=== PATIENT | female | born 1975 | race Caucasian/White ===

== ENCOUNTER → 2023-04-30 | Outpatient (CLI) | payer OTHER, SELFPAY ==
--- NOTE | 2023-04-30 10:53 | US_ITS ---
INDICATION: NAUSEA, GASTROENTERITIS EXAMINATION: Ultrasound US Abdomen Complete TECHNIQUE: Monson-scale and color Doppler imaging was performed of the abdomen. COMPARISON: No relevant prior comparison study available FINDINGS: Limited visualization due to patient body habitus and overlying bowel gas. LIVER: There is moderate increased echogenicity. The liver is prominent in size measuring about 18.2 cm in length. There is suboptimal visualization of the liver. The portal vein is patent with normal hepatopedal flow. No focal hepatic lesion. No intrahepatic biliary ductal dilatation. There is no free fluid. GALLBLADDER AND BILIARY TREE: Status post cholecystectomy. The proximal common bile duct measures 6 mm, which is within normal limits for the patient''s age. SONOGRAPHIC POWERS''S SIGN: Not assessed. PANCREAS: The pancreas is somewhat obscured by bowel gas and not well visualized. SPLEEN: The spleen is normal in size measuring about 10 cm in length and homogeneous in echotexture. KIDNEYS: There is no hydronephrosis. No shadowing calculus, focal lesion, or perinephric collection is demonstrated. The right kidney measures about 11 cm in length. The renal cortex measures 1.3 cm. There is a cyst in the upper pole of the right kidney measuring about 1.5 cm. The left kidney measures 12 cm in length. The renal cortex measures 1.7 cm. No evidence of hydronephrosis. VESSELS: No evidence of abdominal aortic aneurysm. The proximal abdominal aorta measures about 2.2 cm in transverse diameter. The IVC is patent. There is a questionable hypoechoic mass in the aditya hepatis region measuring about 3.7 cm which could represent prominent node. Bowel loops less likely but possible. US/Abdomen Complete IMPRESSION: 1. Fatty infiltration of the liver. 2. Status post cholecystectomy. 3. Questionable hypoechoic mass in the aditya hepatis lesion could represent prominent node or less likely bowel loop. Further evaluation with CT scan of the abdomen with contrast might be of value. Electronically Signed: Jj Sarah MD at 15:53 EST ,
== END | disposition home or self-care (01) ==
PROVIDERS: Referring Provider Internal Medicine; Visit Provider Internal Medicine
DX: K52.9 Noninfective gastroenteritis and colitis, unspecified (principal); R11.0 Nausea; K21.9 Gastro-esophageal reflux disease without esophagitis; K22.70 Barrett's esophagus without dysplasia
CPT/HCPCS: 76700

== ENCOUNTER → 2023-05-11 | Outpatient (CLI) | payer OTHER, SELFPAY ==
[2023-05-11 13:44] LABS: Absolute Lymphocyte Count 4.81 X10^3/uL (0.83-4.51); Absolute Neutrophil Count 7.8 X10^3/uL (2.0-7.7); Basophil# 0.16 X10^3/uL; Basophil% 1.2 % (0-1); Eosinophil# 0.31 X10^3/uL; Eosinophils% 2.2 % (0-5); Hemoglobin 15.2 g/dL (12.0-15.0); Lymphocyte # 4.81 X10^3/ul (0.83-4.51); Lymphocyte % 34.8 % (19-41); Mean Corp Hgb Conc 33.8 g/dL (32-36); Mean Corpuscular Hgb 30.5 pg (27.0-32.0); Mean Corpuscular Volume 90.2 fL (81-99); Mean Platelet Vol. 11.3 fl (6.2-12.0); Monocyte# 0.64 X10^3/uL; Monocyte% 4.6 % (0-10); NRBC Flagged by Analyzer 0 % (0-5); Neutrophil % 56.5 % (47-70); Platelet Count 324 K/mm3 (150-450); RBC Distribution Width CV 13.2 % (11.6-14.6); Red Blood Count 4.99 M/mm3 (4.2-5.4); White Blood Count 13.8 K/mm3 (4.4-11.0)
[2023-05-11 14:11] LABS: ALB/GLOB Ratio 0.8 RATIO (0.9-2.4); AST(SGOT) 74 U/L (15-37); Alanine Aminotransfer ALT/SGPT 56 U/L (13-56); Albumin, Serum 3.5 g/dL (3.2-5.0); Alkaline Phosphatase 153 U/L (45-117); Anion Gap 14 (5-15); BUN 10 mg/dL (7-18); BUN/Creat Ratio 10.2 RATIO (10-20); Calcium,Total 9.5 mg/dL (8.5-10.1); Chloride 102 mmol/L (98-107); Creatinine, Serum 0.98 mg/dL (0.55-1.02); EST Glomerular Filtration Rate 64 mL/min (>60); Est Glom Filt Rate - Afr Amer 77 mL/min (>60); Globulin 4.2 g/dL (2.2-4.2); Glucose 293 mg/dL (74-106); Potassium 4.1 mmol/L (3.5-5.1); Protein, Total 7.7 g/dL (6.4-8.2); Sodium Level 137 mmol/L (136-145)
== END | disposition home or self-care (01) ==
PROVIDERS: Referring Provider Internal Medicine; Visit Provider Internal Medicine
DX: K21.9 Gastro-esophageal reflux disease without esophagitis (principal); K52.9 Noninfective gastroenteritis and colitis, unspecified; R11.0 Nausea; K22.70 Barrett's esophagus without dysplasia
CPT/HCPCS: 36415; 80053; 85025

== ENCOUNTER → 2023-06-30 | Outpatient (CLI) | payer OTHER, SELFPAY ==
--- NOTE | 2023-06-30 08:29 | CT_ITS ---
EXAM: CT ABDOMEN AND PELVIS WITH INTRAVENOUS CONTRAST CLINICAL INDICATION: RUQ PAIN TECHNIQUE: Helically acquired images were obtained of the abdomen and pelvis with intravenous contrast. CTDIvol = ( 16.84 ) mGy, DLP = ( 1272.91 ) mGycm This CT exam was performed using one or more of the following dose reduction techniques: automated exposure control, adjustment of the mA and/or kV according to patient size, and/or use of iterative reconstruction technique. CONTRAST: Oral and amp; IV Readi-CAT and amp; 100mL Isovue-300 COMPARISON: No relevant prior studies available. FINDINGS: LOWER THORAX: Unremarkable. Lung bases are clear. No cardiomegaly. No significant pericardial effusion. ABDOMEN: LIVER: Hepatic steatosis with no focal hepatic lesions. GALLBLADDER AND BILE DUCTS: Prior cholecystectomy. No intra- or extrahepatic biliary ductal dilation. PANCREAS: Unremarkable. No focal cystic or solid mass. SPLEEN: Unremarkable. Normal size without focal cystic or solid mass. ADRENALS: Unremarkable. No nodules. KIDNEYS AND URETERS: Small exophytic cyst of the right upper renal pole. 5 mm left lower renal pole calyceal calculus is nonobstructing. No other renal abnormalities. STOMACH AND BOWEL: Distal colonic diverticulosis but no acute diverticulitis or colitis. No bowel obstruction. PELVIS: APPENDIX: No evidence of acute appendicitis. BLADDER: Unremarkable. REPRODUCTIVE: Unremarkable as visualized. No mass. ABDOMEN and PELVIS: INTRAPERITONEAL SPACE: Unremarkable. No free air or free fluid. BONES/JOINTS: Degenerative changes of the pelvis and spine. No unusual lytic or sclerotic lesions of bone. SOFT TISSUES: Overlying soft tissues are unremarkable. No discrete abdominal or pelvic wall hernia. VASCULATURE: Unremarkable. Abdominal aorta is non-dilated. LYMPH NODES: Unremarkable. No enlarged lymph nodes. CT/Abdomen/Pelvis WITH Contrast IMPRESSION: 1. 5 mm left lower renal pole calyceal calculus is nonobstructing. 2. No acute disease. 3. Ancillary findings as above. Electronically Signed: Parrish Del Castillo MD at 5:03 EDT ,
[2023-06-30 09:00] LABS: CREATININE FINGERSTICK < 1.0 mg/dL (0.55-1.02); EGFR FINGERSTICK > 60.0000 mL/min (>60)
== END | disposition home or self-care (01) ==
LOC: CT 08:27
PROVIDERS: PCP Internal Medicine; Referring Provider Internal Medicine; Visit Provider Internal Medicine
DX: R10.84 Generalized abdominal pain (principal); R10.11 Right upper quadrant pain; K52.9 Noninfective gastroenteritis and colitis, unspecified
CPT/HCPCS: 74177; Q9967

== ENCOUNTER 2024-01-17 11:09 | Emergency (ER) | payer OTHER, SELFPAY ==
[2024-01-17 11:10] VITALS: BP 156/110; PULSE 85; RESP 16; TEMP 35.9; O2SAT 99; BMI 42.5
--- NOTE | 2024-01-17 11:41 | RAD_ITS ---
EXAM: XR CHEST, 2 VIEWS CLINICAL INDICATION: cough TECHNIQUE: Frontal and lateral views of the chest. COMPARISON: No relevant prior studies available. FINDINGS: LUNGS AND PLEURAL SPACES: Unremarkable. No consolidation or edema. No pneumothorax. No effusion. HEART: Unremarkable. Cardiac silhouette not enlarged. MEDIASTINUM: Central airways and mediastinal contour are unremarkable. BONES/JOINTS: Moderate old anterior compression fracture of the upper T11 vertebral body and minimal old anterior wedging of the T12 superior endplate. SOFT TISSUES: Unremarkable. RAD/Chest PA and Lateral IMPRESSION: 1. No acute findings in the chest. 2. Moderate old anterior wedge compression fracture of the upper T11 vertebral body and minimal old anterior wedging of the T12 superior endplate. Electronically Signed: Stewart Barboza MD at 12:35 EST ,
--- NOTE | 2024-01-17 11:41 | RAD_ITS ---
EXAM: XR RIGHT FOOT COMPLETE, 3 OR MORE VIEWS CLINICAL INDICATION: Right foot swelling due to wound. History of psoriasis and diabetes. TECHNIQUE: Frontal, lateral and oblique views of the right foot. COMPARISON: No relevant prior studies available. FINDINGS: BONES/JOINTS: Small posterior plantar calcaneal spur. No acute fracture. No subluxation. Normal alignment. Preservation of the joint space. No sclerotic or destructive changes observed. SOFT TISSUES: Soft tissue swelling around the forefoot. No radiopaque foreign body. RAD/Foot min 3 Views IMPRESSION: No acute osseous abnormality of the right foot. Electronically Signed: Stewart Barboza MD at 12:34 EST ,
--- NOTE | 2024-01-17 11:48 | EDS_ITS ---
HPI <JAMEEL Johnson - Last Filed: 01/17/24 13:14> History of Present Illness Chief Complaint: Lower Extremity Injury Narrative Narrative: Patient is a 48-year-old female with history of pustule psoriasis, gout, obesity, diabetes who takes insulin presenting to the emergency department for multiple complaints. Patient states that her pustular psoriasis is getting worse on the palm of her hands as well as the soles of her feet. She also has swelling and pain to the right great toe. Patient does have history of recent trauma to her foot with broken fourth and fifth toes. She states that the swelling is getting worse. She also is concerned that she has a cough that is not going away as well as her right ear pain. She denies any nausea or vomiting. [facility] <JAMEEL Johnson - Last Filed: 01/17/24 13:14> [facility] Medical History (Updated 01/19/24 @ 12:[address] Casimiro Kelly MD) Cellulitis Chest pain Psoriasis GERD (gastroesophageal reflux disease) Liver disease Head ache Gout Asthma Arthritis Home Medications ?Medication ?Instructions ?Recorded ?Last Taken ?Type insulin glargine 100 unit/mL (3 20 unit (0.2 mL) subcut ONCE #18 mL 06/16/23 Unknown Rx mL) subcutaneous pen (Lantus Solostar U-100 Insulin) lorazepam 0.5 mg tablet 0.5 mg PO DAILY PRN anxiety 06/16/23 Unknown History pen needle, diabetic 31 gauge x #100 ea 06/16/23 Unknown Rx 1/4 (CareFine Pen Needle) compress.stocking,knee,reg,lrg #2 ea 07/23/23 Unknown Rx tirzepatide 7.5 mg/0.5 mL 7.5 mg (0.5 mL) subcut QWEEK #2 mL 12/23/23 Unknown Rx subcutaneous pen injector (Mounjaro) tirzepatide 5 mg/0.5 mL 5 mg (0.5 mL) subcut QWEEK #2 mL 01/12/24 Unknown Rx subcutaneous pen injector (Mounjaro) colchicine 0.6 mg tablet 0.6 mg PO DAILY #4 tabs 01/17/24 Unknown Rx doxycycline hyclate 100 mg capsule 100 mg PO BID #14 caps 01/17/24 Unknown Rx cephalexin 500 mg tablet 500 mg PO TID #21 tabs 01/19/24 Unknown Rx methylprednisolone 4 mg tablets in See Rx Instructions PO PER PKG DIR 01/19/24 Unknown Rx a dose pack (Medrol (Jony)) #21 tabs Allergy/AdvReac Type Severity Reaction Status Date / Time empagliflozin (From Allergy Severe Vomiting Verified 01/19/24 09:53 Jardiance) metformin AdvReac Severe Kidney Verified 01/19/24 09:53 Stones/High Uric Acid semaglutide (From Rybelsus) AdvReac Severe Nausea Verified 01/19/24 09:53 Family History Mother Arthritis Heart disease Psoriasis Cancer lymphoma, Hypercholesterolemia Hypertension Depression Grandmother Arthritis Heart disease Hypercholesterolemia Hypertension Depression Psychiatric care Mental disorder Grandmother Diabetes type 2 Grandfather Depression Mental disorder Psychiatric care Other Anxiety Asthma Autoimmune disorder Liver disease Suicide attempt Surgical History H/O skin graft History of cholecystectomy Social History household members: none housing: house current occupational status: employed 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 Positive right ear pain Cardiovascular: Negative for any chest pain, tightness, palpitations Respiratory: Negative for any sputum production, hemoptysis, dyspnea, dyspnea on exertion, orthopnea. Positive for cough Gastrointestinal: Negative for any abdominal pain, nausea, vomiting, diarrhea, constipation, blood in stool, blood in vomit : Negative for any urinary frequency, dysuria, retention, blood in urine. Positive right great toe pain Muscle skeletal: Negative for any neck pain, back pain Neurological: Negative for any headache, syncope, dizziness Skin: Negative for any itching, abrasions, lacerations. Positive for rash, psoriasis to palms of hands, soles of feet Psychiatric: Negative for any depression, anxiety, stress, suicidal ideation, homicidal ideation Hematologic: Negative for any excessive bruising, easy bleeding EXAM <JAMEEL Johnson - Last Filed: 01/17/24 13:14> Physical Exam Narrative Exam Narrative: Vital signs reviewed. HEET: Head normocephalic atraumatic, right TM is slightly erythematous however no bulging. Left TM normal. Posterior pharynx is clear, moist mucous membranes. Nares clear bilaterally. Neck: Supple with no lymphadenopathy or tenderness. No signs of meningismus. Cardiac: Regular rate and rhythm no murmurs gallops or rubs, equal peripheral pulses bilaterally. Respiratory: Lungs clear to auscultation bilaterally. No chest tenderness. Abdomen: Soft, nontender, nondistended. No abdominal bruit or pulsatile masses. No hepatosplenomegaly Extremities: Patient does have some erythema to the right great toe, patient d oes have the pustular psoriasis to both feet, patient is have pain on palpation. +2 pedal pulse. Right foot is more edematous. Pain on palpation. Active full range of motion of all extremities. Neuro: Cranial nerves II through XII intact, no focal neurological deficits. Skin: Clean dry and intact with no rash, purpura, petechiae. Positive for pustule psoriasis to both feet, both hands Backs/flank: No CVA tenderness, no midline spinal tenderness, no deformity. Psych: Normal mood and affect. No SI, HI or acute psychosis. Const Vital Signs: 01/17/24 11:10 Temperature 96.7 F L Temperature Source Temporal Pulse Rate 85 Respiratory Rate 16 Blood Pressure 156/110 H Blood Pressure Mean 125 Pulse Ox 99 Oxygen Delivery Method Room Air Positive well nourished and well developed General Appearance ED: well developed <Dr. Gege Church DO - Last Filed: 01/20/24 00:19> Physical Exam Const Vital Signs: 01/17/24 11:10 Temperature 96.7 F L Temperature Source Temporal Pulse Rate 85 Respiratory Rate 16 Blood Pressure 156/110 H Blood Pressure Mean 125 Pulse Ox 99 Oxygen Delivery Method Room Air MDM <Miguel Angel Diaz, [facility] - Last Filed: 01/17/24 13:14> [facility] Lab Data Labs: Laboratory Results - last 24 hr 01/17/24 12:02 WBC 15.3 H RBC 4.37 Hgb 13.0 Hct 39.3 MCV 89.9 MCH 29.7 MCHC 33.1 RDW Std Deviation 44.1 H RDW Coeff of Dale 13.5 Plt Count 349 MPV 9.9 Immature Gran % (Auto) 1.400 H Neut % (Auto) 68.2 Lymph % (Auto) 23.4 [place] % (Auto) 4.6 Eos % (Auto) 1.5 Baso % (Auto) 0.9 Absolute Neuts (auto) 10.4 H Absolute Lymphs (auto) 3.57 Nucleated RBC % 0 ESR 11 Sodium 139 Potassium 4.1 Chloride 109 H Carbon Dioxide 25.0 Anion Gap 6 BUN 13 Creatinine 1.21 H Estim Creat Clear Calc 61.03 Est GFR (MDRD) Af Amer 60 Est GFR (MDRD) Non-Af 50 L BUN/Creatinine Ratio 10.7 Glucose 134 H Calcium 9.6 C-React Prot Ext Range 11.30 H Radiography Diagnostic Testing: Clinical Impression(s) from Imaging Studies Chest X-Ray 01/17/24 11:41 IMPRESSION: 1. No acute findings in the chest. 2. Moderate old anterior wedge compression fracture of the upper T11 vertebral body and minimal old anterior wedging of the T12 superior endplate. Electronically Signed: Stewart Barboza MD at 12:35 EST , Foot X-Ray 01/17/24 11:41 IMPRESSION: No acute osseous abnormality of the right foot. Electronically Signed: Stewart Barboza MD at 12:34 EST , Treatment and Re-Evaluation :: Differential diagnosis includes however is not limited to: Psoriasis, cellulitis, gout, pneumonia, otitis externa, elevated blood sugar Patient appears generally well, vital signs are stable, patient is nontoxic- appearing. Presenting to the emergency department multiple complaints. Patient is here for her psoriasis on her feet and hands, erythema to the right great toe, cough as well as right ear pain. Patient will receive x-rays of the chest, right foot. Patient was using basic laboratory values CBC, BMP as well as CRP and sed rate. All radiologic examinations were read, reviewed by the emergency department attending. From these reads, a plan of care will be put in place. Patient CBC does show a leukocytosis with a white blood count of 15.3, however patient states this is chronic for her, patient's chemistries show creatinine 1.2, glucose 134, CRP is 11.3 which would be elevated with gout, as well as a se d rate that is negative. Patient's chest x-ray showed no acute process. Foot x-ray shows no acute osseous abnormality. At this time, patient given 1.2 mg of colchicine here, she will be given 0.6 mg for next 3 days. She will continue take NSAIDs. Patient will be given a watch and wait prescription of doxycycline. She will be given referrals to podiatry as well as dermatology. She is instructed to continue to follow-up. At this time, is no evidence of any deep tissue infection, osteomyelitis. Patient is agreeable with this plan, instructed return for any worsening symptoms, stable for discharge. <Dr. Gege Church, DO - Last Filed: 01/20/24 00:19> [facility] Lab Data Labs: Laboratory Results - last 24 hr 01/17/24 12:02 WBC 15.3 H RBC 4.37 Hgb 13.0 Hct 39.3 MCV 89.9 MCH 29.7 MCHC 33.1 RDW Std Deviation 44.1 H RDW Coeff of Dale 13.5 Plt Count 349 MPV 9.9 Immature Gran % (Auto) 1.400 H Neut % (Auto) 68.2 Lymph % (Auto) 23.4 [place] % (Auto) 4.6 Eos % (Auto) 1.5 Baso % (Auto) 0.9 Absolute Neuts (auto) 10.4 H Absolute Lymphs (auto) 3.57 Nucleated RBC % 0 ESR 11 Sodium 139 Potassium 4.1 Chloride 109 H Carbon Dioxide 25.0 Anion Gap 6 BUN 13 Creatinine 1.21 H Estim Creat Clear Calc 61.03 Est GFR (MDRD) Af Amer 60 Est GFR (MDRD) Non-Af 50 L BUN/Creatinine Ratio 10.7 Glucose 134 H Calcium 9.6 C-React Prot Ext Range 11.30 H Radiography Diagnostic Testing: Clinical Impression(s) from Imaging Studies Chest X-Ray 01/17/24 11:41 IMPRESSION: 1. No acute findings in the chest. 2. Moderate old anterior wedge compression fracture of the upper T11 vertebral body and minimal old anterior wedging of the T12 superior endplate. Electronically Signed: Stewart Barboza MD at 12:35 EST , Foot X-Ray 01/17/24 11:41 IMPRESSION: No acute osseous abnormality of the right foot. Electronically Signed: Stewart Barboza MD at 12:34 EST , Treatment and Re-Evaluation :: Differential diagnosis includes however is not limited to: Psoriasis, cellulitis, gout, pneumonia, otitis externa, elevated blood sugar Patient appears generally well, vital signs are stable, patient is nontoxic- appearing. Presenting to the emergency department multiple complaints. Patient is here for her psoriasis on her feet and hands, erythema to the right great toe, cough as well as right ear pain. Patient will receive x-rays of the chest, right foot. Patient was using basic laboratory values CBC, BMP as well as CRP and sed rate. All radiologic examinations were read, reviewed by the emergency department attending. From these reads, a plan of care will be put in place. Patient CBC does show a leukocytosis with a white blood count of 15.3, however patient states this is chronic for her, patient's chemistries show creatinine 1.2, glucose 134, CRP is 11.3 which would be elevated with gout, as well as a sed rate that is negative. Patient's chest x-ray showed no acute process. Foot x-ray shows no acute osseous abnormality. At this time, patient given 1.2 mg of colchicine here, she will be given 0.6 mg for next 3 days. She will continue take NSAIDs. Patient will be given a watch and wait prescription of doxycycline. She will be given referrals to podiatry as well as dermatology. She is instructed to continue to follow-up. At this time, is no evidence of any deep tissue infection, osteomyelitis. Patient is agreeable with this plan, instructed return for any worsening symptoms, stable for discharge. I have personally performed a face to face assessment of the patient and have reviewed the RICARDO Note. I performed a substantive portion of the visit including all aspects of the following. My lawson findings include: History is Patient is a 48-year-old female with history of pustular psoriasis as well as gout, well-controlled type 2 diabetes mellitus and GERD presenting with worsening rash to her hands and her feet as well as increased pain, redness and swelling over her right first MTP. She notes she did have an injury to her foot about a week ago with bruising around her second and third toes. She has been on medication for psoriasis but it was back in 2012 and has not followed up with dredge captain in the last 10 years. Finally she is complaining of cough as well as right ear pain. Patient overall is well-appearing. She does have skin changes to the hands and feet with petechia and pustules consistent with her pustular psoriasis. She has a localized area erythema, swelling and tenderness over her right first MTP joint. She has some pain with range of motion. There is no associated lymphangitic streaking or fluctuance. I think this is most consistent with gout. X-ray reviewed by myself as well as radiology does not show any acute osseous abnormality or fracture. Patient does have some mild irritation noted to the right panic membrane. Suspect she has a viral syndrome given her constellation of cough and ear pain. X-ray of the chest reviewed by myself as well as radiology does not show any acute process. Patient will be placed on a course of colchicine for her gout. While I suspect this is gout it is possible this could be an early cellulitis. She is given a [id number] prescription for doxycycline in case she develops worsening pain, lymphangitic streaking, fever or other signs of a cellulitis. She is agreeable with this. She is given referral for dermatology as well as podiatry however she is given referral for these doctors in the [facility] as that is where she lives. Other additions or changes: [None] Discharge Plan Triage Chief Complaint: Lower Extremity Injury ED Midlevel Provider: Miguel Angel Diaz ED Provider: Gege Church Dx/Rx/DC Orders Clinical Impression: Gout, Psoriasis Instructions: ED Gout, ED Psoriasis, ED Gout Diet Prescriptions: New colchicine 0.6 mg tablet 0.6 mg PO DAILY Qty: 4 0RF doxycycline hyclate 100 mg capsule 100 mg PO BID Qty: 14 0RF No Action (DME) compress.stocking,knee,reg,lrg Misc See Rx Instructions .MEDSUPPLY Qty: 2 1RF Rx Instructions: wear daily for venous insufficiency 20-30 mmHg lorazepam 0.5 mg tablet 0.5 mg PO DAILY PRN (Reason: anxiety) insulin glargine [Lantus Solostar U-100 Insulin] 100 unit/mL (3 mL) insulin pen 20 unit subcut ONCE Qty: 18 1RF (DME) pen needle, diabetic [CareFine Pen Needle] 31 gauge x 1/4 needle See Rx Instructions .Route Qty: 100 1RF Rx Instructions: once daily Mounjaro 7.5 mg/0.5 mL pen injector 7.5 mg subcut QWEEK Qty: 2 3RF Patient Comments: TO BEGIN TAKING 02/07/24 methylprednisolone [Medrol (Jony)] 4 mg tablets,dose pack See Rx Instructions PO PER PKG DIR Qty: 21 0RF Rx Instructions: PO PER PKG DIR for 6 days cephalexin 500 mg tablet 500 mg PO TID Qty: 21 0RF Mounjaro 5 mg/0.5 mL pen injector 5 mg subcut QWEEK Qty: 2 0RF Primary Care Provider: Casimiro Kelly Referrals: Casimiro Kelly MD [Primary Care Provider] - Activity Restrictions/Additional Instructions: Dr. Dayne Ramos [address], [place], [place], [address] [phone] Print Language: [place] Disposition Disposition: Home, Self Care Discharge Date/Time: 01/17/24 13:57
[2024-01-17 12:18] LABS: Erythrocyte Sedimentation Rate 11 mm/hr (0-30)
[2024-01-17 12:21] LABS: Absolute Lymphocyte Count 3.57 X10^3/uL (0.83-4.51); Absolute Neutrophil Count 10.4 X10^3/uL (2.0-7.7); Basophil# 0.13 X10^3/uL; Basophil% 0.9 % (0-1); Eosinophil# 0.23 X10^3/uL; Eosinophils% 1.5 % (0-5); Hematocrit 39.3 % (37-47); Lymphocyte # 3.57 X10^3/ul (0.83-4.51); Lymphocyte % 23.4 % (19-41); Mean Corp Hgb Conc 33.1 g/dL (32-36); Mean Corpuscular Hgb 29.7 pg (27.0-32.0); Mean Corpuscular Volume 89.9 fL (81-99); Mean Platelet Vol. 9.9 fl (6.2-12.0); Monocyte% 4.6 % (0-10); NRBC Flagged by Analyzer 0 % (0-5); Neutrophil # 10.43 X10^3/uL (2.7-7.7); Neutrophil % 68.2 % (47-70); Platelet Count 349 K/mm3 (150-450); RBC Distribution Width CV 13.5 % (11.6-14.6); RBC Distribution Width SD 44.1 fl (35.1-43.9); Red Blood Count 4.37 M/mm3 (4.2-5.4); White Blood Count 15.3 K/mm3 (4.4-11.0)
[2024-01-17 12:48] LABS: Anion Gap 6 (5-15); BUN 13 mg/dL (7-18); BUN/Creat Ratio 10.7 RATIO (10-20); Calcium,Total 9.6 mg/dL (8.5-10.1); Chloride 109 mmol/L (98-107); Creatinine, Serum 1.21 mg/dL (0.55-1.02); EST Glomerular Filtration Rate 50 mL/min (>60); Est Glom Filt Rate - Afr Amer 60 mL/min (>60); Estimated Creatinine Clearance 61.03 ml/min; Glucose 134 mg/dL (74-106); Potassium 4.1 mmol/L (3.5-5.1); Sodium Level 139 mmol/L (136-145)
[2024-01-17] MEDS: Colchicine 0.6 MG TABLET 1.2 MG PO (13:52)
== END 2024-01-17 13:57 | disposition home or self-care (01) ==
PROVIDERS: Nurse Practitioner; Emergency Provider Emergency Medicine; PCP Internal Medicine; Visit Provider Emergency Medicine
DX: M10.9 Gout, unspecified (principal); E11.9 Type 2 diabetes mellitus without complications; Z79.4 Long term (current) use of insulin; L40.9 Psoriasis, unspecified; F17.200 Nicotine dependence, unspecified, uncomplicated; Z79.85 Long-term (current) use of injectable non-insulin antidiabetic drugs; Z90.49 Acquired absence of other specified parts of digestive tract
CPT/HCPCS: 71046; 73630; 80048; 85025; 85652; 86140; 99283

== ENCOUNTER → 2024-03-01 | Outpatient (CLI) | payer OTHER, SELFPAY ==
[2024-03-01 11:30] LABS: Absolute Lymphocyte Count 4.48 X10^3/uL (0.83-4.51); Absolute Neutrophil Count 9.5 X10^3/uL (2.0-7.7); Basophil# 0.11 X10^3/uL; Basophil% 0.7 % (0-1); Eosinophil# 0.37 X10^3/uL; Eosinophils% 2.4 % (0-5); Hemoglobin 14.4 g/dL (12.0-15.0); Lymphocyte # 4.48 X10^3/ul (0.83-4.51); Lymphocyte % 29.3 % (19-41); Mean Corp Hgb Conc 34.3 g/dL (32-36); Mean Corpuscular Volume 87.5 fL (81-99); Mean Platelet Vol. 10.2 fl (6.2-12.0); Monocyte# 0.78 X10^3/uL; Monocyte% 5.1 % (0-10); NRBC Flagged by Analyzer 0 % (0-5); Neutrophil # 9.46 X10^3/uL (2.7-7.7); Platelet Count 421 K/mm3 (150-450); RBC Distribution Width CV 13.7 % (11.6-14.6); RBC Distribution Width SD 43.6 fl (35.1-43.9); White Blood Count 15.3 K/mm3 (4.4-11.0)
[2024-03-01 11:41] LABS: Erythrocyte Sedimentation Rate 5 mm/hr (0-30)
[2024-03-01 12:13] LABS: ALB/GLOB Ratio 0.8 RATIO (0.9-2.4); AST(SGOT) 13 U/L (15-37); Alanine Aminotransfer ALT/SGPT 24 U/L (13-56); Albumin, Serum 3.3 g/dL (3.2-5.0); Alkaline Phosphatase 135 U/L (45-117); Anion Gap 6 (5-15); BUN 11 mg/dL (7-18); CRP 4.53 mg/L (0.0-3.0); Calcium,Total 9.4 mg/dL (8.5-10.1); Chloride 106 mmol/L (98-107); Cholesterol 239 mg/dL (200); EST Glomerular Filtration Rate 62 mL/min (>60); Est Glom Filt Rate - Afr Amer 75 mL/min (>60); Glucose 112 mg/dL (74-106); High Density Lipoprotein 35 mg/dL; Potassium 4.3 mmol/L (3.5-5.1); Protein, Total 7.3 g/dL (6.4-8.2); Rheumatoid Factor < 10.0 IU/mL (<15); Sodium Level 138 mmol/L (136-145); Triglycerides 455 mg/dL; Uric Acid 8.5 mg/dL (2.6-6.0)
[2024-03-02 10:08] LABS: ANTINUCLEAR ANTIBODIES DIRECT Negative (Negative)
[2024-03-02 13:07] LABS: CCP IgG Antibodies 2 units (0-19)
== END | disposition home or self-care (01) ==
LOC: LAB 10:12
PROVIDERS: PCP Internal Medicine; Referring Provider Internal Medicine; Visit Provider Internal Medicine
DX: I10 Essential (primary) hypertension (principal); E11.29 Type 2 diabetes mellitus with other diabetic kidney complication; M10.9 Gout, unspecified; R80.9 Proteinuria, unspecified; M19.90 Unspecified osteoarthritis, unspecified site; L40.9 Psoriasis, unspecified
CPT/HCPCS: 36415; 80053; 80061; 84439; 84443; 84550; 85025; 85652; 86038; 86140; 86200; 86431

== ENCOUNTER → 2024-03-06 | Outpatient (CLI) | payer OTHER, SELFPAY ==
[2024-03-06 13:33] LABS: Mucous, Urine 0 SEEN /hpf (<or=2+)
[2024-03-06 14:10] LABS: Color, Urine Yellow (Yellow); Glucose, Dipstick Normal (Normal); Ketone-Dipstick 5 mg/dl (Negative); Leukocyte Esterase-Dipstick 25 /ul (Negative); Nitrite-Dipstick Negative (Negative); Occult Blood-Urine 250 /ul (Negative); Protein-Dipstick 30 mg/dl (Negative); Specific Gravity, Urine 1.025 (1.002-1.030); Urine Clarity Cloudy (Clear); Urine Urobilinogen 1 mg/dl (Normal)
[2024-03-06 14:18] LABS: Urine Bilirubin Dipstick 1 mg/dL (Negative)
[2024-03-06 14:28] LABS: Bacteria 3+ /hpf (None Seen); Red Blood Cells-Urine > 100 SEEN /hpf (0-5); Squamous Epithelial Cells - UA 10-25 SEEN /hpf (5-10); White Blood Cells 5-10 SEEN /hpf (0-5)
[2024-03-06 14:30] LABS: Hyaline Cast 0-5 SEEN /lpf (0-5)
== END | disposition home or self-care (01) ==
LOC: LAB 13:31
PROVIDERS: PCP Internal Medicine; Referring Provider Internal Medicine; Visit Provider Internal Medicine
DX: R31.9 Hematuria, unspecified (principal)

== ENCOUNTER 2024-04-19 06:27 | Inpatient (IN) | payer OTHER, SELFPAY ==
[2024-04-19] VITALS (19 sets, daily range): BP systolic 92–172; BP diastolic 60–119; PULSE 61–96; RESP 16–20; TEMP 36.5–36.8; O2SAT 92–100; BMI 43.0
--- NOTE | 2024-04-19 06:38 | EDS_ITS ---
HPI <Dr. Anibal Street DO - Last Filed: 04/19/24 07:21> History of Present Illness Chief Complaint: Chest Pain Informant: patient Onset/Context/Timing Onset: Today Activity at onset: sudden Timing: Continuous Quality: Positive for Heaviness and Tightness Location: Substernal and Left Parasternal Worsened By: Exertion Relieved By: Rest Associated Symptoms: Positive for Nausea, Diaphoresis, Cough, Lightheadedness and Palpitations; Negative for Vomiting, Dyspnea, Fever or Acid Reflux Narrative Narrative: Patient presents with chest pain that began this morning. Patient states she had some discomfort in her chest over the past couple days. Patient states she woke up today with tightness and heaviness over the substernal area. Patient states the pain radiates into her left arm, jaw, and back. Patient states her pain is worse with any exertion and movement. Patient states it is better with rest. Patient admits to some nausea but denies any vomiting. Patient admits to some diaphoresis. Patient admits to a cough but denies any shortness of breath. Patient admits to some lightheadedness and a sensation of her heart racing. CVD Risk Factors: Positive for Hypertension, Diabetes, Hypercholesterolemia and Smoking; Negative for Family History 1' </=55 PE Risk Factors: Negative for Recent Travel/Surgery, Recent Immobilization, Prior DVT or PE, Cancer or OCP + Smoking + >/=35 PFSH <Dr. Anibal Street DO - Last Filed: 04/19/24 07:21> PFSH Medical History (Updated 04/19/24 @ 07:[address] Anibal Street DO) CKD (chronic kidney disease) stage 2, GFR 60-89 ml/min Type II diabetes mellitus Hypertension Obesity Blood in urine Cellulitis Chest pain Psoriasis GERD (gastroesophageal reflux disease) Liver disease Head ache Gout Asthma Arthritis Home Medications ?Medication ?Instructions ?Recorded ?Last Taken ?Type lorazepam 0.5 mg tablet 0.5 mg PO DAILY PRN anxiety 06/16/23 Unknown History compress.stocking,knee,reg,lrg #2 ea 07/23/23 Unknown Rx insulin glargine 100 unit/mL (3 20 unit (0.2 mL) subcu t ONCE #18 mL 02/04/24 Unknown Rx mL) subcutaneous pen (Lantus Solostar U-100 Insulin) pen needle, diabetic 31 gauge x #100 ea 02/04/24 Unkno wn Rx 1/4 (CareFine Pen Needle) ondansetron 4 mg disintegrating 4 mg PO Q8H PRN nausea and 03/09/24 Unknown Rx tablet vomiting #20 tabs Allergy/AdvReac Type Severity Reaction Status Date / Time empagliflozin (From Allergy Severe Vomiting Verified 04/19/24 06:28 Jardiance) tirzepatide (From Mounjaro) Allergy Severe Nausea/Vom/ Verified 04/19/24 06:28 Diarrhea metformin AdvReac Severe Kidney Verified 04/19/24 06:28 Stones/High Uric Acid semaglutide (From Rybelsus) AdvReac Severe Nausea Verified 04/19/24 06:28 Family History Mother Arthritis Heart disease Psoriasis Cancer lymphoma, Hypercholesterolemia Hypertension Depression Grandmother Arthritis Heart disease Hypercholesterolemia Hypertension Depression Psychiatric care Mental disorder Grandmother Diabetes type 2 Grandfather Depression Mental disorder Psychiatric care Other Anxiety Asthma Autoimmune disorder Liver disease Suicide attempt Surgical History H/O skin graft History of cholecystectomy Social History household members: none housing: house current occupational status: employed current occupation: [employer] Smoking Status: Light Smoker (<10/day) Tobacco: How many years used: 30 alcohol intake: never substance use type: does not use well-balanced diet: other details: keto, no soda caffeine: No what type of physical activity do you participate in: other details: Infrequent seatbelt use: always do you feel safe at home: Yes ROS <Dr. Anibal Street, DO - Last Filed: 04/19/24 07:21> ROS ED Constitutional Constitutional ED: Reports sweats; Denies chills or fever(s) Eyes Eyes: Denies blurry vision or change in vision ENT ENT ED: Denies rhinorrhea or sore throat Cardiovascular Cardiovascular: Reports chest pain, palpitations and racing heartbeat Respiratory/Chest Respiratory/Chest: Reports cough; Denies dyspnea Gastrointestinal Gastrointestinal: Reports nausea; Denies abdominal pain or vomiting Genitourinary Genitourinary ED: Reports dysuria; Denies hematuria Musculoskeletal Musculoskeletal: Reports back pain; Denies neck pain Integumentary Reports rash; Denies abscess Neurologic Neurologic: Reports headache(s); Denies weakness Allergic/Immunologic Allergic/Immunologic ED: Denies mouth swelling or urticaria EXAM <Dr. Anibal Street, DO - Last Filed: 04/19/24 07:21> Physical Exam Const Vital Signs: 04/19/24 06:27 04/19/24 06:27 04/19/24 06:53 Temperature 97.9 F Temperature Source Oral Pulse Rate 96 Respiratory Rate 20 H Respiratory Effort Normal Blood Pressure 172/119 H Blood Pressure Mean 136 Pulse Ox 98 98 Oxygen Delivery Method Room Air 04/19/24 07:02 04/19/24 07:11 04/19/24 07:27 Temperature Temperature Source Pulse Rate 86 95 77 Respiratory Rate 16 Respiratory Effort Blood Pressure 143/99 H 126/86 H 130/86 H Blood Pressure Mean 100 Pulse Ox 99 Oxygen Delivery Method Room Air 04/19/24 08:00 Temperature Temperature Source Pulse Rate 76 Respiratory Rate 18 Respiratory Effort Blood Pressure 146/100 H Blood Pressure Mean 115 Pulse Ox 99 Oxygen Delivery Method Room Air Positive well nourished and well developed Constitutional Narrative: BMI is 43.0 General Appearance ED: well developed and NAD HEENT Reports moist mucous membranes Neck supple and no JVD Chest Wall Chest Narrative: There is tenderness over the sternum but this does not reproduce the patient's symptoms. This is different. Resp normal respiratory effort and clear to auscultation bilaterally Cardio regular rate and regular rhythm GI soft to palpation, non-tender and non-distended Extremity normal to inspection General Extremety ED: Negative for edema or tenderness General Extremity: Negative for edema Neuro oriented x3, CN's II-XII intact bilaterally and no sensory deficits noted Sensorium / Orientation: awake and alert Motor Exam: strength 5/5 throughout Psych mental status grossly normal <Dr. Eddy Schmitt, DO - Last Filed: 04/19/24 08:49> Physical Exam Const Vital Signs: 04/19/24 06:27 04/19/24 06:27 04/19/24 06:53 Temperature 97.9 F Temperature Source Oral Pulse Rate 96 Respiratory Rate 20 H Respiratory Effort Normal Blood Pressure 172/119 H Blood Pressure Mean 136 Pulse Ox 98 98 Oxygen Delivery Method Room Air 04/19/24 07:02 04/19/24 07:11 04/19/24 07:27 Temperature Temperature Source Pulse Rate 86 95 77 Respiratory Rate 16 Respiratory Effort Blood Pressure 143/99 H 126/86 H 130/86 H Blood Pressure Mean 100 Pulse Ox 99 Oxygen Delivery Method Room Air 04/19/24 08:00 Temperature Temperature Source Pulse Rate 76 Respiratory Rate 18 Respiratory Effort Blood Pressure 146/100 H Blood Pressure Mean 115 Pulse Ox 99 Oxygen Delivery Method Room Air <Dr. Anibal Street, DO - Last Filed: 04/19/24 07:21> Heart Score History: Moderately Suspicious ECG: Nonspecific Repolarization Age: >45 - <65 years Risk Factors: >/= 3 Risk Factors or History of CAD Score: 5 <Dr. Eddy Schmitt, DO - Last Filed: 04/19/24 08:49> Heart Score Score: 5 MDM <Dr. Anibal Street, DO - Last Filed: 04/19/24 07:21> MDM MDM Narrative Medical decision making narrative: Differential diagnosis includes cardiac dysrhythmia, cardiac ischemia, electrolyte abnormality, urinary tract infection, pneumonia, bronchitis, pulmonary embolism, gastroesophageal reflux disease, and anxiety. EKG will be obtained to assess for cardiac dysrhythmia and cardiac ischemia. Chest x-ray will be obtained to assess for pneumonia and bronchitis. CBC will be obtained to assess for leukocytosis and anemia. Basic metabolic profile will be obtained to assess for electrolyte abnormality and renal function. High-sensitivity troponin will be obtained to assess for cardiac ischemia. 2-hour repeat high- sensitivity troponin will be obtained to assess for ongoing cardiac ischemia. D-dimer will be obtained to assess for pulmonary embolism. Lab Data Attestation: I reviewed the patient's lab results. Lab results narrative: CBC was reviewed. There is a leukocytosis of 16.6. The remainder is within normal limits. Labs: Laboratory Results - last 24 hr 04/19/24 04/19/24 06:32 06:37 WBC 16.6 H RBC 4.95 Hgb 14.9 Hct 44.4 MCV 89.7 MCH 30.1 MCHC 33.6 RDW Std Deviation 45.6 H RDW Coeff of [place] 13.8 Plt Count 403 MPV 10.5 Immature Gran % (Auto) 0.500 Neut % (Auto) 66.7 Lymph % (Auto) 24.5 [place] % (Auto) 4.8 Eos % (Auto) 2.4 Baso % (Auto) 1.1 H Absolute Neuts (auto) 11.1 H Absolute Lymphs (auto) 4.07 Nucleated RBC % 0 D-Dimer Quant (PE/DVT) < 0.27 L Sodium 138 Potassium 4.4 Chloride Direct 104 Carbon Dioxide 19.1 L Anion Gap 15 BUN 11 Creatinine 0.8 Estim Creat Clear Calc 91.88 Est GFR (MDRD) Non-Af 88 BUN/Creatinine Ratio 13.9 Glucose 208 H Calcium 9.5 Troponin T High Sens 52 H Radiography Diagnostic Testing: Clinical Impression(s) from Imaging Studies Chest X-Ray 04/19/24 06:53 IMPRESSION: No focal infiltrate or consolidation is seen within the lungs. No pneumothorax. Reading Location: [facility] EKG Initial EKG: Attestation: I personally reviewed and interpreted this EKG as follows: Interpretation: Sinus Rhythm (94), No Acute Injury Pattern, LAFB and Non- Specific ST Changes Comments: EKG was obtained. On my independent interpretation, shows normal sinus rhythm with a rate of 94. [place] interval was normal at 160 ms. QRS interval was normal at 104 ms. QTc interval is normal at 475 ms. There is left axis deviation of -54. There is a left anterior fascicular block pattern noted. There is left ventricular hypertrophy with strain pattern noted. There is no acute ST or T wave changes noted. Prior EKG tracings: not available for review Prior: No Prior Treatment and Re-Evaluation :: Patient was given aspirin and nitroglycerin. Patient has an initial HEART score of 5. Patient will likely need admission for chest pain evaluation. Care of the patient was turned over the oncoming physician pending lab results, x-ray results, and medication results. <Dr. Eddy Schmitt, DO - Last Filed: 04/19/24 08:49> [facility] Narrative Medical decision making narrative: Differential diagnosis includes cardiac dysrhythmia, cardiac ischemia, electrolyte abnormality, urinary tract infection, pneumonia, bronchitis, pulmonary embolism, gastroesophageal reflux disease, and anxiety. EKG will be obtained to assess for cardiac dysrhythmia and cardiac ischemia. Chest x-ray will be obtained to assess for pneumonia and bronchitis. CBC will be obtained to assess for leukocytosis and anemia. Basic metabolic profile will be obtained to assess for electrolyte abnormality and renal function. High-sensitivity troponin will be obtained to assess for cardiac ischemia. 2-hour repeat high- sensitivity troponin will be obtained to assess for ongoing cardiac ischemia. D-dimer will be obtained to assess for pulmonary embolism. Addendum Eddy Schmitt DO Patient case signed out to me to follow-up on the rest of the workup. Patient's CBC showed a leukocytosis of 16,000, hemoglobin 14.9, platelet count normal at 403. Patient D-dimer was less than 0.27. Patient sodium was normal at 138, potassium was 4.4, creatinine normal at 0.8. Patient's troponin was noted be elevated 52 with delta troponins pending. patient chest x-ray reviewed by myself by radiology showed no acute cardiopulmonary processes. On reevaluation the patient she states that her pain significantly improved with the nitroglycerin. I reached out to on-call cardiology Dr. Magana who states that the patient will need admitted for further workup of her chest pain. Will discuss case with hospitalist for admission. Patient be made n.p.o. Discussed case with hospitalist Dr. Cornelius who accept patient for admission. I notified the patient and she is aware this plan she is agreeable to plan all question concerns answered bedside. At 8:[address] Magana came down and evaluated the patient at bedside he is recommending the patient be taken to the [facility] and states that her symptoms are returning and recommending a inch of Nitropaste to be ordered which was ordered as well as a heparin drip which was ordered. Lab Data Labs: Laboratory Results - last 24 hr 04/19/24 04/19/24 06:32 06:37 WBC 16.6 H RBC 4.95 Hgb 14.9 Hct 44.4 MCV 89.7 MCH 30.1 MCHC 33.6 RDW Std Deviation 45.6 H RDW Coeff of [place] 13.8 Plt Count 403 MPV 10.5 Immature Gran % (Auto) 0.500 Neut % (Auto) 66.7 Lymph % (Auto) 24.5 [place] % (Auto) 4.8 Eos % (Auto) 2.4 Baso % (Auto) 1.1 H Absolute Neuts (auto) 11.1 H Absolute Lymphs (auto) 4.07 Nucleated RBC % 0 D-Dimer Quant (PE/DVT) < 0.27 L Sodium 138 Potassium 4.4 Chloride Direct 104 Carbon Dioxide 19.1 L Anion Gap 15 BUN 11 Creatinine 0.8 Estim Creat Clear Calc 91.88 Est GFR (MDRD) Non-Af 88 BUN/Creatinine Ratio 13.9 Glucose 208 H Calcium 9.5 Troponin T High Sens 52 H Radiography Diagnostic Testing: Clinical Impression(s) from Imaging Studies Chest X-Ray 04/19/24 06:53 IMPRESSION: No focal infiltrate or consolidation is seen within the lungs. No pneumothorax. Reading Location: [id number] Discharge Plan Triage Chief Complaint: Chest Pain ED Provider: Anibal Street Dx/Rx/DC Orders Clinical Impression: Chest pain Primary Care Provider: Casimiro Kelly
--- NOTE | 2024-04-19 06:53 | RAD_ITS ---
PROCEDURE: CHEST 1 VIEW (PORTABLE) REASON FOR EXAM: Chest pain. TECHNIQUE: Single frontal image including the chest. COMPARISON: Chest x-ray dated 01/17/2024. FINDINGS: The cardiothymic contour is normal. The lungs are clear. The bones are unremarkable. No radiopaque foreign body is identified. RAD/Chest 1 View (Portable) IMPRESSION: No focal infiltrate or consolidation is seen within the lungs. No pneumothorax . Reading Location: [id number]
[2024-04-19] MEDS: Nitroglycerin SL (ED/IMG/CATH) 0.4 MG TABLET SL ×2 (07:02→07:11)
[2024-04-19] MEDS: Aspirin 81 MG TAB.CHEW 324 MG PO (07:03)
[2024-04-19 07:05] LABS: Absolute Lymphocyte Count 4.07 X10^3/uL (0.83-4.51); Absolute Neutrophil Count 11.1 X10^3/uL (2.0-7.7); Basophil# 0.19 X10^3/uL; Basophil% 1.1 % (0-1); Eosinophils% 2.4 % (0-5); Hematocrit 44.4 % (37-47); Hemoglobin 14.9 g/dL (12.0-15.0); Lymphocyte # 4.07 X10^3/ul (0.83-4.51); Lymphocyte % 24.5 % (19-41); Mean Corp Hgb Conc 33.6 g/dL (32-36); Mean Corpuscular Hgb 30.1 pg (27.0-32.0); Mean Corpuscular Volume 89.7 fL (81-99); Mean Platelet Vol. 10.5 fl (6.2-12.0); Monocyte# 0.79 X10^3/uL; Monocyte% 4.8 % (0-10); NRBC Flagged by Analyzer 0 % (0-5); Neutrophil # 11.08 X10^3/uL (2.7-7.7); Neutrophil % 66.7 % (47-70); Platelet Count 403 K/mm3 (150-450); RBC Distribution Width CV 13.8 % (11.6-14.6); RBC Distribution Width SD 45.6 fl (35.1-43.9); Red Blood Count 4.95 M/mm3 (4.2-5.4); White Blood Count 16.6 K/mm3 (4.4-11.0)
[2024-04-19 07:24] LABS: Anion Gap 15 (5-15); BUN 11 mg/dL (4-19); BUN/Creat Ratio 13.9 RATIO (10-20); Calcium 9.5 mg/dL (7.6-11.0); Carbon Dioxide 19.1 mmol/L (22.0-29.0); Chloride 104 mmol/L (96-108); Creatinine, Serum 0.8 mg/dL (0.6-1.0); EST Glomerular Filtration Rate 88 (>60); Estimated Creatinine Clearance 91.88 ml/min; Glucose 208 mg/dL (70-99); Potassium 4.4 mmol/L (3.3-5.1); Sodium Level 138 mmol/L (133-145); Troponin T High Sensitivity 52 ng/L (<=14)
[2024-04-19 08:03] LABS: D-Dimer Quantitative (DVT/PE) < 0.27 FEU/ug/m (0.27-0.49)
--- NOTE | 2024-04-19 08:53 | CON.PCM.CA_ITS ---
Assessment & Plan Assessment/Plan (1) Chest pain: QUALIFIERS: Chest pain type: precordial pain Qualified Code(s): R 07.2 - Precordial pain PLAN: Patient's chest is pain is worrisome given the radiation to her neck and gum area and down her left arm this morning at rest. However, the positional changes that were occurring over the last 3 days preceding this are unusual. She does have a history of remote bronchitis that felt similar to this however her chest x-ray is completely clear. Patient's troponin is 52 which is elevated the delta troponin is pending. The patient has significant risk factors including hypertension continued tobacco use diabetes mellitus on insulin and hyperlipidemia. She also has a family history on the maternal side. My recommendation given her recurrence of the symptoms at rest in the emergency department after today relieved with sublingual nitro, is to proceed with left heart catheterization. This was discussed with the hospitalist and Dr. Rowell the cath and mail sorter agreed. The cath procedure was/benefit and alternatives were explained to the patient and her they voiced understanding agrees to proceed. (2) High cholesterol: PLAN: Patient's triglycerides are 455 total cholesterol 239. HDL is 35. Her TSH is normal as is her T4. Her diabetes is recently been started to be treated with insulin. She has been intolerant to some of the oral diabetic medications due to side effects. The patient should be instituted on intensive statin therapy given her presentation of this acute coronary syndrome. (3) Hypertension: QUALIFIERS: Hypertension type: unspecified Qualified Code(s): I10 - Essential (primary) hypertension PLAN: Patient's blood pressure is elevated in the emergency department today and an anxiety provoking situation. She is not on any antihypertensives in the home environment by her med list. Pending the outcome of the catheterization further recommendations will be forthcoming. Patient does not have any history of allergies to any antihypertensives. 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 She had been intolerant to multiple medications. She is allergic to Jardiance Mounjaro semaglutide and metformin. This is managed through the primary service. (5) Smoker: PLAN: I did senior counsel the patient on the mandatory nature she stop smoking. PLAN: Plan 1. Would proceed with IV anticoagulation with heparin. 2. Will place nitroglycerin paste 1 inch topically Q6. 3. Patient has already received aspirin in the emergency department. 4. Patient will proceed with urgent left heart catheterization this morning Dr. Rowell to perform. 5. Further recommendations following the catheterization. HPI Consult Data Date of Consult: 04/19/24 HPI Narrative Reason for Consultation: Chest pain HPI Narrative: DENA GAGE, is a 49 F who presents with a history of hypertension, diabetes mellitus recently started on insulin, long-term smoker and a history of palpitations. The patient came to the emergency department complaining of some chest discomfort that started about 3 days ago she noticed it primarily at rest would resolve spontaneously. She noticed it change with change of position lying on her stomach seem to make it more intense. It awoke her this morning from sleep who was in radiating into her back up into her neck and gums and down her left arm with an aching sensation which was more intense than she had had prior. She came to the emergency department where an EKG was consistent with sinus rhythm with LVH and no definitive ischemic changes. Her troponin was elevated at 52. The patient also has a history of hyper triglyceridemia and hypercholesterolemia. Currently the patient is resting in the emergency department on the gurney. Her telemetry shows a sinus rhythm at 78 bpm. She does note that with the nitroglycerin sublingual she was given upon arrival her symptoms resolved. However now she is starting to feel a buildup of the chest pressure sensation again. The patient denies any nausea or vomiting. Denies any syncope or near syncope. She has a history of palpitations and she wore a monitor in the past she does not have a known echocardiogram but was told by the [facility] she may have a weakness of the left side of her heart based on her event monitor. I do not have access to any documentation from this evaluation that was several years ago. The patient denies any allergy to iodine. The patient's is in the room with her. [facility] Medical History CKD (chronic kidney disease) stage 2, GFR 60-89 ml/min Type II diabetes mellitus Hypertension Obesity Blood in urine Cellulitis Chest pain Psoriasis GERD (gastroesophageal reflux disease) Liver disease Head ache Gout Asthma Arthritis Home Medications ?Medication ?Instructions ?Recorded ?Last Taken ?Type lorazepam 0.5 mg tablet 0.5 mg PO DAILY PRN anxiety 06/16/23 Unknown History compress.stocking,knee,reg,lrg #2 ea 07/23/23 Unknown Rx insulin glargine 100 unit/mL (3 20 unit (0.2 mL) subcu t ONCE #18 mL 02/04/24 Unknown Rx mL) subcutaneous pen (Lantus Solostar U-100 Insulin) pen needle, diabetic 31 gauge x #100 ea 02/04/24 Unkno wn Rx 1/4 (CareFine Pen Needle) ondansetron 4 mg disintegrating 4 mg PO Q8H PRN nausea and 03/09/24 Unknown Rx tablet vomiting #20 tabs Allergy/AdvReac Type Severity Reaction Status Date / Time empagliflozin (From Allergy Severe Vomiting Verified 04/19/24 06:28 Jardiance) tirzepatide (From Mounjaro) Allergy Severe Nausea/Vom/ Verified 04/19/24 06:28 Diarrhea metformin AdvReac Severe Kidney Verified 04/19/24 06:28 Stones/High Uric Acid semaglutide (From Rybelsus) AdvReac Severe Nausea Verified 04/19/24 06:28 Family History Mother Arthritis Heart disease Psoriasis Cancer lymphoma, Hypercholesterolemia Hypertension Depression Grandmother Arthritis Heart disease Hypercholesterolemia Hypertension Depression Psychiatric care Mental disorder Grandmother Diabetes type 2 Grandfather Depression Mental disorder Psychiatric care Other Anxiety Asthma Autoimmune disorder Liver disease Suicide attempt Surgical History H/O skin graft History of cholecystectomy Social History household members: none housing: house current occupational status: employed current occupation: [employer] Smoking Status: Light Smoker (<10/day) Tobacco: How many years used: 30 alcohol intake: never substance use type: does not use well-balanced diet: other details: keto, no soda caffeine: No what type of physical activity do you participate in: other details: Infrequent seatbelt use: always do you feel safe at home: Yes ROS Constitutional Constitutional: Reports as per HPI Eyes Eyes: Reports systems reviewed and no addt'l complaints, except as documented ENT HEENT: Reports systems reviewed and no addt'l complaints, except as documented Cardiovascular Cardiovascular: Reports as per HPI Respiratory/Chest Respiratory/Chest: Reports as per HPI Gastrointestinal Gastrointestinal: Reports as per HPI Genitourinary Genitourinary: Reports systems reviewed and no addt'l complaints, except as documented Musculoskeletal Musculoskeletal: Reports systems reviewed and no addt'l complaints, except as documented Integumentary Integumentary: Reports systems reviewed and no addt'l complaints, except as documented Neurologic Neurologic: Reports systems reviewed and no addt'l complaints, except as documented Psychiatric Psychiatric: Reports systems reviewed and no addt'l complaints, except as documented Endocrine Endocrinology: Reports as per HPI Hematologic/Lymphatic Hematologic/Lymphatic: Reports as per HPI Allergic/Immunologic Allergic/Immunologic: Reports as per HPI Physical Exam Narrative Patient is an obese white female resting at 45 degrees on the gurney. She is anxious but does not appear to be any significant discomfort. Const alert and oriented x3 HEENT normocephalic Eyes PERRL Neck no JVD and no carotid bruits Chest inspection of chest normal Resp normal respiratory effort and clear to auscultation bilaterally Cardio regular rate, regular rhythm, S1 normal heart sound, S2 normal heart sound, no murmurs, no rub and no gallops Cardio Narrative: Distant heart tones due to body habitus Peripheral Pulses: radial pulses present, posterior tibial pulses present right and dorsalis pedis pulses present right GI soft to palpation Extremity no pedal edema Skin no rashes or lesions noted Neuro Neuro Narrative: Alert and oriented x 3 Psych mental status grossly normal Risk Stratification Risk Stratification Applicable: Yes Age >/= 65: No >/= 3 CAD Risk Factors (HTN, HLD, DM, family hx of CAD, or current smoker): Yes Aspirin Use in the Past 7 Days: No Severe Angina (>/= episodes in 24 hours): Yes EKG ST Changes >/= 0.5mm: Yes Positive Cardiac Marker: Yes RUSSELL Risk Stratification Score: 4 RUSSELL % Risk: 20% Risk Charges/Coding Visit Charges Inpatient E&M: 42336 Init Hosp L3 Objective Data Vital Signs: Vital Signs Temp Pulse Resp BP Pulse Ox O2 Del Method 97.9 F 76 18 146/100 H 99 Room Air 04/19/24 08:43 04/19/24 08:43 04/19/24 08:43 04/19/24 08:43 04/19/24 08:43 04/19/24 08:00 Oxygen Delivery Method Room Air Weight: 227 lb 8.273 oz Body Mass Index (BMI) 43.0 Lab / Micro Data Attestation: I reviewed the patient's lab results. 04/19/24 06:37 04/19/24 06:32 Labs: Laboratory Results - last 24 hr 04/19/24 06:32: Sodium 138, Potassium 4.4, Chloride Direct 104, Carbon Dioxide 19.1 L, Anion Gap 15, BUN 11, Creatinine 0.8, Estim Creat Clear Calc 91.88, Est GFR (MDRD) Non-Af 88, BUN/Creatinine Ratio 13.9, Glucose 208 H, Calcium 9.5, T roponin T High Sens 52 H 04/19/24 06:37: WBC 16.6 H, RBC 4.95, Hgb 14.9, Hct 44.4, MCV 89.7, MCH 30.1, MCHC 33.6, RDW Std Deviation 45.6 H, RDW Coeff of Dale 13.8, Plt Count 403, MPV 10.5, Immature Gran % (Auto) 0.500, Neut % (Auto) 66.7, Lymph % (Auto) 24.5, [place] % (Auto) 4.8, Eos % (Auto) 2.4, Baso % (Auto) 1.1 H, Absolute Neuts (auto) 11.1 H, Absolute Lymphs (auto) 4.07, Nucleated RBC % 0, D-Dimer Quant (PE/DVT) < 0.27 L Rhythm Strip Rhythm Strip: Sinus Rhythm Rate: 78 Cardiology Labs/Tests 04/19/24 06:32: Sodium 138, Potassium 4.4, Carbon Dioxide 19.1 L, Anion Gap 15, BUN 11, Creatinine 0.8, Est GFR (MDRD) Non-Af 88, BUN/Creatinine Ratio 13.9, G lucose 208 H, Calcium 9.5 04/19/24 06:37: WBC 16.6 H, RBC 4.95, Hgb 14.9, Hct 44.4, MCV 89.7, MCH 30.1, MCHC 33.6, Plt Count 403, MPV 10.5, Immature Gran % (Auto) 0.500, Neut % (Auto) 66.7, Lymph % (Auto) 24.5, [place] % (Auto) 4.8, Eos % (Auto) 2.4, Baso % (Auto) 1.1 H, Absolute Neuts (auto) 11.1 H, Nucleated RBC % 0, D-Dimer Quant (PE/DVT) < 0.27 L Rhythm: EKG: ECHO: Stress Test: Cardiac Cath: PCI: CT Surgery: Holter monitor: EPS: PPM: CXR: Chest CT Scan: Radiography Diagnostic Testing: Radiology Impression Chest X-Ray 04/19/24 06:53 IMPRESSION: No focal infiltrate or consolidation is seen within the lungs. No pneumothorax. Reading Location: [id number]
[2024-04-19] MEDS: Heparin Injection (Vial) 5,000 UNIT/ML VIAL 4000 UNIT IV (09:30)
[2024-04-19] MEDS: HEPARIN/D5w 25,000 UNITS 25,000 UNITS/250 ML IV.SOLN. 10 UNITS CONT INF (09:51)
--- NOTE | 2024-04-19 09:54 | HP.PCM.HOS_ITS ---
HPI - General General Date of Admission: 04/19/24 Date of Service: 04/19/24 Chief Complaint: Chest pain HPI Narrative DENA GAGE, is a 49 F who presents to the emergency room at [facility] with complaints of chest pain which she describes as tightness and heaviness over the substernal area. Patient has been having this discomfort off and on over the last 2 days but it woke her from sleep early this morning and she came to the ER for evaluation. Patient states that the discomfort radiates into her left arm, jaw, and back and the discomfort was worse with exertion. Patient's medical history includes type 2 diabetes, essential hypertension, and hyperlipidemia. Patient is a smoker. Workup in the emergency room included a chest x-ray which was unremarkable, patient's CBC was remarkable for an elevated white blood cell count at 16.6, patient's glucose was 208, chemistry profile was otherwise unremarkable. Troponin was elevated at 52. Patient's EKG showed no evidence of acute ischemic changes. At the time of my examination, patient was still having chest discomfort, I discussed the case with Dr. Magana and also Dr. Rowell, they were in agreement that the patient should be taken to Nurse Quality for further studies. Patient was okay with this. I discussed cardiac catheterization with the patient. Patient will be admitted to PCU for non-STEMI, she will undergo cardiac catheterization today and possibly stent placement. [facility] Medical History CKD (chronic kidney disease) stage 2, GFR 60-89 ml/min Type II diabetes mellitus Hypertension Obesity Blood in urine Cellulitis Chest pain Psoriasis GERD (gastroesophageal reflux disease) Liver disease Head ache Gout Asthma Arthritis Home Medications ?Medication ?Instructions ?Recorded ?Last Taken ?Type lorazepam 0.5 mg tablet 0.5 mg PO DAILY PRN anxiety 06/16/23 Unknown History compress.stocking,knee,reg,lrg #2 ea 07/23/23 Unknown Rx insulin glargine 100 unit/mL (3 20 unit (0.2 mL) subcu t ONCE #18 mL 02/04/24 Unknown Rx mL) subcutaneous pen (Lantus Solostar U-100 Insulin) pen needle, diabetic 31 gauge x #100 ea 02/04/24 Unkno wn Rx 02/25 (CareFine Pen Needle) ondansetron 4 mg disintegrating 4 mg PO Q8H PRN nausea and 03/09/24 Unknown Rx tablet vomiting #20 tabs Allergy/AdvReac Type Severity Reaction Status Date / Time empagliflozin (From Allergy Severe Vomiting Verified 04/19/24 06:28 Jardiance) tirzepatide (From Mounjaro) Allergy Severe Nausea/Vom/ Verified 04/19/24 06:28 Diarrhea metformin AdvReac Severe Kidney Verified 04/19/24 06:28 Stones/High Uric Acid semaglutide (From Rybelsus) AdvReac Severe Nausea Verified 04/19/24 06:28 Family History Mother Arthritis Heart disease Psoriasis Cancer lymphoma, Hypercholesterolemia Hypertension Depression Grandmother Arthritis Heart disease Hypercholesterolemia Hypertension Depression Psychiatric care Mental disorder Grandmother Diabetes type 2 Grandfather Depression Mental disorder Psychiatric care Other Anxiety Asthma Autoimmune disorder Liver disease Suicide attempt Surgical History H/O skin graft History of cholecystectomy Social History household members: none housing: house current occupational status: employed current occupation: [employer] Smoking Status: Light Smoker (<10/day) Tobacco: How many years used: 30 alcohol intake: never substance use type: does not use well-balanced diet: other details: keto, no soda caffeine: No what type of physical activity do you participate in: other details: Infrequent seatbelt use: always do you feel safe at home: Yes ROS Constitutional Constitutional: Denies anorexia, change in weight, chills, fatigue, fever(s), night sweats or weakness Eyes Eyes: Denies blurry vision, change in vision, discharge from eye(s) or eye pain Cardiovascular Cardiovascular: Reports chest pain; Denies claudication, edema, palpitations or rapid heart rate Respiratory/Chest Respiratory/Chest: Denies cough, hemoptysis, shortness of breath at rest or shortness of breath with exertion Gastrointestinal Gastrointestinal: Denies abdominal pain, constipation, diarrhea, hematemesis, hematochezia, melena, nausea or vomiting Genitourinary Genitourinary: Denies dysuria, hematuria, urinary frequency, urinary hesitancy, urinary incontinence or urinary urgency Musculoskeletal Musculoskeletal: Denies back pain, joint pain, joint stiffness, joint swelling, myalgias or neck pain Neurologic Neurologic: Denies abnormal gait, abnormal speech, dizziness, focal weakness, headache(s), loss of vision, numbness, other visual disturbances, paresthesias, syncope or tingling Psychiatric Psychiatric: Denies anxiety, cognitive impairment, depression, irritability, mood swings or suicidal ideation Endocrine Endocrinology: Denies change in body appearance, cold intolerance, excessive sweating, heat intolerance, polydipsia or polyuria Hematologic/Lymphatic Hematologic/Lymphatic: Denies none, anemia, easy bleeding, easy bruising or lymphadenopathy Allergic/Immunologic Allergic/Immunologic: Denies rhinitis, urticaria, eczemia or asthma Vital Signs Vital Signs Vital Signs: 04/19/24 06:27 04/19/24 06:27 04/19/24 06:53 Temperature 97.9 F Temperature Source Oral Pulse Rate 96 Respiratory Rate 20 H Respiratory Effort Normal Blood Pressure 172/119 H Blood Pressure Mean 136 Pulse Ox 98 98 Oxygen Delivery Method Room Air 04/19/24 07:02 04/19/24 07:11 04/19/24 07:27 Temperature Temperature Source Pulse Rate 86 95 77 Respiratory Rate 16 Respiratory Effort Blood Pressure 143/99 H 126/86 H 130/86 H Blood Pressure Mean 100 Pulse Ox 99 Oxygen Delivery Method Room Air 04/19/24 08:00 04/19/24 08:43 04/19/24 09:00 Temperature 97.9 F Temperature Source Pulse Rate 76 76 70 Respiratory Rate 18 18 Respiratory Effort Blood Pressure 146/100 H 146/100 H 137/91 H Blood Pressure Mean 115 115 106 Pulse Ox 99 99 98 Oxygen Delivery Method Room Air Room Air Weight Weight: 103.2 kg Body Mass Index (BMI) 43.0 Physical Exam Const alert, oriented x3, no apparent distress and healthy appearing Constitutional Narrative: Patient has class III obesity General Appearance: cooperative, well kempt and well developed Orientation / Consciousness: awake, oriented to person, oriented to place and oriented to time HEENT normocephalic, head/scalp atraumatic, hearing grossly normal bilaterally and moist oral mucous membranes Eyes PERRL, EOMs intact bilaterally and conjunctivae normal Neck supple, no JVD, thyroid normal and no carotid bruits General: trachea midline Resp normal respiratory effort, no retractions, no use of accessory muscles and clear to auscultation bilaterally Auscultation: Negative for rales, rhonchi or wheezes Cardio regular rate, regular rhythm, S1 normal heart sound, S2 normal heart sound, no murmurs, no rub and no gallops GI normal to inspection, nondistended, normoactive bowel sounds, soft to palpation, non-tender and non-distended Extremity no clubbing, cyanosis or edema Skin no rashes or lesions noted General Skin Exam: no breakdown Neuro oriented x3, CN's II-XII intact bilaterally, no focal motor deficits and no sensory deficits noted Sensorium / Orientation: awake and alert Speech: speech normal Psych affect normal Results Lab / Micro Data 04/19/24 06:37 04/19/24 06:32 Labs: Laboratory Results - last 24 hr 04/19/24 06:32: Sodium 138, Potassium 4.4, Chloride Direct 104, Carbon Dioxide 19.1 L, Anion Gap 15, BUN 11, Creatinine 0.8, Estim Creat Clear Calc 91.88, Est GFR (MDRD) Non-Af 88, BUN/Creatinine Ratio 13.9, Glucose 208 H, Calcium 9.5, T roponin T High Sens 52 H 04/19/24 06:37: WBC 16.6 H, RBC 4.95, Hgb 14.9, Hct 44.4, MCV 89.7, MCH 30.1, MCHC 33.6, RDW Std Deviation 45.6 H, RDW Coeff of [place] 13.8, Plt Count 403, MPV 10.5, Immature Gran % (Auto) 0.500, Neut % (Auto) 66.7, Lymph % (Auto) 24.5, [place] % (Auto) 4.8, Eos % (Auto) 2.4, Baso % (Auto) 1.1 H, Absolute Neuts (auto) 11.1 H, Absolute Lymphs (auto) 4.07, Nucleated RBC % 0, D-Dimer Quant (PE/DVT) < 0.27 L Rhythm Strip Rhythm Strip: Sinus Rhythm Rate: 78 Imaging Radiology Impression Chest X-Ray 04/19/24 06:53 IMPRESSION: No focal infiltrate or consolidation is seen within the lungs. No pneumothorax. Reading Location: [id number] Assessment & Plan Assessment/Plan (1) Non-STEMI (non-ST elevated myocardial infarction): PLAN: Plan 1. [id number] patient will be admitted to PCU and be seen in consultation by cardiology, the plan is for the patient undergo a cardiac catheterization later on today. #2 essential hypertension-patient's blood pressure medications may need to be readjusted during her hospitalization #3 type 2 diabetes-fingerstick blood sugars will be monitored, sliding scale insulin will be administered as needed #4 class III obesity-complicates care, management, recovery, and prognosis Total clinical time spent by myself addressing the patient's medical issues, reviewing all of her data, and collaborating with patient's care team: 75 minutes Charges/Coding Visit Charges Inpatient E&M: 41954 Init Hosp L3
[2024-04-19 10:13] LABS: TROPONIN VARIANCE 2 HR 29
--- NOTE | 2024-04-19 11:16 | CL.D_ITS ---
Patient Name: DENA GAGE Study Date: 04/19/2024 Performing: Shawn Rowell MD Ht: 61 inches 154.94 cm : 1975 Wt: 227.8 lbs 103.2 kg Age: 49 Gender: female BSA: 2 PROCEDURE(S) PERFORMED DC02-(00422)C/COR CLINICAL PROFILE AND INDICATIONS Indications: ACS, NSTEMI Heart Failure: None CONCLUSIONS CAD as described with RAIL GRINDER of the LAD RECOMMENDATIONS Refer to tertiary center for RAIL GRINDER angioplasty vs CABG DESCRIPTION OF PROCEDURE The patient arrived to the procedure lab. The risks and benefits of the procedure as well as a full description of our services here and current unavailability of surgical backup were fully explained to the patient and/or their significant other prior to the catheterization. The Timeout was completed, verifying the correct patient and procedure. The patient's procedural site was prepped and draped in the usual fashion. Local anesthetic was given subcutaneously to right radial region with Lidocaine 2%. Using a modified Seldinger technique, arterial access was obtained via the right radial artery, a 6Fr sheath was inserted. LV to AO pullback pressures were then recorded. Right Coronary Artery selective angiography was then performed in multiple views using a 5 Fr. JR 4 catheter. Left Coronary Artery selective angiography was performed in multiple views using a 5 Fr. 4.0 Douglas catheter.The arterial sheath was pulled and a TR Band was applied for hemostasis w/ 10ml air CORONARY ANGIOGRAPHY DOMINANCE: Right Dominant LEFT HEART ASSESSMENT LEFT MAIN: Mild luminal irregularities LEFT ANTERIOR DESCENDING ARTERY: PROX LAD: 100 % Stenosis. Collaterals noted from RCA to the LAD and D1 CIRCUMFLEX ARTERY: Mild diffuse disease RIGHT CORONARY ARTERY: PROX RCA: 50 % Stenosis VALVE FINDINGS: No Aortic Valve Stenosis COMPLICATIONS No Complications PROCEDURE MEDICATIONS Versed 1 mg IV Fentanyl 50 mcg IV Versed 1 mg IV Oxygen: 2 L/min via nasal cannula Heparin given IA 04/19/2024 10:11:05 Verapamil 2.5mg, Ntg 100mcgs, 3000 units of Heparin given IA 04/19/2024 10:11:05 SUMMARY OF HEMODYNAMIC DATA Time AIR REST ECG 10:00:54 LV 113/8, 11 10:13:53 LV 114/10, 17 10:14:00 LVp 116/12, 15 10:14:09 AOp 115/81 (96) 10:14:14 AO 110/80 (95) SA 10:14:15 Signed By Shawn Rowell MD On 04/19/2024 11:16:13 Shawn Rowell MD
[2024-04-19] MEDS: 0.9% Normal Saline (1000mL) 1,000 ML 75 ML IV (11:42)
[2024-04-19] MEDS: Nitroglycerin Oint 1 INCH PACKET TD ×2 (11:49→18:03)
[2024-04-19 13:36] LABS: Bedside Glucose 126 mg/dL (74-106)
[2024-04-19 13:56] LABS: Prothrombin Time (Protime)PT. 13.5 SECONDS (11.7-14.9)
[2024-04-19 13:57] LABS: Partial Thromboplast Time 29.8 Seconds (24.1-36.2)
--- NOTE | 2024-04-19 14:06 | PCM.DC.SUM ---
Providers Date of Admission: 04/19/24 Date of Discharge: 04/19/24 Primary Care Physician: Dr. Casimiro Kelly MD Consultations 04/19/24 10:46 Consult: Cardiology Routine Consulting Provider: Brayan Magana Reason for Consult: NSTEMI EMERGENT Consult: No Notified: Yes Date Notified: 04/19/24 Time Notified: 09:26 Method of Notification: Verbal Reason For Visit: CHEST PAIN Diagnosis Discharge Diagnosis (1) Non-STEMI (non-ST elevated myocardial infarction): Status: Acute Code(s): I21.4 - Non-ST elevation (NSTEMI) myocardial infarction Plan 1. [id number] patient will be admitted to PCU and be seen in consultation by cardiology, the plan is for the patient undergo a cardiac catheterization later on today. #2 essential hypertension-patient's blood pressure medications may need to be readjusted during her hospitalization #3 type 2 diabetes-fingerstick blood sugars will be monitored, sliding scale insulin will be administered as needed #4 class III obesity-complicates care, management, recovery, and prognosis #5 chronic total occlusion of LAD #6 nonocclusive coronary artery disease right coronary artery, circumflex artery, and left main artery Total clinical time spent by myself addressing the patient's medical issues, reviewing all of her data, and collaborating with patient's care team: 75 minutes Medications at Discharge Home Medications lorazepam 0.5 mg tablet 0.5 mg PO DAILY PRN anxiety 06/16/23 compress.stocking,knee,reg,lrg #2 ea 07/23/23 insulin glargine 100 unit/mL (3 mL) subcutaneous pen (Lantus Solostar U-100 Insulin) 20 unit (0.2 mL) subcut ONCE #18 mL 02/04/24 pen needle, diabetic 31 gauge x 1/4 (CareFine Pen Needle) #100 ea 02/04/24 ondansetron 4 mg disintegrating tablet 4 mg PO Q8H PRN nausea and vomiting #20 tabs 03/09/24 Hospital Course Operations None Procedures Cardiac catheterization Summary of Care Provided Minutes Spent on Discharge: 31 Hospital Course: This 49-year-old white female was seen in the emergency room at [facility] with complaints of precordial chest pain radiating into her jaw, neck, and left arm. It awoke her from sleep today she was seen in the emergency room, she had had intermittent similar chest discomfort for 48 hours prior to this. Workup in the emergency room included an EKG which showed no evidence of acute ischemic changes, patient's troponin was elevated x 2, and the patient's chest x-ray was unremarkable. Cardiology was contacted and saw the patient in consultation, it was decided to take the patient for cardiac catheterization and admit the patient to PCU. Cardiac catheterization revealed a chronic total occlusion of the LAD, it was recommended that the patient be transferred to a tertiary center where this could be intervened upon. On 04/19/2024, patient was seen and examined: On examination she appeared in good health and spirits, she does not appear to be in any distress. Vital signs as documented. Skin warm and dry and without overt rashes. Neck without JVD, thyroid appears normal, trachea is midline, neck is supple. Lungs clear, normal air movement was noted. Heart exam notable for regular rhythm, normal sounds and absence of murmurs, rubs or gallops. Abdomen unremarkable and without evidence of organomegaly, masses, or abdominal aortic enlargement, bowel sounds are present in all 4 quadrants, no abdominal tenderness was noted. Extremities nonedematous, no cyanosis was noted, no clubbing was noted. Neuro: Cranial nerves II through XII are grossly intact, no focal motor deficits were noted, sensation to light touch and pinprick is intact, motor exam 5/5 throughout. Psych: Patient is alert and oriented x3, she does not appear anxious or depressed, she does not appear agitated. Patient was transferred to [facility] in [facility] on 04/19/2024 in stable condition for further care. Weight / BMI Weight Weight: 103.2 kg Body Mass Index (BMI) 43.0 ABG / Lab / Microbiology Data 04/19/24 06:37 04/19/24 06:32 Laboratory: Laboratory Results - last 24 hr 04/19/24 06:32: Sodium 138, Potassium 4.4, Chloride Direct 104, Carbon Dioxide 19.1 L, Anion Gap 15, BUN 11, Creatinine 0.8, Estim Creat Clear Calc 91.88, Est GFR (MDRD) Non-Af 88, BUN/Creatinine Ratio 13.9, Glucose 208 H, Calcium 9.5, Troponin T High Sens 52 H 04/19/24 06:37: WBC 16.6 H, RBC 4.95, Hgb 14.9, Hct 44.4, MCV 89.7, MCH 30.1, MCHC 33.6, RDW Std Deviation 45.6 H, RDW Coeff of [place] 13.8, Plt Count 403, MPV 10.5, Immature Gran % (Auto) 0.500, Neut % (Auto) 66.7, Lymph % (Auto) 24.5, [place] % (Auto) 4.8, Eos % (Auto) 2.4, Baso % (Auto) 1.1 H, Absolute Neuts (auto) 11.1 H, Absolute Lymphs (auto) 4.07, Nucleated RBC % 0, D-Dimer Quant (PE/DVT) < 0.27 L 04/19/24 09:30: Delta Troponin T 29, Troponin T Hi Sens 2 Hr 81 H* 04/19/24 11:38: POC Glucose 126 H 04/19/24 13:38: PT 13.5, INR 1.0, APTT 29.8 Radiography Diagnostic Testing: Radiology Impression Chest X-Ray 04/19/24 06:53 IMPRESSION: No focal infiltrate or consolidation is seen within the lungs. No pneumothorax. Reading Location: [id number] D/C Instructions DC O2, CPAP, BIPAP Needs Home O2 Discharge instructions: No Meaningful Use Info Meaningful Use Meaningful Use Diagnoses (Choose all that apply): AMI AMI/Post PCI/Angioplasty Aspirin given w/in 24hrs of arrival?: Yes ASA at discharge?: Yes Antiplatelet Therapy at Discharge:: No Reason Antiplatelet Therapy not ordered:: Transfer to tertiary hospital Statins at discharge?: No Reason statins not ordered:: Allergy (Patient was transferred to tertiary hospital) Delta/ARB at discharge?: No Reason Delta/ARB not ordered:: Not indicated (Patient transferred to tertiary hospital) Beta Angelia at discharge?: No Reason Beta Angelia not ordered:: Allergy (Patient transferred to tertiary hospital) Done w/ Acute MS measure.: Yes Ischemic Stroke Statin Dosing Therapy Reference: STATIN DOSE THERAPY REFERENCE: * Patients > 75 years receive moderate or high dose statin therapy. * Patients 75 years or YOUNGER should receive HIGH intensity statin dose unless contraindicated. You will be required to document reason for non-treatment if statin daily dose does not meet guidelines. HIGH DOSE STATIN THERAPY DAILY Atorvastatin > than or = to 40 mg Rosuvastatin > than or = to 20 mg Amlodipine + Atorvastatin > than or = to 2.5/40 mg Ezetimibe + Simvastatin 10/80 mg Simvastatin 80mg Discharge Plan Admission Admit Date/Time: 04/19/24 09:19 Attending Provider: Brigitte Rowell Primary Care Provider: Casimiro Kelly Consulting Providers: Brayan Magana Discharge Orders/Prescriptions Prescriptions: No Action (DME) compress.stocking,knee,reg,lrg Misc See Rx Instructions .MEDSUPPLY Qty: 2 1RF Rx Instructions: wear daily for venous insufficiency 20-30 mmHg lorazepam 0.5 mg tablet 0.5 mg PO DAILY PRN (Reason: anxiety) ondansetron 4 mg tablet,disintegrating 4 mg PO Q8H PRN (Reason: nausea and vomiting) Qty: 20 0RF (DME) pen needle, diabetic [CareFine Pen Needle] 31 gauge x 1/4 needle See Rx Instructions .Route Qty: 100 1RF Rx Instructions: once daily insulin glargine [Lantus Solostar U-100 Insulin] 100 unit/mL (3 mL) insulin pen 20 unit subcut ONCE Qty: 18 1RF Referrals / Follow Up: Casimiro Kelly MD [Primary Care Provider] - Disposition Discharge Orders: Discharge Patient (Routine); Ordered 04/19/24 Ordered By: Dr. Jad Cornelius Charges/Coding Visit Charges Inpatient E&M: 79530 Disch Hosp >30min
[2024-04-19] MEDS: 0.9% Saline Lock 10 ML Syringe IV (15:50)
[2024-04-19 17:54] LABS: Bedside Glucose 105 mg/dL (74-106)
[2024-04-19] MEDS: Acetaminophen/Butalbital/Caffe 1 Tablet 2 TABLET PO (18:03)
--- NOTE | 2024-04-19 18:26 | NURSING ---
Report called to bindu at [facility]
[2024-04-25 04:43] LABS: Troponin T High Sens 2 HR 81 ng/L (<=14)
== END 2024-04-19 18:33 | disposition short-term general hospital (02) | DRG 281 ==
LOC: ED 07:18 → CLSP 10:09 → PCU 10:12
PROVIDERS: Admitting Provider Internal Medicine; Emergency Provider Emergency Medicine; PCP Internal Medicine; Visit Provider Specialist
DX: I21.4 Non-ST elevation (NSTEMI) myocardial infarction (principal); Z68.41 Body mass index [BMI] 40.0-44.9, adult; E11.22 Type 2 diabetes mellitus with diabetic chronic kidney disease; I12.9 Hypertensive chronic kidney disease with stage 1 through stage 4 chronic kidney disease, or unspecified chronic kidney disease; E78.00 Pure hypercholesterolemia, unspecified; Z79.4 Long term (current) use of insulin; N18.2 Chronic kidney disease, stage 2 (mild); I25.10 Atherosclerotic heart disease of native coronary artery without angina pectoris; F17.210 Nicotine dependence, cigarettes, uncomplicated; I25.82 Chronic total occlusion of coronary artery; E66.813 Obesity, class 3; R07.2 Precordial pain; Z79.84 Long term (current) use of oral hypoglycemic drugs; Z79.85 Long-term (current) use of injectable non-insulin antidiabetic drugs; Z82.5 Family history of asthma and other chronic lower respiratory diseases
CPT/HCPCS: 71045; 80048; 82962; 84484; 85025; 85379; 85610; 85730; 93005; 93454; 99152; 99153; 99285; Q9967; A4216; C1769; C1894

== ENCOUNTER → 2024-05-17 | Outpatient (CLI) | payer OTHER, SELFPAY ==
--- NOTE | 2024-05-17 13:59 | PCM.CR.ITP ---
Diagnosis General Information Admitting Diagnosis: NSTEMI, pci with stent Personal Learning Style:: Audio/Visual, Demonstration, Group, Individual Preference and Written Stage of change r/t lifestyle modifications:: Preparation Gave educational material for:: Treating Heart Disease, How The Heart Works, What it means to have Heart Disease, How Coronary Artery Disease is Diagnosed, Heart Procedures, What Heart Medications Do, Risk Factors & Modifications, Living an Active Life, Nutrition, Emotions & Heart Disease, Stress Management & Relaxation and Sleep Disorders & Heart Disease Education/Goals Cardiac Rehabilitation Goals Personal Goals: Initial Assessment: Improve management of stress and emotions, Improve energy level, Participate in home exercise program, Improve knowledge of cardiac disease, Improve muscle strength and endurance, Improve diet and eating habits (eat healthier) and Control risk factors (learn risk factor modification) Scale for measuring improvement of personal goals Diagnosis & Disease Process Outcomes/Goals: Pt IDs own risk factors & lifestyle modifications by Session 10, Verbalizes symptoms of angina & response by session 3. and Pt independently manages Plan/Interventions: Assist Pt to ID & engage in lifestyle modification to reduce CVD risk, Instruct on individual risk factors, Review symptoms of angina & emergency actions and Review secondary diagnosis & identify educational needs. Safety Referral to Physical Therapy: No Referral to [facility] Case Management: No Fall Risk Assessed:: Yes Assistive Devices:: None Exercise - Initial Assessment Visit Date of Eval: 05/17/24 (INITIAL EVAL) Mets: Pre-: >3 METS for 30 minutes by discharge, >5 METS for 30 minutes by discharge and >7 METS for 30 minutes by discharge Physician Prescribed Exercise Modalities: Treadmill, Rower, Schwinn Airdyne AD-7, PylbaFit Stepper, PylbaFit Pro-II Ergometer and [place] Lateral Plastic Sheets Finishing Supervisor Frequency: 3x/week for 12 weeks [36 sessions] Intensity: 60-80% of age predicted maximum heart rate reserve Duration: 30 - 45 minutes METs - Progression 0.5-1.0 weekly:: 0.5 Target Heart Rate:: 101-127 Target RPE 12-16:: 12-16 Resting Blood Pressure: 124/80 EKG Type: NSR Outcomes & Goals Goals:: Verbalizes understanding of THR, RPE & goal METS by session 6, Documents in home exercise log/reports 30 min aerobic 5 day/wk by DC and Demonstrates accurate pulse taking by DC Intervention & Plan Exercise Program Goals: Instruct on personal THR & RPE, Instruct on MET level & personal MET goal, Show patient to take own pulse /validate performance until accurate and Instruct on home exercise Physical Activity Home Exercise Physical Activity - Home Exercise: Safe Exercise, Warm-up, Self-monitoring, Cool-Down, Home Exercise > 30 min Daily and Sitting Time <3 hours/daily Outcomes & Goals Outcomes/Goals: Demonstrates correct Warm-up/exercise Cool-Down (S3) if = 2.5 METs, Verbalizes symptoms of exercise intolerance by Session 3 (S3) and Demonstrate safe equipment use (S3) & follows exercise prescrition (6) Intervention & Plan Plan/Intervention: Instruct warm-up & cool-down if exercising at > 2 METs, Instruct on symptoms of exercise intolerance & actions to take, Instruct & monitor on saf and Assess intial functional capacity & safety risk Nutrition - Initial Assessment Program Goals Nutrition Program Goals Patient has diagnosis of Hyperlipidemia (ICD E78)?: Yes Visit Date of Eval: 05/17/24 (initial eval) Cholesterol/Lipids (Other Core Measures) Determine presence & major risk factors that modify LDL goal: Cigarette smoking, Hypertension or hypertensive medication and Low HDL cholesterol <40 mg/dL* Outcomes/Goals: Pt IDs own risk factors & lifestyle modifications by Session 10, Verbalizes symptoms of angina & response by session 3. and Pt independently manages Intervention/Plan: Advocate for lipid panel cholesterol medication if applicable, Instruct on personal lipid levels & lipid goals/NCEP guidelines and Instruct on cholesterol Referral to dietitian:: Yes Diabetes (Other Core Measures) Diabetes Type: Diagnosis Type II ICD-10 E11 Insulin dependent injection/pump?: Yes Non-Insulin Dependent?: No Do you monitor your blood sugar at home?: No Referral to Diabetic Clinic:: No Outcomes/Goals:: Able to state symptoms of, Able to state and Able to state Intervention/Plan:: Instruct on, Refer to and Instruct on Weight Mgt (Other Care) Height: 5 ft 1 in Weight:: 211 lb BMI: 39.9 Diagnosis Overweight/Obesity BMI> 30% ICD-10 E66: Yes Diagnosis High BMI/Morbid Obesity BMI> 35% ICD-10 Z68: Yes Outcomes/Goals: Pt sets, maintains & shows weight loss goal & trend during rehab Intervention/Plan: Instruct on ideal BMI & set weight loss goal w/patient, Assist pt to ID & incorporate diet changes for weight loss by S9, Refer to Structured Weight Loss program as appropriate and Encourage goal of using 250-300dcal per session for weight loss Healthy Eating Habits Will attend diet classes:: Yes Outcomes/Goals:: Consume diet rich in vegs,fruits,whole grain/high fiber,fish,lean meat and Limit sat/trans fats,cholesterol & added salts & sugars Intervention/Plan:: Assess current eating habits Education Gave educational materials for:: Signs & symptoms of hypoglycemia, Signs & symptoms of hyperglycemia, Relate diabetes to coronary artery disease and Healthy eating Core - Initial Assessment Visit Date of Eval: 05/17/24 (INITIAL EVAL) Medication Compliance Preventative Medication(s):: Aspirin, Ticagrelor/P2Y12 inhibitor, Statin/lipid and Beta soco H/O mental health issues: depression, anxiety, or addiction?: Yes Doesn?t believe in the benefits of treatment?: No Believes medications are unnecessary or harmful?: No Has a concern about medication side effects?: No Expresses concern over the cost of medications?: No Outcomes/Goals: Verbalizes medications,desired effect & common side effects @ DC, Pt self-reports following medication regimen and Keeps card in wallet w/medications listed by DC Interventions/plans: Instruct on medication effects & side effects, Review medication list w/patient every two weeks and Instruct importance of taking meds as ordered & assist problem solving Tobacco Use Tobacco Use: - (FORMER SMOKER) How long ago did you quit using tobacco products?: Less than 6 months ago Years Smokin (last tell social (10 packs per year)) Do you use smokeless tobacco?: No Outcomes/Goals: Smoking cessation achieved or maintained by discharge and Identify aids/strategies for achieving smoking cessation by session 6 Interventions/plan: Instruct on effects of smoking & provide smoking cessation resource, Assist pt to set quit date & provide encouragement, Assist pt to develop strategies to achieve/maintain quit date and Assist pt w/nicotine replacement & medication for cessation success Hypertension Hypertension Diagnosis:: Hypertension ICD-10 I10 Resting Blood Pressure:: 124/80 [place] [employer] Hypertension Guidelines Outcomes/Goals: Able to verbalize/achieve optimal blood pressure <130/80 and Incorporates diet changes & exercise for blood pressure control by DC Interventions/plan: Instruct on optimal blood pressure, hypertension & medications and Instruct on effects of sodium, alcohol, stress, exercise &hypertension Tobacco Cessation Referral Smoking Cessation Referral:: No Individual Education/Counseling:: No Education Schedule Given:: Yes Psychosocial - Initial Assess VIsit Date of Eval: 05/17/24 (INITIAL EVAL) History of previous Mental disease:: Yes History of Emotional Disorders: Anxious and Depression Self-reported stressors: Family, Medical/Health and Recent Illness Self-reported stressors Other/Comments:: has a doctor appointment this wednesday to see a psychologist Target Goals Target Goals Psychosocial Test Tool Used:: PHQ-9 Questionnaire phq-9 Severity See PHQ-9 Score: 22 Total Score:: 22 Referral to Behavioral Health PS - Interventions: Yes: Attend Stress Management Classes and No: Referral to Behavioral Health if PHQ-9 score >9: (has a doctor appointment this wednesday05/19/24 with a psychologist.), No: Referral to [facility] and No: Referral to Physician if PHQ-9 if score is 5-9: Outcomes/Goals: See list Psychosocial Outcomes/Goals:: ID's personal stressors & 2 strategies to manage stress by discharge Intervention/Plan: See List Interventions/Plan:: Assess stressors,coping strategies & signs of derpression on admission, Instruct/assist pt to develop coping & personal stress Mgt strategies, Refer to Behavioral Health if appropriate, Refer to Physician if appropriate, Instruct patient to recognize signs & symptoms of depression and Instruct patient to recog Patient Health Questionnaire PHQ-9 Screening Initial Assessment: 1. Little interest or pleasure in doing things: Nearly every day 2. Feeling down, depressed, or hopeless: Nearly every day 3. Trouble falling or staying asleep, or sleeping too much: Nearly every day 4. Feeling tired or having little energy: Nearly every day 5. Poor appetite or overeating: Nearly every day 6. Feeling bad about yourself -- or that you are a failure or have let yourself or your family down: Nearly every day 7. Trouble concentrating on things, such as reading the newspaper or watching television: Nearly every day 8. Moving or speaking so slowly that other people could have noticed. Or the opposite - being so fidgety or restless that you have been moving around a lot more than usual: Several days 9. Thoughts that you would be better off , or of hurting yourself in some way: Not at all How difficult have these problems made it for you to do your work, take care of things at home, or get along with other people?: Very difficult Total Score: 22 JEWELS-Q SV Test Statements CAD is a disease of the arteries in the heart: False Examples of risk factors for heart disease: True Angina is chest pain or discomfort: True The benefits of resistance training include: True Eating more meat and dairy products: True Anti-platelet medications such as aspirin are important: True The only effective way to manage stress: False An exercise warm-up slowly increases heart rate: True Prepared, processed foods usually have high sodium: True Depression is common after a heart attack: True The statin medications lower cholesterol: True To control blood pressure, lower the amount of sodium: True If someone gets chest discomfort during walking: False Transfats are partially hydrogenated vegetable oils: True Sleep apnea that is not treated increases the risk: False To control cholesterol, one should become a vegetarian: False Someone knows if he/she is exercising at the right level: True Diabetes cannot be prevented with exercise & health eating: False Stress is a large risk for heart attack: True A diet that can help lower blood pressure is rich in: True Total Score Total Correct Responses: 19 Self-Efficacy 6-Item Scale Initial Assessment: We would like to know how confident you are in doing certain activities. Please select your confidence level for: Fatigue Select Number: 7 Physical Discomfort or Pain Select Number: 4 Emotional Distress Select Number: 3 Other Symptoms or Health Problems Select Number: 3 Different Tasks and Activities Select Number: 4 Medication Select Number: 5 Total Score:: 4 Nutrition Survey Nutrition Survey Instructions Scoring Instructions Exercise - 30-day Assessment Physician Prescribed Exercise Modalities: Treadmill, Rower, Schwinn Airdyne AD-7, SciFit Stepper, SciFit Pro-II Ergometer and SciFit Lateral [place] Exercise - 60-day Assessment Physician Prescribed Exercise Modalities: Treadmill, Rower, Schwinn Airdyne AD-7, SciFit Stepper, SciFit Pro-II Ergometer and SciFit Lateral Plastic Sheets Finishing Supervisor Exercise - 90-day Assessment Physician Prescribed Exercise Modalities: Treadmill, Rower, Schwinn Airdyne AD-7, SciFit Stepper, SciFit Pro-II Ergometer and SciFit Lateral [place] Exercise - Final/Discharge Physician Prescribed Exercise Modalities: Treadmill, Rower, Schwinn Airdyne AD-7, SciFit Stepper, SciFit Pro-II Ergometer and SciFit Lateral Plastic Sheets Finishing Supervisor Frequency: 3x/week for 12 weeks [36 sessions] Intensity: 60-80% of age predicted maximum heart rate reserve METs - Progression 0.5-1.0 weekly:: 0.5 Target Heart Rate:: 101-127 Nutrition - 30-Day Assessment Weight Mgt (Other Care) Height: 5 ft 1 in Weight:: 211 lb BMI: 39.9 Nutrition - 60-Day Assessment Weight Mgt (Other Care) Height: 5 ft 1 in Weight:: 211 lb BMI: 39.9 Core - 30-Day Assessment Tobacco Use Years Smokin (last tell social (10 packs per year)) Core - Final Assessment Hypertension Resting Blood Pressure:: 124/80 [place] [employer] Hypertension Guidelines Core - 60-Day Assessment Hypertension Resting Blood Pressure:: 124/80 [place] [employer] Hypertension Guidelines Psychosocial - 30-Day Assess Target Goals Target Goals Referral to Behavioral Health PS - Interventions: Yes: Attend Stress Management Classes and No: Referral to Behavioral Health if PHQ-9 score >9: (has a doctor appointment this wednesday05/19/24 with a psychologist.), No: Referral to [facility] and No: Referral to Physician if PHQ-9 if score is 5-9: Psychosocial - 60-Day Assess Target Goals Target Goals Referral to Behavioral Health PS - Interventions: Yes: Attend Stress Management Classes and No: Referral to Behavioral Health if PHQ-9 score >9: (has a doctor appointment this wednesday05/19/24 with a psychologist.), No: Referral to [facility] and No: Referral to Physician if PHQ-9 if score is 5-9: Psychosocial - 90-Day Assess Target Goals Target Goals Referral to Behavioral Health PS - Interventions: Yes: Attend Stress Management Classes and No: Referral to Behavioral Health if PHQ-9 score >9: (has a doctor appointment this wednesday05/19/24 with a psychologist.), No: Referral to [facility] and No: Referral to Physician if PHQ-9 if score is 5-9: Psychosocial - Final Assessmen Target Goals Target Goals Psychosocial Test phq-9 Severity See PHQ-9 Score: 22 Total Score:: 22 Referral to Behavioral Health PS - Interventions: Yes: Attend Stress Management Classes and No: Referral to Behavioral Health if PHQ-9 score >9: (has a doctor appointment this wednesday05/19/24 with a psychologist.), No: Referral to [facility] and No: Referral to Physician if PHQ-9 if score is 5-9: Nutrition - 90-Day Assessment Weight Mgt (Other Care) Height: 5 ft 1 in Weight:: 211 lb BMI: 39.9 Nutrition - Final Assessment Program Goals Patient has diagnosis of Hyperlipidemia (ICD E78)?: Yes Weight Mgt (Other Care) Height: 5 ft 1 in Weight:: 211 lb BMI: 39.9
--- NOTE | 2024-05-17 14:06 | PCM.CR.HP2 ---
CR - History & Physical General Arrival date:: 05/17/24 Arrival time:: 14:06 Date of Referral:: 05/08/24 Date of CR Evaluation:: 05/17/24 Referring Physician: Dr. Tobin Primary Diagnosis: NSTEMI, pci with stenting History of Present Cardiac Event Onset Date Current stable Angina Pectoris:: No Acute Myocardial Infarction within 12 months:: Yes Coronary Artery Bypass Graft:: No Heart valve replacement or repair:: No PTCA or coronary stenting:: Yes Vessel: Proximal LAD Heart or Heart-Lung Transplant:: No Heart Failure EF <35%:: No Were there any complications?: says she still occasionally gets angina pain, still tired, gets dizzy/sob. Medications Ambulatory Orders ?Medication ?Instructions ?Recorded compress.stocking,knee,reg,lrg #2 ea 07/23/23 insulin glargine 100 unit/mL (3 20 unit (0.2 mL) subcut ONCE #18 mL 02/04/24 mL) subcutaneous pen (Lantus Solostar U-100 Insulin) pen needle, diabetic 31 gauge x #100 ea 02/04/24/ (CareFine Pen Needle) ondansetron 4 mg disintegrating 4 mg PO Q8H PRN nausea and 03/09/24 tablet vomiting #20 tabs tirzepatide 2.5 mg/0.5 mL 2.5 mg (0.5 mL) subcut QWEEK #2 mL 04/24/24 subcutaneous pen injector (Selvin) aspirin 81 mg tablet,delayed 81 mg PO DAILY 05/04/24 release carvedilol 3.125 mg tablet 3.125 mg PO Q12H 05/04/24 colchicine 0.6 mg tablet 0.6 mg PO DAILY 05/04/24 isosorbide mononitrate 30 mg 30 mg PO DAILY 05/04/24 tablet,extended release 24 hr lorazepam 0.5 mg tablet 0.5 mg PO DAILY PRN anxiety #30 05/04/24 tabs losartan 25 mg tablet 25 mg PO DAILY 05/04/24 nitroglycerin 0.4 mg sublingual 0.4 mg sublingual ONCE PRN chest 05/04/24 tablet pain #20 tabs rosuvastatin 40 mg tablet 40 mg PO DAILY 05/04/24 ticagrelor 90 mg tablet (Brilinta) 90 mg PO Q12H 05/04/24 Allergies Allergies empagliflozin (From Jardiance) Allergy (Severe, Verified 05/17/24 14:31) Vomiting metformin Adverse Reaction (Severe, Verified 05/17/24 14:31) Kidney Stones/High Uric Acid semaglutide (From Rybelsus) Adverse Reaction (Severe, Verified 05/17/24 14:31) Nausea Sleep Disorder Evaluation Hx of Sleep Apnea: Yes Do you snore loudly (louder than talking or can be heard through closed doors)?: Yes Do you often feel tired/ fatigued/ sleepy during daytime?: Yes Has anyone observed you stop breathing during sleep?: No History of Hypertension (for STOP score): Yes STOP Results: Positive Advanced Directives Advanced Directives Do you have a Healthcare Power of Customs Inspector?: Yes Living Will: Yes Advance Directives Information Provided: No Advance Directives on File: No DNR Order?:: No Past Medical History Covid-19 Screening Physicial Symptoms Fever: No Unexplained muscle aches: No Current respiratory symptoms: No Upper respiratory infections symptoms: No Gastro-intestinal symptoms: No Ees-Mpdi-Jdzlql symptoms: No Other Clinical Concerns Has tested positive for COVID-19 in last 30 days: No Exposure Risk Had contact w/person w/symptoms or Covid-19 (+) last 14 days: No Has High Risk Exposures ID'd by Health dept/Inf Control team: No Pertinent Comorbidities 65 years or older:: No Lives in Assisted Living facility:: No Has a chronic lung disease or moderate to severe asthma:: No Has a serious heart condition:: Yes Immunocompromised:: No Severely obese (Body Mass Index of 40 or higher):: No Diabetic:: Yes Has chronic kidney disease undergoing dialysis:: No Has liver disease:: Yes Past Medical Illness Past Medical History (Updated 05/04/24 @ 17:45 by THANIA Iglesias) CKD (chronic kidney disease) stage 2, GFR 60-89 ml/min N18.2 Type II diabetes mellitus E11.9 Hypertension I10 Obesity E66.9 Blood in urine R31.9 Cellulitis L03.90 Chest pain R07.9 Psoriasis L40.9 GERD (gastroesophageal reflux disease) K21.9 Liver disease K76.9 Head ache R51.9 Gout M10.9 Asthma J45.909 Arthritis M19.90 Past Surgical History Past Surgical History (Updated 05/04/24 @ 15:38 by Soledad Auguste MA) H/O angioplasty Z98.62 04/20/2024 [facility], [facility] H/O skin graft Z94.5 1997 [facility] History of cholecystectomy Z90.49 1996 Surgical History: - (surgery on elbow) Family History Summary Family History Mother Arthritis Heart disease Psoriasis Cancer lymphoma, Hypercholesterolemia Hypertension Depression Grandmother Arthritis Heart disease Hypercholesterolemia Hypertension Depression Psychiatric care Mental disorder Grandmother Diabetes type 2 Grandfather Depression Mental disorder Psychiatric care Other Anxiety Asthma Autoimmune disorder Liver disease Suicide attempt Social History Smoking History Smoking Status: Former smoker (social, 10 packs per year) Years Smokin (last 10 were social) Hx Smoking Cessation Date: 01/23/24 Hx Tobacco Use: No Hx Smoking Exposure: Yes Alcohol Use Alcohol Usage: No Substance Abuse Hx Substance Use: No Occupation Occupation (List type of work in comments):: Employed Hours worked per day:: 8 Returned to work on:: 04/24/24 Hobbies, Recreation, Social Activities Hobbies: Reading, Hiking and Other (swimming, baking, gardening) Recreational Activities: I am able to engage in most, but not all activities Social Environment Status Marital Status: Single Current Living Arrangements Living Environment:: Alone Children How many children do you have?: 0 Safety Do you feel safe in your surroundings?: Yes Assistance Do you need any assistance at home?: none Review of Systems Review of Systems Hints Review of Present Symptoms: Reports Shortness of Breath at Rest, Shortness of Breath with Exertion, Angina, Dizziness/Lightheadedness, Fatigue, Heart Arrhythmia/Irregularities (some palpatations, does not last long) and - (hot flashes) Pain Is Patient Pain Free?: No Pain Location: chest (had chest pressure during stressful time at work today. says this happens occasionally but resolves quickly) Pain Level: 4/10 (more pressure than pain) Risk Factor Assessment Vital Signs Pulse Ox: 99 Blood Pressure: 124/80 Pulse Pulse Rate: 76 Hypertension How long have you been treated?: 6 years On medication(s)?: yes Blood Pressure Sitting - Right Arm: 124/80 Stress Stress: Recent, Work-related and Home/Family Diabetes Diabetic History: Type II Nutrition Referral for Diabetes: Yes Obesity Height: 5 ft 1 in Weight:: 211 lb Weight in Pounds: 211.0 lbs Weight Source: Stated by Patient Body Mass Index (BMI): 39.9 Nutritional Referral for Obesity: Yes Physical Inactivity Physical Inactivity: Physically demanding job Risk Stratification Risk Guidelines: Highest Risk: Risk Factor for Smoking, Risk Factor for Dyslipidemia, Risk Factor for Diabetes, Risk Factor for Obesity, Risk Factor for Hypertension, Risk Factor for Sedentary Lifestyle and Risk Factor for Depression For Smoking Smoking Risk Guidelines For Dyslipidemia Dyslipidemia Risk Guidelines For Diabetes Mellitus Diabetes Risk Guidelines For Obesity/Overweight Obesity/Overweight Risk Guidelines For Hypertension Hypertension Risk Guidelines For Sedentary Lifestyle Sedentary Lifestyle Risk Guidelines For Depression Depression Risk Guidelines Family History Family History Mother Arthritis Heart disease Psoriasis Cancer lymphoma, Hypercholesterolemia Hypertension Depression Grandmother Arthritis Heart disease Hypercholesterolemia Hypertension Depression Psychiatric care Mental disorder Grandmother Diabetes type 2 Grandfather Depression Mental disorder Psychiatric care Other Anxiety Asthma Autoimmune disorder Liver disease Suicide attempt Motivation Motivation to Participate On a scale of 1 to 10, how prepared are you to commit to attending program?: 10 What do you see as barriers to successfully being able to complete the program?: nothing What do you see as the benefits of succesfully completing the program? In other words, what do you hope to get out of participating in the program?: stronger heart, improving heart disease, improving stamina Are there issues you are dealing with that will interfere with completing the program?: no Do you have a spouse or signficant other, family or friends who will help support you to complete the program?: yes
[2024-05-17 14:52] VITALS: BP 124/80; PULSE 76; O2SAT 99
[2024-05-17 15:28] VITALS: BP 124/80
[2024-05-17 15:35] VITALS: BP 124/80
[2024-05-17 15:39] VITALS: BMI 39.9
[2024-05-17 15:54] VITALS: BMI 39.9
== END | disposition home or self-care (01) ==
PROVIDERS: PCP Internal Medicine; Referring Provider Internal Medicine Cardiovascular Disease; Visit Provider Internal Medicine Cardiovascular Disease
DX: E78.00 Pure hypercholesterolemia, unspecified (principal); E11.9 Type 2 diabetes mellitus without complications; E66.9 Obesity, unspecified; I10 Essential (primary) hypertension

== ENCOUNTER 2024-05-22 15:08 | Emergency (ER) | payer OTHER, SELFPAY ==
[2024-05-17 15:54] VITALS: BMI 39.9
[2024-05-22 15:09] VITALS: BP 134/97; PULSE 73; RESP 16; TEMP 36.4; O2SAT 99
[2024-05-22 15:13] VITALS: BMI 41.1
--- NOTE | 2024-05-22 15:18 | ED.VIS.CHEST ---
HPI History of Present Illness Chief Complaint: Chest Pain Informant: patient Onset/Context/Timing Onset: Today Activity at onset: gradual Timing: Continuous Quality: Positive for Dull (Soreness) Location: Right Parasternal and Right Chest Worsened By: Nothing Relieved By: Nothing Associated Symptoms: Positive for Nausea, Dyspnea, Cough, Lightheadedness, Acid Reflux and Palpitations; Negative for Vomiting, Diaphoresis or Fever Narrative Narrative: Patient presents with chest pain that began today. Patient states that feels like a soreness and discomfort over the right side of her chest. Patient states she started Zoloft 3 days ago. Patient states that she noted her blood pressure was elevated today when she went to cardiac rehab. Patient states it was 156 systolic. Patient states that when she came to the emergency department it was 130 systolic. Patient admits to some nausea but denies any vomiting. Patient admits to some shortness of breath and a slight cough. Patient also admits to some lightheadedness, palpitations, and reflux symptoms. Patient denies any fevers but admits to some subjective chills. Patient states her pain radiates into her back between her shoulder blades. CVD Risk Factors: Positive for Hypertension and Diabetes; Negative for Hypercholesterolemia, Family History 1' </=55 or Smoking PE Risk Factors: Negative for Recent Travel/Surgery, Recent Immobilization, Prior DVT or PE, Cancer or OCP + Smoking + >/=35 PFSH PFSH Medical History Fracture of arm Cervical cancer Myocardial infarction Heart failure CKD (chronic kidney disease) stage 2, GFR 60-89 ml/min Type II diabetes mellitus Hypertension Obesity Blood in urine Cellulitis Chest pain Psoriasis GERD (gastroesophageal reflux disease) Liver disease Head ache Gout Asthma Arthritis Home Medications ?Medication ?Instructions ?Recorded ?Last Taken ?Type compress.stocking,knee,reg,lrg #2 ea 07/23/23 Unknown Rx insulin glargine 100 unit/mL (3 20 unit (0.2 mL) subcut ONCE #18 mL 02/04/24 Unknown Rx mL) subcutaneous pen (Lantus Solostar U-100 Insulin) pen needle, diabetic 31 gauge x #100 ea 02/04/24 Unknown Rx 1/4 (CareFine Pen Needle) ondansetron 4 mg disintegrating 4 mg PO Q8H PRN nausea and 03/09/24 Unknown Rx tablet vomiting #20 tabs tirzepatide 2.5 mg/0.5 mL 2.5 mg (0.5 mL) subcut QWEEK #2 mL 04/24/24 Unknown Rx subcutaneous pen injector (Selvin) aspirin 81 mg tablet,delayed 81 mg PO DAILY 05/04/24 05/17/24 History release carvedilol 3.125 mg tablet 3.125 mg PO Q12H 05/04/24 05/17/24 History colchicine 0.6 mg tablet 0.6 mg PO DAILY 05/04/24 05/17/24 History isosorbide mononitrate 30 mg 30 mg PO DAILY 05/04/24 05/17/24 History tablet,extended release 24 hr lorazepam 0.5 mg tablet 0.5 mg PO DAILY PRN anxiety #30 05/04/24 Unknown Rx tabs losartan 25 mg tablet 25 mg PO DAILY 05/04/24 05/17/24 History nitroglycerin 0.4 mg sublingual 0.4 mg sublingual ONCE PRN chest 05/04/24 Unknown Rx tablet pain #20 tabs rosuvastatin 40 mg tablet 40 mg PO DAILY 05/04/24 05/17/24 History ticagrelor 90 mg tablet (Brilinta) 90 mg PO Q12H 05/04/24 05/17/24 History clobetasol 0.05 % topical cream 1 applic topical QDAY PRN 05/18/24 Unknown History pantoprazole 40 mg tablet,delayed 40 mg PO QDAY 05/18/24 Unknown History release sertraline 50 mg tablet 50 mg PO QDAY #30 tabs 05/19/24 Unknown Rx Allergy/AdvReac Type Severity Reaction Status Date / Time empagliflozin (From Allergy Severe Vomiting Verified 05/17/24 14:31 Jardiance) metformin AdvReac Severe Kidney Verified 05/17/24 14:31 Stones/High Uric Acid semaglutide (From Rybelsus) AdvReac Severe Nausea Verified 05/17/24 14:31 Family History (Updated 05/18/24 @ 09:28 by Caroline Alcantara) Mother Arthritis Heart disease Psoriasis Cancer lymphoma, cervical Hypercholesterolemia Hypertension Depression Autoimmune disorder defect Hormone disorder Grandmother Arthritis Heart disease Hypercholesterolemia Hypertension Depression Psychiatric care Mental disorder Alcoholism Anxiety Grandmother Diabetes type 2 Alcoholism Anxiety Grandfather Depression Mental disorder Psychiatric care Alcoholism Anxiety Father Alcoholism Anxiety Grandfather Alcoholism Anxiety Other Asthma Endometriosis Liver disease Suicide attempt Surgical History History of elbow surgery H/O angioplasty H/O skin graft History of cholecystectomy Social History household members: none housing: house current occupational status: employed current occupation: [employer] Smoking Status: Former smoker Tobacco: How many years used: 30 alcohol intake: never substance use type: does not use well-balanced diet: other details: keto, no soda caffeine: No what type of physical activity do you participate in: other details: Infrequent seatbelt use: always do you feel safe at home: Yes ROS ROS ED Constitutional Constitutional ED: Reports chills and subjective; Denies fever(s) Eyes Eyes: Denies blurry vision or change in vision ENT ENT ED: Denies rhinorrhea or sore throat Cardiovascular Cardiovascular: Reports chest pain and palpitations Respiratory/Chest Respiratory/Chest: Reports cough and dyspnea Gastrointestinal Gastrointestinal: Reports nausea; Denies abdominal pain or vomiting Genitourinary Genitourinary ED: Denies dysuria or hematuria Musculoskeletal Musculoskeletal: Reports back pain; Denies neck pain Integumentary Denies abscess or rash Neurologic Neurologic: Denies headache(s) or weakness Allergic/Immunologic Allergic/Immunologic ED: Denies mouth swelling or urticaria EXAM Physical Exam Const Vital Signs: 05/22/24 15:09 05/22/24 15:51 05/22/24 16:06 Temperature 97.6 F L Temperature Source Temporal Pulse Rate 73 71 74 Respiratory Rate 16 15 Blood Pressure 134/97 H 146/88 H 126/82 H Blood Pressure Mean 109 96 Pulse Ox 99 98 Oxygen Delivery Method Room Air Room Air 05/22/24 17:00 05/22/24 18:00 Temperature Temperature Source Pulse Rate 70 66 Respiratory Rate 17 20 H Blood Pressure 145/83 H 145/83 H Blood Pressure Mean 103 103 Pulse Ox 98 100 Oxygen Delivery Method Room Air Room Air Positive well nourished and well developed General Appearance ED: well developed and NAD HEENT Reports moist mucous membranes Neck supple and no JVD Resp normal respiratory effort and clear to auscultation bilaterally Cardio regular rate and regular rhythm GI soft to palpation, non-tender and non-distended Neuro oriented x3, CN's II-XII intact bilaterally and no sensory deficits noted Sensorium / Orientation: awake and alert Motor Exam: strength 5/5 throughout Psych mental status grossly normal Heart Score History: Slightly/Non-Suspicious ECG: Normal Age: >45 - <65 years Risk Factors: >/= 3 Risk Factors or History of CAD Troponin: </= Normal Limit Score: 3 MDM MDM MDM Narrative Medical decision making narrative: Differential diagnosis includes cardiac dysrhythmia, cardiac ischemia, pneumonia, bronchitis, pulmonary embolism, electrolyte abnormality, gastroesophageal reflux disease, and anxiety. EKG will be obtained to assess for cardiac dysrhythmia and cardiac ischemia. Chest x-ray will be obtained to assess for pneumonia and bronchitis. CBC will be obtained to assess for leukocytosis and anemia. Basic metabolic profile will be obtained to assess for electrolyte abnormality and renal function. High-sensitivity troponin will be obtained to assess for cardiac ischemia. 2-hour repeat high-sensitivity troponin will be obtained to assess for ongoing cardiac ischemia. D-dimer will be obtained to assess for pulmonary embolism. Lab Data Attestation: I reviewed the patient's lab results. Lab results narrative: CBC was reviewed. There is a mild leukocytosis of 15.9. The remainder is within normal limits. Basic metabolic profile was reviewed. Creatinine was slightly elevated at 1.45. The remainder is essentially within normal limits. Initial high-sensitivity troponin was reviewed and was 19. 2-hour repeat high-sensitivity troponin was reviewed and was 21. Patient has a delta troponin of 2. Labs: Laboratory Results - last 24 hr 05/22/24 05/22/24 15:31 17:24 WBC 15.9 H RBC 4.48 Hgb 13.6 Hct 38.6 MCV 86.2 MCH 30.4 MCHC 35.2 RDW Std Deviation 41.8 RDW Coeff of Dale 13.3 Plt Count 371 MPV 9.5 Immature Gran % (Auto) 0.300 Neut % (Auto) 65.6 Lymph % (Auto) 24.5 Crane % (Auto) 6.1 Eos % (Auto) 2.6 Baso % (Auto) 0.9 Absolute Neuts (auto) 10.5 H Absolute Lymphs (auto) 3.90 Nucleated RBC % 0 D-Dimer Quant (PE/DVT) 0.27 Sodium 138 Potassium 3.7 Chloride 107 Carbon Dioxide 17.9 L Anion Gap 13 BUN 18 Creatinine 1.45 H Estim Creat Clear Calc 49.36 L Est GFR (MDRD) Non-Af 44 L BUN/Creatinine Ratio 12.3 Glucose 110 H Calcium 9.5 Troponin T High Sens 19 H D Troponin T Hi Sens 2 Hr 21 H Radiography Chest X-Ray - ED: 2 View, Read by ED Physician, Read by Radiologist and No Acute Disease Diagnostic Testing: Clinical Impression(s) from Imaging Studies Chest X-Ray 05/22/24 15:55 IMPRESSION: NO ACUTE FINDINGS. Reading Location: [facility] [place] and lateral chest x-ray was obtained. There are 2 views. On my independent interpretation, lung flores are clear. There is normal cardiac silhouette. Bony thorax is normal. There is no acute process noted. Radiologist also interpreted the x-ray and agrees. EKG Initial EKG: Attestation: I personally reviewed and interpreted this EKG as follows: Interpretation: Sinus Rhythm (73) and No Acute Injury Pattern Comments: EKG was obtained. On my independent interpretation, it showed a normal sinus rhythm with a rate of 73. OR interval, QRS interval, and QTc intervals were all normal. [place] was normal. There are no acute ST or T wave changes. There there is minimal voltage criteria for with left ventricular hypertrophy Prior EKG tracings: available for review Prior: Unchanged (04/19/2024) Treatment and Re-Evaluation :: Patient was ordered aspirin but states she already took aspirin this morning. Patient was given 1 sublingual nitroglycerin. Patient states her pain improved. Patient has a HEART score of 3. Given her normal delta troponin, I feel this is not cardiac related. Patient believes it is from the Zoloft. Patient was instructed to contact her primary care physician tomorrow to see if she should stop taking the Zoloft. Patient understands and is agreeable with the plan. All questions were answered. Discharge Plan Triage Chief Complaint: Chest Pain ED Provider: Anibal Street Dx/Rx/DC Orders Clinical Impression: Chest pain of uncertain etiology, Type II diabetes mellitus, Hypertension Instructions: ED Chest Pain, Uncertain Cause Prescriptions: No Action (DME) compress.stocking,knee,reg,lrg Misc See Rx Instructions .MEDSUPPLY Qty: 2 1RF Rx Instructions: wear daily for venous insufficiency 20-30 mmHg ondansetron 4 mg tablet,disintegrating 4 mg PO Q8H PRN (Reason: nausea and vomiting) Qty: 20 0RF Patient Comments: hasnt needed it in a couple weeks Brilinta 90 mg tablet 90 mg PO Q12H rosuvastatin 40 mg tablet 40 mg PO DAILY carvedilol 3.125 mg tablet 3.125 mg PO Q12H isosorbide mononitrate 30 mg tablet extended release 24 hr 30 mg PO DAILY aspirin 81 mg tablet,delayed release (DR/EC) 81 mg PO DAILY colchicine 0.6 mg tablet 0.6 mg PO DAILY losartan 25 mg tablet 25 mg PO DAILY nitroglycerin 0.4 mg tablet, sublingual 0.4 mg sublingual ONCE PRN (Reason: chest pain) Qty: 20 0RF lorazepam 0.5 mg tablet 0.5 mg PO DAILY PRN (Reason: anxiety) Qty: 30 0RF Patient Comments: last taken 2 weeks ago pantoprazole 40 mg tablet,delayed release (DR/EC) 40 mg PO QDAY clobetasol 0.05 % cream 1 applic topical QDAY PRN sertraline 50 mg tablet 50 mg PO QDAY Qty: 30 1RF (DME) pen needle, diabetic [CareFine Pen Needle] 31 gauge x 1/4 needle See Rx Instructions .Route Qty: 100 1RF Rx Instructions: once daily insulin glargine [Lantus Solostar U-100 Insulin] 100 unit/mL (3 mL) insulin pen 20 unit subcut ONCE Qty: 18 1RF Mounjaro 2.5 mg/0.5 mL pen injector 2.5 mg subcut QWEEK Qty: 2 1RF Rx Instructions: for 4 weeks Primary Care Provider: Casimiro Kelly Referrals: Casimiro Kelly MD [Primary Care Provider] - 3-5 Days Print Language: Arabic Disposition Disposition: Home, Self Care
--- NOTE | 2024-05-22 15:35 | EKG12_ITS ---
Test Reason : CP Blood Pressure : */* mmHG Vent. Rate : 73 BPM Atrial Rate : 73 BPM P-R Int : 180 ms QRS Dur : 94 ms QT Int : 406 ms P-R-T Axes : 26 -26 40 degrees QTcB Int : 447 ms Normal sinus rhythm Minimal voltage criteria for LVH, may be normal variant ( R in aVL ) Borderline ECG Confirmed by Brayan Magana ([id number]), website/blog editor URMILA CARD ([id number]) on 05/24/2024 7:45:02 AM Referred By: Anibal Street Confirmed By: Brayan Magana
[2024-05-22 15:49] LABS: Absolute Neutrophil Count 10.5 X10^3/uL (2.0-7.7); Basophil# 0.14 X10^3/uL; Basophil% 0.9 % (0-1); Eosinophil# 0.41 X10^3/uL; Eosinophils% 2.6 % (0-5); Hematocrit 38.6 % (37-47); Hemoglobin 13.6 g/dL (12.0-15.0); Lymphocyte % 24.5 % (19-41); Mean Corp Hgb Conc 35.2 g/dL (32-36); Mean Corpuscular Hgb 30.4 pg (27.0-32.0); Mean Corpuscular Volume 86.2 fL (81-99); Mean Platelet Vol. 9.5 fl (6.2-12.0); Monocyte# 0.97 X10^3/uL; Monocyte% 6.1 % (0-10); NRBC Flagged by Analyzer 0 % (0-5); Neutrophil # 10.46 X10^3/uL (2.7-7.7); Neutrophil % 65.6 % (47-70); Platelet Count 371 K/mm3 (150-450); RBC Distribution Width CV 13.3 % (11.6-14.6); RBC Distribution Width SD 41.8 fl (35.1-43.9); Red Blood Count 4.48 M/mm3 (4.2-5.4); White Blood Count 15.9 K/mm3 (4.4-11.0)
[2024-05-22 15:51] VITALS: BP 146/88; PULSE 71
[2024-05-22] MEDS: Nitroglycerin SL (ED/IMG/CATH) 0.4 MG TABLET SL (15:51)
--- NOTE | 2024-05-22 15:55 | RAD_ITS ---
PROCEDURE: CHEST PA AND LATERAL 05/22/2024 REASON FOR EXAM: 49-year-old female, CHEST PAIN, in cardiac rehab for recent HI with stent. TECHNIQUE: Frontal and lateral views of the chest. COMPARISON: Chest radiograph 04/19/2024. FINDINGS: Hardware: None. Cholecystectomy clips. Heart: The heart size is normal. Mediastinum: The mediastinal contour is unremarkable. Lungs: No focal consolidation, pleural effusion or pneumothorax. Bones: Degenerative changes are identified within the thoracic spine. RAD/Chest PA and Lateral IMPRESSION: NO ACUTE FINDINGS. Reading Location: [id number]
[2024-05-22 16:06] VITALS: BP 126/82; PULSE 74; RESP 15; O2SAT 98
[2024-05-22 16:19] LABS: Troponin T High Sensitivity 19 ng/L (<=14)
[2024-05-22 16:21] LABS: Anion Gap 13 (5-15); BUN 18 mg/dL (4-19); BUN/Creat Ratio 12.3 RATIO (10-20); Calcium,Total 9.5 mg/dL (7.6-11.0); Carbon Dioxide 17.9 mmol/L (21.0-32.0); Chloride 107 mmol/L (98-108); Creatinine, Serum 1.45 mg/dL (0.70-1.20); EST Glomerular Filtration Rate 44 (>60); Estimated Creatinine Clearance 49.36 ml/min (50-250); Glucose 110 mg/dL (70-99); Potassium 3.7 mmol/L (3.3-5.1); Sodium Level 138 mmol/L (133-145)
[2024-05-22 16:44] LABS: D-Dimer Quantitative (DVT/PE) 0.27 FEU/ug/m (0.27-0.49)
[2024-05-22 17:00] VITALS: BP 145/83; PULSE 70; RESP 17; O2SAT 98
[2024-05-22 18:00] VITALS: BP 145/83; PULSE 66; RESP 20; O2SAT 100
[2024-05-22 18:06] LABS: Troponin T High Sens 2 HR 21 ng/L (<=14)
[2024-05-22 18:40] VITALS: BP 131/79; PULSE 68; RESP 19; TEMP 36.8; O2SAT 99
== END 2024-05-22 18:50 | disposition home or self-care (01) ==
PROVIDERS: Emergency Provider Emergency Medicine; PCP Internal Medicine; Referring Provider Emergency Medicine; Visit Provider Emergency Medicine
DX: R07.9 Chest pain, unspecified (principal); E11.22 Type 2 diabetes mellitus with diabetic chronic kidney disease; Z79.4 Long term (current) use of insulin; N18.2 Chronic kidney disease, stage 2 (mild); Z87.891 Personal history of nicotine dependence; Z90.49 Acquired absence of other specified parts of digestive tract; I25.2 Old myocardial infarction; I12.9 Hypertensive chronic kidney disease with stage 1 through stage 4 chronic kidney disease, or unspecified chronic kidney disease; R11.0 Nausea; R42 Dizziness and giddiness; K21.9 Gastro-esophageal reflux disease without esophagitis; R05.9 Cough, unspecified; M54.9 Dorsalgia, unspecified
CPT/HCPCS: 71046; 80048; 84484; 85025; 85379; 93005; 99283; A4216

== ENCOUNTER → 2024-06-01 | Outpatient (CLI) | payer OTHER, SELFPAY ==
[2024-05-17 15:54] VITALS: BMI 39.9
== END | disposition home or self-care (01) ==
LOC: SL 12:11
PROVIDERS: PCP Internal Medicine; Referring Provider Nurse Practitioner Gerontology; Visit Provider Nurse Practitioner Gerontology
DX: G47.10 Hypersomnia, unspecified (principal)
CPT/HCPCS: 95806

== ENCOUNTER → 2024-06-08 | Outpatient (CLI) | payer OTHER, SELFPAY ==
[2024-05-17 15:54] VITALS: BMI 39.9
--- NOTE | 2024-06-08 13:00 | ECHOCS_ITS ---
Reason For Study Reason For Study: KWONG Procedure This was a 2D Doppler, Color Flow transthoracic echocardiogram. The study was technically difficult. Contrast injection was performed. Exam performed in department. Left Ventricle Normal LV size. Mild concentric left ventricular hypertrophy. Left ventricular systolic function is normal. The left ventricular ejection fraction is 60 %. Stage 1 diastolic dysfunction. No regional wall motion abnormalities noted. Right Ventricle Normal RV size. Normal systolic function. Atria Normal left atrium. Normal right atrium. Mitral Valve Normal mitral valve. Tricuspid Valve Normal tricuspid valve. Aortic Valve Normal aortic valve. Pulmonic Valve Normal pulmonic valve. Great Vessels Normal aortic root. The pulmonary artery is normal size. Inferior vena cava collapse with respiration. Pericardium/Pleural No pericardial effusion. Medication 22 gauge I.V. with prn adaptor inserted into right arm. Diluted definity 1ml given slow IV push to enhance endocardial definition. MMode/2D Measurements & Calculations LVIDd: 3.3 cm IVSd: 1.3 cm LVOT diam: 2.1 cm LVIDs: 2.7 cm LVPWd: 1.5 cm FS: 17.9 % LVOT area: 3.5 cm2 Ao root diam: 3.4 cm LAV(MOD-bp): 31.9 ml LVAd ap4: 28.7 cm2 LAV(MOD-bp) Indexed: 16.5 ml/m2 LVLd ap4: 8.1 cm LAV(MOD-sp2): 27.0 ml EDV(MOD-sp4): 83.6 ml LAV(MOD-sp4): 34.9 ml EDV(sp4-el): 86.2 ml LVAs ap4: 15.9 cm2 LVLs ap4: 6.8 cm ESV(MOD-sp4): 30.4 ml ESV(sp4-el): 31.5 ml EF(MOD-sp4): 63.6 % EF(sp4-el): 63.4 % SV(MOD-sp4): 53.2 ml SV(sp4-el): 54.6 ml LA A4 area: 14.8 cm2 SI(MOD-sp4): 27.5 ml/m2 LA dimension(2D): 3.2 cm RA A4 area: 9.3 cm2 Time Measurements MV dec time: 0.21 sec Doppler Measurements & Calculations MV E max alek: 57.8 cm/sec Lat Peak E' Alek: 7.9 cm/sec Med Peak E' Alek: 3.5 cm/sec MV A max alek: 67.6 cm/sec E/E' lat: 7.3 E/E' med: 16.6 MV E/A: 0.85 MV V2 max: 85.8 cm/sec MV dec slope: 276.6 cm/sec2 Ao V2 max: 117.6 cm/sec MV max P.0 mmHg Ao max P.5 mmHg MV V2 mean: 50.5 cm/sec Ao V2 mean: 81.1 cm/sec MV mean P.1 mmHg Ao mean P.0 mmHg MV V2 VTI: 28.9 cm Ao V2 VTI: 22.8 cm MVA(VTI): 2.7 cm2 AV (velocity ratio): 0.98 BLANE(I,D): 3.5 cm2 BLANE(V,D): 3.3 cm2 LV V1 max: 108.8 cm/sec SV(LVOT): 79.1 ml PA V2 max: 67.6 cm/sec LV V1 max P.7 mmHg PA V2 mean: 50.5 cm/sec LV V1 mean P.6 mmHg LV V1 mean: 75.5 cm/sec LV V1 VTI: 22.3 cm ECHO/Echo Complete W/ Contrast Interpretation Summary Normal LV size. Left ventricular systolic function is normal. The left ventricular ejection fraction is 60 %. Mild concentric left ventricular hypertrophy. Stage 1 diastolic dysfunction. Ordering Physician: Kandis Chow Referring Physician: Kandis Chow Performed By: Windy Moreland RCS
== END | disposition home or self-care (01) ==
LOC: CVS 12:59
PROVIDERS: PCP Internal Medicine; Referring Provider Nurse Practitioner Gerontology; Visit Provider Nurse Practitioner Gerontology
DX: R06.09 Other forms of dyspnea (principal)
CPT/HCPCS: 93306; Q9957; A4216; C8929

== ENCOUNTER → 2024-06-09 | Outpatient (CLI) | payer OTHER, SELFPAY ==
[2024-05-17 15:54] VITALS: BMI 39.9
== END | disposition home or self-care (01) ==
LOC: SL 20:04
PROVIDERS: PCP Internal Medicine; Referring Provider Nurse Practitioner Gerontology; Visit Provider Nurse Practitioner Gerontology
DX: G47.33 Obstructive sleep apnea (adult) (pediatric) (principal); G47.10 Hypersomnia, unspecified
CPT/HCPCS: 95811

== ENCOUNTER 2024-06-21 08:00 | Outpatient (RCR) | payer OTHER, SELFPAY ==
[2024-05-17 15:54] VITALS: BMI 39.9
--- NOTE | 2024-06-16 06:58 | PCM.CR.ITP ---
Exercise - Initial Assessment Visit Session #:: 7 Physician Prescribed Exercise Modalities: Treadmill, Schwinn Airdyne AD-7 and SciFit Stepper Nutrition - Initial Assessment Weight Mgt (Other Care) Height: 5 ft 1 in Weight:: 211 lb BMI: 39.9 Core - Initial Assessment Tobacco Use Years Smokin Psychosocial - Initial Assess Target Goals Target Goals Referral to Behavioral Health PS - Interventions: Yes: Attend Stress Management Classes Patient Health Questionnaire PHQ-9 Screening 30-Day Re-eval Assessment: 1. Little interest or pleasure in doing things: Nearly every day 2. Feeling down, depressed, or hopeless: Nearly every day 3. Trouble falling or staying asleep, or sleeping too much: Nearly every day 4. Feeling tired or having little energy: Nearly every day 5. Poor appetite or overeating: Nearly every day 6. Feeling bad about yourself -- or that you are a failure or have let yourself or your family down: Nearly every day 7. Trouble concentrating on things, such as reading the newspaper or watching television: Nearly every day 8. Moving or speaking so slowly that other people could have noticed. Or the opposite - being so fidgety or restless that you have been moving around a lot more than usual: Several days 9. Thoughts that you would be better off , or of hurting yourself in some way: Not at all How difficult have these problems made it for you to do your work, take care of things at home, or get along with other people?: Very difficult Total Score: 22 Self-Efficacy 6-Item Scale 30-Day Re-eval Assessment: We would like to know how confident you are in doing certain activities. Please select your confidence level for: Fatigue Select Number: 7 Physical Discomfort or Pain Select Number: 4 Emotional Distress Select Number: 3 Other Symptoms or Health Problems Select Number: 3 Different Tasks and Activities Select Number: 4 Medication Select Number: 5 Total Score:: 4 Nutrition Survey Nutrition Survey Instructions Scoring Instructions Exercise - 30-day Assessment Visit Date of Eval: 06/16/24 Session #:: 7 Physician Prescribed Exercise Modalities: Treadmill, Schwinn Airdyne AD-7 and SciFit Stepper Frequency: 3x/week for 12 weeks [36 sessions] Intensity: 60-80% of age predicted maximum heart rate reserve Duration: 30 - 45 minutes Current METSs:: 3.9 Target Heart Rate:: 101-127 Current RPE:: 11-12 Maximum Excercise HR:: 111 Resting Blood Pressure: 100/80 Maximum Exercise Blood Pressure: 148/86 EKG Type: NSR to ST with rare PVC Outcomes & Goals Goals:: Verbalizes understanding of THR, RPE & goal METS by session 6, Documents in home exercise log/reports 30 min aerobic 5 day/wk by DC, Demonstrates accurate pulse taking by DC and Other additional outcome/goals: see below Intervention & Plan Exercise Program Goals: Instruct on personal THR & RPE, Instruct on MET level & personal MET goal, Show patient to take own pulse /validate performance until accurate, Instruct on home exercise and Other additional plan/int Physical Activity Home Exercise Physical Activity - Home Exercise: Safe Exercise, Warm-up, Self-monitoring, Cool-Down, Home Exercise > 30 min Daily and Sitting Time <3 hours/daily Outcomes & Goals Outcomes/Goals: Demonstrates correct Warm-up/exercise Cool-Down (S3) if = 2.5 METs, Verbalizes symptoms of exercise intolerance by Session 3 (S3), Demonstrate safe equipment use (S3) & follows exercise prescrition (6) and Other: See below Intervention & Plan Plan/Intervention: Instruct warm-up & cool-down if exercising at > 2 METs, Instruct on symptoms of exercise intolerance & actions to take, Instruct & monitor on saf, Assess intial functional capacity & safety risk and Other See below 30-day Reassessments 30 day Reassessments:: Progressing Reassessment Notes & Comments:: RPE explained to pt. Pt demonstrates understanding in her daily sessions. Exercise - 60-day Assessment Physician Prescribed Exercise Modalities: Treadmill, Schwinn Airdyne AD-7 and SciFit Stepper Exercise - 90-day Assessment Physician Prescribed Exercise Modalities: Treadmill, Schwinn Airdyne AD-7 and SciFit Stepper Exercise - Final/Discharge Physician Prescribed Exercise Modalities: Treadmill, Schwinn Airdyne AD-7 and SciFit Stepper Nutrition - 30-Day Assessment Program Goals Nutrition Program Goals Patient has diagnosis of Hyperlipidemia (ICD E78)?: Yes Visit Date of Eval: 06/16/24 Session #:: 7 Cholesterol/Lipids (Other Core Measures) Determine presence & major risk factors that modify LDL goal: Cigarette smoking, Hypertension or hypertensive medication, Low HDL cholesterol <40 mg/dL*, Family history of premature CHD in Male < 55 years: female <65 yearsFa and Age men > 45 years; women >/= 55 years Outcomes/Goals: Pt IDs own risk factors & lifestyle modifications by Session 10, Verbalizes symptoms of angina & response by session 3., Pt independently manages and Other Additional Outcomes/Goals: Intervention/Plan: Advocate for lipid panel cholesterol medication if applicable, Instruct on personal lipid levels & lipid goals/NCEP guidelines, Instruct on cholesterol and Other additional plan/int Referral to dietitian:: Yes Diabetes (Other Core Measures) Diabetes Type: Diagnosis Type II ICD-10 E11 Insulin dependent injection/pump?: Yes Non-Insulin Dependent?: No Weight Mgt (Other Care) Height: 5 ft 1 in Weight:: 211 lb BMI: 39.9 Diagnosis Overweight/Obesity BMI> 30% ICD-10 E66: Yes Diagnosis High BMI/Morbid Obesity BMI> 35% ICD-10 Z68: Yes Outcomes/Goals: Pt sets, maintains & shows weight loss goal & trend during rehab and Other additional outcomes/goals Intervention/Plan: Instruct on ideal BMI & set weight loss goal w/patient, Assist pt to ID & incorporate diet changes for weight loss by S9, Refer to Structured Weight Loss program as appropriate, Encourage goal of using 250-300dcal per session for weight loss and Other additional plan/interventions Healthy Eating Habits Will attend diet classes:: Yes Outcomes/Goals:: Consume diet rich in vegs,fruits,whole grain/high fiber,fish,lean meat, Limit sat/trans fats,cholesterol & added salts & sugars and Other additional outcome/goals: Intervention/Plan:: Assess current eating habits and Other Additional plan/interventions 30-day Reassessments:: Progressing Reassessment Notes & Comments:: Pt is scheduled to have a 1 on 1 consultation with our coping machine assembler. Education Gave educational materials for:: Signs & symptoms of hypoglycemia, Signs & symptoms of hyperglycemia, Relate diabetes to coronary artery disease and Healthy eating Nutrition - 60-Day Assessment Weight Mgt (Other Care) Height: 5 ft 1 in Weight:: 211 lb BMI: 39.9 Core - 30-Day Assessment Visit Date of Eval: 06/16/24 Session #:: 7 Medication Compliance Preventative Medication(s):: Aspirin, Ticagrelor/P2Y12 inhibitor, Statin/lipid and Beta soco H/O mental health issues: depression, anxiety, or addiction?: Yes Doesn?t believe in the benefits of treatment?: No Believes medications are unnecessary or harmful?: No Has a concern about medication side effects?: No Expresses concern over the cost of medications?: No Outcomes/Goals: Verbalizes medications,desired effect & common side effects @ DC, Pt self-reports following medication regimen, Keeps card in wallet w/medications listed by DC and Other additional outcome/goals: Interventions/plans: Instruct on medication effects & side effects, Review medication list w/patient every two weeks, Instruct importance of taking meds as ordered & assist problem solving and Other additional Tobacco Use Tobacco Use: Cigarettes (former smoker) How long ago did you quit using tobacco products?: Less than 6 months ago Years Smokin Do you use smokeless tobacco?: No Outcomes/Goals: Smoking cessation achieved or maintained by discharge, Identify aids/strategies for achieving smoking cessation by session 6 and Other additional outcome/goals Interventions/plan: Instruct on effects of smoking & provide smoking cessation resource, Assist pt to set quit date & provide encouragement, Assist pt to develop strategies to achieve/maintain quit date, Assist pt w/nicotine replacement & medication for cessation success and Other additional plan/interventions 30-day Reassessments:: Met Reassessment Notes & Comments:: Pt is no longer a smoker Hypertension Hypertension Diagnosis:: Hypertension ICD-10 I10 Resting Blood Pressure:: 100/80 [place] [employer] Hypertension Guidelines Peak Exercise Blood Pressure:: 148/86 Outcomes/Goals: Able to verbalize/achieve optimal blood pressure <130/80, Incorporates diet changes & exercise for blood pressure control by DC and Other additional outcomes/goals Interventions/plan: Instruct on optimal blood pressure, hypertension & medications, Instruct on effects of sodium, alcohol, stress, exercise &hypertension and Other additional plan/interventions 30 day Reassessments:: Progressing Reassessment Notes & Comments:: Pt's BP's have been within AHA normal limits. Will continue to monitor and report to physician if necessary. Psychosocial - 30-Day Assess VIsit Date of Eval: 06/16/24 Session #:: 7 History of previous Mental disease:: Yes History of Emotional Disorders: Anxious and Depression Self-reported stressors Other/Comments:: Medical/Health and Recent Illness Target Goals Target Goals Psychosocial Test Tool Used:: [employer] QOL Cardiac and PHQ-9 Questionnaire phq-9 Severity See PHQ-9 Score: 22 Referral to Behavioral Health PS - Interventions: Yes: Attend Stress Management Classes Outcomes/Goals: See list Psychosocial Outcomes/Goals:: ID's personal stressors & 2 strategies to manage stress by discharge and Other Additional outcome/goals: Intervention/Plan: See List Interventions/Plan:: Assess stressors,coping strategies & signs of derpression on admission, Instruct/assist pt to develop coping & personal stress Mgt strategies, Refer to Behavioral Health if appropriate, Refer to Physician if appropriate, Instruct patient to recognize signs & symptoms of depression, Instruct patient to recog and Other additional plan/intervention 30-day Reassessments: 30 day Reassessments:: Progressing Reassessment Notes & Comments:: Pt had an appointment to see a psychologist. Psychosocial - 60-Day Assess Target Goals Target Goals Referral to Behavioral Health PS - Interventions: Yes: Attend Stress Management Classes Outcomes/Goals: See list Psychosocial Outcomes/Goals:: ID's personal stressors & 2 strategies to manage stress by discharge and Other Additional outcome/goals: Psychosocial - 90-Day Assess Target Goals Target Goals Referral to Behavioral Health PS - Interventions: Yes: Attend Stress Management Classes Psychosocial - Final Assessmen Target Goals Target Goals Referral to Behavioral Health PS - Interventions: Yes: Attend Stress Management Classes Nutrition - 90-Day Assessment Weight Mgt (Other Care) Height: 5 ft 1 in Weight:: 211 lb BMI: 39.9 Nutrition - Final Assessment Weight Mgt (Other Care) Height: 5 ft 1 in Weight:: 211 lb BMI: 39.9
[2024-06-16 07:09] VITALS: BP 100/80; BMI 39.9
== END 2024-06-21 23:59 ==
LOC: CR 08:00
PROVIDERS: PCP Internal Medicine; Referring Provider Internal Medicine Cardiovascular Disease; Visit Provider Internal Medicine Cardiovascular Disease
DX: R07.2 Precordial pain (principal); I21.4 Non-ST elevation (NSTEMI) myocardial infarction; E11.29 Type 2 diabetes mellitus with other diabetic kidney complication; E78.00 Pure hypercholesterolemia, unspecified; I10 Essential (primary) hypertension; R80.9 Proteinuria, unspecified
CPT/HCPCS: 93798; 97802

== ENCOUNTER 2024-07-14 08:00 | Outpatient (RCR) | payer OTHER, SELFPAY ==
[2024-06-16 07:09] VITALS: BMI 39.9
[2024-06-22 00:26] VITALS: BP 100/80
--- NOTE | 2024-07-14 10:14 | PCM.CR.ITP ---
Exercise - Initial Assessment Physician Prescribed Exercise Modalities: Treadmill, Rower, Schwinn Airdyne AD-7, SciFit Stepper, SciFit Pro-II Ergometer and SciFit Lateral Leak Operator [employer] Core - Initial Assessment Hypertension Resting Blood Pressure:: 102/74 [place] [employer] Hypertension Guidelines Psychosocial - Initial Assess Target Goals Target Goals Referral to Behavioral Health PS - Interventions: Yes: Attend Stress Management Classes and No: Referral to Behavioral Health if PHQ-9 score >9: (pt is seeing a pyschologist) Patient Health Questionnaire PHQ-9 Screening 60-Day Re-eval Assessment: 1. Little interest or pleasure in doing things: Nearly every day 2. Feeling down, depressed, or hopeless: Nearly every day 3. Trouble falling or staying asleep, or sleeping too much: Nearly every day 4. Feeling tired or having little energy: Nearly every day 5. Poor appetite or overeating: Nearly every day 6. Feeling bad about yourself -- or that you are a failure or have let yourself or your family down: Nearly every day 7. Trouble concentrating on things, such as reading the newspaper or watching television: Nearly every day 8. Moving or speaking so slowly that other people could have noticed. Or the opposite - being so fidgety or restless that you have been moving around a lot more than usual: Several days 9. Thoughts that you would be better off , or of hurting yourself in some way: Not at all How difficult have these problems made it for you to do your work, take care of things at home, or get along with other people?: Very difficult Total Score: 22 Self-Efficacy 6-Item Scale 60-Day Re-eval Assessment: We would like to know how confident you are in doing certain activities. Please select your confidence level for: Fatigue Select Number: 7 Physical Discomfort or Pain Select Number: 4 Emotional Distress Select Number: 3 Other Symptoms or Health Problems Select Number: 3 Different Tasks and Activities Select Number: 4 Medication Select Number: 5 Total Score:: 4 Nutrition Survey Nutrition Survey Instructions Scoring Instructions Exercise - 30-day Assessment Physician Prescribed Exercise Modalities: Treadmill, Rower, Schwinn Airdyne AD-7, SciFit Stepper, SciFit Pro-II Ergometer and SciFit Lateral [place] Exercise - 60-day Assessment Visit Date of Eval: 07/14/24 Session #:: 13 Physician Prescribed Exercise Modalities: Treadmill, Rower, Schwinn Airdyne AD-7, SciFit Stepper, SciFit Pro-II Ergometer and SciFit Lateral Leak Operator [employer] Frequency: 3x/week for 12 weeks [36 sessions] Intensity: 60-80% of age predicted maximum heart rate reserve Duration: 30 - 45 minutes METs - Progression 0.5-1.0 weekly:: 0.5-1.0 Current METSs:: 4.2 Target Heart Rate:: 101-127 Target RPE 11-14 Current RPE:: 11-14 Current RPE:: 13 Maximum Excercise HR:: 120 Resting Blood Pressure: 102/78 Maximum Exercise Blood Pressure: 196/92 EKG Type: NSR to ST with rare PVC Current Physical Activity or Exercising minutes: 30-45 Outcomes & Goals Goals:: Verbalizes understanding of THR, RPE & goal METS by session 6, Documents in home exercise log/reports 30 min aerobic 5 day/wk by DC and Demonstrates accurate pulse taking by DC Intervention & Plan Exercise Program Goals: Instruct on personal THR & RPE, Instruct on MET level & personal MET goal, Show patient to take own pulse /validate performance until accurate and Instruct on home exercise 30-day Reassessments 30 day Reassessments:: Progressing Reassessment Notes & Comments:: Pt correctly uses the RPE scale, pt instructed on home exercise Physical Activity Home Exercise Physical Activity - Home Exercise: Safe Exercise, Warm-up, Self-monitoring, Cool-Down, Home Exercise > 30 min Daily and Sitting Time <3 hours/daily Outcomes & Goals Outcomes/Goals: Demonstrates correct Warm-up/exercise Cool-Down (S3) if = 2.5 METs, Verbalizes symptoms of exercise intolerance by Session 3 (S3) and Demonstrate safe equipment use (S3) & follows exercise prescrition (6) Intervention & Plan Plan/Intervention: Instruct warm-up & cool-down if exercising at > 2 METs, Instruct on symptoms of exercise intolerance & actions to take, Instruct & monitor on saf and Assess intial functional capacity & safety risk 30-day Reassessments 30 day Reassessments:: Progressing Reassessment Notes & Comments:: Pt properly warms up and cools down without prompting, pt instructed on s/s of exercise intolerance and actions to take if symptoms occur Exercise - 90-day Assessment Physician Prescribed Exercise Modalities: Treadmill, Rower, Schwinn Airdyne AD-7, SciFit Stepper, SciFit Pro-II Ergometer and SciFit Lateral [place] Exercise - Final/Discharge Physician Prescribed Exercise Modalities: Treadmill, RowerFaisal Airdyne AD-7, SciFit Stepper, SciFit Pro-II Ergometer and SciFit Lateral [place] Nutrition - 60-Day Assessment Program Goals Nutrition Program Goals Patient has diagnosis of Hyperlipidemia (ICD E78)?: Yes Visit Date of Eval: 07/14/24 Session #:: 13 Cholesterol/Lipids (Other Core Measures) Total Triglycerides (mg/dL): 455 Total Cholesterol: 239 HDL Cholesterol (mg/dL): 35 Lipid Medication: rosuvastatin 40mg QD Determine presence & major risk factors that modify LDL goal: Cigarette smoking, Hypertension or hypertensive medication, Low HDL cholesterol <40 mg/dL* and Age men > 45 years; women >/= 55 years Outcomes/Goals: Pt IDs own risk factors & lifestyle modifications by Session 10, Verbalizes symptoms of angina & response by session 3. and Pt independently manages Intervention/Plan: Advocate for lipid panel cholesterol medication if applicable, Instruct on personal lipid levels & lipid goals/NCEP guidelines and Instruct on cholesterol Referral to dietitian:: Yes 30-day Reassessments:: Progressing Reassessment Notes & Comments:: pt taking medications as prescribed and attending dietary classes Diabetes (Other Core Measures) Diabetes Type: Diagnosis Type II ICD-10 E11 Hgb A1C (4.2 -6.3): 6.6 Insulin dependent injection/pump?: Yes Non-Insulin Dependent?: No Do you monitor your blood sugar at home?: Yes Outcomes/Goals:: Able to state symptoms of (hypoglycemia/hyperglycemia) 30-day Reassessments:: Progressing Reassessment Notes & Comments:: PT managing DM well with insulin pump and home monitoring Healthy Eating Habits Will attend diet classes:: Yes Outcomes/Goals:: Consume diet rich in vegs,fruits,whole grain/high fiber,fish,lean meat and Limit sat/trans fats,cholesterol & added salts & sugars Intervention/Plan:: Assess current eating habits and Other Additional plan/interventions 30-day Reassessments:: Progressing Reassessment Notes & Comments:: Pt attending dietary classes Education Gave educational materials for:: Signs & symptoms of hypoglycemia, Signs & symptoms of hyperglycemia, Relate diabetes to coronary artery disease and Healthy eating Core - Final Assessment Tobacco Use Years Smokin Hypertension Resting Blood Pressure:: 102/74 [place] [employer] Hypertension Guidelines Core - 60-Day Assessment Medication Compliance Preventative Medication(s):: Aspirin, Ticagrelor/P2Y12 inhibitor, Statin/lipid, Beta soco and ARB (Angiotensi Rcap) H/O mental health issues: depression, anxiety, or addiction?: Yes Doesn?t believe in the benefits of treatment?: No Believes medications are unnecessary or harmful?: No Has a concern about medication side effects?: No Expresses concern over the cost of medications?: No Outcomes/Goals: Verbalizes medications,desired effect & common side effects @ DC, Pt self-reports following medication regimen and Keeps card in wallet w/medications listed by DC Interventions/plans: Instruct on medication effects & side effects, Review medication list w/patient every two weeks and Instruct importance of taking meds as ordered & assist problem solving 30-day Reassessments:: Progressing Reassessment Notes & Comments:: Pt reports following medication regimen as prescribed and importance of taking medications as ordered Tobacco Use Tobacco Use: Cigarettes (former smoker) How long ago did you quit using tobacco products?: Less than 6 months ago Years Smokin Do you use smokeless tobacco?: No Outcomes/Goals: Smoking cessation achieved or maintained by discharge and Identify aids/strategies for achieving smoking cessation by session 6 Interventions/plan: Instruct on effects of smoking & provide smoking cessation resource, Assist pt to set quit date & provide encouragement, Assist pt to develop strategies to achieve/maintain quit date and Assist pt w/nicotine replacement & medication for cessation success 30-day Reassessments:: Met Reassessment Notes & Comments:: Pt is no longer a smoker Hypertension Hypertension Diagnosis:: Hypertension ICD-10 I10 Resting Blood Pressure:: 102/78 Resting Blood Pressure:: 102/74 [place] [employer] Hypertension Guidelines Peak Exercise Blood Pressure:: 196/92 Outcomes/Goals: Able to verbalize/achieve optimal blood pressure <130/80 and Incorporates diet changes & exercise for blood pressure control by DC Interventions/plan: Instruct on optimal blood pressure, hypertension & medications and Instruct on effects of sodium, alcohol, stress, exercise &hypertension 30 day Reassessments:: Met Reassessment Notes & Comments:: Pt taking BP medications as prescribed and resting BP with within optimal levels Tobacco Cessation Referral Smoking Cessation Referral:: No Education Schedule Given:: Yes Psychosocial - 30-Day Assess Target Goals Target Goals Referral to Behavioral Health PS - Interventions: Yes: Attend Stress Management Classes and No: Referral to Behavioral Health if PHQ-9 score >9: (pt is seeing a pyschologist) Outcomes/Goals: See list Psychosocial Outcomes/Goals:: ID's personal stressors & 2 strategies to manage stress by discharge Psychosocial - 60-Day Assess VIsit Date of Eval: 07/14/24 Session #:: 13 History of previous Mental disease:: Yes History of Emotional Disorders: Anxious and Depression Self-reported stressors Other/Comments:: Medical/Health and Recent Illness Target Goals Target Goals Psychosocial Test Tool Used:: PHQ-9 Questionnaire phq-9 Severity See PHQ-9 Score: 22 Referral to Behavioral Health PS - Interventions: Yes: Attend Stress Management Classes and No: Referral to Behavioral Health if PHQ-9 score >9: (pt is seeing a pyschologist) Outcomes/Goals: See list Psychosocial Outcomes/Goals:: ID's personal stressors & 2 strategies to manage stress by discharge Intervention/Plan: See List Interventions/Plan:: Assess stressors,coping strategies & signs of derpression on admission, Instruct/assist pt to develop coping & personal stress Mgt strategies, Refer to Behavioral Health if appropriate, Refer to Physician if appropriate and Instruct patient to recognize signs & symptoms of depression 30-day Reassessments: 30 day Reassessments:: Progressing Reassessment Notes & Comments:: Pt is seeing a psychologist and attending stress management classes Psychosocial - 90-Day Assess Target Goals Target Goals Referral to Behavioral Health PS - Interventions: Yes: Attend Stress Management Classes and No: Referral to Behavioral Health if PHQ-9 score >9: (pt is seeing a pyschologist) Psychosocial - Final Assessmen Target Goals Target Goals Referral to Behavioral Health PS - Interventions: Yes: Attend Stress Management Classes and No: Referral to Behavioral Health if PHQ-9 score >9: (pt is seeing a pyschologist)
[2024-07-14 10:17] VITALS: BP 102/78
[2024-07-14 10:31] VITALS: BP 102/74; BP 102/78
== END 2024-07-22 23:59 ==
LOC: CR 08:00
PROVIDERS: PCP Internal Medicine; Referring Provider Internal Medicine Cardiovascular Disease; Visit Provider Internal Medicine Cardiovascular Disease
DX: R07.2 Precordial pain (principal); E78.00 Pure hypercholesterolemia, unspecified; I10 Essential (primary) hypertension; I25.2 Old myocardial infarction; E11.29 Type 2 diabetes mellitus with other diabetic kidney complication; R80.9 Proteinuria, unspecified
CPT/HCPCS: 93798

== ENCOUNTER 2024-07-24 06:31 | Outpatient (RCR) | payer OTHER, SELFPAY ==
[2024-06-16 07:09] VITALS: BMI 39.9
[2024-07-23 00:34] VITALS: BP 100/80; BP 102/74; BP 102/78
--- NOTE | 2024-08-09 11:33 | PCM.CR.ITP ---
Exercise - Initial Assessment Physician Prescribed Exercise Modalities: Treadmill, Schwinn Airdyne AD-7 and SciFit Stepper Nutrition - Initial Assessment Weight Mgt (Other Care) Height: 5 ft 1 in Weight:: 211 lb BMI: 39.9 Psychosocial - Initial Assess Target Goals Target Goals Referral to Behavioral Health PS - Interventions: Yes: Attend Stress Management Classes Nutrition Survey Nutrition Survey Instructions Scoring Instructions Exercise - 30-day Assessment Physician Prescribed Exercise Modalities: Treadmill, Schwinn Airdyne AD-7 and SciFit Stepper Exercise - 60-day Assessment Physician Prescribed Exercise Modalities: Treadmill, Schwinn Airdyne AD-7 and SciFit Stepper Exercise - 90-day Assessment Visit Date of Eval: 08/09/24 Session #:: 13 (Pt has not been able to attend CR since 07/14/24 due to a family emergency.) Physician Prescribed Exercise Modalities: Treadmill, Schwinn Airdyne AD-7 and SciFit Stepper Frequency: 3x/week for 12 weeks [36 sessions] Intensity: 60-80% of age predicted maximum heart rate reserve Duration: 30 - 45 minutes Current METSs:: 4.9 Target Heart Rate:: 101-127 Current RPE:: 13-15 Resting Blood Pressure: 102/78 Maximum Exercise Blood Pressure: 196/92 EKG Type: NSR to ST with rare PVC Outcomes & Goals Goals:: Verbalizes understanding of THR, RPE & goal METS by session 6, Documents in home exercise log/reports 30 min aerobic 5 day/wk by DC, Demonstrates accurate pulse taking by DC and Other additional outcome/goals: see below Intervention & Plan Exercise Program Goals: Instruct on personal THR & RPE, Instruct on MET level & personal MET goal, Show patient to take own pulse /validate performance until accurate, Instruct on home exercise and Other additional plan/int Physical Activity Home Exercise Physical Activity - Home Exercise: Safe Exercise, Warm-up, Self-monitoring, Cool-Down, Home Exercise > 30 min Daily and Sitting Time <3 hours/daily Outcomes & Goals Outcomes/Goals: Demonstrates correct Warm-up/exercise Cool-Down (S3) if = 2.5 METs, Verbalizes symptoms of exercise intolerance by Session 3 (S3), Demonstrate safe equipment use (S3) & follows exercise prescrition (6) and Other: See below Intervention & Plan Plan/Intervention: Instruct warm-up & cool-down if exercising at > 2 METs, Instruct on symptoms of exercise intolerance & actions to take, Instruct & monitor on saf, Assess intial functional capacity & safety risk and Other See below 30-day Reassessments 30 day Reassessments:: Not Met (Pt has not been able to attend CR since 07/14/24 due to a family emergency.) Exercise - Final/Discharge Physician Prescribed Exercise Modalities: Treadmill, Schwinn Airdyne AD-7 and SciFit Stepper Nutrition - 30-Day Assessment Weight Mgt (Other Care) Height: 5 ft 1 in Weight:: 211 lb BMI: 39.9 Nutrition - 60-Day Assessment Weight Mgt (Other Care) Height: 5 ft 1 in Weight:: 211 lb BMI: 39.9 Core - 30-Day Assessment Hypertension [place] [employer] Hypertension Guidelines Reassessment Notes & Comments:: Pt's BP's are within AHA normal limits on most days. Core - Final Assessment Hypertension [place] [employer] Hypertension Guidelines Reassessment Notes & Comments:: Pt's BP's are within AHA normal limits on most days. Core - 90 Day Assessment Visit Date of Eval: 08/09/24 Session #:: 13 (Pt has not been able to attend CR since 07/14/24 due to a family emergency. ) Medication Compliance Preventative Medication(s):: Aspirin, Ticagrelor/P2Y12 inhibitor, Statin/lipid and Beta soco H/O mental health issues: depression, anxiety, or addiction?: Yes Doesn?t believe in the benefits of treatment?: No Believes medications are unnecessary or harmful?: No Has a concern about medication side effects?: No Expresses concern over the cost of medications?: No Outcomes/Goals: Verbalizes medications,desired effect & common side effects @ DC, Pt self-reports following medication regimen, Keeps card in wallet w/medications listed by DC and Other additional outcome/goals: Interventions/plans: Instruct on medication effects & side effects, Review medication list w/patient every two weeks, Instruct importance of taking meds as ordered & assist problem solving and Other additional Tobacco Use Tobacco Use: Cigarettes (former smoker) How long ago did you quit using tobacco products?: Less than 6 months ago Years Smokin Outcomes/Goals: Smoking cessation achieved or maintained by discharge, Identify aids/strategies for achieving smoking cessation by session 6 and Other additional outcome/goals Interventions/plan: Instruct on effects of smoking & provide smoking cessation resource, Assist pt to set quit date & provide encouragement, Assist pt to develop strategies to achieve/maintain quit date, Assist pt w/nicotine replacement & medication for cessation success and Other additional plan/interventions Hypertension Hypertension Diagnosis:: Hypertension ICD-10 I10 Resting Blood Pressure:: 102/78 [place] [employer] Hypertension Guidelines Peak Exercise Blood Pressure:: 196/92 Outcomes/Goals: Able to verbalize/achieve optimal blood pressure <130/80, Incorporates diet changes & exercise for blood pressure control by DC and Other additional outcomes/goals Interventions/plan: Instruct on optimal blood pressure, hypertension & medications, Instruct on effects of sodium, alcohol, stress, exercise &hypertension and Other additional plan/interventions 30 day Reassessments:: Met Reassessment Notes & Comments:: Pt's BP's are within AHA normal limits on most days. Tobacco Cessation Referral Smoking Cessation Referral:: No Individual Education/Counseling:: No Education Schedule Given:: Yes Psychosocial - 30-Day Assess Target Goals Target Goals Referral to Behavioral Health PS - Interventions: Yes: Attend Stress Management Classes Psychosocial - 60-Day Assess Target Goals Target Goals Referral to Behavioral Health PS - Interventions: Yes: Attend Stress Management Classes Psychosocial - 90-Day Assess VIsit Date of Eval: 08/09/24 Session #:: 13 History of previous Mental disease:: Yes History of Emotional Disorders: Anxious and Depression Self-reported stressors Other/Comments:: Family, Medical/Health and Recent Illness Target Goals Target Goals Psychosocial Test Tool Used:: PHQ-9 Questionnaire phq-9 Severity See PHQ-9 Score: 22 Referral to Behavioral Health PS - Interventions: Yes: Attend Stress Management Classes Outcomes/Goals: See list Psychosocial Outcomes/Goals:: ID's personal stressors & 2 strategies to manage stress by discharge and Other Additional outcome/goals: Intervention/Plan: See List Interventions/Plan:: Assess stressors,coping strategies & signs of derpression on admission, Instruct/assist pt to develop coping & personal stress Mgt strategies, Refer to Behavioral Health if appropriate, Refer to Physician if appropriate, Instruct patient to recognize signs & symptoms of depression, Instruct patient to recog and Other additional plan/intervention 30-day Reassessments: 30 day Reassessments:: Not Met Reassessment Notes & Comments:: Pt stated she had an appointment to see a psychologist in her initial eval Psychosocial - Final Assessmen Target Goals Target Goals Referral to Behavioral Health PS - Interventions: Yes: Attend Stress Management Classes Nutrition - 90-Day Assessment Program Goals Nutrition Program Goals Patient has diagnosis of Hyperlipidemia (ICD E78)?: Yes Visit Date of Eval: 08/09/24 Cholesterol/Lipids (Other Core Measures) Determine presence & major risk factors that modify LDL goal: Cigarette smoking, Hypertension or hypertensive medication, Low HDL cholesterol <40 mg/dL*, Family history of premature CHD in Male < 55 years: female <65 yearsFa and Age men > 45 years; women >/= 55 years Outcomes/Goals: Pt IDs own risk factors & lifestyle modifications by Session 10, Verbalizes symptoms of angina & response by session 3., Pt independently manages and Other Additional Outcomes/Goals: Intervention/Plan: Advocate for lipid panel cholesterol medication if applicable, Instruct on personal lipid levels & lipid goals/NCEP guidelines, Instruct on cholesterol and Other additional plan/int 30-day Reassessments:: Not Met (Pt has not been able to attend CR since 07/14/24 due to a family emergency. Pt did see our managed care liaison on 06/19/24. Pt did not attend her appointment with our managed care liaison on 07/10/24.) Diabetes (Other Core Measures) Diabetes Type: Diagnosis Type II ICD-10 E11 Insulin dependent injection/pump?: Yes Non-Insulin Dependent?: No Do you monitor your blood sugar at home?: No Referral to Diabetic Clinic:: No Weight Mgt (Other Care) Height: 5 ft 1 in Weight:: 211 lb BMI: 39.9 Diagnosis Overweight/Obesity BMI> 30% ICD-10 E66: Yes Diagnosis High BMI/Morbid Obesity BMI> 35% ICD-10 Z68: Yes Outcomes/Goals: Pt sets, maintains & shows weight loss goal & trend during rehab and Other additional outcomes/goals Intervention/Plan: Instruct on ideal BMI & set weight loss goal w/patient, Assist pt to ID & incorporate diet changes for weight loss by S9, Refer to Structured Weight Loss program as appropriate, Encourage goal of using 250-300dcal per session for weight loss and Other additional plan/interventions 30 day Reassessments:: Not Met Reassessment Notes & Comments:: Pt has not been able to attend CR since 07/14/24 due to a family emergency. Pt did see our managed care liaison on 06/19/24. Pt did not attend her appointment with our managed care liaison on 07/10/24. Healthy Eating Habits Will attend diet classes:: Yes Outcomes/Goals:: Consume diet rich in vegs,fruits,whole grain/high fiber,fish,lean meat, Limit sat/trans fats,cholesterol & added salts & sugars and Other additional outcome/goals: Intervention/Plan:: Assess current eating habits and Other Additional plan/interventions 30-day Reassessments:: Not Met Reassessment Notes & Comments:: Pt has not been able to attend CR since 07/14/24 due to a family emergency. Pt did see our managed care liaison on 06/19/24. Pt did not attend her appointment with our managed care liaison on 07/10/24. Education Gave educational materials for:: Signs & symptoms of hypoglycemia, Signs & symptoms of hyperglycemia, Relate diabetes to coronary artery disease and Healthy eating Nutrition - Final Assessment Weight Mgt (Other Care) Height: 5 ft 1 in Weight:: 211 lb BMI: 39.9
[2024-08-09 11:48] VITALS: BP 102/78; BMI 39.9
== END 2024-08-21 23:59 ==
LOC: CR 06:31
PROVIDERS: PCP Internal Medicine; Referring Provider Internal Medicine Cardiovascular Disease; Visit Provider Internal Medicine Cardiovascular Disease
DX: R07.9 Chest pain, unspecified (principal); E78.00 Pure hypercholesterolemia, unspecified; I10 Essential (primary) hypertension; I21.4 Non-ST elevation (NSTEMI) myocardial infarction; E11.29 Type 2 diabetes mellitus with other diabetic kidney complication; R80.9 Proteinuria, unspecified
CPT/HCPCS: 93798

== ENCOUNTER → 2024-08-22 | Outpatient (CLI) | payer OTHER, SELFPAY ==
[2024-08-09 11:48] VITALS: BMI 39.9
[2024-08-22 10:18] LABS: Creatinine, Urine (random) 185.00 mg/dL (28.00-217.00); Protein, Urine (Random) 194.0 mg/dL (0.0-12.0); Protein:Creat Ratio 1049 mg/g CRE (0-200)
[2024-08-22 10:21] LABS: Anion Gap 13 (5-15); BUN 18 mg/dL (4-19); BUN/Creat Ratio 12.6 RATIO (10-20); Calcium,Total 9.8 mg/dL (7.6-11.0); Carbon Dioxide 19.5 mmol/L (21.0-32.0); Chloride 107 mmol/L (98-108); Glucose 141 mg/dL (70-99); Potassium 4.7 mmol/L (3.3-5.1)
[2024-08-22 10:41] LABS: AST(SGOT) 17 U/L (<=31); Alanine Aminotransfer ALT/SGPT 22 U/L (<=34); Albumin, Serum 4.0 g/dL (3.5-5.0); Alkaline Phosphatase 127 U/L (35-104); Bilirubin, Direct 0.23 mg/dL (0.00-0.30); Cholesterol 110 mg/dL (<=200); Globulin 3.1 g/dL (2.2-4.2); Low Density Lipoprotein Calc. 30 mg/dL; Triglycerides 219 mg/dL; Very Low Density Lipoprotein 44 mg/dL (5-40); cholesterol:hdl ratio screen 3.01
[2024-08-23 10:08] LABS: ANTINUCLEAR ANTIBODIES DIRECT Negative (Negative); Anti-dsDNA Ab 1 IU/mL (0-9)
[2024-08-23 20:08] LABS: Cytoplasmic Ab (C-ANCA) <1:20 titer (Neg:<1:20); Perinuclear Ab (P-ANCA) <1:20 titer (Neg:<1:20)
== END | disposition home or self-care (01) ==
LOC: LAB 08:33
PROVIDERS: Nurse Practitioner Gerontology; PCP Internal Medicine; Referring Provider Internal Medicine Nephrology; Visit Provider Internal Medicine Nephrology
DX: N18.2 Chronic kidney disease, stage 2 (mild) (principal)
CPT/HCPCS: 36415; 80048; 80061; 80076; 82570; 83520; 84156; 86037; 86038; 86160; 86225; 87086; 87088

== ENCOUNTER → 2024-11-14 | Outpatient (CLI) | payer OTHER, SELFPAY ==
[2024-06-16 07:09] VITALS: BMI 39.9
[2024-09-08 08:26] VITALS: BMI 41.0
--- OUTSIDE RECORDS SUMMARY | 2024-11-14 06:55 | XMS RPT_ITS | CCD ---
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 Name Role Phone Leatha Augustin Primary Care Provider [phone] Unavailable Primary Care Provider UnavailLeatha Horowitz Primary Care Provider Leatha Augustin MD Primary Care Provider Leatha Augustin MD Primary Care Provider LILY LANDIN Attending Unavailable LEATHA AUGUSTIN Primary Care Unavailable Abdelrahman Romero MD Primary Care Provider [phone] TALIWAL, ABDELRAHMAN Primary Care Unavailable MELLISSA ABDELRAHMAN Attending Unavailable SHASHANKIWAL, ABDELRAHMAN Primary Care Unavailable MELLISSA ABDELRAHMAN Attending Unavailable MELLISSA, ABDELRAHMAN Primary Care Unavailable Leatha Augustin MD Primary Care Provider [phone] Leatha Augustin MD Primary Care Provider Unavailable Primary Care Provider Unavailnancie e Cherrie Kellyewongbe B Primary Care Provider OLEGHE, EFEWONGBE Primary Care Unavailable DERITA, MARIAM Referring Unavailable DEVIKA MCPHERSON Attending Unavailable YOON MARTINEZ Attending Unavailable OLEGHE, EFEWONGBE Primary Care Unavailable TARAN, JAYAPRAKASH Referring Unavailable TARAN, JAYAPRAKASH Attending Unavailable OLEGHE, EFEWONGBE Primary Care Unavailable JAKE SEARS Attending Unavailable JAKE SEARS Admitting Unavailable JAYNE ERASMO Referring Unavailable Oleghe, Efewongbe Primary Care Unavailable Mahad, Kerman Referring Unavailable MahadSameer sharmaril Attending Unavailable Oleghe, Efewongbe Primary Care Unavailable Gege Church Attending Unavailable Schwiger, Anibal Referring Unavailable Oleghe, Efewongbe Primary Care Unavailable Anibal Street Attending Unavailable Oleghe, Efewongbe Primary Care Unavailable Oleghe, Efewongbe Referring Unavailable Sandrine King Attending Unavailable Oleghe, Efewongbe Primary Care Unavailable Geraldo WHEATLEY, Kandis Referring Unavailable Geraldo WHEATLEY, Kandis Attending Unavailable Oleghe, Efewongbe Primary Care Unavailable Mahad, Lamin Referring Unavailable Mahad, Kerman Attending Unavailable Oleghe, Efewongbe Primary Care Unavailable Mahad, Lamin Attending Unavailable Mahad, Lamin Referring Unavailable Oleghe, Efewongbe Primary Care Unavailable Brayan Mgaana Consulting Unavailable Brigitte Rowell Attending UnavailErasmo Hancock Admitting Unavailable Oleghe, Efewongbe Primary Care Unavailable Oleghe, Efewongbe Referring Unavailable Oleghe, Efewongbe Attending Unavailable Oleghe, Efewongbe Primary Care Unavailable Oleghe, Efewongbe Referring Unavailable Oleghe, Efewongbe Attending Unavailable Sandrine King Attending Unavailable Oleghe, Efewongbe Referring Unavailable Oleghe, Efewongbe Primary Care Unavailable Oleghe, Efewongbe Referring Unavailable Oleghe, Efewongbe Primary Care Unavailable Flory Beltran NP Attending Unavailable TaranJames Attending Unavailable Oleghe, Efewongbe Primary Care Unavailable Geraldo WHEATLEY, aKndis Consulting Unavailable TaranMichaelprakas Referring Unavailable Oleghe, Efewongbe Primary Care Unavailable Oleghe, Efewongbe Referring Unavailable Oleghe, Efewongbe Attending Unavailable Oleghe, Efewongbe Primary Care Unavailable Geraldo WHEATLEY, Kandis Referring Unavailable Geraldo WHEATLEY, Kandis Attending Unavailable VeerappTed putnam R Referring Unavailable Oleghe, Efewongbe Primary Care Unavailable Veerappan Ted R Attending Unavailable Oleghe, Efewongbe Primary Care Unavailable Mahad, Kerman Referring Unavailable Mahad, Kerman Attending Unavailable Oleghe, Efewongbe Primary Care Unavailable Mahad, Kerman Referring Unavailable Mahad, Lamin Attending Unavailable Oleghe, Efewongbe Primary Care Unavailable Michaela Peralta Attending Unavailable Oleghe, Efewongbe Primary Care Unavailable Oleghe, Efewongbe Referring Unavailable Terry Brooks Attending Unavailable Sandrine King Attending Unavailable Oleghe, Efewongbe Primary Care Unavailable Oleghe, Efewongbe Referring Unavailable Oleghe, Efewongbe Primary Care Unavailable Geraldo WHEATLEY, Kandis Referring Unavailable Geraldo WHEATLEY, Kandis Attending Unavailable Oleghe, Efewongbe Primary Care Unavailable Oleghe, Efewongbe Referring Unavailable Thang Perera Attending Unavailable Oleghe, Efewongbe Primary Care Unavailable Geraldo WHEATLEY, Kandis Referring Unavailable Geraldo WHEATLEY, Kandis Attending Unavailable Sandrine King Attending Unavailable Oleghe, Efewongbe Primary Care Unavailable Oleghe, Efewongbe Referring Unavailable Oleghe, Efewongbe Primary Care Unavailable Oleghe, Efewongbe Referring Unavailable Flory Beltran NP Attending Unavailable Oleghe, Efewongbe Primary Care Unavailable Oleghe, Efewongbe Attending Unavailable Oleghe, Efewongbe Referring Unavailable Oleghe, Efewongbe Referring Unavailable Oleghe, Efewongbe Primary Care Unavailable Geraldo WHEATLEY, Kandis Attending Unavailable Oleghe, Efewongbe Primary Care Unavailable Oleghe, Efewongbe Referring Unavailable John Haywood Attending Unavailable Michaela Peralta Attending Unavailable Oleghe, Efewongbe Primary Care Unavailable Oleghe, Efewongbe Primary Care Unavailable Erasmo Cornelius Admitting Unavailable Erasmo Cornelius Consulting Unavailable Erasmo Cornelius Attending Unavailable Brayan Magana Attending Unavailable Oleghe, Efewongbe Primary Care Unavailable Erasmo Cornelius Admitting Unavailable Erasmo Cornelius Consulting Unavailable Oleghe, Efewongbe Primary Care Unavailable Lamin Tobin Attending Unavailable Oleghe, Efewongbe Primary Care Unavailable Geraldo WHEATLEY, Kandis Attending Unavailable Oleghe, Efewongbe Primary Care Unavailable Mahad, Kerman Attending Unavailable Allergies Allergy Classification Reported Allergen(s) Allergy Type Date of Onset Reaction(s) Facility (4 sources) empagliflozin; Translations: [EMPAGLIFLOZIN] Drug Allergy 3 Rash [facility] Work Phone: (9 sources) empagliflozin Drug Allergy 3 Rash, Vomiting Only [facility] (9 sources) metFORMIN Drug Allergy 4 [facility] (9 sources) Semaglutide Allergy to substance 4 Nausea Only [facility] (6 sources) Tirzepatide Allergy to substance 5 [facility] (3 sources) Tirzepatide Allergy to substance 5 [facility] (1 source) empagliflozin Drug Allergy 5 [facility] (1 source) metFORMIN Drug Allergy 5 [facility] (1 source) semaglutide Drug allergy (disorder) 5 [facility] (1 source) tirzepatide Drug allergy (disorder) 5 [facility] Medications Current Medications Medication Drug Class(es) Dates Sig (Normalized) Sig (Original) aspirin 81 mg delayed release oral tablet (12 sources) Platelet Aggregation Inhibitor, Nonsteroidal Anti-inflammatory Drug Start: 04-19-2024 End: 04-27-2025 take 1 tablet by mouth once daily aspirin 81 MG EC tablet Take 1 tablet (81 mg) by mouth daily. 30 tablet 11 04/27/2024 04/27/2025 Active benoxinate hydrochloride 4 mg/ml / fluorescein sodium 2.5 mg/ml ophthalmic solution (1 source) Diagnostic Dye Start: 09-21-2022 End: 09-21-2022 fluorescein-benox inate 0.25-0.4 % 1 Drop (FLURESS) carvedilol 3.125 mg oral tablet (12 sources) alpha-Adrenergic Soco, beta-Adrenergic Soco Start: 04-19-2024 End: 04-27-2025 take 1 tablet by mouth twice daily at mealtime carvedilol (Coreg) 3.125 MG tablet Take 1 tablet (3.125 mg) by mouth 2 times daily (with meals). 60 tablet 11 04/27/2024 04/27/2025 Active cephalexin 500 mg oral capsule (1 source) Cephalosporin Antibacterial Start: 03-09-2023 End: 03-19-2023 take 1 capsule by mouth twice daily cephalexin (Keflex) 500 mg capsule Indications: Mass of lower outer quadrant of right breast Take 1 capsule (500 mg) by mouth 2 times a day for 10 days. 20 capsule 0 03/09/2023 03/19/2023 Active ciclopirox 7.7 mg/ml topical cream (9 sources) Start: 03-29-2024 ciclopirox (Loprox) 0.77 % cream APPLY TWICE A DAY TO FEET AND BETWEEN TOES FOR 2 WEEKS THEN NEEDED 03/29/2024 Active clindamycin 0.01 mg/mg topical gel (9 sources) Lincosamide Antibacterial Start: 03-29-2024 clindamycin 1 % gel APPLY TO AFFECTED AREAS ON THE CHEST TWICE DAILY NEEDED 03/29/2024 Active clobetasol propionate 0.5 mg/ml topical cream (9 sources) Corticosteroid Start: 03-29-2024 clobetasol (Temovate) 0.05 % cream 03/29/2024 Active colchicine 0.6 mg oral tablet (11 sources) Start: 03-30-2024 End: 04-21-2024 take 1 tablet by mouth once daily colchicine 0.6 MG tablet Take 0.6 mg by mouth daily. 03/30/2024 Active 120 actuat fluticasone propionate 0.11 mg/actuat metered dose inhaler (1 source) Corticosteroid Start: 10-02-2019 take 1 puff(s) by inhalation twice daily fluticasone (FLOVENT HFA) 110 MCG/ACT inhaler Indications: Mild persistent asthma without complication Inhale 1 puff into the lungs 2 times daily 1 Inhaler 3 10/02/2019 Active 24 hr isosorbide mononitrate 30 mg extended release oral tablet (12 sources) Nitrate Vasodilator Start: 04-21-2024 End: 04-21-2025 take 1 tablet by mouth once daily isosorbide mononitrate ER (Imdur) 30 MG 24 hr tablet Take 1 tablet (30 mg) by mouth Nightly. Do not crush or chew. 30 tablet 11 04/27/2024 Active Start: 04-21-2024 End: 04-21-2024 take 1 tablet by mouth once daily 30 mg, Oral, Daily, First dose on Wed04/21/24 at 1200, Do not chew or crush ER tablets; may be divided in half. Due to insoluble matrix embedding, ER tablets that are scored may be split. LORazepam 0.5 mg oral tablet (19 sources) Benzodiazepine Start: 06-27-2021 End: 04-21-2024 take 1 tablet by mouth every eight hours as needed for anxiety LORazepam (Ativan) 0.5 MG tablet TAKE ONE TABLET BY MOUTH EVERY 8 HOURS NEEDED for anxiety for up to 30 days 07/10/2021 Active take 1 tablet by anais th every six hours as needed for anxiety LORazepam (ATIVAN) 0.5 MG tablet Take 0. 5 mg by mouth every 6 hours as needed for Anxiety. 0 Active Comment on above: Take 0.5 mg by mouth as needed. losartan potassium 25 mg oral tablet (12 sources) Angiotensin 2 Receptor Soco Start: 2023 End: 2024 take 1 tablet by mouth once daily losartan (Cozaar) 25 MG tablet Take 1 tablet (25 mg) by mouth Nightly. 30 tablet 3 04/27/2024 Active methylPREDNISolone 4 mg oral tablet (1 source) Corticosteroid Start: 2018 methylPREDNISolone (MEDROL DOSEPACK) 4 MG tablet Indications: Acute pain of right foot Take by mouth. 1 kit 0 05/17/2018 Active Mounjaro 2.5 MG/0.5ML solution auto-injector (9 sources) Start: 2024 Mounjaro 2.5 MG/0.5ML solution auto-injector 04/14/2024 Active nitroglycerin 0.4 mg sublingual tablet (11 sources) Nitrate Vasodilator Start: 2024 End: 2025 nitroglycerin (Nitrostat) 0.[address] 1 tablet (0.4 mg) under the tongue every 5 minutes as needed for chest pain. 100 tablet 11 04/21/2024 1:58 PM EST 04/21/2024 04/21/2025 Active nystatin 069304 unt/ml oral suspension (1 source) Polyene Antifungal Start: 2022 End: 2022 nystatin (Mycostatin) 104040 UNIT/ML suspension Take 5 mL (500,000 Units) by mouth in the morning and 5 mL (500,000 Units) at noon and 5 mL (500,000 Units) in the evening and 5 mL (500,000 Units) before bedtime. Do all this for 14 days. Swish in mouth and swallow.. 280 mL 0 04/08/2022 04/22/2022 Active omeprazole 40 mg delayed release oral capsule (7 sources) Proton Pump Inhibitor Start: 2018 take 1 capsule by mouth once daily omeprazole (PRILOSEC) 40 MG delayed release capsule TAKE ONE CAPSULE BY MOUTH ONCE A DAY DIRECTED 2 04/04/2018 Active Start: 08-03-2016 take 2 capsules by m outh once daily omeprazole (PRILOSEC) 20 mg capsule Take 40 mg by mouth once daily. 0 08/03/2016 Active Comment on above: Take 40 mg by mouth once daily. pantoprazole 40 mg delayed release oral tablet (12 sources) Proton Pump Inhibitor Start: 04-02-19 End: 04-21-19 take 1 tablet by mouth once daily pantoprazole (ProtoNix) 40 MG EC tablet Take 40 mg by mouth daily. as directed 04/02/2022 Active phenylephrine hydrochloride 25 mg/ml ophthalmic solution (1 source) alpha-1 Adrenergic Agonist Start: 09-22-19 End: 09-22-19 PHENYLephrine 2.5 % 1 Drop (AK-DILATE, MARGUERITE-SYNEPHRINE) QUEtiapine 25 mg oral tablet (1 source) Atypical Antipsychotic Start: 09-01-19 take 0.5 tablet by mouth once daily at bedtime QUEtiapine (SEROQUEL) 25 MG tablet take 1/2 tablet by mouth once daily at bedtime 0 09/01/2019 Active rosuvastatin calcium 40 mg oral tablet (14 sources) HMG-CoA Reductase Inhibitor Start: 04-21-19 End: 04-28-19 take 1 tablet by mouth once daily rosuvastatin (Crestor) 40 MG tablet Take 1 tablet (40 mg) by mouth Nightly. 30 tablet 11 04/27/2024 04/27/2025 Active Start: 04-19-2024 End: 04-21-2024 take 40 mg by mouth once daily 40 mg, Oral, Nightly, F irst dose on Wed04/19/24 at 2100 Start: 06-16-2023 End: 04-21-2024 rosuvastatin (Crestor) 5 MG tablet Take 5 mg by mouth. 06/16/2023 04/21/2024 Discontinued (Stop taking at discharge) ticagrelor 90 mg oral tablet (12 sources) Start: 04-20-2024 End: 04-27-2025 take 1 tablet by mouth twice daily ticagrelor (Brilinta) 90 MG tablet Take 1 tablet (90 mg) by mouth 2 times daily. 60 tablet 11 04/27/2024 04/27/2025 Active tropicamide 10 mg/ml ophthalmic solution (1 source) Anticholinergic Start: 09-21-2022 End: 09-21-2022 tropicamide 1 % 1 Drop (MYDRIACYL) valACYclovir 1000 mg oral tablet (1 source) Herpesvirus Nucleoside Analog DNA Polymerase Inhibitor, Herpes Simplex Virus Nucleoside Analog DNA Polymerase Inhibitor, Herpes Zoster Virus Nucleoside Analog DNA Polymerase Inhibitor Start: 04-08-2022 End: 04-10-2022 take 1 tablet by mouth twice daily valACYclovir (Valtrex) 1 g tablet Take 1 tablet (1,000 mg) by mouth 2 times daily for 2 days. 4 tablet 0 04/08/2022 04/10/2022 Active venlafaxine 37.5 mg oral tablet (2 sources) Serotonin and Norepinephrine Reuptake Inhibitor Start: 09-01-2019 take 0.25 tablet by mouth once daily, then take 0.5 tablet by mouth once daily venlafaxine (EFFEXOR) 37.5 MG tablet TAKE 1/4 TABLET BY MOUTH DAILY FOR 4 DAYS THEN 1/2 TABLET DAILY AFTER SUPPER 0 09/01/2019 Active Start: 04-04-2018 take 1 capsule by [facility] once daily at mealtime venlafaxine (EFFEXOR XR) 37.5 MG extended release capsule TAKE 1 CAPSULE BY MOUTH WITH FOOD ONCE A DAY 11 04/04/2018 Active Completed/Discontinued Medications Medication Drug Class(es) Dates Sig (Normalized) Sig (Original) acetaminophen 500 mg oral tablet (2 sources) Start: 04-19-2024 End: 04-21-2024 take 1 tablet by mouth every eight hours as needed for pain 1,000 mg, Oral, Every 8 hours PRN, mild pain (1-3), Starting on 04/19/24 at 2015, Maximum dose of acetaminophen is 4000 mg from all sources in 24 hours. acetaminophen 500 mg / caffeine 65 mg oral tablet (2 sources) Central Nervous System Stimulant, Methylxanthine Start: 04-20-2024 End: 04-21-2024 take 2 tablets by mouth every six hours as needed for headache 2 tablet, Oral, Every 6 hours PRN, headaches, Starting on Amanda 04/20/24 at 2101 [id number] 200 actuat albuterol 0.09 mg/actuat metered dose inhaler (5 sources) beta2-Adrenergic Agonist Start: 04-14-2021 take 2 puff(s) by inhalation every four hours as needed albuterol HFA (PROVENTIL HFA, VENTOLIN HFA) 90 mcg/actuation inhaler Indications: SOB (shortness of breath) Inhale 2 Puffs as instructed every 4 hours as needed. 8 g 0 04/14/2021 Active Start: 10-02-2019 take 2 puff(s) by in halation four times daily as needed for wheezing albuterol sulfate HFA (VENTOLIN HFA) 108 (90 Base) MCG/ACT inhaler Indications: Mild persistent asthma without complication Inhale 2 puffs into the lungs 4 times daily as needed for Wheezing 3 Inhaler 1 10/02/2019 Active Start: 09-12-2019 End: 09-12-2019 albuterol (PROVENTIL) nebuli zer solution 2.5 mg Comment on above: Inhale 2 Puffs as in structed every 4 hours as needed. allopurinol 100 mg oral tablet (3 sources) Xanthine Oxidase Inhibitor Start: 9 take 1 tablet by mouth once daily allopurinol (ZYLOPRIM) 100 mg tablet Indications: Acute gout involving toe, unspecified cause, unspecified laterality Take 1 tablet by mouth once daily. 30 tablet 2 05/27/2018 Active Comment on above: Take 1 tablet by anais th once daily. amoxicillin 875 mg / clavulanate 125 mg oral tablet (4 sources) Penicillin-class Antibacterial Start: 2 amoxicillin-clavula julia acid (AUGMENTIN) 875-125 mg per tablet Start: 06-08-2019 End: 06-15-2019 take 1 tablet by mouth twice daily amoxicillin-clavulanate (AUGMENTIN) 500-125 MG per tablet Indications: Acute cystitis without hematuria , Acute left flank pain Take 1 tablet by mouth 2 times daily for 7 days 14 tablet 0 06/08/2019 06/15/2019 Active atorvastatin 20 mg oral tablet (2 sources) HMG-CoA Reductase Inhibitor Start: 07-09-2021 take 1 tablet by mouth once daily atorvastatin (LIPITOR) 20 mg tablet Take 1 tablet by mouth once daily. 90 tablet 3 07/09/2021 Active Start: 06-13-2019 take 1 tablet by anais th once daily atorvastatin (LIPITOR) 20 MG tablet Indications: Mixed hyperlipidemia Take 1 tablet by mouth daily 90 tablet 1 06/13/2019 Active Comment on above: Take 1 tablet by anais once daily. benzonatate 100 mg oral capsule (3 sources) Non-narcotic Antitussive Start: 2021 benzonatate (TESSALON PERLE) 100 mg capsule cholecalciferol (Vitamin D3) 200 Unit tablet split tablet (2 sources) End: 2024 cholecalciferol (Vitamin D3) 200 Unit tablet split tablet Take by mouth. 04/21/2024 Discontinued (Stop taking at discharge) cholecalciferol 9.52 unt/ml / glucose 357 mg/ml oral gel (2 sources) Vitamin D Start: 2024 End: 2024 15 g, Oral, As needed, low blood sugar, Starting on Wed04/19/24 at 2019, If blood glucose less than 50 mg/dL and patient ALERT and NOT NPO, give 2 tubes glucose gel. If blood glucose less than 70 mg/dL and patient ALERT and NOT NPO, give 1 tube glucose gel. Repeat blood glucose in 15 minutes. If blood glucose is less than 70 mg/dL, repeat treatment and recheck blood glucose in 15 minutes x2 and notify provider. cholecalciferol, vitamin D3, (VITAMIN D3 ORAL) (3 sources) cholecalciferol, vitamin D3, (VITAMIN D3 ORAL) Take by mouth. 0 Active Comment on above: Take by mouth. dexlansoprazole 30 mg delayed release oral capsule (2 sources) Proton Pump Inhibitor Start: 2023 End: 2024 take 2 capsules by mouth once daily dexlansoprazole (Dexilant) [address] capsule Take 60 mg by mouth daily. 06/16/2023 04/21/2024 Discontinued (Stop taking at discharge) docusate sodium 50 mg / sennosides, intermediate 8.6 mg oral tablet (2 sources) Start: 2024 End: 2024 doxycycline hyclate 100 mg oral capsule (2 sources) Tetracycline-class Drug Start: 2023 End: 2024 take 1 capsule by mouth twice daily doxycycline (Vibramycin) 100 MG capsule Take 100 mg by mouth 2 times daily. 01/17/2024 04/21/2024 Discontinued (Stop taking at discharge) empagliflozin 25 mg oral tablet (3 sources) Sodium-Glucose Cotransporter 2 Inhibitor Start: 2021 take 1 tablet by mouth once daily at breakfast empagliflozin (JARDIANCE) 25 mg tablet Take 1 tablet by mouth daily with breakfast. 90 tablet 3 04/03/2021 Active Comment on above: [facility] ergocalciferol 1.25 mg oral capsule (5 sources) Provitamin D2 Compound Start: 2018 take 1 capsule by mouth every week ergocalciferol, vitamin D2, (VITAMIN D) 50,000 unit capsule Indications: Vitamin D deficiency Take 1 capsule by mouth once each week for 8 doses. 8 capsule 0 05/27/2018 Active Comment on above: Take 1 capsule by [facility] once each week for 8 doses. famotidine 40 mg oral tablet (2 sources) Histamine-2 Receptor Antagonist Start: 2022 End: 2023 take 1 tablet by mouth twice daily famotidine (Pepcid) 40 mg tablet Indications: Chronic cough , Luna's esophagus with dysplasia Take 1 tablet (40 mg) by mouth 2 times a day. 180 tablet 0 10/13/2022 03/09/2023 Discontinued (Therapy completed) fluconazole 150 mg oral tablet (2 sources) Azole Antifungal Start: 2023 End: 2024 take 1 tablet by mouth once daily fluconazole (Diflucan) 150 MG tablet Take 150 mg by mouth daily. 04/19/2023 04/21/2024 Discontinued (Stop taking at discharge) 2 ml furosemide 10 mg/ml injection (2 sources) Loop Diuretic Start: 2024 End: 2024 40 mg, IntraVENous, Administer over 2 Minutes, Once, On Amanda 04/20/24 at 1630, For 1 dose glucagon (rdna) 1 mg injection (2 sources) Antihypoglycemic Agent Start: 2024 End: 2024 1 mg, IntraMUSCular, PRN, low blood sugar, Blood glucose less than 70 mg/dL and patient NOT ALERT or NPO and does not have IV access., Starting on Wed04/19/24 at 2019, After administration, attempt intravenous access and start D5W at 100 mL/hr. Repeat blood glucose in 15 minutes x2 and notify provider. 50 ml glucose 50 mg/ml injection (4 sources) Start: 2024 End: 2024 100 mL/hr, IntraVENous, PRN, Blood sugar less than 70mg/dL, Starting on Wed04/19/24 at 2019, Start infusion following administration of dextrose 50% or glucagon. Start: 04-19-2024 End: 04-21-2024 12.5 g, IntraVENous, PRN, lo w blood sugar, Blood glucose less than 70 mg/dL and patient NOT ALERT or NPO., Starting on Wed04/19/24 at 2018, If patient does not respond within 5 minutes, repeat dose x1. Start D5W at 100 mL/hour until ordering provider can be reached. Repeat blood glucose in 15 minutes. If blood glucose is less than 70 mg/dL, repeat treatment and recheck blood glucose in 15 minutes x2. If using Glucostabilizer, dose as instructed per system. 250 ml heparin sodium, porcine 100 unt/ml injection (6 sources) Unfractionated Heparin, Anti-coagulant Start: 04-19-2024 End: 04-20-2024 5-30 Units/kg/hr 101 kg (5.05-30.3 mL/hr, rounded to 5.1-30.3 mL/hr), IntraVENous, Continuous, Starting on Wed04/19/24 at 2044, LOW Dose Heparin Weight Based Dosing (CAD/STEMI/NSTEMI/AFIB/ECMO) >>>>Initial dose: 9 units/kg/hr 95.9 Hold heparin for 60 min Decrease infusion by 2 units/kg/hr - notify prescriber; Check aPTT: 6 hours after initiation and 6 hours after every dose change - every 12 hrs x 1 day after 2 consecutive therapeutic aPTT - daily after every 12 hrs x 1 day is complete. Contact provider for further directions if: a) The patient has reached maximum dose and has not achieved the goal of therapy or b) If this medication is held outside of ordered parameters Start: 04-19-2024 End: 04-20-2024 4,000 Units, IntraVENous, On ce, On Wed04/19/24 at 2044, For 1 dose, Initial one time bolus hydrocortisone 10 mg/ml / neomycin 3.5 mg/ml / polymyxin b [id number] unt/ml otic suspension (2 sources) Aminoglycoside Antibacterial, Polymyxin-class Antibacterial, Corticosteroid Start: 11-26-2023 End: 04-21-2024 [id number]-lqhrmxsqo-zoclweufk isone (Cortisporin) 3.5-12709-0 otic suspension instill 3 drops into the ear(s) every 4 hours for 10 days. apply to (cotton) wick and replace wick every 24 hours. 11/26/2023 04/21/2024 Discontinued (Stop taking at discharge) 1 ml HYDROmorphone hydrochloride 1 mg/ml cartridge (2 sources) Opioid Agonist Start: 04-19-2024 End: 04-21-2024 take 0.25 mg by mouth every three hours as needed for pain 0.25 mg, IntraVENous, Every 3 hours PRN, severe pain (7-10), Chest pain, Starting on Wed04/19/24 at 2204, If oral and injectable narcotics ordered, use oral first and only use injectable if oral is ineffective or cannot take oral. Do Not give oral and injectable within 1 hour of each other unless specifically ordered. insulin glargine 100 unt/ml injectable solution (13 sources) Insulin Analog Start: 04-20-2024 End: 04-21-2024 inject 10 [IU] by subcutane ous injection once daily in the morning 10 Units, SubCUTAneous, Every morning, First dose (after last modification) on Wed04/21/24 at 0900, Do not hold without physician order. Start: 06-16-2023 insulin glargi ne (Lantus) 100 UNIT/ML pen Insulin Glargine (Lantus Solostar U-100 Insulin) 100 unit/mL (3 mL) insulin pen Active 20 UNIT SC ONCE June 16, 2023 12:00am 06/16/2023 Active Insulin Lispro (Humalog) injection 0-12 Units (2 sources) Start: 04-20-2024 End: 04-21-2024 Insulin Lispro (Humalog) injection 0-12 Units isosorbide dinitrate 20 mg oral tablet (4 sources) Nitrate Vasodilator Start: 04-20-2024 End: 04-21-2024 take 1 tablet by mouth three times daily isosorbide dinitrate (Isordil) 20 MG tablet Take 1 tablet (20 mg) by mouth 3 times daily. 90 tablet 11 04/21/2024 04/21/2024 Discontinued (Stop taking at discharge) linaclotide 0.145 mg oral capsule (2 sources) Guanylate Cyclase-C Agonist Start: 06-16-2023 End: 04-21-2024 linaCLOtide (Linzess) 145 MCG capsule Take by mouth. 06/16/2023 04/21/2024 Discontinued (Stop taking at discharge) lisinopril 10 mg oral tablet (2 sources) Angiotensin Converting Enzyme Inhibitor Start: 07-09-2021 take 1 tablet by mouth once daily lisinopril (ZESTRIL, PRINIVIL) 10 mg tablet Take 1 tablet by mouth once daily. 90 tablet 3 07/09/2021 Active Comment on above: Take 1 tablet by anais th once daily. 24 hr metFORMIN hydrochloride 500 mg extended release oral tablet (7 sources) Biguanide Start: 04-03-2021 End: 04-27-2024 take 1 tablet by mouth once daily at breakfast metFORMIN XR (Glucophage-XR) 500 MG 24 hr tablet Take 1 tablet (500 mg) by mouth daily (with breakfast). Do not crush, chew, or split. 30 tablet 11 04/08/2022 04/27/2024 Discontinued Comment on above: Take 1 tablet by anais th once daily. Methacholine (1 source) Cholinergic Receptor Agonist Start: 09-12-2019 End: 09-12-2019 methacholine (PROVOCHOLINE) inhaler solution 100 mg 1 ml naloxone hydrochloride 0.4 mg/ml injection (2 sources) Opioid Antagonist Start: 04-19-2024 End: 04-21-2024 0.4 mg, IntraVENous, Every 5 min PRN, opioid reversal, respiratory depression, Starting on Wed04/19/24 at 2205, +++ For RR ondansetron ODT (Zofran-ODT) disintegrating tablet 4 mg (2 sources) Start: 04-19-2024 End: 04-21-2024 take 1 tablet by mouth every eight hours as needed for nausea and vomiting ondansetron ODT (Zofran-ODT) disintegrating tablet 4 mg oseltamivir 75 mg oral capsule (3 sources) Neuraminidase Inhibitor Start: 2021 oseltamivir (TAMIFLU) 75 mg capsule perflutren protein A microsphere (Optison) 3 mL in sodium chloride (PF) 0.9 % 10 mL IV syringe (2 sources) Start: 04-20-2024 End: 04-20-2024 0-10 mL, IntraVENous, IMG once PRN, other, Suboptimal echo image, Starting on Amanda 04/20/24 at 1203, For 1 dose, CV Procedural Medications, Administer via slow IVP for suboptimal echocardiogram enhancement. May administer as divided doses to reach optimal image enhancement polyethylene glycol 3350 41188 mg powder for oral solution (2 sources) Osmotic Laxative Start: 04-19-2024 End: 04-21-2024 predniSONE 10 mg oral tablet (1 source) Start: 04-22-2021 End: 04-08-2022 take 4 tablets by mouth once daily predniSONE (Deltasone) 10 MG tablet Take 40 mg by mouth daily. 0 04/22/2021 04/08/2022 Discontinued semaglutide 7 mg oral tablet (4 sources) Start: 08-09-2021 End: 08-09-2022 take 1 tablet by mouth once daily before breakfast semaglutide (RYBELSUS) 7 mg tablet Take 1 tablet (7 mg) by mouth daily before breakfast. 90 tablet 3 08/09/2021 Active Start: 07-09-2021 take 1 tablet by anais th once daily before breakfast semaglutide (RYBELSUS) 3 mg tablet Take 1 tablet by mouth daily before breakfast. 30 tablet 0 07/09/2021 Active Comment on above: Take 1 tablet (7 mg) by mouth daily before breakfast. Take 1 tablet by anais th daily before breakfast. 1000 ml sodium chloride 9 mg/ml injection (4 sources) Start: End: take 100 mL intravenously every hour 100 mL/hr, IntraVENous, Continuous, Starting on Amanda 04/20/24 at 1330, For 5 hours, [facility] Start: 04-19-2024 End: 04-21-2024 sucralfate 100 mg/ml oral suspension (2 sources) Aluminum Complex Start: 05-28-2023 End: 04-21-2024 take 10 mL by mouth four times daily sucralfate (Carafate) 1 GM/10ML suspension TAKE 10 ML BY MOUTH 4 TIMES A DAY DIRECTED 05/28/2023 04/21/2024 Discontinued (Stop taking at discharge) Problems Active Problems Problem Classification Problem Date Documented Da te Episodic/Chronic Acute myocardial infarction (17 sources) Myocardial infarction; Translations: [Non-ST elevation (NSTEMI) myocardial infarction] Onset: 5 04-21-2024 Chronic Anal and rectal conditions (3 sources) Dysplasia of anus; 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] Onset: 1 04-07-2019 Chronic Anxiety disorders (2 sources) Anxiety; Translations: [Anxiety disorder, unspecified] Onset: 5 Chronic Asthma (15 sources) Mild persistent asthma, uncomplicated; Translations: [Uncomplicated mild persistent asthma] Onset: 1 Chronic Blindness and vision defects (2 sources) Blurring of visual image; Translations: [Other visual disturbances] 09-21-2022 Episodic Chronic kidney disease (16 sources) Chronic kidney disease stage 2; Translations: [Chronic kidney disease, stage 2 (mild)] Onset: 4 04-19-2024 Chronic Coronary atherosclerosis and other heart disease (13 sources) Coronary arteriosclerosis; Translations: [Atherosclerotic heart disease of [place] coronary artery without angina pectoris] Onset: 5 04-27-2024 Chronic Coronary atherosclerosis and other heart disease (7 sources) Stented coronary artery; Translations: [Presence of coronary angioplasty implant and graft] Onset: 5 04-21-2024 Episodic Diabetes mellitus with complications (20 sources) Type 2 diabetes mellitus; Translations: [Type 2 diabetes mellitus with ketoacidosis without coma] Onset: 1 Chronic Diabetes mellitus without complication (11 sources) Diabetes mellitus type 2 without retinopathy; Translations: [Type 2 diabetes mellitus without complications] Onset: 1 09-21-2022 Chronic Diseases of white blood cells (14 sources) Leukocytosis; Translations: [Elevated white blood cell count, unspecified] Onset: 0 04-07-2019 Chronic Disorders of lipid metabolism (20 sources) Mixed hyperlipidemia; Translations: [Mixed hyperlipidemia] Onset: 3 10-13-2022 Chronic Esophageal disorders (20 sources) Gastroesophageal reflux disease; Translations: [Barretts esophagus with dysplasia] Onset: 0 04-07-2019 Chronic Essential hypertension (20 sources) Essential hypertension; Translations: [Essential (primary) hypertension] Onset: 3 Chronic Genitourinary symptoms and ill-defined conditions (15 sources) Increased frequency of urination; Translations: [Frequency of micturition] Onset: 3 10-13-2022 Episodic Gout and other crystal arthropathies (20 sources) Gout; Translations: [Gout, unspecified] Onset: 9 04-07-2019 Chronic Mood disorders (17 sources) Depressive disorder; Translations: [Other specified depressive episodes] Onset: 0 04-07-2019 Chronic Nonspecific chest pain (14 sources) Chest pain; Translations: [Chest pain, unspecified] Onset: 2 12-04-2021 Episodic Nutritional deficiencies (6 sources) Vitamin D deficiency; Translations: [Vitamin D deficiency, unspecified] Onset: 3 10-13-2022 Chronic Osteoarthritis (1 source) Unspecified osteoarthritis, unspecified site; Translations: [Unspecified osteoarthritis, unspecified site] Onset: 4 Chronic Other gastrointestinal disorders (1 source) Dysphagia, unspecified; Translations: [Dysphagia, unspecified] Onset: 5 Episodic Other inflammatory condition of skin (19 sources) Psoriasis; Translations: [Psoriasis, unspecified] Onset: 3 04-07-2019 Chronic Other inflammatory condition of skin (1 source) Psoriasis, unspecified; Translations: [Psoriasis, unspecified] Onset: 4 Chronic Other liver diseases (10 sources) Focal nodular hyperplasia of liver; Translations: [Other specified diseases of liver] Onset: 4 03-09-2023 Chronic Other liver diseases (1 source) Liver enzymes abnormal; Translations: [Abnormal levels of other serum enzymes] Episodic Other nervous system disorders (9 sources) Neuropathy; Translations: [Polyneuropathy, unspecified] Onset: 4 04-19-2024 Chronic Other non-traumatic joint disorders (1 source) Joint pain; Translations: [Pain in unspecified joint] 10-13-2022 Episodic Other nutritional; endocrine; and metabolic disorders (8 sources) Obesity; Translations: [Obesity, unspecified] Onset: 3 04-07-2019 Chronic Other nutritional; endocrine; and metabolic disorders (1 source) Morbid obesity; Translations: [Morbid (severe) obesity due to excess calories] Chronic Other nutritional; endocrine; and metabolic disorders (10 sources) Severe obesity; Translations: [Morbid (severe) obesity due to excess calories] Onset: 0 10-13-2022 Chronic Other nutritional; endocrine; and metabolic disorders (2 sources) Drug-induced obesity; Translations: [Drug-induced obesity] Onset: 4 Chronic Other nutritional; endocrine; and metabolic disorders (4 sources) Body mass index (BMI) 40.0-44.9, adult; Translations: [Body mass index (BMI) 40.0-44.9, adult ([facility])] Onset: 4 Chronic Other nutritional; endocrine; and metabolic disorders (4 sources) Morbid (severe) obesity due to excess calories; Translations: [Morbid (severe) obesity due to excess calories ([facility])] Onset: 3 Chronic Other nutritional; endocrine; and metabolic disorders (2 sources) Body mass index (BMI) 45.0-49.9, adult; Translations: [Body mass index (BMI) 45.0-49.9, adult ([facility])] Onset: 3 Chronic Other nutritional; endocrine; and metabolic disorders (1 source) Drug-induced obesity; Translations: [Drug-induced obesity] 03-09-2023 Chronic Other nutritional; endocrine; and metabolic disorders (2 sources) Body mass index 40+ - severely obese; Translations: [Body mass index (BMI) 45.0-49.9, adult] Onset: 0 04-19-2024 Chronic Residual codes; unclassified (1 source) Obstructive sleep apnea (adult) (pediatric); Translations: [Obstructive sleep apnea (adult) (pediatric)] Onset: 5 Chronic Residual codes; unclassified (1 source) Hypersomnia, unspecified; Translations: [Hypersomnia, unspecified] Onset: 5 Chronic Substance-related disorders (1 source) Nicotine dependence, unspecified, uncomplicated; Translations: [Nicotine dependence, unspecified, uncomplicated] Onset: 5 Chronic Unclassified (3 sources) Patient encounter status; Translations: [Encounter for dietary counseling and surveillance] Onset: 1 04-07-2019 Unclassified (1 source) Obesity, class 3; Translations: [Obesity, class 3] Onset: 5 Past or Other Problems Problem Classification Problem Date Documented Da te Episodic/Chronic Abdominal hernia (18 sources) Hiatal hernia; Translations: [Diaphragmatic hernia without obstruction or gangrene] Onset: 0 04-07-2019 Episodic Administrative/social admission (11 sources) Patient encounter status; Translations: [Dietary counseling and surveillance] Onset: 0 12-04-2021 Episodic Anal and rectal conditions (11 sources) Dysplasia of anus; 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] Onset: 0 12-04-2021 Episodic Cardiac dysrhythmias (20 sources) Palpitations; Translations: [Palpitations] Onset: 0 04-07-2019 Episodic Coma; stupor; and brain damage (11 sources) Daytime somnolence; Translations: [Somnolence] Onset: 1 12-04-2021 Episodic Mood disorders (2 sources) Mood disorders Onset: 3 10-13-2022 Mycoses (1 source) Candidiasis of mouth; Translations: [Candidal stomatitis] Episodic Neoplasms of unspecified nature or uncertain behavior (14 sources) Neoplasm of uncertain behavior of liver and/or biliary passages; Translations: [Neoplasm of uncertain behavior of liver, gallbladder and bile ducts] Onset: 0 04-07-2019 Episodic Noninfectious gastroenteritis (9 sources) Noninfectious gastroenteritis; Translations: [Noninfective gastroenteritis and colitis, unspecified] Onset: 4 04-19-2024 Episodic Nonmalignant breast conditions (20 sources) Breast lump; Translations: [Unspecified lump in the right breast, lower outer quadrant] Onset: 0 04-07-2019 Episodic Nutritional deficiencies (15 sources) Vitamin B12 deficiency (non anemic); Translations: [Deficiency of other specified B group vitamins] Onset: 3 10-13-2022 Episodic Other and unspecified benign neoplasm (18 sources) Benign neoplasm of liver and/or biliary ducts; Translations: [Benign neoplasm of liver] Onset: 3 04-07-2019 Episodic Other and unspecified benign neoplasm (14 sources) Benign neoplasm of skin of upper limb; Translations: [Other benign neoplasm of skin of unspecified upper limb, including shoulder] Onset: 1 04-07-2019 Episodic Other and unspecified benign neoplasm (14 sources) Benign tumor of head and neck; Translations: [Other benign neoplasm of skin of scalp and neck] Onset: 1 04-07-2019 Episodic Other connective tissue disease (1 source) Pain in right forearm; Translations: [Right forearm pain] Episodic Other diseases of veins and lymphatics (9 sources) Peripheral venous insufficiency; Translations: [Venous insufficiency (chronic) (peripheral)] Onset: 4 04-19-2024 Episodic Other gastrointestinal disorders (1 source) Diarrhea, unspecified; Translations: [Diarrhea, unspecified] Onset: 5 Episodic Other lower respiratory disease (3 sources) Chronic cough; Translations: [Chronic cough] Onset: 3 10-13-2022 Episodic Other lower respiratory disease (11 sources) Dyspnea; Translations: [Shortness of breath] Onset: 2 12-04-2021 Episodic Other lower respiratory disease (1 source) Other forms of dyspnea; Translations: [Other forms of dyspnea] Onset: 5 Episodic Other non-traumatic joint disorders (4 sources) Pain in unspecified joint; Translations: [Pain in unspecified joint] Onset: 3 Episodic Other nutritional; endocrine; and metabolic disorders (2 sources) Weight gain; Translations: [Abnormal weight gain] Onset: 1 12-04-2021 Episodic Other nutritional; endocrine; and metabolic disorders (9 sources) Weight increased; Translations: [Abnormal weight gain] Onset: 1 12-04-2021 Episodic Other screening for suspected conditions (not mental disorders or infectious disease) (20 sources) Imaging of gastrointestinal tract abnormal; Translations: [Patient encounter status] Onset: 0 04-07-2019 Episodic Residual codes; unclassified (9 sources) Tobacco use and exposure - finding; Translations: [Tobacco use] Onset: 5 04-27-2024 Episodic Residual codes; unclassified (1 source) Tobacco use; Translations: [Tobacco use] Onset: 5 Episodic Unclassified (2 sources) Onset: 3 10-13-2022 Unclassified (1 source) Obesity, class 3; Translations: [Obesity, class 3] Onset: 5 Viral infection (20 sources) Condyloma acuminatum; Translations: [Anogenital (venereal) warts] Onset: 1 04-07-2019 Episodic Results Test Name Value Interpretation Reference Range Facility Internal Medicine Office Vis iton 11-10-2024 Internal Medicine Office Visit Normal [facility] Pulmonary Visit Reporton Pulmonary Visit Report Normal [facility] Endocrinology Visit Reporton 09-13-2024 Endocrinology Visit Report Normal [facility] Cardiology Visit Reporton Cardiology Visit Report Normal [facility] Urine Cultureon 08-24-2024 [facility] Mixed Gram Positive Organisms [place] Count 50,000-80,000 MIXC Mixed contaminants. Submit a new specimen if indicated. Normal [facility] Comment on above: Performed By: #### L 3100.5500, L501.0900, L500.2500, L3100.5700, L3100.5800, L3410.9994, L3100.5475, L3410.9992, L3400.4200, L3300.1200, M100.2200 ####[facility] [address] [place], [place], [id number] ANCAon 08-23-2024 Atypical pANCA <1:20 Normal Neg:<1:20 [facility] Comment on above: Result Comment: The atypical pANCA pattern has been observed in asignificant percentage of patients with ulcerative colitis,primary sclerosing cholangitis and autoimmune hepatitis. Performed By: #### L 3100.5500, L501.0900, L500.2500, L3100.5700, L3100.5800, L3410.9994, L3100.5475, L3410.9992, L3400.4200, L3300.1200, M100.2200 ####[facility] [address] [place], [place], [address] Cytoplasmic Ab <1:20 Normal Neg:<1:20 [facility] Comment on above: Performed By: #### L 3100.5500, L501.0900, L500.2500, L3100.5700, L3100.5800, L3410.9994, L3100.5475, L3410.9992, L3400.4200, L3300.1200, M100.2200 ####[facility] [address] [facility]. [place], [place], [id number] Perinuclear Ab. <1:20 Normal Neg:<1:20 [facility] Comment on above: Result Comment: The presence of positive fluorescence exhibiting P-ANCA orC-ANCA patterns alone is not specific for the diagnosis ofWegener's Granulomatosis (WG) or microscopic polyangiitis.Decisions about treatment should not be based solely onANCA IFA results. The International ANCA Group Consensusrecommends follow up testing of positive sera with both NC-3 and MPO-ANCA enzyme immunoassays. As many as 5% serumsamples are positive only by EIA. Ref. AM J Clin Cuplca2193;111:507-513. Performed By: #### L 3100.5500, L501.0900, L500.2500, L3100.5700, L3100.5800, L3410.9994, L3100.5475, L3410.9992, L3400.4200, L3300.1200, M100.2200 ####[facility] [address] [facility]. [place], [place], [phone] ANTINUCLEAR ANTIBODIES DIREC [facility] 08-23-2024 TOBIAS,DIRECT Negative Normal Negative [facility] Comment on above: Result Comment: Perf ormed at: - [facility] [id number] Director: Richard Werner PhD, Phone: [phone] Performed By: #### L 3100.5500, L501.0900, L500.2500, L3100.5700, L3100.5800, L3410.9994, L3100.5475, L3410.9992, L3400.4200, L3300.1200, M100.2200 ####[facility] [address] [place], [place], [id number] Anti-Glomerular Basement Mem bon 08-23-2024 ANTI-GLOM BM Ab < 0.2 Normal 0.0-0.9 [facility] Comment on above: Result Comment: Perf ormed at: - [facility] [id number] Director: Richard Werner PhD, Phone: [phone] at: - [facility] [id number] Director: Nicole Sargent MD, Phone: [phone] Performed By: #### L 3100.5500, L501.0900, L500.2500, L3100.5700, L3100.5800, L3410.9994, L3100.5475, L3410.9992, L3400.4200, L3300.1200, M100.2200 ####[facility] [address] [place], [place], [address] Anti-dsDNA Abon 08-23-2024 ANTI-DNA (DS)AB 1 IU/mL Normal 0-9 [facility] Comment on above: Result Comment: Nega tive <5 Equivocal 5 - 9 Positive >9 Performed By: #### L 3100.5500, L501.0900, L500.2500, L3100.5700, L3100.5800, L3410.9994, L3100.5475, L3410.9992, L3400.4200, L3300.1200, M100.2200 ####[facility] [address] [place], [place], [phone] Complement C3on 08-23-2024 COMP C3 156 mg/dL Normal 82-167 [facility] Comment on above: Performed By: #### L 3100.5500, L501.0900, L500.2500, L3100.5700, L3100.5800, L3410.9994, L3100.5475, L3410.9992, L3400.4200, L3300.1200, M100.2200 ####[facility] [address] [place], [place], [id number] Complement C4on 08-23-2024 COMPLEMENT, C4 15 mg/dL Normal 12-38 [facility] Comment on above: Performed By: #### L 3100.5500, L501.0900, L500.2500, L3100.5700, L3100.5800, L3410.9994, L3100.5475, L3410.9992, L3400.4200, L3300.1200, M100.2200 ####[facility] [address] [place], [place], [id number] L3410.9992on 08-23-2024 [facility] Misc. COMMENT Normal . [facility] Comment on above: Order Comment: [id number] 9MPO SERUM RMT Result Comment: Test Ordered: [id number] Anti-MPO AntibodiesAnti-MPO Antibodies <0.2 units Reference Range: 0.0-0.9Performed at: [facility] [address] [id number] Director: Nicole Sargent MD, Phone: [phone] at: [facility] [address] [id number] Director: Richard Werner PhD, Phone: [phone] Performed By: #### L 3100.5500, L501.0900, L500.2500, L3100.5700, L3100.5800, L3410.9994, L3100.5475, L3410.9992, L3400.4200, L3300.1200, M100.2200 ####[facility] [address] [place], [place], [id number] L3410.9994on 08-23-2024 [facility] Misc. 2 COMMENT Normal . [facility] Comment on above: Order Comment: [id number] 7PR3 AB SERUM RMT Result Comment: Test Ordered: [id number] Anti-PR3 AntibodiesAnti-PR3 Antibodies <0.2 units Reference Range: 0.0-0.9Performed at: [facility] [address] [place], [place] [id number] Director: Nicole Sargent MD, Phone: [phone] at: [facility] [id number] [place], [place] [id number] Director: Richard Werner PhD, Phone: [phone] Performed By: #### L 3100.5500, L501.0900, L500.2500, L3100.5700, L3100.5800, L3410.9994, L3100.5475, L3410.9992, L3400.4200, L3300.1200, M100.2200 ####[facility] [address] [place], [place], [phone] Basic Metabolic Profile (BMP )on 08-22-2024 BUN/CRE 12.6 RATIO Normal 10-20 [facility] Comment on above: Performed By: #### L 3100.5500, L501.0900, L500.2500, L3100.5700, L3100.5800, L3410.9994, L3100.5475, L3410.9992, L3400.4200, L3300.1200, M100.2200 ####[facility] [address] [place], [place], [phone] Calcium [Mass/Vol] 9.8 mg/dL Normal 7.6-11.0 [facility] Comment on above: Performed By: #### L 3100.5500, L501.0900, L500.2500, L3100.5700, L3100.5800, L3410.9994, L3100.5475, L3410.9992, L3400.4200, L3300.1200, M100.2200 ####[facility] [address] [place], [place], [phone] Chloride [Moles/Vol] 107 mmol/L Normal 98-108 [facility] Comment on above: Performed By: #### L 3100.5500, L501.0900, L500.2500, L3100.5700, L3100.5800, L3410.9994, L3100.5475, L3410.9992, L3400.4200, L3300.1200, M100.2200 ####[facility] [address] [place], [place], [phone]) CO2 [Moles/Vol] 19.5 mmol/L Low 21.0-32.0 [facility] Comment on above: Performed By: #### L 3100.5500, L501.0900, L500.2500, L3100.5700, L3100.5800, L3410.9994, L3100.5475, L3410.9992, L3400.4200, L3300.1200, M100.2200 ####[facility] [address] [place], [place], [id number] Creatinine [Mass/Vol] 1.43 mg/dL High 0.70-1.20 [facility] Comment on above: Performed By: #### L 3100.5500, L501.0900, L500.2500, L3100.5700, L3100.5800, L3410.9994, L3100.5475, L3410.9992, L3400.4200, L3300.1200, M100.2200 ####[facility] [address] [place], [place], [phone] GAP 13 Normal 5-15 [facility] Comment on above: Performed By: #### L 3100.5500, L501.0900, L500.2500, L3100.5700, L3100.5800, L3410.9994, L3100.5475, L3410.9992, L3400.4200, L3300.1200, M100.2200 ####[facility] [address] [place], [address] GFR/1.73 sq M.predicted among non-blacks MDRD (S/P/Bld) [Vol rate/Area] 44 mL/min/{1.73_m2} Low >60 [facility] Comment on above: Result Comment: mL/m in/1.73m2 CKD-EPI Creatinine Equation (2020) Performed By: #### L 3100.5500, L501.0900, L500.2500, L3100.5700, L3100.5800, L3410.9994, L3100.5475, L3410.9992, L3400.4200, L3300.1200, M100.2200 ####[facility] [address] [place] [place], [address] Glucose [Mass/Vol] 141 mg/dL High 70-99 [facility] Comment on above: Performed By: #### L 3100.5500, L501.0900, L500.2500, L3100.5700, L3100.5800, L3410.9994, L3100.5475, L3410.9992, L3400.4200, L3300.1200, M100.2200 ####[facility] [address] [place], [place], [phone](832) Potassium [Moles/Vol] 4.7 mmol/L Normal 3.3-5.1 [facility] Comment on above: Performed By: #### L 3100.5500, L501.0900, L500.2500, L3100.5700, L3100.5800, L3410.9994, L3100.5475, L3410.9992, L3400.4200, L3300.1200, M100.2200 ####[facility] [address] [facility] [place], [address] Sodium [Moles/Vol] 139 mmol/L Normal 133-145 [facility] Comment on above: Performed By: #### L 3100.5500, L501.0900, L500.2500, L3100.5700, L3100.5800, L3410.9994, L3100.5475, L3410.9992, L3400.4200, L3300.1200, M100.2200 ####[facility] [address] [place], [address] Urea nitrogen [Mass/Vol] 18 mg/dL Normal 4-19 [facility] Comment on above: Performed By: #### L 3100.5500, L501.0900, L500.2500, L3100.5700, L3100.5800, L3410.9994, L3100.5475, L3410.9992, L3400.4200, L3300.1200, M100.2200 ####[facility] [address] [place], [address] Lipid Profileon 08-22-2024 CHOL:HDL 3.01 Normal [facility] Comment on above: Performed By: #### L 500.3400, L500.4100 ####[facility] [address] [place], [address] Cholesterol [Mass/Vol] 110 mg/dL Normal <=200 [facility] Comment on above: Result Comment: Chol esterol level, Desirable <200 mg/dLBorderline high cholesterol 200-239 mg/dLHigh cholesterol >=240 mg/dLRecommendations of the NCEP Adult Treatment Panel for thefollowing risk-cutoff thresholds for the [facility]. Performed By: #### L 500.3400, L500.4100 ####[facility] [address] [place], [address] Cholesterol in HDL [Mass/Vol] 37 mg/dL Low [facility] Comment on above: Result Comment: Maria Esther onal Cholesterol Education Program (NCEP) guidelines:<40 mg/dL: Low HDL-cholesterol (major risk factor for CHD)>= 60 mg/dL: High HDL-cholesterol (negative risk factor forCHD)HDL-cholesterol is affected by a number of factors, e.g.smoking, exercise, hormones, sex and age. Performed By: #### L 500.3400, L500.4100 ####[facility] [address] [place], [address] Cholesterol in LDL [Mass/Vol] 30 mg/dL Normal [facility] Comment on above: Result Comment: Bord zzvneo=783-609 mg/dL Higher Ahbz=585 mg/dL or greater Performed By: #### L 500.3400, L500.4100 ####[facility] [address] [place], [address] Cholesterol in VLDL [Mass/Vol] 44 mg/dL High 5-40 [facility] Comment on above: Performed By: #### L 500.3400, L500.4100 ####[facility] [address] [place], [address] Triglyceride [Mass/Vol] 219 mg/dL High [facility] Comment on above: Result Comment: The drugs N-Acetylcysteine and Metamizole may falselydepress this assay.Normal range: <150 mg/dLBorderline High: 150-199 mg/dLHigh: 200-499 mg/dLVery High: >500 mg/dL Performed By: #### L 500.3400, L500.4100 ####[facility] [address] [place], [address] Liver Profileon 08-22-2024 Albumin [Mass/Vol] 4.0 g/dL Normal 3.5-5.0 [facility] Comment on above: Performed By: #### L 500.3400, L500.4100 ####[facility] [address] [place], [address] ALK PHOS 127 U/L High 35-104 [facility] Comment on above: Performed By: #### L 500.3400, L500.4100 ####[facility] [address] [place], [address] ALT [Catalytic activity/Vol] 22 U/L Normal <=34 [facility] Comment on above: Performed By: #### L 500.3400, L500.4100 ####[facility] [address] [place], [address] AST [Catalytic activity/Vol] 17 U/L Normal <=31 [facility] Comment on above: Performed By: #### L 500.3400, L500.4100 ####[facility] [address] [place], [address] Bilirubin [Mass/Vol] 0.48 mg/dL Normal 0.00-1.30 [facility] Comment on above: Performed By: #### L 500.3400, L500.4100 ####[facility] [address] [place], [address] Bilirubin.direct [Mass/Vol] 0.23 mg/dL Normal 0.00-0.30 [facility] Comment on above: Performed By: #### L 500.3400, L500.4100 ####[facility] [address] [place], [address] Globulin (S) [Mass/Vol] 3.1 g/dL Normal 2.2-4.[address] [facility] Comment on above: Performed By: #### L 500.3400, L500.4100 ####[facility] [address] [place], [address] T PROT 7.1 g/dL Normal 5.9-8.4 [facility] Comment on above: Performed By: #### L 500.3400, L500.4100 ####[facility] [address] [place], [address] Protein+Creatinine Ratio,Uri neon 08-22-2024 PROT:CRE RATIO 1049 mg/g CRE High 0-200 [facility] Comment on above: Performed By: #### L 3100.5500, L501.0900, L500.2500, L3100.5700, L3100.5800, L3410.9994, L3100.5475, L3410.9992, L3400.4200, L3300.1200, M100.2200 ####[facility] [address] [place], [address] Protein (U) [Mass/Vol] 194.0 mg/dL High 0.0-12.0 [facility] Comment on above: Performed By: #### L 3100.5500, L501.0900, L500.2500, L3100.5700, L3100.5800, L3410.9994, L3100.5475, L3410.9992, L3400.4200, L3300.1200, M100.2200 ####[facility] [address] [place], [address] UR CREAT 185.00 mg/dL Normal 28.00-217.00 [facility] Comment on above: Performed By: #### L 3100.5500, L501.0900, L500.2500, L3100.5700, L3100.5800, L3410.9994, L3100.5475, L3410.9992, L3400.4200, L3300.1200, M100.2200 ####[facility] [address] [place], [place], [address] US RETROPERITONEALon 025 US RETROPERITONEAL Patient Name: CONSTANCE GAGE : 1975 Exam Date/Time: 07/28/2024 17:18 Procedure: US RETROPERITONEAL [...] Electronically Signed Date/Time: 07/29/2024 10:46 AM EDT [facility] US Retroperitoneumon 025 1. Both kidneys demonstrate normal cortical thickness and echotexture without obstructive uropathy. 2. 5 x 6 mm nonobstructing calculus left kidney. 3. Prevoid urinary bladder volume calculated at 63 mL. Post void urinary bladder residual calculated at 0.5 mL. Report Dictated on Electronically Signed By: Irvin Gorman MD Electronically Signed Date/Time: 07/29/2024 10:46 AM T [facility] Patient Name: CONSTANCE GAGE : 1975 Exam Date/Time: 07/28/2024 17:18 Procedure: US RETROPERITONEAL [...] Additional findings: Visualized hepatic parenchyma demonstrates steatosis. [facility] Clau Gorman MD - 07/29/2024 Patient Name: CONSTANCE GAGE : 1975 Exam Date/Time: 07/28/2024 17:18 Procedure: US RETROPERITONEAL [...] Electronically Signed Date/Time: 07/29/2024 10:46 AM EDT [facility] RetroperitoneumOrdered By : Clau Gorman on 07-29-2024 S[employer] Work Phone: US Retroperitoneumon 025 Radiology Study observation (narrative) [facility] Pulmonary Visit Reporton Pulmonary Visit Report Normal [facility] Endocrinology Visit Reporton 06-14-2024 Endocrinology Visit Report Normal [facility] Echo Complete W/ Contraston 06-08-2024 Echo Complete W/ Contrast Normal [facility] 12 Lead EKG performed by [facility] on 05-29-2024 12 Lead EKG performed by [facility] Normal [facility] Cardiology Visit Reporton Cardiology Visit Report Normal [facility] 12 Lead EKGon 05-22-2024 12 Lead EKG Normal [facility] Basic Metabolic Profile (BMP )on 05-22-2024 BUN/CRE 12.3 RATIO Normal 10-20 [facility] Comment on above: Performed By: #### L 100.0100, L501.4021, L500.2500 ####[facility] [address] [place], [address] Calcium [Mass/Vol] 9.5 mg/dL Normal 7.6-11.0 [facility] Comment on above: Performed By: #### L 100.0100, L501.4021, L500.2500 ####[facility] [address] [place], [address] Chloride [Moles/Vol] 107 mmol/L Normal 98-108 [facility] Comment on above: Performed By: #### L 100.0100, L501.4021, L500.2500 ####[facility] [address] [place], [address] CO2 [Moles/Vol] 17.9 mmol/L Low 21.0-32.0 [facility] Comment on above: Performed By: #### L 100.0100, L501.4021, L500.2500 ####[facility] [address] [place], [address] Creatinine [Mass/Vol] 1.45 mg/dL High 0.70-1.20 [facility] Comment on above: Performed By: #### L 100.0100, L501.4021, L500.2500 ####[facility] [address] [place], [address] ECRCL 49.36 ml/min Low 50-250 [facility] Comment on above: Performed By: #### L 100.0100, L501.4021, L500.2500 ####[facility] [address] [place], [address] GAP 13 Normal 5-15 [facility] Comment on above: Performed By: #### L 100.0100, L501.4021, L500.2500 ####[facility] [address] [place], [address] GFR/1.73 sq M.predicted among non-blacks MDRD (S/P/Bld) [Vol rate/Area] 44 mL/min/{1.73_m2} Low >60 [facility] Comment on above: Result Comment: mL/m in/1.73m2 CKD-EPI Creatinine Equation (2020) Performed By: #### L 100.0100, L501.4021, L500.2500 ####[facility] [address] [place], [address] Glucose [Mass/Vol] 110 mg/dL High 70-99 [facility] Comment on above: Performed By: #### L 100.0100, L501.4021, L500.2500 ####[facility] [address] [place], [address] Potassium [Moles/Vol] 3.7 mmol/L Normal 3.3-5.1 [facility] Comment on above: Result Comment: Hemo lysis present, Results??could be affected.?? Performed By: #### L 100.0100, L501.4021, L500.2500 ####[facility] [address] [place], [address] Sodium [Moles/Vol] 138 mmol/L Normal 133-145 [facility] Comment on above: Performed By: #### L 100.0100, L501.4021, L500.2500 ####[facility] [address] [place], [address] Urea nitrogen [Mass/Vol] 18 mg/dL Normal 4-19 [facility] Comment on above: Performed By: #### L 100.0100, L501.4021, L500.2500 ####[facility] [address] [place], [address] CBC W/Diff, Automatedon 03-3 -2024 Absolute Lymph 3.90 X10 3/uL Normal 0.83-4.51 [facility] Comment on above: Performed By: #### L 100.0100, L501.4021, L500.2500 ####[facility] [address] [place], [address] Absolute Neut 10.5 X10 3/uL High 2.0-7.7 [facility] Comment on above: Performed By: #### L 100.0100, L501.4021, L500.2500 ####[facility] [address] [place], [address] Basophils/100 WBC (Bld) 0.9 % Normal 0-1 [facility] Comment on above: Performed By: #### L 100.0100, L501.4021, L500.2500 ####[facility] [address] [place], [address] Eosinophils/100 WBC (Bld) 2.6 % Normal 0-5 [facility] Comment on above: Performed By: #### L 100.0100, L501.4021, L500.2500 ####[facility] [address] [place], [address] Erythrocyte distribution width (RBC) [Ratio] 13.3 % Normal 11.6-14.6 [facility] Comment on above: Performed By: #### L 100.0100, L501.4021, L500.2500 ####[facility] [address] [place], [address] Hematocrit (Bld) [Volume fraction] 38.6 % Normal 37-47 [facility] Comment on above: Performed By: #### L 100.0100, L501.4021, L500.2500 ####[facility] [address] [place], [address] Hemoglobin (Bld) [Mass/Vol] 13.6 g/dL Normal 12.0-15.0 [facility] Comment on above: Performed By: #### L 100.0100, L501.4021, L500.2500 ####[facility] [address] [place], [address] IG% 0.300 Normal 0.0-0.9 [facility] Comment on above: Result Comment: IG% - Immature Granulocytes (promyelocytes, myelocytes andmetamyelocytes) > 1% indicates that a LEFT SHIFT is Present. Performed By: #### L 100.0100, L501.4021, L500.2500 ####[facility] [address] [place], [address] Lymphocytes/100 WBC (Bld) 24.5 % Normal 19-41 [facility] Comment on above: Performed By: #### L 100.0100, L501.4021, L500.2500 ####[facility] [address] [place], [address] MCH (RBC) [Entitic mass] 30.4 pg Normal 27.0-32.0 [facility] Comment on above: Performed By: #### L 100.0100, L501.4021, L500.2500 ####[facility] [address] [place], [address] MCHC (RBC) [Mass/Vol] 35.2 g/dL Normal 32-36 [facility] Comment on above: Performed By: #### L 100.0100, L501.4021, L500.2500 ####[facility] [address] [place], [address] MCV (RBC) [Entitic vol] 86.2 fL Normal 81-[address] [facility] Comment on above: Performed By: #### L 100.0100, L501.4021, L500.2500 ####[facility] [address] [place], [address] Monocytes/100 WBC (Bld) 6.1 % Normal 0-10 [facility] Comment on above: Performed By: #### L 100.0100, L501.4021, L500.2500 ####[facility] [address] [place], [address] Neutrophils/100 WBC (Bld) 65.6 % Normal 47-70 [facility] Comment on above: Performed By: #### L 100.0100, L501.4021, L500.2500 ####[facility] [address] [place], [address] Nucleated RBC (Bld) [#/Vol] 0 10*3/uL Normal 0-5 [facility] Comment on above: Performed By: #### L 100.0100, L501.4021, L500.2500 ####[facility] [address] [place], [address] Platelet mean volume (Bld) [Entitic vol] 9.5 fL Normal 6.2-12.0 [facility] Comment on above: Performed By: #### L 100.0100, L501.4021, L500.2500 ####[facility] [address] [place], [address] Platelets (Bld) [#/Vol] 371 10*3/uL Normal 150-450 [facility] Comment on above: Performed By: #### L 100.0100, L501.4021, L500.2500 ####[facility] [address] [place], [address] RBC (Bld) [#/Vol] 4.48 10*6/uL Normal 4.2-5.4 [facility] Comment on above: Performed By: #### L 100.0100, L501.4021, L500.2500 ####[facility] [address] [place], [address] RDW SD 41.8 fl Normal 35.1-43.9 [facility] Comment on above: Performed By: #### L 100.0100, L501.4021, L500.2500 ####[facility] [address] [place], [address] WBC (Bld) [#/Vol] 15.9 10*3/uL High 4.4-11.0 [facility] Comment on above: Performed By: #### L 100.0100, L501.4021, L500.2500 ####[facility] [address] [place], [address] Chest PA and Lateralon 05-22 Chest PA and Lateral Normal [facility] D-Dimer Quantitative (DVT/PE )on 05-22-2024 D-DIMER QUANT 0.27 FEU/ug/m Normal 0.27-0.49 [facility] Comment on above: Result Comment: NORM AL D-Dimer level (<0.50) indicates no DVT or PE. Performed By: #### L 300.8000 ####[facility] [address] [place], [address] Emergency Department Summary on 05-22-2024 Emergency Department Summary Normal [facility] L499.0042on 05-22-2024 Trop T High Sen 21 ng/L High <=14 [facility] Comment on above: Performed By: #### L 499.0042 ####[facility] [address] [place], [address] L499.0043on 05-22-2024 Trop T High Sen Normal <=14 [facility] Comment on above: Result Comment: Canc elled via OM: Order cancelled - Patient discharged Performed By: #### L 499.0043 ####[facility] [address] [place], [address] L501.4021on 05-22-2024 Trop T High Sen 19 ng/L High <=14 [facility] Comment on above: Performed By: #### L 100.0100, L501.4021, L500.2500 ####[facility] [address] [place], [address] MR/BMS.BPon 05-19-2024 MR/BMS.BP Normal [facility] CR - History AND Physicalon 05-17-2024 CR - History & Physical Normal [facility] 36on 05-08-2024 36 [place] paperwork completed by Yoon RICARDO & faxed & sent to [facility] [phone] 05-05-2024 [id number] See telephone encounter from same day. [facility] 36on 05-05-2024 36 PC to patient, she notes she had a few palpitations today, it was just one beat but occurred 4 times over 5 hours. She also walked a long distance today which was longer than usual for her since her LA. She had a little shortness of breath and was a little sweaty at one point. She did check her BS which was a little low per her. She felt her chest was sore. Not similar to her LA presentation. She left work and came home. She has been taking her medications as prescribed. She was asking if she should go to the ER. At this time patient does not sound to be in distress and she agrees, if she would develop symptoms similar to her LA she will seek emergent care. For now she will order a BP cuff and keep track of her BP/HR. She will call sooner if needed. [facility] paperwork completed, will have loan secretary fax. Patient was able to return to work 04/24/24 without restrictions. [facility] 36 LM to return call to office. [facility] 36 LM to return call to office to further discuss symptoms. [facility] 36 Patient calls having sx's of fluttering, shortness of breath, cold sweats, would like to talk to Gust. [phone] [facility] 36on 05-04-2024 36 [place] paperwork given to Gust. [facility] Internal Medicine Office Vis itojus 05-04-2024 Internal Medicine Office Visit [facility] Progress Noteon 04-28-2024 Progress Note See #1. [facility] Progress Note BP well controlled, continue carvedilol, she was not taking her prescribed losartan, she will start losartan 25mg daily. [facility] Progress Note Stable, s/p WOD-olgn-ipw LAD. No current complaints of chest pain [...] for heart health reviewed and information given. [facility] Progress Note She states she has lost 40lbs and is still working on losing weight. We discussed healthy diet and exercise. [facility] Progress Note A1c 6.6 which she states is much better than a year ago when she was first diagnosed. She is managed by endocrinology. [facility] Progress Note Unable to calculate LDL due to elevated triglycerides. We discussed healthy diet and exercise. Now on high-dose statin, continue rosuvastatin 40mg daily. Target LDL less than 70 and ideally less than 55 by ESC criteria. She sees endocrinology soon and will discuss management of elevated triglycerides. May consider addition of ezetimibe or PCSK9i in future if LDL remains above goal. [facility] Progress Note Untreated, recommend she follow-up with her PCP. [facility] Progress Note She has quit and I have congratulated her. We discussed importance of continued cessation. [facility] 37on 04-27-2024 37 Move isosorbide mononitrate to evening Call next week with an update on symptoms [phone] [facility] ECG 12 lead - CLINIC PERFORM EDon 04-27-2024 Sinus Rhythm Low voltage in precordial leads. -T-abnormality - possible ischemia [facility] ECG 12 lead - CLINIC PERFORM EDOrdered By: Jake Sears on 04-27-2024 [facility] Work Phone: Office Visiton 04-27-2024 Follow-up visit [id number] David Gage 1975 F Date Provider Department Center 04/27/2024 [id number]-JFESLZYOON MARTINEZ [facility] [address] Family History Problem Relation Age of Onset Other Mother Comments: Drawfism. No Known Problems Father Family Status - Relation Status Age at Mother Alive Father Level of Service:34480 NC OFFICE/OUTPATIENT ESTABLISHED MOD MDM 30 MIN Reason for Visit and Comments: Hospital Follow-up [832] Normal [facility] Progress Noteon 04-27-2024 Progress Note [facility] [place] [address] [facility] [address] Dept: [phone] Dept Loc: [phone] Reason for Visit: Hospital Follow-up Assessment and Plan 1. NSTEMI (non-ST elevated myocardial infarction) (HCC) Assessment & Plan: Stable, s/p IVB-ggbo-cwi LAD. No current complaints of chest pain [...] metabolic panel 2. Coronary artery disease involving [place] coronary artery of [place] heart without angina pectoris Assessment & Plan: [...] about 8 weeks (around 06/22/2024) for Dr. Mcpherson. We will notify her of her lab results and any further recommendations. She will call sooner if needed. Subjective 49-year-old female who presents to office status post hospital. She has a history of HTN, HLD, DM-2, asthma, GERD, obesity and tobacco use. She presented to [facility] with chest pain and was transferred to [facility] 04/19/2024. She initially thought her symptoms were [...] were elevated. She underwent cardiac cath at [place] which revealed moderate proximal RCA stenosis, minimal LCx disease and 100% occlusion of the proximal LAD (?TAFE LECTURER) with collaterals to distal LAD from the RCA. She was then transferred to [facility] for revascularization discussion. She also had another [...] breath. EKG today demonstrates SR, 88 T-wave in (more content not included)... Normal [facility] L499.0042on 04-25-2024 Trop T High Sen 81 ng/L Invalid Interpretation Code <=14 [facility] Comment on above: Order Comment: [facility] TS CALLED TO NESTOR BULLOCK 04/19/24 1014 Jason Valdovinos.REPORT READ BACK BY SAME. Result Comment: Hemo lysis present, Results??could be affected.??Hemolysis present, Results??could be affected.??DIS IN AMENDED REPORT 04/25/24 0443 Trop T HS 2HR previously reported as: 81 *H ng/LHemolysis present, Results??could be affected.?? Performed By: #### L 499.0042 ####[facility] [address] [place], [place], [id number] BASIC METABOLIC PANELon 03-26 Anion gap [Moles/Vol] 6 mmol/L Normal 3-13 [facility] Comment on above: Performed By: #### L AB103, LAB15 ####Prosthetic Technician: CONSTANCE SANDERSON ([id number])[facility] ([facility])[address] [place] [address] Calcium [Mass/Vol] 8.7 mg/dL Normal 8.4-10.2 [facility] Comment on above: Performed By: #### L AB103, LAB15 ####Prosthetic Technician: CONSTANCE SANDERSON ([id number])[facility] ([facility])[address] [place] [address] Chloride [Moles/Vol] 107 mmol/L Normal 98-107 [facility] Comment on above: Performed By: #### L AB103, LAB15 ####Prosthetic Technician: CONSTANCE SANDERSON ([id number])[facility] [place] [address] CO2 [Moles/Vol] 21 mmol/L Low 22-29 [facility] Comment on above: Performed By: #### L AB103, LAB15 ####Prosthetic Technician: CONSTANCE SANDERSON ([id number])[facility])[address] [place] [address] Creatinine [Mass/Vol] 0.90 mg/dL Normal 0.57-1.11 [facility] Comment on above: Performed By: #### L AB103, LAB15 ####Prosthetic Technician: CONSTANCE SANDERSON ([phone])[facility])[address] [place] [address] GLOMERULAR FILTRATION RATE ML/MIN/1.73 SQ M.PREDICTED 77.6 mL/min/1.73m*2 Normal >60.0 [facility] Comment on above: Result Comment: Calc ulation based on the Chronic Kidney Disease Epidemiology Collaboration (CKD-EPI) equation refit without adjustment for race Performed By: #### L AB103, LAB15 ####Prosthetic Technician: CONSTANCE SANDERSON ([id number])[facility])[address] [place] [address] Glucose [Mass/Vol] 157 mg/dL High 74-100 [facility] Comment on above: Performed By: #### L AB103, LAB15 ####Prosthetic Technician: CONSTANCE SANDERSON ([id number])[facility])[address] [place] [address] Potassium [Moles/Vol] 3.5 mmol/L Normal 3.5-5.1 [facility] Comment on above: Result Comment: [facility] potassium values may be up to 0.5 mmol/L lower than serum values. Performed By: #### L AB103, LAB15 ####Prosthetic Technician: CONSTANCE SANDERSON ([id number])[facility])[address] [place] [address] [place] Sodium [Moles/Vol] 134 mmol/L Low 136-145 [facility] Comment on above: Performed By: #### L AB103, LAB15 ####Prosthetic Technician: CONSTANCE SANDERSON ([id number])[facility])[address] [place] [address] Urea nitrogen [Mass/Vol] 13 mg/dL Normal 9-23 [facility] Comment on above: Performed By: #### L AB103, LAB15 ####Prosthetic Technician: CONSTANCE SANDERSON ([id number])[facility] ([facility])[address] [place] [address] Basic metabolic 1998 panelon 04-21-2024 Anion gap [Moles/Vol] 6 mmol/L 3 - 13 mmol/L [facility] Calcium [Mass/Vol] 8.7 mg/dL 8.4 - 10. 2 mg/dL [facility] Chloride [Moles/Vol] 107 mmol/L 98 - 10 7 mmol/L [facility] CO2 [Moles/Vol] 21 mmol/L Low 22 - 29 mmol/L [facility] Creatinine [Mass/Vol] 0.9 mg/dL 0.57 - 1.11 mg/dL [facility] GFR/1.73 sq M.predicted (S/P/Bld) [Vol rate/Area] 77.6 mL/min - PINF [facility] Comment on above: Calculation based on the Chronic Kidney Disease Epidemiology Collaboration (CKD-EPI) equation refit without adjustment for race Glucose [Mass/Vol] 157 mg/dL High 74 - 100 mg/dL [facility] Interpretation and review of laboratory results Abnormal [facility] Potassium [Moles/Vol] 3.5 mmol/L 3.5 - 5.1 mmol/L [facility] Comment on above: Plasma potassium chuckie ues may be up to 0.5 mmol/L lower than serum values. Sodium [Moles/Vol] 134 mmol/L Low 136 - 145 mmol/L [facility] Urea nitrogen [Mass/Vol] 13 mg/dL 9 - 23 mg/d L [facility] CBC W Auto Differential pane l (Bld)on 04-21-2024 Basophils (Bld) [#/Vol] 0.1 10*3/uL 0.0 - 0.2 10*3/uL [facility] Basophils/100 WBC (Bld) 0.8 % 0.0 - 2.0 % [facility] Eosinophils (Bld) [#/Vol] 0.3 10*3/uL 0.0 - 0.5 10*3/uL [facility] Eosinophils/100 WBC (Bld) 2.3 % 0.0 - 6.0 % [facility] Erythrocyte distribution width (RBC) [Ratio] 13.8 % 11.5 - 15.0 % [facility] Hematocrit (Bld) [Volume fraction] 35.3 % 35.0 - 47.0 % [facility] Hemoglobin (Bld) [Mass/Vol] 12.2 g/dL 11.7 - 16.0 g/dL [facility] Immature granulocytes (Bld) [#/Vol] 0.1 10*3/uL High NINF - 0.1 10*3/uL [facility] Immature granulocytes/100 WBC (Bld) 0.6 % 0.0 - 2.0 % [facility] Interpretation and review of laboratory results Abnormal [facility] Lymphocytes (Bld) [#/Vol] 3.4 10*3/uL 1.0 - 4.3 10*3/uL [facility] Lymphocytes/100 WBC (Bld) 25 % 15.0 - 45.0 % [facility] MCH (RBC) [Entitic mass] 30.1 pg 26. 0 - 34.0 pg [facility] MCHC (RBC) [Mass/Vol] 34.6 % 30.5 - 36.0 % [facility] MCV (RBC) [Entitic vol] 87.2 fL 77.0 - 99.0 fL [facility] Monocytes (Bld) [#/Vol] 0.8 10*3/uL 0.0 - 0.9 10*3/uL [facility] Monocytes/100 WBC (Bld) 6 % 5.0 - 13.0 % [facility] Neutrophils (Bld) [#/Vol] 8.8 10*3/uL High 1.8 - 7.5 10*3/uL [facility] Neutrophils/100 WBC (Bld) 65.3 % 38.0 - 82.0 % [facility] Nucleated RBC/100 WBC (Bld) [Ratio] 0 % [facility] Platelet mean volume (Bld) [Entitic vol] 10.3 fL 9.0 - 12.7 fL [facility] Platelets (Bld) [#/Vol] 311 10*3/uL 140 - 440 10*3/uL [facility] RBC (Bld) [#/Vol] 4.05 10*6/uL 3.80 - 5.2 0 10*6/uL [facility] WBC (Bld) [#/Vol] 13.4 10*3/uL High 3.6 - 10.7 10*3/uL [facility] CBC WITH AUTO DIFFERENTIALon 04-21-2024 Basophils (Bld) [#/Vol] 0.1 10*3/uL Normal 0.0-0.2 [facility] Comment on above: Performed By: #### L [id number] ####Prosthetic Technician: CONSTANCE SANDERSON ([phone])[facility])[address] [place] [address] Basophils/100 WBC (Bld) 0.8 % Normal 0.0-2.0 [facility] Comment on above: Performed By: #### L [id number] ####Prosthetic Technician: CONSTANCE SANDERSON ([id number])[facility] ([facility])[address] [place] [address] Eosinophils (Bld) [#/Vol] 0.3 10*3/uL Normal 0.0-0.5 [facility] Comment on above: Performed By: #### L [id number] ####Prosthetic Technician: CONSTANCE SANDERSON ([id number])[facility])[address] [place] [address] Eosinophils/100 WBC (Bld) 2.3 % Normal 0.0-6.0 [facility] Comment on above: Performed By: #### L [id number] ####Prosthetic Technician: CONSTANCE SANDERSON ([id number])[facility])[address] [place] [address] Erythrocyte distribution width (RBC) [Ratio] 13.8 % Normal 11.5-15.0 [facility] Comment on above: Performed By: #### L [id number] ####Prosthetic Technician: CONSTANCE SANDERSON ([id number])[facility])[address] [place] [address] Hematocrit (Bld) [Volume fraction] 35.3 % Normal 35.0-47.0 [facility] Comment on above: Performed By: #### L [id number] ####Prosthetic Technician: CONSTANCE SANDERSON ([id number])[facility])[address] [place] [address] Hemoglobin (Bld) [Mass/Vol] 12.2 g/dL Normal 11.7-16.0 [facility] Comment on above: Performed By: #### L [id number] ####Prosthetic Technician: CONSTANCE SANDERSON ([id number])[facility])[address] [place] [address] IMMATURE GRANS % 0.6 % Normal 0.0-2.0 [facility] Comment on above: Performed By: #### L [id number] ####Prosthetic Technician: CONSTANCE SANDERSON ([id number])[facility])[address] [place] [address] IMMATURE GRANS ABSOLUTE 0.1 10*3/uL High <0.1 [facility] Comment on above: Performed By: #### L [id number] ####Prosthetic Technician: CONSTANCE SANDERSON ([phone])[facility])[address] [place] [address] Lymphocytes (Bld) [#/Vol] 3.4 10*3/uL Normal 1.0-4.3 [facility] Comment on above: Performed By: #### L [id number] ####Prosthetic Technician: CONSTANCE SANDERSON ([id number])[facility])[address] [place] [address] Lymphocytes/100 WBC (Bld) 25.0 % Normal 15.0-45.0 [facility] Comment on above: Performed By: #### L [id number] ####Prosthetic Technician: CONSTANCE SANDERSON ([id number])[facility])[address] [place] [address] MCH (RBC) [Entitic mass] 30.1 pg Normal 26.0-34.0 [facility] Comment on above: Performed By: #### L [id number] ####Prosthetic Technician: CONSTANCE SANDERSON ([id number])[facility])[address] [place] [address] MCHC 34.6 % Normal 30.5-36.0 [facility] Comment on above: Performed By: #### L [id number] ####Prosthetic Technician: CONSTANCE SANDERSON ([id number])[facility])[address] [place] [address] MCV (RBC) [Entitic vol] 87.2 fL Normal 77.0-99.0 [facility] Comment on above: Performed By: #### L [id number] ####Prosthetic Technician: CONSTANCE SANDERSON ([id number])[facility])[address] [place] [address] Monocytes (Bld) [#/Vol] 0.8 10*3/uL Normal 0.0-0.9 [facility] Comment on above: Performed By: #### L [id number] ####Prosthetic Technician: CONSTANCE SANDERSON ([id number])[facility])[address] [place] [address] Monocytes/100 WBC (Bld) 6.0 % Normal 5.0-13.0 [facility] Comment on above: Performed By: #### L [id number] ####Prosthetic Technician: CONSTANCE SANDERSON ([phone])[facility])[address] [place] [address] NEUTROPHILS ABSOLUTE 8.8 10*3/uL High 1.8-7.5 [facility] Comment on above: Performed By: #### L [id number] ####Prosthetic Technician: CONSTANCE SANDERSON ([id number])[facility])[address] [place] [address] Neutrophils/100 WBC (Bld) 65.3 % Normal 38.0-82.0 [facility] Comment on above: Performed By: #### L [id number] ####Prosthetic Technician: CONSTANCE SANDERSON ([id number])[facility] ([facility])[address] [place] [address] NRBC 0.0 /100 WBCs Normal 0.0-2.0 [facility] Comment on above: Performed By: #### L [id number] ####Prosthetic Technician: CONSTANCE SANDERSON ([id number])[facility])[address] [place] [address] Platelet mean volume (Bld) [Entitic vol] 10.3 fL Normal 9.0-12.7 [facility] Comment on above: Performed By: #### L [id number] ####Prosthetic Technician: CONSTANCE SANDERSON ([id number])[facility])[address] [place] [address] Platelets (Bld) [#/Vol] 311 10*3/uL Normal 140-440 [facility] Comment on above: Performed By: #### L [id number] ####Prosthetic Technician: CONSTANCE SANDERSON ([id number])[facility] ([facility])[address] [place] [address] RBC (Bld) [#/Vol] 4.05 10*6/uL Normal 3.80-5.20 [facility] Comment on above: Performed By: #### L [id number] ####Prosthetic Technician: CONSTANCE SANDERSON ([id number])[facility])[address] [place] [address] WBC (Bld) [#/Vol] 13.4 10*3/uL High 3.6-10.7 [facility] Comment on above: Performed By: #### L [id number] ####Prosthetic Technician: CONSTANCE SANDERSON ([id number])[facility])[address] [place] [address] Cardiac catheterization stud yon 04-21-2024 Anterior LA due to 100% occluded proximal LAD Successful IVUS-guided PCI of proximal to mid LAD with a 3.0x38 mm Xience SE, post dilated proximally with a 3.5 NC balloon. Small diagonal branch was jailed but not compromised. Procedure Details Patient was prepped and draped in sterile fashion. Soft tissue overlying the right radial artery was anesthetized with lidocaine injected subcutaneously. 6 Thai sheath was advanced into the right radial artery using modified Seldinger technique. Standard cocktail of nitroglycerin and verapamil was administered through the sheath. Patient was anticoagulated with IV heparin with therapeutic ACT maintained. Patient was loaded with Brilinta 180 mg crushed PO. . Left coronary angiogram was performed with a 6 Thai EBU 3.0 guide catheter.Prowater guidewire was advanced into the LAD across the 100% occlusion and positioned into the D1. A second Prowater guidewire was advanced into the D1. The lesion was dilated with a 2.0x12 mm Trek balloon. The second Prowater was advanced into the distal LAD. IVUS imaging was performed. The lesion was dilated with a 3.0x20 mm Trek balloon. The lesion was stented with a 3.0x38 mm Xience SE and was further post-dilated proximally with a 3.5x15 mm NC balloon at high pressure. Follow-up IVUS imaging showed good stent expansion and apposition with no edge dissection. Final angiogram showed 0% residual stenosis with RUSSELL-3 flow. Catheter was aspirated and flushed with saline. Sheath was aspirated and flushed between all catheter exchanges. At the end of the case, radial sheath was withdrawn and arterial hemostasis was achieved with placement of Vasc Band over the right radial arteriotomy. Coronary Findings Diagnostic Dominance: Right Left Main: The vessel is angiographically normal. Very short Left Anterior Descending: The proximal segment of the vessel is moderate in size. The middle segment of the vessel is moderate in size. The distal segment of the vessel is small. Prox LAD lesion, 100% stenosed. Diagnostic coronary angiography shows negative for TAFE LECTURER. The lesion is moderately calcified. First Diagonal Branch: The vessel is small in size. 1st Diag lesion, 50% stenosed. Left Circumflex: The vessel is moderate in size. The vessel exhibits mild disease. Single OM branch Intervention Prox LAD lesion: Angioplasty: Balloon inserted, inflated, placed across lesion and removed. The balloon used was a CATH BLLN MINI TREK RX 2.0X12M. Balloon inflated using mutiple inflation technique. Balloon 1: Inflation#1: Pressure = 10 beena; Duration = 14 sec. Inflation#2: Pressure = 12 beena; Duration = 18 sec. Inflation#3: Pressure = 12 beena; Duration = 15 sec. Inflation#4: Pressure = 12 beena; Duration = 14 sec. Supplies Used: CATH BLLN MINI TREK RX 2.0X12M Angioplasty: Angioplasty using a standard balloon was performed prior to stent deployment. Balloon inserted, inflated, placed across lesion and removed. Balloon inflated using mutiple inflation technique. Balloon 1: Inflation#1: Pressure = 14 beena; Duration = 14 sec. Inflation#2: Pressure = 16 beena; Duration = 11 sec. Supplies Used: CATH NC TREK MARGUERITE 3.02X29OT Stent: Type of stent: drug-eluting. A single stent was placed. The stent used was a STENT COR SKYPOINT 3.00O67XA. Actions taken: stent inserted, stent placed across lesion and balloon removed. The stent was fully expanded. Inflation#1: Pressure = 16 beena; Duration = 23 sec. Inflation#2: Pressure = 14 beena; Duration = 14 sec. Inflation#3: Pressure = 16 beena; Duration = 12 sec. Supplies Used: STENT COR SKYPOINT 3.06X77JA Post-Intervention Lesion Assessment: The guidewire crossed the lesion. Device was deployed. There is no pre-intervention RUSSELL flow. Post-intervention RUSSELL flow is 3. There were no complications. There is a 0% residual stenosis post intervention. Clinical Background 49 yo F with T2DM, HTN, HPL, tobacco smoking, asthma and obesity who presents from [facility] with an NSTEMI. Coronary angiography there revealed 100% occlusion of proximal LAD, mild-moderate proximal RC stenosis which provided faint collaterals to LAD. Given unclear chronicity of her LAD occlusion was sent here for further management. She has continue to have intermittent chest pain at rest, with troponin trending up siggesting more acute occlusion. Here for PCI to LAD Cath Recommendations Patient management should include: Aggressive risk factor modification, aggressive medical management, smoking cessation counselling, cardiac rehabillitation and drug-eluting stent maintenance. CV [facility] ECG 12-LEADon 04-21-2024 ECG 12-LEAD IMPRESSION: Sinus rhythm Left anterior fascicular block Left ventricular hypertrophy Anterior Q waves, possibly due to LVH Abnrm T, consider ischemia, anterolateral lds ST elevation, consider inferior injury Electronically Signed On 04-21-2024 09:37:02 EST by Laurie Estevez [facility] ECG 12-LEAD IMPRESSION: Sinus rhythm Left anterior fascicular block Anterior Q waves, possibly due to LVH LVH w/ repol abnormalities, possible ischemia Electronically Signed On 04-21-2024 09:35:49 EST by Laurie Estevez Normal [facility] Laboratory - Chemistry and C hemistry - challengeon 04-21-2024 Glucose [Mass/Vol] 160 mg/dL High 70 - 100 mg/dL [facility] Glucose [Mass/Vol] 175 mg/dL High 70 - 100 mg/dL [facility] Glucose [Mass/Vol] 166 mg/dL High 70 - 100 mg/dL [facility] Magnesium [Mass/Vol] 1.9 mg/dL 1.6 - 2 .6 mg/dL [facility] MAGNESIUMon 04-21-2024 Magnesium [Mass/Vol] 1.9 mg/dL Normal 1.6-2.6 [facility] Comment on above: Result Comment: MICHAEL Almonte COMMENTS: Higher values can be expected in females during menses. Performed By: #### L AB103, LAB15 ####Prosthetic Technician: CONSTANCE SANDERSON ([id number])[facility] ([facility])[address] [place] [address] Magnesium [Mass/Vol]on 04-21 Interpretation and review of laboratory results Normal [facility] Higher values can be expected in females during menses. [facility] No Panel Informationon 04-21 Interpretation and review of laboratory results Abnormal [facility] Performed by: [facility], [address] [place] [address] CLIA ID: [id number] [facility] Sinus rhythm Left anterior fascicular block Left ventricular hypertrophy Anterior Q waves, possibly due to LVH Abnrm T, consider ischemia, anterolateral lds ST elevation, consider inferior injury Electronically Signed On 04-21-2024 09:37:02 EST by Laurie Pelaez M D - 04/21/2024 IMPRESSION: Sinus rhythm Left anterior fascicular block Left ventricular hypertrophy Anterior Q waves, possibly due to LVH Abnrm T, consider ischemia, anterolateral lds ST elevation, consider inferior injury Electronically Signed On 04-21-2024 09:37:02 EST by Laurie Estevez [facility] P [place] 44 degrees [facility] NC Interval 178 ms [facility] QRS [place] -53 degrees [facility] QRSD Interval 105 ms [facility] QT Interval 430 ms [facility] QTC Interval 481 ms [facility] T Wave [place] 111 degrees [facility] Sinus rhythm Left anterior fascicular block Anterior Q waves, possibly due to LVH LVH w/ repol abnormalities, possible ischemia Electronically Signed On 04-21-2024 09:35:49 EST by Laurie Pelaez M D - 04/21/2024 IMPRESSION: Sinus rhythm Left anterior fascicular block Anterior Q waves, possibly due to LVH LVH w/ repol abnormalities, possible ischemia Electronically Signed On 04-21-2024 09:35:49 EST by Laurie Estevez [facility] Interpretation and review of laboratory results Abnormal [facility] Performed by: [facility], [address] [place] [address] CLIA ID: [id number] [facility] Interpretation and review of laboratory results Abnormal [facility] Performed by: [facility], [address] [place] [address] CLIA ID: [id number] [facility] Interpretation and review of laboratory results Abnormal [facility] POCT ACT 268 High [facility] POCT ACT 239 High [facility] Performed by: [facility], [address] [place] [address] CLIA ID: [id number] [facility] No Panel InformationOrdered By: Laurie Estevez on 04-21-2024 P [place] 37 degrees [facility] Work Phone: NC Interval 184 ms [facility] Work Phone: QRS [place] -49 degrees [facility] Work Phone: QRSD Interval 104 ms [facility] Work Phone: QT Interval 465 ms [facility] Work Phone: QTC Interval 482 ms [facility] Work Phone: T Wave [place] 102 degrees [facility] Work Phone: [facility] Work Phone: Nursing Noteon 04-21-2024 Nursing Note Discharge instructions reviewed with patient and family at bedside. IV out and pt is off of monitor. Medications were delivered to bedside. Pt taken down to discharge. Normal [facility] Progress Noteon 04-21-2024 Progress Note Nutrition rescreen completed. Chart reviewed. Patient to be monitored and followed by the diet food service technician. SHAKIR Scanlon Normal [facility] Progress Note [facility] Brief Interventional Cardiology follow up NAME: Constance [...] esophagus and morbid obesity who presented to [facility] with substernal chest pain that radiated to [...] have obstructive CAD and was transferred to [facility] for intervention.She underwent uncomplicated LHC right radial approach and received 1 SE to mid-prox LAD with Dr. Mcpherson on 04/20/24. Today she is resting in [...] LAB VALUES AND TESTING REVIEWED Recent Labs 04/19/24222604/21/24345 NA 137 134* K 4.0 3.5 CL 107 107 CO2 20* 21* BUN 10 13 CREATININE 0.86 0.90 Recent Labs 04/19/24222604/21/24345 WBC 16.0* 13.4* HGB 12.1 12.2 HCT [...] QT Interval 430 QTC Interval 481 P [place] 44 QRS [place] -53 T Wave [place] 111 NC Interval 178 Impression Sinus rhythm Left anterior fascicular block Anterior Q waves, possibly due to LVH LVH w/ repol abnormalities, possible ischemia Electronically Signed On 04-21-2024 09:35:49 EST by Laurie Estevez Tracing reviewed ECHOCARDIOGRAM (more content not included)... Normal [facility] Vital signsOrdered By: Xiomara Estevez on 04-21-2024 Heart rate 64 /min bpm [facility] Work Phone: Vital signson 04-21-2024 Heart rate 75 /min bpm [facility] 30on 04-20-2024 30 Problem: Pain - Adul t Goal: Verbalizes/displays adequate comfort level or baseline comfort level Outcome: Progressing Problem: Safety - Adult Goal: Free from fall injury Outcome: Progressing Problem: Discharge Planning Goal: Discharge to home or other facility with appropriate resources Outcome: Progressing Problem: Chronic Conditions and Co-morbidities Goal: Patient's chronic conditions and co-morbidity symptoms are monitored and maintained or improved Outcome: Progressing Normal [facility] APTTon 04-20-2024 aPTT Coag (Bld) [Time] 21.2 s Normal 20.0-30.5 [facility] Comment on above: Result Comment: MICHAEL Almonte COMMENTS: NOTE: The therapeutic time for Heparin anticoagulation, based on Xa activity inhibition, is an APTT of 46-80 seconds. Performed By: #### L [id number] ####Prosthetic Technician: CONSTANCE SANDERSON ([phone])[facility] ([facility])[address] [place] [address] Anesthesia Noteon 04-20-2024 Anesthesia Note Sedation Plan ASA class 3 - patient with severe systemic disease Mallampati class: II - soft palate, uvula, fauces visible. Sedation plan: local anesthesia and minimal sedation Risks, benefits, and alternatives discussed with patient, mother and father. Immediate reassessment prior to sedation: Patient's status reviewed and vital signs assessed; acceptable to perform procedure and proceed to administer sedation as planned. Normal [facility] Basic Metabolic Profile (BMP )on 04-20-2024 Anion Gap Normal 5-15 [facility] Comment on above: Result Comment: Canc elled via OM: Order cancelled - Patient discharged Performed By: #### L 500.2500 ####[facility] [address] [facility] [address] BUN Normal 4-19 [facility] Comment on above: Result Comment: Canc elled via OM: Order cancelled - Patient discharged Performed By: #### L 500.2500 ####[facility] [address] [facility] [address] BUN/CRE Normal 10-20 [facility] Comment on above: Result Comment: Canc elled via OM: Order cancelled - Patient discharged Performed By: #### L 500.2500 ####[facility] [address] [place], [address] Calcium Normal 7.6-11.0 [facility] Comment on above: Result Comment: Canc elled via OM: Order cancelled - Patient discharged Performed By: #### L 500.2500 ####[facility] [address] [place], [address] Chloride Normal 96-108 [facility] Comment on above: Result Comment: Canc elled via OM: Order cancelled - Patient discharged Performed By: #### L 500.2500 ####[facility] [address] [place], [address] CO2 Normal 22.0-29.0 [facility] Comment on above: Result Comment: Canc elled via OM: Order cancelled - Patient discharged Performed By: #### L 500.2500 ####[facility] [address] [place], [address] CREAT,SERUM Normal 0.6-1.0 [facility] Comment on above: Result Comment: Canc elled via OM: Order cancelled - Patient discharged Performed By: #### L 500.2500 ####[facility] [address] [place], [address] eGFR Normal >60 [facility] Comment on above: Result Comment: Canc elled via OM: Order cancelled - Patient discharged Performed By: #### L 500.2500 ####[facility] [address] [place], [address] GLU Normal 70-99 [facility] Comment on above: Result Comment: Canc elled via OM: Order cancelled - Patient discharged Performed By: #### L 500.2500 ####[facility] [address] [place], [address] Potassium Normal 3.3-5.1 [facility] Comment on above: Result Comment: Canc elled via OM: Order cancelled - Patient discharged Performed By: #### L 500.2500 ####[facility] [address] [place], [address] Sodium Normal 133-145 [facility] Comment on above: Result Comment: Canc elled via OM: Order cancelled - Patient discharged Performed By: #### L 500.2500 ####[facility] [address] [place], [address] CBC W/Diff, Automatedon 02-2 Absolute Neut Normal 2.0-7.7 [facility] Comment on above: Result Comment: Canc elled via OM: Order cancelled - Patient discharged Performed By: #### L 100.0100 ####[facility] [address] [place], [address] HCT Normal 37-47 [facility] Comment on above: Result Comment: Canc elled via OM: Order cancelled - Patient discharged Performed By: #### L 100.0100 ####[facility] [address] [place], [address] HGB Normal 12.0-15.0 [facility] Comment on above: Result Comment: Canc elled via OM: Order cancelled - Patient discharged Performed By: #### L 100.0100 ####[facility] [address] [place], [address] MCH Normal 27.0-32.0 [facility] Comment on above: Result Comment: Canc elled via OM: Order cancelled - Patient discharged Performed By: #### L 100.0100 ####[facility] [address] [place], [address] MCHC Normal 32-36 [facility] Comment on above: Result Comment: Canc elled via OM: Order cancelled - Patient discharged Performed By: #### L 100.0100 ####[facility] [address] [place], [address] MCV Normal 81-99 [facility] Comment on above: Result Comment: Canc elled via OM: Order cancelled - Patient discharged Performed By: #### L 100.0100 ####[facility] [address] [place], [address] NEUT% Normal 47-70 [facility] Comment on above: Result Comment: Canc elled via OM: Order cancelled - Patient discharged Performed By: #### L 100.0100 ####[facility] [address] [place], [address] PLT Normal 150-450 [facility] Comment on above: Result Comment: Canc elled via OM: Order cancelled - Patient discharged Performed By: #### L 100.0100 ####[facility] [address] [place], [address] RBC Normal 4.2-5.4 [facility] Comment on above: Result Comment: Canc elled via OM: Order cancelled - Patient discharged Performed By: #### L 100.0100 ####[facility] [address] [place], [address] RDW CV Normal 11.6-14.6 [facility] Comment on above: Result Comment: Canc elled via OM: Order cancelled - Patient discharged Performed By: #### L 100.0100 ####[facility] [address] [place], [address] RDW SD Normal 35.1-43.9 [facility] Comment on above: Result Comment: Canc elled via OM: Order cancelled - Patient discharged Performed By: #### L 100.0100 ####[facility] [address] [place], [address] WBC Normal 4.4-11.0 [facility] Comment on above: Result Comment: Canc elled via OM: Order cancelled - Patient discharged Performed By: #### L 100.0100 ####[facility] [address] [place], [address] Consulton 04-20-2024 Consult - Attestation signed by Devika Mcpherson MD at 04/20/2024 3:46 PM I, Dr. Devika Mcpherson, saw and evaluated the patient. I personally obtained the lawson and critical portions of the history and physical exam. I reviewed the chart, the fellow's documentation, and discussed the patient with the fellow. I agree with the fellow's medical decision making and have edited the note to reflect my clinical findings and my assessment and plan. Cath images from [place] done yesterday were reviewed. Patient had mild [...] and her parents. She agrees to proceed. [facility] Interventional Cardiology Consult Note Reason for Consult/Chief Complaint: Chest Pain/Obstructive CAD on [facility] Referring provider: Dr. Sears Established asset protection lead: None History of Present Illness: Constance Gage [...] morning, at 2am, she drove herself to [place]. She ruled in for NSTEMI and was admitted. A left heart cath was performed on 04/19/24 (images in PACs) which revealed moderate proximal RCA disease, minimal Lcx disease, and a 100% occlusion of the proximal LAD (collaterals to distal LAD from the RCA). Given the evidence of LAD TAFE LECTURER, she was transferred to [facility] for PCI vs. CABG consideration. This [...] Baseline Date Value Ref Range Status 04/19/2024 (more content not included)... Normal [facility] ECG 12-LEADon 04-20-2024 ECG 12-LEAD IMPRESSION: Sinus rhythm Low voltage, precordial leads LEFT VENTRICULAR HYPERTROPHY with secondary ST T wave abnormalities Electronically Signed On 04-20-2024 09:08:54 EST by Ruby Arevalo Normal [facility] HIGH SENSITIVITY TROPONIN, S ERIAL, SECOND TESTon 04-20-2024 2H TROPONIN HS (SERIAL 2ND TROPONIN) 1470 ng/L Critically high <=14 [facility] Comment on above: Result Comment: Risi ng or falling troponin delta greater than 15 ng/L as compared to baseline value is significant for acute cardiac injury. Performed By: #### L [id number] ####Prosthetic Technician: CONSTANCE SANDERSON ([id number])[facility] ([facility])[address] [place] [address] Laboratory - Chemistry and C hemistry - challengeon 04-20-2024 Glucose [Mass/Vol] 179 mg/dL High 70 - 100 mg/dL [facility] Glucose [Mass/Vol] 179 mg/dL High 70 - 100 mg/dL [facility] Glucose [Mass/Vol] 186 mg/dL High 70 - 100 mg/dL [facility] Average glucose Estimated from glycated hemoglobin (Bld) [Mass/Vol] 143 mg/dL [facility] Laboratory - Hematology and Cell countson 04-20-2024 HbA1c (Bld) [Mass fraction] 6.6 % High NINF [facility] Comment on above: Normal less than 5.7 % Prediabetes 5.7% to 6.4% Diabetes 6.5% or higher --HgbA1C levels may not be accurate in patients who have renal disease, received recent blood transfusions, are anemic, or who have dyshemoglobinemia. No Panel Informationon 04-20 Interpretation and review of laboratory results Abnormal [facility] Performed by: [facility], [address] [place] [address] CLIA ID: [id number] [facility] Interpretation and review of laboratory results Abnormal [facility] Performed by: [facility], [address] [place] [address] CLIA ID: [id number] [facility] Sinus rhythm Low voltage, precordial leads LEFT VENTRICULAR HYPERTROPHY with secondary ST T wave abnormalities Electronically Signed On 04-20-2024 09:08:54 EST by Ruby Arevalo CV Ruby Rodriguez MD - 04/20/2024 IMPRESSION: Sinus rhythm Low voltage, precordial leads LEFT VENTRICULAR HYPERTROPHY with secondary ST T wave abnormalities Electronically Signed On 04-20-2024 09:08:54 EST by Ruby Arevalo [facility] Interpretation and review of laboratory results Abnormal [facility] Performed by: [facility], [address] [place] [address] CLIA ID: [id number] [facility] Interpretation and review of laboratory results Abnormal [facility] HbA1c values of 5.7-6.4 percent indicate an increased risk for developing diabetes mellitus. HbA1c values greater than or equal to 6.5 percent are diagnostic of diabetes mellitus. For diagnosis of diabetes in individuals without unequivocal hyperglycemia, results should be confirmed by repeat testing. [facility] 2h Troponin HS (Serial 2nd Troponin) 1470 ng/L Critically high NINF - 14 ng/L [facility] Comment on above: Rising or falling tr oponin delta greater than 15 ng/L as compared to baseline value is significant for acute cardiac injury. Interpretation and review of laboratory results Abnormal [facility] No Panel InformationOrdered By: Ruby Arevalo on 04-20-2024 P [place] 49 degrees [employer] Phone: NC Interval 157 ms [employer] Phone: QRS [place] -38 degrees [employer] Phone: QRSD Interval 94 ms [employer] Phone: QT Interval 411 ms [employer] Phone: QTC Interval 479 ms [employer] Phone: T Wave [place] 115 degrees [employer] Phone: [employer] Phone: Progress Noteon 04-20-2024 [facility] Interventional Cardiology NAME: Constance Gage DATE OF : 1975 CHIEF COMPLAINT NSTEMI ASSESSMENT AND PLAN NSTEMI CAD s/p SE to LAD Her post cath EKG is stable. She was loaded with Brilinta during her cath. Her SOB is possibly s/t Brilinta, but patient does not appear to be in any distress. Discussed with Dr. Mcpherson will give patient 40 mg IVP furosemide. [...] GERD/Luna's esophagus and obesity who presented to [facility] with substernal chest pain that radiated to [...] have obstructive CAD and was transferred to [facility] for intervention. Today patient underwent uncomplicated [facility] right radial approach and received 1 SE to LAD with Dr. Mcpherson. Patient resting in bed with family at bedside. Her chest pain was improving at the time, but later developed 5/10 bilateral shoulder pain and SOB when she was trying to sleep. Mariam Lundy MSN, VEGETABLE WORKER, [employer]ANCH RETAIL EXECUTIVE-C - Date of Service: 04/19/2024 Nurse Practitioner in Interventional Cardiology [facility] - Cardiology Normal [facility] Progress Note - Attestation signed by Jake Sears MD at 04/20/2024 11:45 AM See attestation of H&P. Jake Sears MD Department of Cardiovascular Disease, Division of Heart Failure [facility] Vascular [facility] Cardiology /Electrophysiology Progress Note HPI / Interval History: 49 y.o. F with a history of HTN, HLD, tobacco use, T2DM, asthma, GERD/Luna esophagus and obesity who presents with as a transfer from [facility] with obstructive CAD noted on LHC. This morning, the patient reports that she is no longer experiencing any chest pain. Her right wrist is somewhat sore from her LHC yesterday. Ready for repeat LHC today. Assessment/Plan Type 1 NSTEMI Obstructive CAD Patient s/p LHC at [facility] 04/19 with noted RCA lesion and TAFE LECTURER - ASA 81mg daily - Rosuvastatin 40mg [...] the past 168 hrs: Weight Weight Method 04/20/24 0547 222 lb 1.6 oz (101 kg) Standing [...] EC/27 Sinus rhythm Low voltage, precordial leads (more content not included)... Normal [facility] US Heart Transthoracicon Aortic Sinus Valsalva 3.3 cm Sum [facility] Aortic Sinus Valsalva Index 1.68 cm/m2 [facility] Aortic valve Mean systole pressure gradient by US.doppler derived full Bernoulli 5 mmHg [facility] Aortic valve Orifice area by US 3.1 cm2 [facility] Aortic valve Peak systolic flow by US.doppler 1 m/s [facility] Ascending Aorta 3.5 cm [facility] Ascending Aorta Index 1.78 cm/m2 [facility] AV Area by Peak Velocity 2.2 cm2 [facility] AV Area by VTI 2.4 cm2 [facility] AV Peak Gradient 9 mmHg [facility] AV Peak Velocity 1.5 m/s [facility] AV Velocity Ratio 0.73 [facility] AV VTI 30.8 cm [facility] BLANE/BSA Peak Velocity 1.1 cm2/m2 [facility] BLANE/BSA VTI 1.2 cm2/m2 [facility] E/E' Lateral 7.6 [facility] E/E' Ratio (Averaged) 9.23 [facility] E/E' Septal 10.86 [facility] Est. RA Pressure 3 mmHg [facility] Fractional Shortening 2D 33 % 28 - 44 % [facility] Global Longitudinal Strain -14.5 % [facility] Interpretation and review of laboratory results Abnormal [facility] IVC Diameter 1.7 cm [facility] IVSd 1 cm Abnormal 0.6 - 0.9 cm [facility] LA Diameter 3.5 cm [facility] LA Size Index 1.78 cm/m2 [facility] LA Volume 2C 51 mL 22 - 52 mL [facility] LA Volume 4C 41 mL 22 - 52 mL [facility] LA Volume A/L 49 mL [facility] LA Volume BP 46 mL 22 - 52 mL [facility] LA Volume Index 2C 26 mL/m2 16 - 34 mL/m2 [facility] LA Volume Index 4C 21 mL/m2 16 - 34 mL/m2 [facility] LA Volume Index A/L 25 mL/m2 16 - 34 mL/m2 [facility] LA Volume Index BP 23 ml/m2 16 - 34 ml/m2 [facility] Left ventricular Ejection fraction by US.2D+Calculated by biplane method of disks 49 % Abnormal 55 - 100 % [facility] LV E' Lateral Velocity 10 cm/s [facility] LV E' Septal Velocity 7 cm/s [facility] LV EDV A2C 114 mL [facility] LV EDV A4C 118 mL [facility] LV EDV BP 117 mL Abnormal 56 - 104 mL [facility] LV EDV Index A2C 58 mL/m2 [facility] LV EDV Index A4C 60 mL/m2 [facility] LV EDV Index BP 59 mL/m2 [facility] LV Ejection Fraction A2C 48 % [facility] LV Ejection Fraction A4C 51 % [facility] LV ESV A2C 60 mL [facility] LV ESV A4C 58 mL [facility] LV ESV BP 60 mL Abnormal 19 - 49 mL [facility] LV ESV Index A2C 30 mL/m2 [facility] LV ESV Index A4C 29 mL/m2 [facility] LV ESV Index BP 30 mL/m2 [facility] LV Mass 2D 158.8 g 67 - 162 g [facility] LV Mass 2D Index 80.6 g/m2 43 - 95 g/m2 [facility] LV RWT Ratio 0.43 [facility] LVIDd 4.6 cm 3.9 - 5.3 cm [facility] LVIDd Index 2.34 cm/m2 [facility] LVIDs 3.1 cm [facility] LVIDs Index 1.57 cm/m2 [facility] LVOT Cardiac Output 5.1 liter/minute [facility] LVOT Diameter 2 cm [facility] LVOT Mean Gradient 3 mmHg [facility] LVOT Peak Gradient 5 mmHg [facility] LVOT Peak Velocity 1.1 m/s [facility] LVOT Stroke Volume Index 39.1 mL/m2 [facility] LVOT SV 76.9 ml [facility] LVOT VTI 24.5 cm [facility] LVOT:AV VTI Index 0.8 [facility] LVPWd 1 cm Abnormal 0.6 - 0.9 cm [facility] MV A Velocity 0.81 m/s [facility] MV E Velocity 0.76 m/s [facility] MV E Wave Deceleration Time 143.1 ms [facility] MV E/A 0.94 [facility] RA Area 4C 35.6 mL [facility] RA Area 4C 34.7 mL [facility] RV Basal Dimension 3.1 cm [facility] RV Free Wall Peak S' 9 cm/s [facility] RV Longitudinal Dimension 7.1 cm [facility] RV Mid Dimension 2.3 cm [facility] RVSP 9 mmHg [facility] Sinotubular Junction 3 cm [facility] TAPSE 1.9 cm 1.7 cm [facility] TR Max Velocity 1.23 m/s [facility] TR Peak Gradient 6 mmHg [facility] Left Ventricle: Left ventricle size is normal. [...] is normal (~3 mmHg). Technically difficult study. Left Ventricle Left ventricle size is normal. Normal wall thickness. Low normal left ventricular systolic function. The EF by visual approximation is 50%. Global longitudinal strain is -14.5%. Normal wall motion. Normal diastolic function. Right Ventricle Right ventricle size is normal. Normal systolic function. Left Atrium Left atrium size is normal. Right Atrium Right atrium size is normal. IVC/SVC IVC diameter is normal and decreases greater than 50% during inspiration; therefore the estimated right atrial pressure is normal (~3 mmHg). Mitral Valve Valve structure is normal. Trace regurgitation. No stenosis noted. Tricuspid Valve Valve structure is normal. Trace regurgitation. Normal RVSP. RVSP is 9 mmHg. Aortic Valve Trileaflet. Trace regurgitation. No stenosis. Pulmonic Valve The pulmonic valve visualization is suboptimal but appears to be functioning normally. Trace regurgitation. Ascending Aorta Normal sized sinuses of Valsalva. Mildly dilated ascending aorta. Ao ascending diameter is 3.5 cm. Pericardium No pericardial effusion. Septum No interatrial shunt visualized on color Doppler. Pulmonary Artery Pulmonary artery was not well visualized. Study Details Image quality: fair. Additional technique includes myocardial strain. Blood pressure: 117/74 mmHg. Technical qualifiers: Technically difficult study and technically difficult study due to patient's body habitus. Ultrasound enhancement agent was given to enhance imaging. Scan completed by trainee Parker Guillen under direct supervision. Echo Additional Conclusions No significant valvular abnormalities.Technic philip difficult study. CV CPACS [facility] Vital signsOrdered By: Shailesh Arevalo on 04-20-2024 Heart rate 81 /min bpm [facility] Work Phone: aPTT Coag (Bld) [Time]on aPTT Coag (PPP) [Time] 21.2 s 20.0 - 30.5 s [facility] Interpretation and review of laboratory results Normal [facility] NOTE: The therapeuti c time for Heparin anticoagulation, based on Xa activity inhibition, is an APTT of 46-80 seconds. [facility] 30on 04-19-2024 30 Problem: Pain - Adul t Goal: Verbalizes/displays adequate comfort level or baseline comfort level Outcome: Progressing Problem: Safety - Adult Goal: Free from fall injury Outcome: Progressing Problem: Discharge Planning Goal: Discharge to home or other facility with appropriate resources Outcome: Progressing Problem: Chronic Conditions and Co-morbidities Goal: Patient's chronic conditions and co-morbidity symptoms are monitored and maintained or improved Outcome: Progressing Normal [facility] APTTon 04-19-2024 aPTT Coag (Bld) [Time] 74.2 s High 20.0-30.5 [facility] Comment on above: Result Comment: MICHAEL Almonte COMMENTS: NOTE: The therapeutic time for Heparin anticoagulation, based on Xa activity inhibition, is an APTT of 46-80 seconds. Performed By: #### L AB325 #### Prosthetic Technician: CONSTANCE SANDERSON ([id number]) [facility] ([facility]) [address] [place] [address] Basic Metabolic Profile (BMP )on 04-19-2024 Anion gap [Moles/Vol] 15 mmol/L Normal 5-15 [facility] Comment on above: Performed By: #### L 500.2500, L300.8000, L100.0100, L501.4021 ####[facility] [address] [place], [address] BUN/CRE 13.9 RATIO Normal 10-20 [facility] Comment on above: Performed By: #### L 500.2500, L300.8000, L100.0100, L501.4021 ####[facility] [address] [place], [address] Calcium [Mass/Vol] 9.5 mg/dL Normal 7.6-11.0 [facility] Comment on above: Performed By: #### L 500.2500, L300.8000, L100.0100, L501.4021 ####[facility] [address] [place], [address] Chloride [Moles/Vol] 104 mmol/L Normal 96-108 [facility] Comment on above: Performed By: #### L 500.2500, L300.8000, L100.0100, L501.4021 ####[facility] [address] [place], [address] CO2 [Moles/Vol] 19.1 mmol/L Low 22.0-29.0 [facility] Comment on above: Performed By: #### L 500.2500, L300.8000, L100.0100, L501.4021 ####[facility] [address] [place], [address] Creatinine [Mass/Vol] 0.8 mg/dL Normal 0.6-1.0 [facility] Comment on above: Performed By: #### L 500.2500, L300.8000, L100.0100, L501.4021 ####[facility] [address] [place], [address] ECRCL 91.88 ml/min Normal [facility] Comment on above: Performed By: #### L 500.2500, L300.8000, L100.0100, L501.4021 ####[facility] [address] [place], [address] GFR/1.73 sq M.predicted among non-blacks MDRD (S/P/Bld) [Vol rate/Area] 88 mL/min/{1.73_m2} Normal >60 [facility] Comment on above: Result Comment: mL/m in/1.73m2 CKD-EPI Creatinine Equation (2020) Performed By: #### L 500.2500, L300.8000, L100.0100, L501.4021 ####[facility] [address] [place], [address] Glucose [Mass/Vol] 208 mg/dL High 70-99 [facility] Comment on above: Performed By: #### L 500.2500, L300.8000, L100.0100, L501.4021 ####[facility] [address] [place], [address] Potassium [Moles/Vol] 4.4 mmol/L Normal 3.3-5.1 [facility] Comment on above: Performed By: #### L 500.2500, L300.8000, L100.0100, L501.4021 ####[facility] [address] [place], [address] Sodium [Moles/Vol] 138 mmol/L Normal 133-145 [facility] Comment on above: Performed By: #### L 500.2500, L300.8000, L100.0100, L501.4021 ####[facility] [address] [place], [address] Urea nitrogen [Mass/Vol] 11 mg/dL Normal 4-19 [facility] Comment on above: Performed By: #### L 500.2500, L300.8000, L100.0100, L501.4021 ####[facility] [address] [place], [address] Bedside Glucoseon 04-19-2024 FINGERSTICK GLU 105 mg/dL Normal 74-106 [facility] Comment on above: Result Comment: [place] GEMENT OF PATIENT CARE PER NURSING PROTOCOL Performed By: #### L 501.080 ####[facility] [address] [place], [place], [id number] FINGERSTICK GLU 126 mg/dL High 74-106 [facility] Comment on above: Result Comment: [place] GEMENT OF PATIENT CARE PER NURSING PROTOCOL Performed By: #### L 501.080 ####[facility] [address] [place], [place], [id number] CBC W Auto Differential pane l (Bld)on 04-19-2024 Basophils (Bld) [#/Vol] 0.1 10*3/uL 0.0 - 0.2 10*3/uL [facility] Basophils/100 WBC (Bld) 0.8 % 0.0 - 2.0 % [facility] Eosinophils (Bld) [#/Vol] 0.3 10*3/uL 0.0 - 0.5 10*3/uL [facility] Eosinophils/100 WBC (Bld) 1.8 % 0.0 - 6.0 % [facility] Erythrocyte distribution width (RBC) [Ratio] 13.9 % 11.5 - 15.0 % [facility] Hematocrit (Bld) [Volume fraction] 36.3 % 35.0 - 47.0 % [facility] Hemoglobin (Bld) [Mass/Vol] 12.1 g/dL 11.7 - 16.0 g/dL [facility] Immature granulocytes (Bld) [#/Vol] 0.1 10*3/uL High NINF - 0.1 10*3/uL [facility] Immature granulocytes/100 WBC (Bld) 0.5 % 0.0 - 2.0 % [facility] Interpretation and review of laboratory results Abnormal [facility] Lymphocytes (Bld) [#/Vol] 4.9 10*3/uL High 1.0 - 4.3 10*3/uL [facility] Lymphocytes/100 WBC (Bld) 30.7 % 15.0 - 45.0 % [facility] MCH (RBC) [Entitic mass] 30.1 pg 26. 0 - 34.0 pg [facility] MCHC (RBC) [Mass/Vol] 33.3 % 30.5 - 36.0 % [facility] MCV (RBC) [Entitic vol] 90.3 fL 77.0 - 99.0 fL [facility] Monocytes (Bld) [#/Vol] 0.6 10*3/uL 0.0 - 0.9 10*3/uL [facility] Monocytes/100 WBC (Bld) 4 % Low 5.0 - 13.0 % [facility] Neutrophils (Bld) [#/Vol] 9.9 10*3/uL High 1.8 - 7.5 10*3/uL [facility] Neutrophils/100 WBC (Bld) 62.2 % 38.0 - 82.0 % [facility] Nucleated RBC/100 WBC (Bld) [Ratio] 0 % [facility] Platelet mean volume (Bld) [Entitic vol] 10.6 fL 9.0 - 12.7 fL [facility] Platelets (Bld) [#/Vol] 316 10*3/uL 140 - 440 10*3/uL [facility] RBC (Bld) [#/Vol] 4.02 10*6/uL 3.80 - 5.2 0 10*6/uL [facility] WBC (Bld) [#/Vol] 16 10*3/uL High 3.6 - 10.7 10*3/uL [facility] CBC W/Diff, Automatedon 03-26 Absolute Lymph 4.07 X10 3/uL Normal 0.83-4.51 [facility] Comment on above: Performed By: #### L 500.2500, L300.8000, L100.0100, L501.4021 ####[facility] [address] [place], [address] Absolute Neut 11.1 X10 3/uL High 2.0-7.7 [facility] Comment on above: Performed By: #### L 500.2500, L300.8000, L100.0100, L501.4021 ####[facility] [address] [place], [address] Basophils/100 WBC (Bld) 1.1 % High 0-1 [facility] Comment on above: Performed By: #### L 500.2500, L300.8000, L100.0100, L501.4021 ####[facility] [address] [place], [address] Eosinophils/100 WBC (Bld) 2.4 % Normal 0-5 [facility] Comment on above: Performed By: #### L 500.2500, L300.8000, L100.0100, L501.4021 ####[facility] [address] [place], [address] Erythrocyte distribution width (RBC) [Ratio] 13.8 % Normal 11.6-14.6 [facility] Comment on above: Performed By: #### L 500.2500, L300.8000, L100.0100, L501.4021 ####[facility] [address] [place], [address] Hematocrit (Bld) [Volume fraction] 44.4 % Normal 37-47 [facility] Comment on above: Performed By: #### L 500.2500, L300.8000, L100.0100, L501.4021 ####[facility] [address] [place], [address] Hemoglobin (Bld) [Mass/Vol] 14.9 g/dL Normal 12.0-15.0 [facility] Comment on above: Performed By: #### L 500.2500, L300.8000, L100.0100, L501.4021 ####[facility] [address] [place], [address] IG% 0.500 Normal 0.0-0.9 [facility] Comment on above: Result Comment: IG% - Immature Granulocytes (promyelocytes, myelocytes andmetamyelocytes) > 1% indicates that a LEFT SHIFT is Present. Performed By: #### L 500.2500, L300.8000, L100.0100, L501.4021 ####[facility] [address] [place], [address] Lymphocytes/100 WBC (Bld) 24.5 % Normal 19-41 [facility] Comment on above: Performed By: #### L 500.2500, L300.8000, L100.0100, L501.4021 ####[facility] [address] [place], [address] MCH (RBC) [Entitic mass] 30.1 pg Normal 27.0-32.0 [facility] Comment on above: Performed By: #### L 500.2500, L300.8000, L100.0100, L501.4021 ####[facility] [address] [place], [address] MCHC (RBC) [Mass/Vol] 33.6 g/dL Normal 32-36 [facility] Comment on above: Performed By: #### L 500.2500, L300.8000, L100.0100, L501.4021 ####[facility] [address] [place], [address] MCV (RBC) [Entitic vol] 89.7 fL Normal 81-[address] [facility] Comment on above: Performed By: #### L 500.2500, L300.8000, L100.0100, L501.4021 ####[facility] [address] [place], [address] Monocytes/100 WBC (Bld) 4.8 % Normal 0-[address] [facility] Comment on above: Performed By: #### L 500.2500, L300.8000, L100.0100, L501.4021 ####[facility] [address] [place], [address] Neutrophils/100 WBC (Bld) 66.7 % Normal 47-70 [facility] Comment on above: Performed By: #### L 500.2500, L300.8000, L100.0100, L501.4021 ####[facility] [address] [place], [address] Nucleated RBC (Bld) [#/Vol] 0 10*3/uL Normal 0-5 [facility] Comment on above: Performed By: #### L 500.2500, L300.8000, L100.0100, L501.4021 ####[facility] [address] [place], [address] Platelet mean volume (Bld) [Entitic vol] 10.5 fL Normal 6.2-12.0 [facility] Comment on above: Performed By: #### L 500.2500, L300.8000, L100.0100, L501.4021 ####[facility] [address] [place], [address] Platelets (Bld) [#/Vol] 403 10*3/uL Normal 150-450 [facility] Comment on above: Performed By: #### L 500.2500, L300.8000, L100.0100, L501.4021 ####[facility] [address] [place], [address] RBC (Bld) [#/Vol] 4.95 10*6/uL Normal 4.2-5.4 [facility] Comment on above: Performed By: #### L 500.2500, L300.8000, L100.0100, L501.4021 ####[facility] [address] [place], [address] RDW SD 45.6 fl High 35.1-43.9 [facility] Comment on above: Performed By: #### L 500.2500, L300.8000, L100.0100, L501.4021 ####[facility] [address] [place], [address] WBC (Bld) [#/Vol] 16.6 10*3/uL High 4.4-11.0 [facility] Comment on above: Performed By: #### L 500.2500, L300.8000, L100.0100, L501.4021 ####[facility] [address] [place], [address] CBC WITH AUTO DIFFERENTIALon 04-19-2024 Basophils (Bld) [#/Vol] 0.1 10*3/uL Normal 0.0-0.2 [facility] Comment on above: Performed By: #### L [id number] ####Prosthetic Technician: CONSTANCE SANDERSON ([phone])[facility] ([facility])[address] [place] [address] Basophils/100 WBC (Bld) 0.8 % Normal 0.0-2.0 [facility] Comment on above: Performed By: #### L [id number] ####Prosthetic Technician: CONSTANCE SANDERSON ([phone])[facility] ([facility])[address] [place] [address] [place] Eosinophils (Bld) [#/Vol] 0.3 10*3/uL Normal 0.0-0.5 [facility] Comment on above: Performed By: #### L [id number] ####Prosthetic Technician: CONSTANCE SANDERSON ([phone])[facility] ([facility])[address] [place] [address] [place] Eosinophils/100 WBC (Bld) 1.8 % Normal 0.0-6.0 [facility] Comment on above: Performed By: #### L [id number] ####Prosthetic Technician: CONSTANCE SANDERSON ([phone])[facility])[address] [place] [address] [place] Erythrocyte distribution width (RBC) [Ratio] 13.9 % Normal 11.5-15.0 [facility] Comment on above: Performed By: #### L [id number] ####Prosthetic Technician: CONSTANCE SANDERSON ([phone])[facility])[address] [place] [address] [place] Hematocrit (Bld) [Volume fraction] 36.3 % Normal 35.0-47.0 [facility] Comment on above: Performed By: #### L [id number] ####Prosthetic Technician: CONSTANCE SANDERSON ([phone])[facility])[address] [place] [address] Hemoglobin (Bld) [Mass/Vol] 12.1 g/dL Normal 11.7-16.0 [facility] Comment on above: Performed By: #### L [id number] ####Prosthetic Technician: CONSTANCE SANDERSON ([phone])[facility])[address] [place] [address] IMMATURE GRANS % 0.5 % Normal 0.0-2.0 [facility] Comment on above: Performed By: #### L [id number] ####Prosthetic Technician: CONSTANCE SANDERSON ([phone])[address] IMMATURE GRANS ABSOLUTE 0.1 10*3/uL High <0.1 [facility] Comment on above: Performed By: #### L [id number] ####Prosthetic Technician: CONSTANCE SANDERSON ([phone])[facility])[address] [place] [address] Lymphocytes (Bld) [#/Vol] 4.9 10*3/uL High 1.0-4.3 [facility] Comment on above: Performed By: #### L [id number] ####Prosthetic Technician: CONSTANCE SANDERSON ([phone])[address] Lymphocytes/100 WBC (Bld) 30.7 % Normal 15.0-45.0 [facility] Comment on above: Performed By: #### L [id number] ####Prosthetic Technician: CONSTANCE SANDERSON ([phone])[address] MCH (RBC) [Entitic mass] 30.1 pg Normal 26.0-34.0 [facility] Comment on above: Performed By: #### L [id number] ####Prosthetic Technician: CONSTANCE SANDERSON ([phone])[facility] ([facility])[address] [place] [address] MCHC 33.3 % Normal 30.5-36.0 [facility] Comment on above: Performed By: #### L [id number] ####Prosthetic Technician: CONSTANCE SANDERSON ([phone])[facility] ([facility])[address] [place] [address] MCV (RBC) [Entitic vol] 90.3 fL Normal 77.0-99.0 [facility] Comment on above: Performed By: #### L [id number] ####Prosthetic Technician: CONSTANCE SANDERSON ([phone])[facility] ([facility])[address] [place] [address] Monocytes (Bld) [#/Vol] 0.6 10*3/uL Normal 0.0-0.9 [facility] Comment on above: Performed By: #### L [id number] ####Prosthetic Technician: CONSTANCE SANDERSON ([phone])[facility] ([facility])[address] [place] [address] Monocytes/100 WBC (Bld) 4.0 % Low 5.0-13.0 [facility] Comment on above: Performed By: #### L [id number] ####Prosthetic Technician: CONSTANCE SANDERSON ([phone])[facility] ([facility])[address] [place] [address] NEUTROPHILS ABSOLUTE 9.9 10*3/uL High 1.8-7.5 [facility] Comment on above: Performed By: #### L [id number] ####Prosthetic Technician: CONSTANCE SANDERSON ([phone])[facility] ([facility])[address] [place] [address] Neutrophils/100 WBC (Bld) 62.2 % Normal 38.0-82.0 [facility] Comment on above: Performed By: #### L [id number] ####Prosthetic Technician: CONSTANCE SANDERSON ([id number])[facility] ([facility])[address] [place] [address] NRBC 0.0 /100 WBCs Normal 0.0-2.0 [facility] Comment on above: Performed By: #### L [id number] ####Prosthetic Technician: CONSTANCE SANDERSON ([phone])[facility])[address] [place] [address] Platelet mean volume (Bld) [Entitic vol] 10.6 fL Normal 9.0-12.7 [facility] Comment on above: Performed By: #### L [id number] ####Prosthetic Technician: CONSTANCE SANDERSON ([phone])[facility] ([facility])[address] [place] [address] Platelets (Bld) [#/Vol] 316 10*3/uL Normal 140-440 [facility] Comment on above: Performed By: #### L [id number] ####Prosthetic Technician: CONSTANCE SANDERSON ([phone])[facility])[address] [place] [address] RBC (Bld) [#/Vol] 4.02 10*6/uL Normal 3.80-5.20 [facility] Comment on above: Performed By: #### L [id number] ####Prosthetic Technician: CONSTANCE SANDERSON ([phone])[facility])[address] [place] [address] WBC (Bld) [#/Vol] 16.0 10*3/uL High 3.6-10.7 [facility] Comment on above: Performed By: #### L [id number] ####Prosthetic Technician: CONSTANCE SANDERSON ([phone])[facility])[address] [place] [address] COMPREHENSIVE METABOLIC PANE Tanner 04-19-2024 Albumin [Mass/Vol] 2.9 g/dL Low 3.5-5.0 [facility] Comment on above: Performed By: #### L AB106, ZVS355, LAB17, LAB18, [id number], [id number] ####Prosthetic Technician: CONSTANCE SANDERSON ([phone])[facility])[address] [place] [address] ALP [Catalytic activity/Vol] 100 U/L Normal 40-150 [facility] Comment on above: Performed By: #### L AB106, RLI605, LAB17, LAB18, [id number], [id number] ####Prosthetic Technician: CONSTANCE SANDERSON ([phone])[facility] ([facility])[address] [place] [address] ALT [Catalytic activity/Vol] 11 U/L Normal <30 [facility] Comment on above: Performed By: #### L AB106, QDY429, LAB17, LAB18, [id number], [id number] ####Prosthetic Technician: CONSTANCE SANDERSON ([id number])[facility] ([facility])[address] [place] [address] Anion gap [Moles/Vol] 10 mmol/L Normal 3-13 [facility] Comment on above: Performed By: #### L AB106, LWK512, LAB17, LAB18, [id number], GOS286 ####Prosthetic Technician: CONSTANCE SANDERSON ([phone])[facility] ([facility])[address] [place] [address] AST [Catalytic activity/Vol] 33 U/L Normal <34 [facility] Comment on above: Performed By: #### L AB106, XEV393, LAB17, LAB18, [id number], QOV402 ####Prosthetic Technician: CONSTANCE SANDERSON ([phone])[facility] ([facility])[address] [place] [address] Bilirubin [Mass/Vol] 0.6 mg/dL Normal <1.2 [facility] Comment on above: Performed By: #### L AB106, IJB897, LAB17, LAB18, [id number], OUV133 ####Prosthetic Technician: CONSTANCE SANDERSON ([phone])[facility] ([facility])[address] [place] [address] Calcium [Mass/Vol] 8.6 mg/dL Normal 8.4-10.2 [facility] Comment on above: Performed By: #### L AB106, OWL423, LAB17, LAB18, [id number], UWV614 ####Prosthetic Technician: CONSTANCE SANDERSON ([phone])[facility] ([facility])[address] [place] [address] Chloride [Moles/Vol] 107 mmol/L Normal 98-107 [facility] Comment on above: Performed By: #### L AB106, XTI785, LAB17, LAB18, [id number], AUC130 ####Prosthetic Technician: CONSTANCE SANDERSON ([phone])[facility])[address] [place] [address] CO2 [Moles/Vol] 20 mmol/L Low 22-29 [facility] Comment on above: Performed By: #### L AB106, ARE354, LAB17, LAB18, [id number], BFX101 ####Prosthetic Technician: CONSTANCE SANDERSON ([phone])[facility])[address] [place] [address] Creatinine [Mass/Vol] 0.86 mg/dL Normal 0.57-1.11 [facility] Comment on above: Performed By: #### L AB106, IIS639, LAB17, LAB18, [id number], WSK593 ####Prosthetic Technician: CONSTANCE SANDERSON ([phone])[facility])[address] [place] [address] GLOMERULAR FILTRATION RATE ML/MIN/1.73 SQ M.PREDICTED 81.9 mL/min/1.73m*2 Normal >60.0 [facility] Comment on above: Result Comment: Calc ulation based on the Chronic Kidney Disease Epidemiology Collaboration (CKD-EPI) equation refit without adjustment for race Performed By: #### L AB106, XXN335, LAB17, LAB18, [id number], [id number] ####Prosthetic Technician: CONSTANCE SANDERSON ([phone])[facility])[address] [place] [address] Glucose [Mass/Vol] 161 mg/dL High 74-100 [facility] Comment on above: Performed By: #### L AB106, FOK291, LAB17, LAB18, [id number], CIP738 ####Prosthetic Technician: CONSTANCE SANDERSON ([phone])[facility])[address] [place] [address] Potassium [Moles/Vol] 4.0 mmol/L Normal 3.5-5.1 [facility] Comment on above: Result Comment: [facility] potassium values may be up to 0.5 mmol/L lower than serum values. Performed By: #### L AB106, RHS498, LAB17, LAB18, [id number], [id number] ####Prosthetic Technician: CONSTANCE SANDERSON ([phone])[facility])[address] [place] [address] Protein [Mass/Vol] 5.8 g/dL Low 6.4-8.3 [facility] Comment on above: Performed By: #### L AB106, OZA640, LAB17, LAB18, [id number], [id number] ####Prosthetic Technician: CONSTANCE SANDERSON ([phone])[facility])[address] [place] [address] Sodium [Moles/Vol] 137 mmol/L Normal 136-145 [facility] Comment on above: Performed By: #### L AB106, QZP621, LAB17, LAB18, [id number], ERX776 ####Prosthetic Technician: CONSTANCE SANDERSON ([phone])[facility])[address] [place] [address] Urea nitrogen [Mass/Vol] 10 mg/dL Normal 9-23 [facility] Comment on above: Performed By: #### L AB106, GSO933, LAB17, LAB18, [id number], [id number] ####Prosthetic Technician: CONSTANCE SANDERSON ([phone])[facility])[address] [place] [address] Cardiac Cath Diagnosticon Cardiac Cath Diagnostic Normal [facility] Chest 1 View (Portable)on Chest 1 View (Portable) Normal [facility] Comprehensive metabolic 1998 panelon 04-19-2024 Albumin [Mass/Vol] 2.9 g/dL Low 3.5 - 5.0 g/dL [facility] ALP [Catalytic activity/Vol] 100 U/L 40 - 150 U/L [facility] ALT [Catalytic activity/Vol] 11 U/L NINF - 30 U/L [facility] Anion gap [Moles/Vol] 10 mmol/L 3 - 13 mmol/L [facility] AST [Catalytic activity/Vol] 33 [facility] Bilirubin [Mass/Vol] 0.6 mg/dL NINF - 1.2 mg/dL [facility] Calcium [Mass/Vol] 8.6 mg/dL 8.4 - 10. 2 mg/dL [facility] Chloride [Moles/Vol] 107 mmol/L 98 - 10 7 mmol/L [facility] CO2 [Moles/Vol] 20 mmol/L Low 22 - 29 mmol/L [facility] Creatinine [Mass/Vol] 0.86 mg/dL 0.57 - 1.11 mg/dL [facility] GFR/1.73 sq M.predicted (S/P/Bld) [Vol rate/Area] 81.9 mL/min - PINF [facility] Comment on above: Calculation based on the Chronic Kidney Disease Epidemiology Collaboration (CKD-EPI) equation refit without adjustment for race Glucose [Mass/Vol] 161 mg/dL High 74 - 100 mg/dL [facility] Interpretation and review of laboratory results Abnormal [facility] Potassium [Moles/Vol] 4 mmol/L 3.5 - 5.1 mmol/L [facility] Comment on above: Plasma potassium chuckie ues may be up to 0.5 mmol/L lower than serum values. Protein [Mass/Vol] 5.8 g/dL Low 6.4 - 8.3 g/dL [facility] Sodium [Moles/Vol] 137 mmol/L 136 - 145 mmol/L [facility] Urea nitrogen [Mass/Vol] 10 mg/dL 9 - 23 mg/d L [facility] Consultation - Cardiologyon 04-19-2024 Consultation - Cardiology Normal [facility] D-Dimer Quantitative (DVT/PE )on 04-19-2024 D-DIMER QUANT < 0.27 Low 0.27-0.49 [facility] Comment on above: Result Comment: NORM AL D-Dimer level (<0.50) indicates no DVT or PE. Performed By: #### L 500.2500, L300.8000, L100.0100, L501.4021 ####[facility] [address] [place], [address] Emergency Department Summary on 04-19-2024 Emergency Department Summary Normal [facility] H AND P Exam - Hospitaliston 04-19-2024 H&P Exam - Hospitalist Normal [facility] HEMOGLOBIN A1Con 04-19-2024 Glucose [Mass/Vol] 143 mg/dL Normal [facility] Comment on above: Result Comment: ORDE R COMMENTS: HbA1c values of 5.7-6.4 percent indicate an increased risk for developing diabetes mellitus. HbA1c values greater than or equal to 6.5 percent are diagnostic of diabetes mellitus. For diagnosis of diabetes in individuals without unequivocal hyperglycemia, results should be confirmed by repeat testing. Performed By: #### L AB90 ####Prosthetic Technician: CONSTANCE SANDERSON ([phone])[facility] [address] HEMOGLOBIN A1C 6.6 %HbA1C High <5.7 [facility] Comment on above: Result Comment: Norm al less than 5.7% Prediabetes 5.7% to 6.4% Diabetes 6.5% or higher --HgbA1C levels may not be accurate in patients who have renal disease, received recent blood transfusions, are anemic, or who have dyshemoglobinemia. Performed By: #### L AB90 ####Prosthetic Technician: CONSTANCE SANDERSON ([phone])[facility])[address] [place] [address] HIGH SENSITIVITY TROPONIN, S ERIAL BASELINEon 04-19-2024 TROPONIN HS SERIAL BASELINE 1668 ng/L Critically high <=14 [facility] Comment on above: Result Comment: In i ndividuals presenting with symptoms > 2h, a baseline troponin <= 5 ng/L suggests acute cardiac injury is unlikely and further serial testing is generally not indicated. Performed By: #### L AB106, VFP161, LAB17, LAB18, [id number], [id number] ####Prosthetic Technician: CONSTANCE SANDERSON ([phone])[facility] LUMObackSACLAB)[address] L499.0043on 04-19-2024 Trop T Delta Normal [facility] Comment on above: Result Comment: Canc elled via OM: Order cancelled - Patient discharged Performed By: #### L 499.0043 ####[facility] [address] [place], [address] Trop T High Sen Normal <=14 [facility] Comment on above: Result Comment: Canc elled via OM: Order cancelled - Patient discharged Performed By: #### L 499.0043 ####[facility] [address] [place], [address] L501.4021on 04-19-2024 Trop T High Sen 52 ng/L High <=14 [facility] Comment on above: Performed By: #### L 500.2500, L300.8000, L100.0100, L501.4021 ####[facility] [address] [place], [address] LIPID PANELon 04-19-2024 Cholesterol [Mass/Vol] 235 mg/dL High <200 [facility] Comment on above: Performed By: #### L AB106, JLQ370, LAB17, LAB18, [id number], FFQ605 ####Prosthetic Technician: CONSTANCE SANDERSON ([id number])[facility] ([facility])[address] [place] [address] Cholesterol in HDL [Mass/Vol] 31 mg/dL Low >=60 [facility] Comment on above: Performed By: #### L AB106, UPP806, LAB17, LAB18, [id number], QNI000 ####Prosthetic Technician: CONSTANCE SANDERSON ([phone])[facility])[address] [place] [address] Cholesterol.total/Choles terol in HDL [Mass ratio] 8 {ratio} Normal [facility] Comment on above: Result Comment: Ref Range: < 3 Low Risk for CHD 3-6 Mod Risk for CHD > 6 High Risk for CHD Performed By: #### L AB106, XNE200, LAB17, LAB18, [id number], [id number] ####Prosthetic Technician: CONSTANCE SANDERSON ([id number])[facility])[address] [place] [address] LOW DENSITY LIPOPROTEIN Normal [facility] Comment on above: Result Comment: Calc ulated LDL invalid, triglycerides >400 mg/dl Performed By: #### L AB106, YPR611, LAB17, LAB18, [id number], XEX405 ####Prosthetic Technician: CONSTANCE SANDERSON ([id number])[facility] ([facility])[address] [place] [address] NON-HDL CHOLESTEROL, CALCULATED 204 High <130 [facility] Comment on above: Performed By: #### L AB106, SCN488, LAB17, LAB18, [id number], DTF675 ####Prosthetic Technician: CONSTANCE SANDERSON ([phone])[facility] ([facility])[address] [place] [address] Triglyceride [Mass/Vol] 529 mg/dL High <150 [facility] Comment on above: Performed By: #### L AB106, LPD729, LAB17, LAB18, [id number], MTK349 ####Prosthetic Technician: CONSTANCE SANDERSON ([id number])[facility] ([facility])[address] [place] [address] VERY LOW DENSITY LIPOPROTEIN, CALCULATED 106 mg/dL High <=30 [facility] Comment on above: Performed By: #### L AB106, SKL555, LAB17, LAB18, [id number], RFT691 ####Prosthetic Technician: CONSTANCE SANDERSON ([phone])[facility])[address] [place] [address] Laboratory - Chemistry and C hemistry - challengeon 04-19-2024 TSH Qn 2.23 m[IU]/L [facility] Magnesium [Mass/Vol] 1.9 mg/dL 1.6 - 2 .6 mg/dL [facility] Glucose [Mass/Vol] 123 mg/dL High 70 - 100 mg/dL [facility] Lipid 1995 panelOrdered By: Corinne Harley on 04-19-2024 Cholesterol [Mass/Vol] 235 mg/dL High NINF - 200 mg/dL [facility] Cholesterol in HDL [Mass/Vol] 31 mg/dL Low 60 - PINF mg/dL [facility] Cholesterol in LDL [Mass/Vol] [facility] Comment on above: Calculated LDL inval id, triglycerides >400 mg/dl Cholesterol.total/Choles terol in HDL [Mass ratio] 8 {ratio} [facility] Comment on above: Ref Range: < 3 Low Risk for CHD 3-6 Mod Risk for CHD > 6 High Risk for CHD Interpretation and review of laboratory results Abnormal [facility] NON-HDL CHOLESTEROL, CALCULATED 204 High NINF - 130 [facility] Triglyceride [Mass/Vol] 529 mg/dL High NINF - 150 mg/dL [facility] [place] VERY LOW DENSITY LIPOPROTEIN, CALCULATED 106 mg/dL High NINF - 30 mg/dL [facility] MAGNESIUMon 04-19-2024 Magnesium [Mass/Vol] 1.9 mg/dL Normal 1.6-2.6 [facility] Comment on above: Result Comment: MICHAEL Almonte COMMENTS: Higher values can be expected in females during menses. Performed By: #### L AB106, OZK519, LAB17, LAB18, [id number], [id number] ####Prosthetic Technician: CONSTANCE SADNERSON ([phone])[address] Magnesium [Mass/Vol]on 04-19 Interpretation and review of laboratory results Normal [facility] [place] Higher values can be expected in females during menses. [facility] [place] NT PRO BNPon 04-19-2024 Natriuretic peptide B (Bld) [Mass/Vol] 1135 pg/mL High <125 [facility] Comment on above: Performed By: #### L AB106, CUG076, LAB17, LAB18, [id number], [id number] ####Prosthetic Technician: CONSTANCE SANDERSON ([phone])[facility])[address] [place] [address] [place] Natriuretic peptide B [Mass/ Vol]on 04-19-2024 Interpretation and review of laboratory results Abnormal [facility] [place] Natriuretic peptide B (Bld) [Mass/Vol] 1135 pg/mL High NINF - 125 pg/mL [facility] No Panel Informationon 04-19 Interpretation and review of laboratory results Abnormal [facility] [place] Troponin HS Serial Baseline 1668 ng/L Critically high NINF - 14 ng/L [facility] [place] Comment on above: In individuals prese nting with symptoms > 2h, a baseline troponin <= 5 ng/L suggests acute cardiac injury is unlikely and further serial testing is generally not indicated. [facility] Interpretation and review of laboratory results Abnormal [facility] [place] Performed by: [facility], [address] [place], [place] [id number] CLIA ID: [id number] [facility] Partial Thromboplast Timeon 04-19-2024 aPTT Coag (Bld) [Time] 29.8 s Normal 24.1-36.2 [facility] Comment on above: Performed By: #### L 300.3900, L300.4310 ####[facility] [address] [place], [address] Prothrombin Time w/INRon INR Coag (PPP) [Relative time] 1.0 {INR} Normal [facility] Comment on above: Performed By: #### L 300.3900, L300.4310 ####[facility] [address] [place], [address] PT Coag (PPP) [Time] 13.5 s Normal 11.7-14.9 [facility] Comment on above: Performed By: #### L 300.3900, L300.4310 ####[facility] [address] [place], [address] THYROID STIMULATING HORMONEo n 04-19-2024 THYROID STIMULATING HORMONE 2.23 uIU/mL Normal 0.35-4.94 [facility] [place] [facility] Comment on above: Performed By: #### L AB106, RNG094, LAB17, LAB18, [id number], WPZ240 ####Prosthetic Technician: CONSTANCE SANDERSON ([phone])[facility] ([facility])[address] [place], [place] [id number] [facility] TSH Qnon 04-19-2024 Interpretation and review of laboratory results Normal [facility] XR CHEST 1 VIEWon 04-19-2024 XR CHEST 1 VIEW Patient Name: CONSTANCE GAGE : 1975 Exam Date/Time: 04/19/2024 21:41 Procedure: XR CHEST 1 VIEW Ordering Provider: MERCADO ALI Reason For Exam: CHEST PAIN INDICATION: Chest pain. VIEWS: Chest portable-one image COMPARISON: 03/04/2021 FINDINGS: The trachea is midline. The cardiac silhouette is upper limits of normal in size. There is no confluent consolidation. The right hemidiaphragm is mildly elevated. IMPRESSION: No radiographic acute cardiopulmonary process. Report Dictated on Electronically Signed By: Racheal Cardona MD Electronically Signed Date/Time: 04/19/2024 9:49 PM EST Normal [facility] XR Chest Single viewon 04-19 No radiographic acute cardiopulmonary process. Report Dictated on Electronically Signed By: Racheal Cardona MD Electronically Signed Date/Time: 04/19/2024 9:49 PM EST [facility] [employer] Patient Name: CONSTANCE GAGE : 1975 Exam Date/Time: 04/19/2024 21:41 Procedure: XR CHEST 1 VIEW Ordering Provider: MERCADO ALI Reason For Exam: CHEST PAIN INDICATION: Chest pain. VIEWS: Chest portable-one image COMPARISON: 03/04/2021 FINDINGS: The trachea is midline. The cardiac silhouette is upper limits of normal in size. There is no confluent consolidation. The right hemidiaphragm is mildly elevated. [facility] Racheal Cardona MD - 04/19/2024 Patient Name: CONSTANCE GAGE : 1975 Exam Date/Time: 04/19/2024 21:41 Procedure: XR CHEST 1 VIEW Ordering Provider: MERCADO ALI Reason For Exam: CHEST PAIN INDICATION: Chest pain. VIEWS: Chest portable-one image COMPARISON: 03/04/2021 FINDINGS: The trachea is midline. The cardiac silhouette is upper limits of normal in size. There is no confluent consolidation. The right hemidiaphragm is mildly elevated. IMPRESSION: No radiographic acute cardiopulmonary process. Report Dictated on Electronically Signed By: Racheal Cardona MD Electronically Signed Date/Time: 04/19/2024 9:49 PM EST [facility] [place] Radiology Study observation (narrative) [employer] XR Chest Single viewOrdered By: Racheal Cardona on 04-19-2024 [facility] Work Phone: aPTT Coag (Bld) [Time]on aPTT Coag (PPP) [Time] 74.2 s High 20.0 - 30.5 s [facility] [place] Interpretation and review of laboratory results Abnormal [facility] [place] NOTE: The therapeuti c time for Heparin anticoagulation, based on Xa activity inhibition, is an APTT of 46-80 seconds. [facility] Endocrinology Visit Reporton 03-09-2024 Endocrinology Visit Report Normal [facility] Urine Cultureon 03-07-2024 URC Culture exhibits no growth. Normal [facility] Comment on above: Performed By: #### L 400.0001, M100.2200 ####[facility] [address] [place], [address] Urinalysis, Completeon 03-06 CAST,HYALINE 0-5 SEEN Normal 0-5 [facility] Comment on above: Order Comment: COLLE CTOR TO SPECIFY Performed By: #### L 400.0001, M100.2200 ####[facility] [address] [place], [address] BACTERIA 3+ /hpf Normal None Seen [facility] Comment on above: Order Comment: COLLE CTOR TO SPECIFY Performed By: #### L 400.0001, M100.2200 ####[facility] [address] [place], [address] EPI,SQUAMOUS 10-25 SEEN Normal 5-10 [facility] Comment on above: Order Comment: COLLE CTOR TO SPECIFY Performed By: #### L 400.0001, M100.2200 ####[facility] [address] [place], [address] RBC > 100 SEEN Normal 0-5 [facility] Comment on above: Order Comment: COLLE CTOR TO SPECIFY Performed By: #### L 400.0001, M100.2200 ####[facility] [address] [place], [address] WBC 5-10 SEEN Normal 0-5 [facility] Comment on above: Order Comment: JOVAN CTOR TO SPECIFY Performed By: #### L 400.0001, M100.2200 ####[facility] [address] [place], [address] Mucus Ql (Urine sed) 0 SEEN Normal [facility] Comment on above: Order Comment: COLLE CTOR TO SPECIFY Performed By: #### L 400.0001, M100.2200 ####[facility] [address] [place], [address] TOBIAS w/ Reflex Mult Confirmon 03-02-2024 TOBIAS,DIRECT Negative Normal Negative [facility] Comment on above: Result Comment: Perf ormed at: - [facility] [address] [id number] Director: Richard Werner PhD, Phone: [phone] Performed By: #### L 501.1400, L500.4100, L3100.5450, L505.7010, L4600.0100, L100.0100, L500.4050, L501.6710, L501.9520, L506.0400, L101.9900 ####[facility] [address] [place], [address] CCP IgG Antibodieson 01-09-2 025 CCP IgG Ab. 2 units Normal 0-19 [facility] Comment on above: Result Comment: Nega tive <20 Weak positive 20 - 39 Moderate positive 40 - 59 Strong positive >59Performed at: [address] [id number] Director: Richard Werner PhD, Phone: [phone] Performed By: #### L 501.1400, L500.4100, L3100.5450, L505.7010, L4600.0100, L100.0100, L500.4050, L501.6710, L501.9520, L506.0400, L101.9900 ####[facility] [address] [place], [address] CBC W/Diff, Automatedon 01-0 -2024 Absolute Lymph 4.48 X10 3/uL Normal 0.83-4.51 [facility] Comment on above: Performed By: #### L 501.1400, L500.4100, L3100.5450, L505.7010, L4600.0100, L100.0100, L500.4050, L501.6710, L501.9520, L506.0400, L101.9900 ####[facility] [address] [place], [address] Absolute Neut 9.5 X10 3/uL High 2.0-7.7 [facility] Comment on above: Performed By: #### L 501.1400, L500.4100, L3100.5450, L505.7010, L4600.0100, L100.0100, L500.4050, L501.6710, L501.9520, L506.0400, L101.9900 ####[facility] [address] [place], [address] Basophils/100 WBC (Bld) 0.7 % Normal 0-1 [facility] Comment on above: Performed By: #### L 501.1400, L500.4100, L3100.5450, L505.7010, L4600.0100, L100.0100, L500.4050, L501.6710, L501.9520, L506.0400, L101.9900 ####[facility] [address] [place], [address] Eosinophils/100 WBC (Bld) 2.4 % Normal 0-5 [facility] Comment on above: Performed By: #### L 501.1400, L500.4100, L3100.5450, L505.7010, L4600.0100, L100.0100, L500.4050, L501.6710, L501.9520, L506.0400, L101.9900 ####[facility] [address] [place], [address] Erythrocyte distribution width (RBC) [Ratio] 13.7 % Normal 11.6-14.6 [facility] Comment on above: Performed By: #### L 501.1400, L500.4100, L3100.5450, L505.7010, L4600.0100, L100.0100, L500.4050, L501.6710, L501.9520, L506.0400, L101.9900 ####[facility] [address] [place], [place], [phone]) Hematocrit (Bld) [Volume fraction] 42.0 % Normal 37-47 [facility] Comment on above: Performed By: #### L 501.1400, L500.4100, L3100.5450, L505.7010, L4600.0100, L100.0100, L500.4050, L501.6710, L501.9520, L506.0400, L101.9900 ####[facility] [address] [place], [address] Hemoglobin (Bld) [Mass/Vol] 14.4 g/dL Normal 12.0-15.0 [facility] Comment on above: Performed By: #### L 501.1400, L500.4100, L3100.5450, L505.7010, L4600.0100, L100.0100, L500.4050, L501.6710, L501.9520, L506.0400, L101.9900 ####[facility] [address] [place], [place], [phone] IG% 0.500 Normal 0.0-0.9 [facility] Comment on above: Result Comment: IG% - Immature Granulocytes (promyelocytes, myelocytes andmetamyelocytes) > 1% indicates that a LEFT SHIFT is Present. Performed By: #### L 501.1400, L500.4100, L3100.5450, L505.7010, L4600.0100, L100.0100, L500.4050, L501.6710, L501.9520, L506.0400, L101.9900 ####[facility] [address] [place], [address] Lymphocytes/100 WBC (Bld) 29.3 % Normal 19-41 [facility] Comment on above: Performed By: #### L 501.1400, L500.4100, L3100.5450, L505.7010, L4600.0100, L100.0100, L500.4050, L501.6710, L501.9520, L506.0400, L101.9900 ####[facility] [address] [place], [place], [phone] MCH (RBC) [Entitic mass] 30.0 pg Normal 27.0-32.0 [facility] Comment on above: Performed By: #### L 501.1400, L500.4100, L3100.5450, L505.7010, L4600.0100, L100.0100, L500.4050, L501.6710, L501.9520, L506.0400, L101.9900 ####[facility] [address] [place], [address] MCHC (RBC) [Mass/Vol] 34.3 g/dL Normal 32-36 [facility] Comment on above: Performed By: #### L 501.1400, L500.4100, L3100.5450, L505.7010, L4600.0100, L100.0100, L500.4050, L501.6710, L501.9520, L506.0400, L101.9900 ####[facility] [address] [place], [address] MCV (RBC) [Entitic vol] 87.5 fL Normal 81-99 [facility] Comment on above: Performed By: #### L 501.1400, L500.4100, L3100.5450, L505.7010, L4600.0100, L100.0100, L500.4050, L501.6710, L501.9520, L506.0400, L101.9900 ####[facility] [address] [place], [address] Monocytes/100 WBC (Bld) 5.1 % Normal 0-[address] [facility] Comment on above: Performed By: #### L 501.1400, L500.4100, L3100.5450, L505.7010, L4600.0100, L100.0100, L500.4050, L501.6710, L501.9520, L506.0400, L101.9900 ####[facility] [address] [place], [address] Neutrophils/100 WBC (Bld) 62.0 % Normal 47-70 [facility] Comment on above: Performed By: #### L 501.1400, L500.4100, L3100.5450, L505.7010, L4600.0100, L100.0100, L500.4050, L501.6710, L501.9520, L506.0400, L101.9900 ####[facility] [address] [place], [address] Nucleated RBC (Bld) [#/Vol] 0 10*3/uL Normal 0-5 [facility] Comment on above: Performed By: #### L 501.1400, L500.4100, L3100.5450, L505.7010, L4600.0100, L100.0100, L500.4050, L501.6710, L501.9520, L506.0400, L101.9900 ####[facility] [address] [place], [address] Platelet mean volume (Bld) [Entitic vol] 10.2 fL Normal 6.2-12.0 [facility] Comment on above: Performed By: #### L 501.1400, L500.4100, L3100.5450, L505.7010, L4600.0100, L100.0100, L500.4050, L501.6710, L501.9520, L506.0400, L101.9900 ####[facility] [address] [place], [address] Platelets (Bld) [#/Vol] 421 10*3/uL Normal 150-450 [facility] Comment on above: Performed By: #### L 501.1400, L500.4100, L3100.5450, L505.7010, L4600.0100, L100.0100, L500.4050, L501.6710, L501.9520, L506.0400, L101.9900 ####[facility] [address] [place], [address] RBC (Bld) [#/Vol] 4.80 10*6/uL Normal 4.2-5.4 [facility] Comment on above: Performed By: #### L 501.1400, L500.4100, L3100.5450, L505.7010, L4600.0100, L100.0100, L500.4050, L501.6710, L501.9520, L506.0400, L101.9900 ####[facility] [address] [place], [address] RDW SD 43.6 fl Normal 35.1-43.9 [facility] Comment on above: Performed By: #### L 501.1400, L500.4100, L3100.5450, L505.7010, L4600.0100, L100.0100, L500.4050, L501.6710, L501.9520, L506.0400, L101.9900 ####[facility] [address] [place], [address] WBC (Bld) [#/Vol] 15.3 10*3/uL High 4.4-11.0 [facility] Comment on above: Performed By: #### L 501.1400, L500.4100, L3100.5450, L505.7010, L4600.0100, L100.0100, L500.4050, L501.6710, L501.9520, L506.0400, L101.9900 ####[facility] [address] [place], [address] CRPon 03-01-2024 C-REACTIVE PROT 4.53 mg/L High 0.0-3.0 [facility] Comment on above: Result Comment: C-Re active Protein (CRP) provides useful information for thediagnosis, therapy and monitoring of inflammatory processesand associated diseases. For the evaluation of Relative Riskfor Cardiovascular Disease, a High Sensitivity CRP (HSCRP)should be ordered. Performed By: #### L 501.1400, L500.4100, L3100.5450, L505.7010, L4600.0100, L100.0100, L500.4050, L501.6710, L501.9520, L506.0400, L101.9900 ####[facility] [address] [place], [address] Comprehensive Metabolic Prof ilon 03-01-2024 Albumin [Mass/Vol] 3.3 g/dL Normal 3.2-5.0 [facility] Comment on above: Performed By: #### L 501.1400, L500.4100, L3100.5450, L505.7010, L4600.0100, L100.0100, L500.4050, L501.6710, L501.9520, L506.0400, L101.9900 ####[facility] [address] [place], [place], [phone] Albumin/Globulin [Mass ratio] 0.8 {ratio} Low 0.9-2.4 [facility] Comment on above: Performed By: #### L 501.1400, L500.4100, L3100.5450, L505.7010, L4600.0100, L100.0100, L500.4050, L501.6710, L501.9520, L506.0400, L101.9900 ####[facility] [address] [place], [place], [phone] ALK P 135 U/L High 45-117 [facility] Comment on above: Performed By: #### L 501.1400, L500.4100, L3100.5450, L505.7010, L4600.0100, L100.0100, L500.4050, L501.6710, L501.9520, L506.0400, L101.9900 ####[facility] [address] [place], [place], [phone] ALT [Catalytic activity/Vol] 24 U/L Normal 13-56 [facility] Comment on above: Performed By: #### L 501.1400, L500.4100, L3100.5450, L505.7010, L4600.0100, L100.0100, L500.4050, L501.6710, L501.9520, L506.0400, L101.9900 ####[facility] [address] [place], [place], [phone] AST [Catalytic activity/Vol] 13 U/L Low 15-37 [facility] Comment on above: Performed By: #### L 501.1400, L500.4100, L3100.5450, L505.7010, L4600.0100, L100.0100, L500.4050, L501.6710, L501.9520, L506.0400, L101.9900 ####[facility] [address] [place], [place], [phone] Bilirubin [Mass/Vol] 0.50 mg/dL Normal 0.20-1.00 [facility] Comment on above: Result Comment: For patients on eltrombopag therapy, use of Dimension [place] TBIL is not recommended. Performed By: #### L 501.1400, L500.4100, L3100.5450, L505.7010, L4600.0100, L100.0100, L500.4050, L501.6710, L501.9520, L506.0400, L101.9900 ####[facility] [address] [place], [address] BUN/CRE 11.0 RATIO Normal 10-20 [facility] Comment on above: Performed By: #### L 501.1400, L500.4100, L3100.5450, L505.7010, L4600.0100, L100.0100, L500.4050, L501.6710, L501.9520, L506.0400, L101.9900 ####[facility] [address] [place], [address] CA,Total 9.4 mg/dL Normal 8.5-10.1 [facility] Comment on above: Performed By: #### L 501.1400, L500.4100, L3100.5450, L505.7010, L4600.0100, L100.0100, L500.4050, L501.6710, L501.9520, L506.0400, L101.9900 ####[facility] [address] [place], [address] Chloride [Moles/Vol] 106 mmol/L Normal 98-107 [facility] Comment on above: Performed By: #### L 501.1400, L500.4100, L3100.5450, L505.7010, L4600.0100, L100.0100, L500.4050, L501.6710, L501.9520, L506.0400, L101.9900 ####[facility] [address] [place], [place], [phone](005) CO2 [Moles/Vol] 26.0 mmol/L Normal 21.0-32.0 [facility] Comment on above: Performed By: #### L 501.1400, L500.4100, L3100.5450, L505.7010, L4600.0100, L100.0100, L500.4050, L501.6710, L501.9520, L506.0400, L101.9900 ####[facility] [address] [place], [place], [phone] Creatinine [Mass/Vol] 1.00 mg/dL Normal 0.55-1.02 [facility] Comment on above: Result Comment: The validity of the calculated GFR GFRAA in patients over70 years has not been determined. Clinical correlation isessential. Performed By: #### L 501.1400, L500.4100, L3100.5450, L505.7010, L4600.0100, L100.0100, L500.4050, L501.6710, L501.9520, L506.0400, L101.9900 ####[facility] [address] [place], [address] EST GFR - AA 75 mL/min Normal >60 [facility] Comment on above: Result Comment: Afri can [place] GFR Calc Performed By: #### L 501.1400, L500.4100, L3100.5450, L505.7010, L4600.0100, L100.0100, L500.4050, L501.6710, L501.9520, L506.0400, L101.9900 ####[facility] [address] [place], [place], [phone] GAP 6 Normal 5-15 [facility] Comment on above: Performed By: #### L 501.1400, L500.4100, L3100.5450, L505.7010, L4600.0100, L100.0100, L500.4050, L501.6710, L501.9520, L506.0400, L101.9900 ####[facility] [address] [place], [place], [address] GFR/1.73 sq M.predicted among non-blacks MDRD (S/P/Bld) [Vol rate/Area] 62 mL/min/{1.73_m2} Normal >60 [facility] Comment on above: Result Comment: Non- GFR Calc Performed By: #### L 501.1400, L500.4100, L3100.5450, L505.7010, L4600.0100, L100.0100, L500.4050, L501.6710, L501.9520, L506.0400, L101.9900 ####[facility] [address] [place], [place], [phone] Globulin (S) [Mass/Vol] 4.0 g/dL Normal 2.2-4.2 [facility] Comment on above: Performed By: #### L 501.1400, L500.4100, L3100.5450, L505.7010, L4600.0100, L100.0100, L500.4050, L501.6710, L501.9520, L506.0400, L101.9900 ####[facility] [address] [place], [place], [phone] Glucose [Mass/Vol] 112 mg/dL High 74-106 [facility] Comment on above: Result Comment: Fast ing Glucose result from 100 to 125 mg/dLsuggests IMPAIRED HOMEOSTASIS per A.D.A. criteria. Performed By: #### L 501.1400, L500.4100, L3100.5450, L505.7010, L4600.0100, L100.0100, L500.4050, L501.6710, L501.9520, L506.0400, L101.9900 ####[facility] [address] [place], [place], [phone]([phone]) Potassium [Moles/Vol] 4.3 mmol/L Normal 3.5-5.1 [facility] Comment on above: Performed By: #### L 501.1400, L500.4100, L3100.5450, L505.7010, L4600.0100, L100.0100, L500.4050, L501.6710, L501.9520, L506.0400, L101.9900 ####[facility] [address] [place], [place], [phone] Sodium [Moles/Vol] 138 mmol/L Normal 136-145 [facility] Comment on above: Performed By: #### L 501.1400, L500.4100, L3100.5450, L505.7010, L4600.0100, L100.0100, L500.4050, L501.6710, L501.9520, L506.0400, L101.9900 ####[facility] [address] [place], [place], [phone](687) T PROT 7.3 g/dL Normal 6.4-8.2 [facility] Comment on above: Performed By: #### L 501.1400, L500.4100, L3100.5450, L505.7010, L4600.0100, L100.0100, L500.4050, L501.6710, L501.9520, L506.0400, L101.9900 ####[facility] [address] [place], [place], [phone] Urea nitrogen [Mass/Vol] 11 mg/dL Normal 7-18 [facility] Comment on above: Performed By: #### L 501.1400, L500.4100, L3100.5450, L505.7010, L4600.0100, L100.0100, L500.4050, L501.6710, L501.9520, L506.0400, L101.9900 ####[facility] [address] [place], [place], [id number] Erythrocyte Sed Rateon 03-01 SED RATE 5 mm/hr Normal 0-30 [facility] Comment on above: Performed By: #### L 501.1400, L500.4100, L3100.5450, L505.7010, L4600.0100, L100.0100, L500.4050, L501.6710, L501.9520, L506.0400, L101.9900 ####[facility] [address] [place], [place], [id number] Lipid Profileon 03-01-2024 Cholesterol [Mass/Vol] 239 mg/dL High 200 [facility] Comment on above: Result Comment: <200 mg/dL Desirable 200-240 mg/dL Borderline >240 mg/dL High Risk Performed By: #### L 501.1400, L500.4100, L3100.5450, L505.7010, L4600.0100, L100.0100, L500.4050, L501.6710, L501.9520, L506.0400, L101.9900 ####[facility] [address] [place], [place], [phone] Cholesterol in HDL [Mass/Vol] 35 mg/dL Low [facility] Comment on above: Result Comment: The drugs N-Acetylcysteine and Metamizole may falselydepress this assay. Reference Range HDL <40 mg/dL Low HDL Cholesterol HDL >or= 60 mg/dL High HDL Cholesterol Performed By: #### L 501.1400, L500.4100, L3100.5450, L505.7010, L4600.0100, L100.0100, L500.4050, L501.6710, L501.9520, L506.0400, L101.9900 ####[facility] [address] [place], [place], [id number] LDL TNP Normal 0-130 [facility] Comment on above: Performed By: #### L 501.1400, L500.4100, L3100.5450, L505.7010, L4600.0100, L100.0100, L500.4050, L501.6710, L501.9520, L506.0400, L101.9900 ####[facility] [address] [place], [address] Triglyceride [Mass/Vol] 455 mg/dL High [facility] Comment on above: Result Comment: The drugs N-Acetylcysteine and Metamizole may falselydepress this assay.TRIGLYCERIDE IS GREATER THAN 400 mg/dL.LDL RESULT IS INVALID AND WILL NOT BE REPORTED.Serum Triglycerides Reference Interval Normal <150 mg/dL Borderline high 150 - 199 mg/dL High 200 - 499 mg/dL Very High > or = 500 mg/dL Performed By: #### L 501.1400, L500.4100, L3100.5450, L505.7010, L4600.0100, L100.0100, L500.4050, L501.6710, L501.9520, L506.0400, L101.9900 ####[facility] [address] [place], [address] VLDL TNP Normal 5-40 [facility] Comment on above: Performed By: #### L 501.1400, L500.4100, L3100.5450, L505.7010, L4600.0100, L100.0100, L500.4050, L501.6710, L501.9520, L506.0400, L101.9900 ####[facility] [address] [place], [address] Rheumatoid Factoron 03-01-19 25 RHEUMATOID FAC < 10.0 Normal <15 [facility] Comment on above: Performed By: #### L 501.1400, L500.4100, L3100.5450, L505.7010, L4600.0100, L100.0100, L500.4050, L501.6710, L501.9520, L506.0400, L101.9900 ####[facility] [address] [place], [address] T4 Free Directon 03-01-2024 T4 FREE DIRECT 1.10 ng/dL Normal 0.76-1.46 [facility] Comment on above: Performed By: #### L 501.1400, L500.4100, L3100.5450, L505.7010, L4600.0100, L100.0100, L500.4050, L501.6710, L501.9520, L506.0400, L101.9900 ####[facility] [address] [place], [place], [address] Thyroid Stim Hormone (TSH)on 03-01-2024 TSH 3.000 uIU/mL Normal 0.358-3.740 [facility] Comment on above: Performed By: #### L 501.1400, L500.4100, L3100.5450, L505.7010, L4600.0100, L100.0100, L500.4050, L501.6710, L501.9520, L506.0400, L101.9900 ####[facility] [address] [place], [address] Uric Acidon 03-01-2024 URIC 8.5 mg/dL High 2.6-6.0 [facility] Comment on above: Result Comment: The drugs N-Acetylcysteine and Metamizole may falselydepress this assay. Performed By: #### L 501.1400, L500.4100, L3100.5450, L505.7010, L4600.0100, L100.0100, L500.4050, L501.6710, L501.9520, L506.0400, L101.9900 ####[facility] [address] [place], [address] Internal Medicine Office Vis iton 01-19-2024 Internal Medicine Office Visit Normal [facility] Basic Metabolic Profile (BMP )on 01-17-2024 BUN/CRE 10.7 RATIO Normal - [facility] Comment on above: Performed By: #### L 501.6710, L500.2500 ####[facility] [address] [place], [address] CA,Total 9.6 mg/dL Normal 8.5-10.1 [facility] Comment on above: Performed By: #### L 501.6710, L500.2500 ####[facility] [address] [place], [address] Chloride [Moles/Vol] 109 mmol/L High 98-107 [facility] Comment on above: Performed By: #### L 501.6710, L500.2500 ####[facility] [address] [place], [address] CO2 [Moles/Vol] 25.0 mmol/L Normal 21.0-32.0 [facility] Comment on above: Performed By: #### L 501.6710, L500.2500 ####[facility] [address] [place], [address] Creatinine [Mass/Vol] 1.21 mg/dL High 0.55-1.02 [facility] Comment on above: Result Comment: The validity of the calculated GFR GFRAA in patients over70 years has not been determined. Clinical correlation isessential. Performed By: #### L 501.6710, L500.2500 ####[facility] [address] [place], [address] ECRCL 61.03 ml/min Normal [facility] Comment on above: Performed By: #### L 501.6710, L500.2500 ####[facility] [address] [place], [address] EST GFR - AA 60 mL/min Normal >60 [facility] Comment on above: Result Comment: Afri can [place] GFR Calc Performed By: #### L 501.6710, L500.2500 ####[facility] [address] [place], [address] GAP 6 Normal 5-15 [facility] Comment on above: Performed By: #### L 501.6710, L500.2500 ####[facility] [address] [place], [address] GFR/1.73 sq M.predicted among non-blacks MDRD (S/P/Bld) [Vol rate/Area] 50 mL/min/{1.73_m2} Low >60 [facility] Comment on above: Result Comment: Non- GFR Calc Performed By: #### L 501.6710, L500.2500 ####[facility] [address] [place], [address] Glucose [Mass/Vol] 134 mg/dL High 74-106 [facility] Comment on above: Result Comment: Fast ing Glucose result greater than or equal to 126 mg/dLsuggests DIABETES MELLITUS per A.D.A. criteria. Performed By: #### L 501.6710, L500.2500 ####[facility] [address] [place], [address] Potassium [Moles/Vol] 4.1 mmol/L Normal 3.5-5.1 [facility] Comment on above: Performed By: #### L 501.6710, L500.2500 ####[facility] [address] [place], [address] Sodium [Moles/Vol] 139 mmol/L Normal 136-145 [facility] Comment on above: Performed By: #### L 501.6710, L500.2500 ####[facility] [address] [place], [address] Urea nitrogen [Mass/Vol] 13 mg/dL Normal 7-18 [facility] Comment on above: Performed By: #### L 501.6710, L500.2500 ####[facility] [address] [place], [address] CBC W/Diff, Automatedon 11-2 5-2023 Absolute Lymph 3.57 X10 3/uL Normal 0.83-4.51 [facility] Comment on above: Performed By: #### L 101.9900, L100.0100 ####[facility] [address] [place], [address] Absolute Neut 10.4 X10 3/uL High 2.0-7.7 [facility] Comment on above: Performed By: #### L 101.9900, L100.0100 ####[facility] [address] [place], [address] Basophils/100 WBC (Bld) 0.9 % Normal 0-1 [facility] Comment on above: Performed By: #### L 101.9900, L100.0100 ####[facility] [address] [place], [address] Eosinophils/100 WBC (Bld) 1.5 % Normal 0-5 [facility] Comment on above: Performed By: #### L 101.9900, L100.0100 ####[facility] [address], [address] Erythrocyte distribution width (RBC) [Ratio] 13.5 % Normal 11.6-14.6 [facility] Comment on above: Performed By: #### L 101.9900, L100.0100 ####[facility] [address] [place], [address] Hematocrit (Bld) [Volume fraction] 39.3 % Normal 37-47 [facility] Comment on above: Performed By: #### L 101.9900, L100.0100 ####[facility] [address] [place], [address] Hemoglobin (Bld) [Mass/Vol] 13.0 g/dL Normal 12.0-15.0 [facility] Comment on above: Performed By: #### L 101.9900, L100.0100 ####[facility] [address] [place], [address] IG% 1.400 High 0.0-0.9 [facility] Comment on above: Result Comment: IG% - Immature Granulocytes (promyelocytes, myelocytes andmetamyelocytes) > 1% indicates that a LEFT SHIFT is Present. Performed By: #### L 101.9900, L100.0100 ####[facility] [address] [place], [address] Lymphocytes/100 WBC (Bld) 23.4 % Normal 19-41 [facility] Comment on above: Performed By: #### L 101.9900, L100.0100 ####[facility] [address] [place], [address] MCH (RBC) [Entitic mass] 29.7 pg Normal 27.0-32.0 [facility] Comment on above: Performed By: #### L 101.9900, L100.0100 ####[facility] [address] [place], [address] MCHC (RBC) [Mass/Vol] 33.1 g/dL Normal 32-36 [facility] Comment on above: Performed By: #### L 101.9900, L100.0100 ####[facility] [address] [place], [address] MCV (RBC) [Entitic vol] 89.9 fL Normal 81-99 [facility] Comment on above: Performed By: #### L 101.9900, L100.0100 ####[facility] [address] [place], [address] Monocytes/100 WBC (Bld) 4.6 % Normal 0-10 [facility] Comment on above: Performed By: #### L 101.9900, L100.0100 ####[facility] [address] [place], [address] Neutrophils/100 WBC (Bld) 68.2 % Normal 47-70 [facility] Comment on above: Performed By: #### L 101.9900, L100.0100 ####[facility] [address] [place], [address] Nucleated RBC (Bld) [#/Vol] 0 10*3/uL Normal 0-5 [facility] Comment on above: Performed By: #### L 101.9900, L100.0100 ####[facility] [address] [place], [address] Platelet mean volume (Bld) [Entitic vol] 9.9 fL Normal 6.2-12.0 [facility] Comment on above: Performed By: #### L 101.9900, L100.0100 ####[facility] [address] [place], [address] Platelets (Bld) [#/Vol] 349 10*3/uL Normal 150-450 [facility] Comment on above: Performed By: #### L 101.9900, L100.0100 ####[facility] [address] [place], [address] RBC (Bld) [#/Vol] 4.37 10*6/uL Normal 4.2-5.4 [facility] Comment on above: Performed By: #### L 101.9900, L100.0100 ####[facility] [address] [place], [address] RDW SD 44.1 fl High 35.1-43.9 [facility] Comment on above: Performed By: #### L 101.9900, L100.0100 ####[facility] [address] [place], [address] WBC (Bld) [#/Vol] 15.3 10*3/uL High 4.4-11.0 [facility] Comment on above: Performed By: #### L 101.9900, L100.0100 ####[facility] [address] [place], [address] CRPon 01-17-2024 C-REACTIVE PROT 11.30 mg/L High 0.0-3.0 [facility] Comment on above: Result Comment: C-Re active Protein (CRP) provides useful information for thediagnosis, therapy and monitoring of inflammatory processesand associated diseases. For the evaluation of Relative Riskfor Cardiovascular Disease, a High Sensitivity CRP (HSCRP)should be ordered. Performed By: #### L 501.6710, L500.2500 ####[facility] [address] [place], [address] Chest PA and Lateralon 01-16 Chest PA and Lateral Normal [facility] Emergency Department Summary on 01-17-2024 Emergency Department Summary Normal [facility] Erythrocyte Sed Rateon 01-16 SED RATE 11 mm/hr Normal 0-30 [facility] Comment on above: Performed By: #### L 101.9900, L100.0100 ####[facility] [address] [place], [address] Foot min 3 Viewson 4 Foot min 3 Views Normal [facility] Endocrinology Visit Reporton 12-23-2023 Endocrinology Visit Report Normal [facility] Urgent Care Visit Reporton 1 Urgent Care Visit Report Normal [facility] Absolute lymphocyte countOrd ered By: Ted Wise on 05-11-2023 Lymphocytes Auto (Unsp spec) [#/Vol] 4.81 10*3/uL 0.83-4.51 [facility] Automated lymphocyte count a s percentage of total leukocytesOrdered By: Ted Wise on 05-11-2023 Lymphocytes/100 WBC Auto (Unsp spec) 34.8 % 19-41 [facility] Basophil percentageOrdered B y: Ted Wise on 05-11-2023 Basophils/100 WBC (Bld) 1.2 % 0-[address] [facility] Bilirubin [Mass/Vol] 0.40 mg/dL 0.20-1.00 [facility] Comment on above: For patients on eltr ombopag therapy, use of Dim[place] TBIL is not recommended. Chloride [Moles/Vol] 102 mmol/L 98-107 [facility] Eosinophils/100 WBC (Bld) 2.2 % 0-5 [facility] Glucose [Mass/Vol] 293 mg/dL 74-106 [facility] Comment on above: Glucose result great er than or equal to 200 mg/dLsuggests DIABETES MELLITUS per A.D.A. criteria. Hemoglobin (Bld) [Mass/Vol] 15.2 g/dL 12.0-15.0 [facility] Monocytes/100 WBC (Bld) 4.6 % 0-[address] [facility] Neutrophils (Bld) [#/Vol] 7.8 10*3/uL 2.0-7.7 [facility] Neutrophils/100 WBC (Bld) 56.5 % 47-70 [facility] Potassium [Moles/Vol] 4.1 mmol/L 3.5-5.1 [facility] Protein [Mass/Vol] 7.7 g/dL 6.4-8.2 [facility] Sodium [Moles/Vol] 137 mmol/L 136-145 [facility] WBC (Bld) [#/Vol] 13.8 10*3/uL 4.4-11.0 [facility] Determination of erythrocyte mean corpuscular volume (MCV)Ordered By: Ted Wise on 05-11-2023 MCV (RBC) [Entitic vol] 90.2 fL 81-99 [facility] Erythrocyte distribution wid th ratioOrdered By: Tedliseth Wise on 05-11-2023 Erythrocyte distribution width (RBC) [Ratio] 13.2 % 11.6-14.6 [facility] Erythrocyte distribution wid th standard deviationOrdered By: Ted Wise on 05-11-2023 Erythrocyte distribution width (RBC) [Entitic vol] 43.0 fL 35.1-43.9 [facility] Hematocrit Auto (Bld) [Volum e fraction]Ordered By: Ted Wise on 05-11-2023 Hematocrit (Bld) [Volume fraction] 45.0 % 37-47 [facility] Immature granulocytes/100 WB C Auto (Bld)Ordered By: Ted Wise on 05-11-2023 Immature granulocytes/100 WBC (Bld) 0.700 % 0.0-0.9 [facility] Comment on above: IG% - Immature Granu locytes (promyelocytes, myelocytes and metamyelocytes) > 1% indicates that a LEFT SHIFT is Present. Laboratory - Chemistry and C hemistry - challengeOrdered By: Ted Wise on 05-11-2023 Albumin/Globulin [Mass ratio] 0.8 {ratio} 0.9-2.4 [facility] ALP [Catalytic activity/Vol] 153 U/L 45-117 [facility] ALT [Catalytic activity/Vol] 56 U/L 13-56 [facility] CO2 [Moles/Vol] 21.0 mmol/L 21.0-32.0 [facility] Globulin (S) [Mass/Vol] 4.2 g/dL 2.2-4.2 [facility] Urea nitrogen/Creatinine [Mass ratio] 10.2 mg/mg 10-20 [facility] Laboratory - Hematology and Cell countsOrdered By: Ted Wise on 05-11-2023 MCH (RBC) [Entitic mass] 30.5 pg 27.0-32.0 [facility] MCHC (RBC) [Mass/Vol] 33.8 g/dL 32-36 [facility] Nucleated RBC/100 WBC (Bld) [Ratio] 0 % 0-5 [facility] Platelet mean volume (Bld) [Entitic vol] 11.3 fL 6.2-12.0 [facility] Platelets (Bld) [#/Vol] 324 10*3/uL 150-450 [facility] No Panel InformationOrdered By: Ted Wise on 05-11-2023 Estimated GFR (MDRD) Amer 77 mL/min >60 [facility] Comment on above: GFR Calc Estimated GFR (MDRD) Non-Af Amer 64 mL/min >60 [facility] Comment on above: Non- GFR Calc RBC Auto (Bld) [#/Vol]Ordere d By: Ted Wise on 05-11-2023 RBC (Bld) [#/Vol] 4.99 10*6/uL 4.2-5.4 [facility] Serum or plasma calcium niyah urement (mass/volume)Ordered By: Ted Wise on 05-11-2023 Calcium [Mass/Vol] 9.5 mg/dL 8.5-10.1 [facility] Serum or plasma creatinine m easurement (mass/volume)Ordered By: Ted Wise on 05-11-2023 Creatinine [Mass/Vol] 0.98 mg/dL 0.55-1.02 [facility] Comment on above: The validity of the calculated GFR & GFRAA in patients over 70 years has not been determined. Clinical correlation is essential. Serum or plasma urea nitroge n measurement (mass/volume)Ordered By: Ted Wise on 05-11-2023 Urea nitrogen [Mass/Vol] 10 mg/dL 7-18 [facility] Thin prep Papanicolaou smear with manual screeningOrdered By: Ted Wise on 05-11-2023 Thin prep Papanicolaou smear with manual screening 3.5 g/dL 3.2-5.0 [facility] Thin prep Papanicolaou smear with manual screening 74 U/L 15-37 [facility] Thin prep Papanicolaou smear with manual screening 14 5-15 [facility] COMPREHENSIVE PANELon 2022 Albumin [Mass/Vol] 3.8 g/dL Normal 3.4 - 5.0 [facility] Comment on above: Performed By: #### C MP #### [facility] [address] [place] [address] ALP [Catalytic activity/Vol] 112 U/L High 33 - 110 [facility] Comment on above: Performed By: #### C MP #### [facility] [address] [place] [address] ALT [Catalytic activity/Vol] 40 U/L Normal 7 - 45 [facility] Comment on above: Result Comment: Radha ents treated with Sulfasalazine may generate falsely decreased results for ALT. Performed By: #### C MP #### [facility] [address] [place] [address] Anion gap [Moles/Vol] 18 mmol/L Normal 10 - 20 [facility] Comment on above: Performed By: #### C MP #### [facility] [address] [place] [address] AST [Catalytic activity/Vol] 55 U/L High 9 - 39 [facility] Comment on above: Performed By: #### C MP #### [facility] [address] [place] [address] Bilirubin [Mass/Vol] 0.6 mg/dL Normal 0.0 - 1.2 [facility] Comment on above: Performed By: #### C MP #### [facility] [address] [place] [address] Calcium [Mass/Vol] 9.9 mg/dL Normal 8.6 - 10.6 [facility] Comment on above: Performed By: #### C MP #### [facility] [address] [place] [address] Chloride [Moles/Vol] 103 mmol/L Normal 98 - 107 [facility] Comment on above: Performed By: #### C MP #### [facility] [address] [place] [address] Creatinine [Mass/Vol] 0.83 mg/dL Normal 0.50 - 1.05 [facility] Comment on above: Performed By: #### C MP #### [facility] [address] [place] [address] GFR/1.73 sq M.predicted among non-blacks MDRD (S/P/Bld) [Vol rate/Area] 86 mL/min/{1.73_m2} Normal >90 [facility] Comment on above: Result Comment: CALC ULATIONS OF ESTIMATED GFR ARE PERFORMED USING THE 2020 CKD-EPI STUDY REFIT EQUATION WITHOUT THE RACE VARIABLE FOR THE IDMS-TRACEABLE CREATININE METHODS. https://jasn.asnjournals.org/content/early/ASN.864 3596170 Performed By: #### C MP #### [facility] [address] [place] [address] Glucose [Mass/Vol] 221 mg/dL High 74 - 99 [facility] Comment on above: Performed By: #### C MP #### [facility] [address] [place] [address] HCO3 (Bld) [Moles/Vol] 23 mmol/L Normal 21 - 32 [facility] Comment on above: Performed By: #### C MP #### [facility] [address] [place] [address] Potassium [Moles/Vol] 4.5 mmol/L Normal 3.5 - 5.3 [facility] Comment on above: Performed By: #### C MP #### [facility] [address] [place] [address] Protein [Mass/Vol] 6.8 g/dL Normal 6.4 - 8.2 [facility] Comment on above: Performed By: #### C MP #### [facility] [address] [place] [address] Sodium [Moles/Vol] 139 mmol/L Normal 136 - 145 [facility] Comment on above: Performed By: #### C MP #### [facility] [address] [place] [address] Urea nitrogen [Mass/Vol] 8 mg/dL Normal 6 - 23 [facility] Comment on above: Performed By: #### C MP #### [facility] [address] [place] [address] HEPATITIS C ABon 10-23-2022 HEPATITIS C AB Non-Reactive Normal NONREACTIVE [facility] Comment on above: Result Comment: Resu lts from patients taking biotin supplements or receiving high-dose biotin therapy should be interpreted with caution due to possible interference with this test. Providers may contact their local laboratory for further information. Performed By: #### H CVAB #### [facility] [address] [place] [address] HIV 1/2 ANTIGEN/ANTIBODY SCR EEN WITH REFLEX TO CONFIRMATIONon 10-23-2022 HIV 1/2 AG/AB SCREEN Non-Reactive Normal NONREACTIVE [facility] Comment on above: Result Comment: HIV Ag/Ab screen is performed using the Siemens Zume [employer]ell[employer] Power HIV Ag/Ab Combo assay which detects the presence of HIV p24 antigen as well as antibodies to HIV-1 (Group M and O) and HIV-2. . No laboratory evidence of HIV infection. If acute HIV infection is suspected, consider testing for HIV RNA by PCR (viral load). Performed By: #### H IV #### [facility] [address] [place] [address] INSULINon 10-23-2022 INSULIN 25 uIU/mL Normal 3 - 25 [facility] Comment on above: Result Comment: Refe rence values apply to fasting specimens. Performed By: #### I NSUL #### [facility] [address] [place] [address] LIPID PANEL (CORONARY RISK 2 )on 10-23-2022 Cholesterol [Mass/Vol] 284 mg/dL High 0 - 199 [facility] Comment on above: Result Comment: . AGE DESIRABLE BORDERLINE HIGH HIGH 0-19 Y 0 - 169 170 - 199 >/= 200 20-24 Y 0 - 189 190 - 224 >/= 225 >24 Y 0 - 199 200 - 239 >/= 240 All ranges are based on fasting samples. Specific therapeutic targets will vary based on patient-specific cardiac risk. . Pediatric guidelines reference:Pediatrics 2011, 128(S5). Adult guidelines reference: NCEP ATPIII Guidelines, BENITO 2001, 258:2486-97 . Venipuncture immediately after or during the administration of Metamizole may lead to falsely low results. Testing should be performed immediately prior to Metamizole dosing. Performed By: #### L IPID #### [facility] [address] [place] [address] Cholesterol in HDL [Mass/Vol] 37.2 mg/dL Abnormal [facility] Comment on above: Result Comment: . AGE VERY LOW LOW NORMAL HIGH 0-19 Y < 35 < 40 40-45 ---- 20-24 Y ---- < 40 >45 ---- >24 Y ---- < 40 40-60 >60 . Performed By: #### L IPID #### [facility] [address] [place] [address] Cholesterol.total/Choles terol in HDL [Mass ratio] 7.6 {ratio} Abnormal [facility] Comment on above: Result Comment: REF VALUES DESIRABLE < 3.4 HIGH RISK > 5.0 Performed By: #### L IPID #### [facility] [address] [place] [address] LDL - Normal 0 - 99 [facility] Comment on above: Result Comment: . NEAR BORD AGE DESIRABLE OPTIMAL HIGH HIGH VERY HIGH 0-19 Y 0 - 109 --- 110-129 >/= 130 ---- 20-24 Y 0 - 119 --- 120-159 >/= 160 ---- >24 Y 0 - 99 100-129 130-159 160-189 >/=190 . THE CALCULATION OF LDL AND VLDL ARE INACCURATE WHEN TRIGLYCERIDES ARE GREATER THAN 400 MG/DL OR WHEN THE PATIENT IS NON-FASTING. IF LDL MEASUREMENT IS NECESSARY CONTACT THE TESTING LABORATORY FOR AN ALTERNATIVE LDL ASSAY. Performed By: #### L IPID #### [facility] [address] [place] [address] NON-HDL CHOLESTEROL 247 mg/dL Normal [facility] Comment on above: Result Comment: AGE DESIRABLE BORDERLINE HIGH HIGH VERY HIGH 0-19 Y 0 - 119 120 - 144 >/= 145 >/= 160 20-24 Y 0 - 149 150 - 189 >/= 190 ---- >24 Y 30 MG/DL ABOVE LDL CHOLESTEROL GOAL . Performed By: #### L IPID #### [facility] [address] [place] [address] Triglyceride [Mass/Vol] 426 mg/dL High 0 - 149 [facility] Comment on above: Result Comment: . AGE DESIRABLE BORDERLINE HIGH HIGH VERY HIGH 0 D-90 D 19 - 174 ---- ---- ---- 91 D- 9 Y 0 - 74 75 - 99 >/= 100 ---- 10-19 Y 0 - 89 90 - 129 >/= 130 ---- 20-24 Y 0 - 114 115 - 149 >/= 150 ---- >24 Y 0 - 149 150 - 199 200- 499 >/= 500 . Venipuncture immediately after or during the administration of Metamizole may lead to falsely low results. Testing should be performed immediately prior to Metamizole dosing. Performed By: #### L IPID #### [facility] [address] [place] [address] VLDL SEE COMMENT Normal 0 - 40 [facility] Comment on above: Result Comment: Unab le to calculate VLDL. Performed By: #### L IPID #### [facility] [address] [place] [address] MAGNESIUMon 10-23-2022 Magnesium [Mass/Vol] 1.90 mg/dL Normal 1.60 - 2.40 [facility] Comment on above: Performed By: #### M G #### [facility] [address] [place] [address] THYROXINE,FREEon 10-23-2022 THYROXINE,FREE 1.15 ng/dL Normal 0.78 - 1.48 [facility] Comment on above: Result Comment: Thyr oxine Free testing is performed using different testing methodology at [facility] than at other [facility]. Direct result comparisons should only be made within the same method. Performed By: #### I NSUL #### [facility] [address] [place] [address] TSH WITH REFLEX TO FREE T4 I F ABNORMALon 10-23-2022 TSH Qn 4.12 m[IU]/L High 0.44 - 3.98 [facility] Comment on above: Result Comment: TSH testing is performed using different testing methodology at [facility] than [facility] other [facility]. Direct result comparisons should only be made within the same method. Performed By: #### T HYDS #### [facility] [address] [place] [address] URIC ACIDon 10-23-2022 Urate [Mass/Vol] 7.8 mg/dL High 2.3 - 6.7 [facility] Comment on above: Result Comment: Lina puncture immediately after or during the administration of Metamizole may lead to falsely low results. Testing should be performed immediately prior to Metamizole dosing. Performed By: #### U CAT #### [facility] [address] [place] [address] VITAMIN B12on 10-23-2022 Cobalamin (Vitamin B12) [Mass/Vol] 279 pg/mL Normal 211 - 911 [facility] Comment on above: Performed By: #### I NSUL #### [facility] [address] [place] [address] VITAMIN D, 25-HYDROXYon VITAMIN D, 25-HYDROXY 14 ng/mL Abnormal [facility] Comment on above: Result Comment: . DEFICIENCY: < 20 NG/ML INSUFFICIENCY: 20-29 NG/ML SUFFICIENCY: 30-100 NG/ML THIS ASSAY ACCURATELY QUANTIFIES THE SUM OF VITAMIN D3, 25-HYDROXY AND VIT D2,25-HYDROXY. Performed By: #### V TDOH #### [facility] [address] [place] [address] CBC AND DIFFERENTIALon 10-22 % AUTOMATED IMMATURE GRAN 0.5 % Normal 0.0 - 0.9 [facility] Comment on above: Result Comment: Suzi ture Granulocyte Count (IG) includes promyelocytes, myelocytes and metamyelocytes but does not include bands. Percent differential counts (%) should be interpreted in the context of the absolute cell counts (cells/L). Performed By: #### C BCDF #### [facility] [address] [place] [address] Basophils (Bld) [#/Vol] 0.15 10*3/uL High 0.00 - 0.1 0 [facility] Comment on above: Performed By: #### C BCDF #### [facility] [address] [place] [address] Basophils/100 WBC (Bld) 1.4 % Normal 0.0 - 2.0 U [facility] Comment on above: Performed By: #### C BCDF #### [facility] [address] [place] [address] Eosinophils (Bld) [#/Vol] 0.22 10*3/uL Normal 0.00 - 0.70 [facility] Comment on above: Performed By: #### C BCDF #### [facility] [address] [place] [address] Eosinophils/100 WBC (Bld) 2.0 % Normal 0.0 - 6.0 [facility] Comment on above: Performed By: #### C BCDF #### [facility] [address] [place] [address] Erythrocyte distribution width (RBC) [Ratio] 13.3 % Normal 11.5 - 14.5 [facility] Comment on above: Performed By: #### C BCDF #### [facility] [address] [place] [address] Hematocrit (Bld) [Volume fraction] 45.4 % Normal 36.0 - 46.0 [facility] Comment on above: Performed By: #### C BCDF #### [facility] [address] [place] [address] Hemoglobin (Bld) [Mass/Vol] 14.9 g/dL Normal 12.0 - 16.0 [facility] Comment on above: Performed By: #### C BCDF #### [facility] [address] [place] [address] Lymphocytes (Bld) [#/Vol] 3.42 10*3/uL Normal 1.20 - 4.80 [facility] Comment on above: Performed By: #### C BCDF #### [facility] [address] [place] [address] Lymphocytes/100 WBC (Bld) 31.2 % Normal 13.0 - 44.0 [facility] Comment on above: Performed By: #### C BCDF #### [facility] [address] [place] [address] MCHC (RBC) [Mass/Vol] 32.8 g/dL Normal 32.0 - 36.0 [facility] Comment on above: Performed By: #### C BCDF #### [facility] [address] [place] [address] MCV (RBC) [Entitic vol] 91 fL Normal 80 - 100 [facility] Comment on above: Performed By: #### C BCDF #### [facility] [address] [place] [address] Monocytes (Bld) [#/Vol] 0.51 10*3/uL Normal 0.10 - 1.0 0 [facility] Comment on above: Performed By: #### C BCDF #### [facility] [address] [place] [address] Monocytes/100 WBC (Bld) 4.6 % Normal 2.0 - 10.0 [facility] Comment on above: Performed By: #### C BCDF #### [facility] [address] [place] [address] Neutrophils (Bld) [#/Vol] 6.61 10*3/uL Normal 1.20 - 7.70 [facility] Comment on above: Performed By: #### C BCDF #### [facility] [address] [place] [address] Neutrophils/100 WBC (Bld) 60.3 % Normal 40.0 - 80.0 [facility] Comment on above: Performed By: #### C BCDF #### [facility] [address] [place] [address] NUCLEATED RBC 0.0 /100 WBC Normal 0.0-0.0 [facility] Comment on above: Performed By: #### C BCDF #### [facility] [address] [place] [address] Platelets (Bld) [#/Vol] 207 10*3/uL Normal 150 - 450 [facility] Comment on above: Performed By: #### C BCDF #### [facility] [address] [place] RBC 4.97 x10E12/L Normal 4.00 - 5.20 [facility] Comment on above: Performed By: #### C BCDF #### [facility] [address] [place] WBC (Bld) [#/Vol] 11.0 10*3/uL Normal 4.4 - 11.3 [facility] Comment on above: Performed By: #### C BCDF #### [facility] [address] [place] HEMOGLOBIN A1Con 10-22-2022 Glucose [Mass/Vol] 235 mg/dL Normal [facility] Comment on above: Performed By: #### I NSUL #### [facility] [address] [place] HbA1c (Bld) [Mass fraction] 9.8 % Abnormal [facility] Comment on above: Result Comment: Diag nosis of Diabetes-Adults Non-Diabetic: < or = 5.6% Increased risk for developing diabetes: 5.7-6.4% Diagnostic of diabetes: > or = 6.5% . Monitoring of Diabetes Age (y) Therapeutic Goal (%) Adults: >18 <7.0 Pediatrics: 13-18 <7.5 7-12 <8.0 0- 6 7.5-8.5 [place] [employer]. Diabetes Care 33(S1), Feb 2009. Performed By: #### I NSUL #### [facility] [address] [place] HIV 1/2 ANTIGEN/ANTIBODY SCR EEN WITH REFLEX TO CONFIRMATIONon 10-22-2022 Lab Specimen Source Normal [facility] Comment on above: Performed By: #### H IV #### [facility] [address] [place] Performed By: #### I NSUL #### [facility] [address] [place] Performed By: #### H CVAB #### [facility] [address] [place] Performed By: #### T HYDS #### [facility] [address] [place] [address] Performed By: #### V TDOH #### [facility] [address] [place] [address] Bacteria identified Cx Nom ( U)on 10-14-2022 Culture Comments: NO SIGNIFICANT GROWTH. [facility] Urine Cultureon 10-14-2022 Bacteria identified Cx Nom (U) Culture Comments - See Below [facility] POCT Albumin random urine ma nually resultedOrdered By: Jhoana Virk on 10-13-2022 Interpretation and review of laboratory results Normal [facility] POC ALBUMIN /CREATININE RATIO MANUALLY ENTERED <30 NINF [facility] POC Urine Albumin 30 mg/L No Referen ce Range Established [facility] POC Urine Creatinine 300 mg/dl No Refe rence Range Established [facility] POCT UA Automated manually r esultedon 10-13-2022 Appearance (U) Clear Clear [facility] Work Phone: [phone] Glucose Test strip (U) [Mass/Vol] 500 (3+) Abnormal NEGATIVE mg/dl [facility] Work Phone: [phone] Hemoglobin Ql (U) Negative NEGATIVE [facility] Work Phone: [phone] Interpretation and review of laboratory results Abnormal [facility] Work Phone: [phone] Leukocyte esterase Test strip Ql (U) Negative NEGATIVE [facility] Work Phone: [phone] Nitrite Ql (U) Negative NEGATIVE [facility] Work Phone: [phone] pH (U) 5.0 [pH] No Reference Range Established [facility] Work Phone: [phone] POC Bilirubin, Urine SMALL (1+) Abnormal NEGATIVE [facility] Work Phone: [phone] POC Color, Urine Yellow Straw, Yellow, Light Yellow [facility] Work Phone: [phone] POC Ketones, Urine Negative NEGATIVE mg/dl [facility] Work Phone: [phone] POC Protein, Urine TRACE Abnormal NEGATIVE, 30 (1+) mg/dl [facility] Work Phone: POC Specific [place], Urine >=1.030 1.005 - 1.035 [facility] Work Phone: POC Urobilinogen, Urine 1.0 0.2, 1.0 EU/DL [facility] Work Phone: [facility] Work Phone: URINE CULTURE,BACTERIALon URINE CULTURE,BACTERIAL PATIENT: CONSTANCE LOPES LOCATION: [place] [address] BILL#: [id number] : 71 AGE: SEX: F ORDERED BY: ABDELRAHMAN ROMERO SOURCE: URINE COLLECTED: 10/13/22 17:48 ANTIBIOTICS AT AGUSTÍN.: RECEIVED : 10/14/22 01:57 SITE: Clean Catch/Voided R E S U L T S URINE CULTURE,BACTERIAL FINAL 10/14/22 23:46 NO SIGNIFICANT GROWTH. Normal [facility] Comment on above: Performed By: #### I NSUL #### [facility] [address] [place] [address] Comprehensive metabolic 2000 panelon 07-09-2021 Albumin [Mass/Vol] 3.7 g/dL Low 3.9-4.9 [facility] Comment on above: Order Comment: Speci men Type: BLOOD SPECIMEN Ordering Facility: [facility] Address: [address] [place] [address] Performed By: #### 2 4323-8, LIPB #### [facility] CLIA [id number] 1 [place] [address] [place] ALP [Catalytic activity/Vol] 110 U/L Normal 34-123 [facility] Comment on above: Order Comment: Speci men Type: BLOOD SPECIMEN Ordering Facility: [facility] Address: [address] [place] [address] Performed By: #### 2 4323-8, LIPB #### [facility] CLIA [id number] [address] ALT With P-5'-P [Catalytic activity/Vol] 35 U/L Normal 7-38 [facility] Comment on above: Order Comment: Speci men Type: BLOOD SPECIMEN Ordering Facility: [facility] Address: [address] [place] [address] Performed By: #### 2 4323-8, LIPB #### [facility] CLIA [id number] [address] Anion gap [Moles/Vol] 11 mmol/L Normal 9-18 [facility] Comment on above: Order Comment: Speci men Type: BLOOD SPECIMEN Ordering Facility: [facility] Address: [address] [place] [address] Performed By: #### 2 4323-8, LIPB #### [facility] CLIA [id number] [address] [facility] AST With P-5'-P [Catalytic activity/Vol] 49 U/L High 13-35 [facility] Comment on above: Order Comment: Speci men Type: BLOOD SPECIMEN Ordering Facility: [facility] Address: [address] [place] [address] Performed By: #### 2 4323-8, LIPB #### [facility] CLIA [id number] [address] [facility] Bilirubin [Mass/Vol] 0.4 mg/dL Normal 0.2-1.3 [facility] Comment on above: Order Comment: Speci men Type: BLOOD SPECIMEN Ordering Facility: [facility] Address: [address] [place] [address] Performed By: #### 2 4323-8, LIPB #### [facility] CLIA [id number] [address] Calcium [Mass/Vol] 9.2 mg/dL Normal 8.5-10.2 [facility] Comment on above: Order Comment: Speci men Type: BLOOD SPECIMEN Ordering Facility: [facility] Address: [address] [place] [address] Performed By: #### 2 4323-8, LIPB #### [facility] CLIA [id number] [address] [facility] Chloride [Moles/Vol] 103 mmol/L Normal 97-105 [facility] Comment on above: Order Comment: Speci men Type: BLOOD SPECIMEN Ordering Facility: [facility] Address: [address] [place] [place] [address] Performed By: #### 2 4323-8, LIPB #### [facility] CLIA [id number] [address] CO2 [Moles/Vol] 24 mmol/L Normal 22-30 [facility] Comment on above: Order Comment: Speci men Type: BLOOD SPECIMEN Ordering Facility: [facility] Address: [address] [place] [place] [address] Performed By: #### 2 4323-8, LIPB #### [facility] CLIA [id number] [address] Creatinine [Mass/Vol] 0.76 mg/dL Normal 0.58-0.96 [facility] Comment on above: Order Comment: Speci men Type: BLOOD SPECIMEN Ordering Facility: [facility] Address: [address] [place] [address] Performed By: #### 2 4323-8, LIPB #### [facility] CLIA [id number] [address] ESTIMATED GLOMERULAR FILTRATION RATE 97 mL/min/1.73m??? Normal >=60 [facility] Comment on above: Order Comment: Speci men Type: BLOOD SPECIMEN Ordering Facility: [facility] Address: [address] [place] [address] Result Comment: Krysta mated Glomerular Filtration Rate (eGFR) is calculated using the 2020 CKD-EPI creatinine equation. This equation utilizes serum creatinine, sex, and age as parameters. The creatinine assay has traceable calibration to isotope dilution-mass spectrometry. Refer to KDIGO guidelines for clinical interpretation. In patients with unstable renal function, e.g. those with acute kidney injury, the eGFR may not accurately reflect actual GFR. Performed By: #### 2 4323-8, LIPB #### [facility] CLIA [id number] 1 [place] [address] [place] Glucose [Mass/Vol] 175 mg/dL High 74-99 [facility] Comment on above: Order Comment: Lida gallegos Type: BLOOD SPECIMEN Ordering Facility: [facility] Address: [address] [place] [address] Result Comment: The [place] Diabetes Association (ADA) provides guidance for cutoff values for fasting glucose and random glucose. The ADA defines fasting as no caloric intake for at least 8 hours. Fasting plasma glucose results between 100 to 125 mg/dL indicate increased risk for diabetes (prediabetes). Fasting plasma glucose results greater than or equal to 126 mg/dL meet the criteria for diagnosis of diabetes. In the absence of unequivocal hyperglycemia, results should be confirmed by repeat testing. In a patient with classic symptoms of hyperglycemia or hyperglycemic crisis, random plasma glucose results greater than or equal to 200 mg/dL meet the criteria for diagnosis of diabetes. Reference: Standards of Medical Care in Diabetes 2016, [place] [employer]. Diabetes Care. 2016.39(Suppl 1). Performed By: #### 2 4323-8, LIPB #### [facility] CLIA [id number] 1 [place] [address] [place] Potassium [Moles/Vol] 4.3 mmol/L Normal 3.7-5.1 [facility] Comment on above: Order Comment: Lida gallegos Type: BLOOD SPECIMEN Ordering Facility: [facility] Address: [address] [place] [address] Performed By: #### 2 4323-8, LIPB #### [facility] CLIA [id number] 1 [place] [address] [place] Protein [Mass/Vol] 6.7 g/dL Normal 6.3-8.0 [facility] Comment on above: Order Comment: Lida gallegos Type: BLOOD SPECIMEN Ordering Facility: [facility] Address: [address] Performed By: #### 2 4323-8, LIPB #### [facility] CLIA [id number] [address] [place] Sodium [Moles/Vol] 138 mmol/L Normal 136-144 [facility] Comment on above: Order Comment: Speci men Type: BLOOD SPECIMEN Ordering Facility: [facility] Address: [address] [place] [address] Performed By: #### 2 4323-8, LIPB #### [facility] CLIA [id number] 1 [place] [address] [place] Urea nitrogen [Mass/Vol] 8 mg/dL Normal 7-21 [facility] Comment on above: Order Comment: Speci men Type: BLOOD SPECIMEN Ordering Facility: [facility] Address: [address] [place] [address] Performed By: #### 2 4323-8, LIPB #### [facility] CLIA [id number] [address] [place] HGB A1Con 07-09-2021 Average glucose Estimated from glycated hemoglobin (Bld) [Mass/Vol] 171 mg/dL Normal [facility] Comment on above: Order Comment: Speci men Type: BLOOD SPECIMEN Ordering Facility: [facility] Address: [address] [place] [address] Result Comment: eAG: (Estimated average glucose) is a calculated value from HgbA1c and is liability claims representative of the average blood glucose level in the last 2-3 month period. Performed By: #### H BA1C #### [facility] CLIA [id number] [address] [place] [address] [place] HbA1c (Bld) [Mass fraction] 7.6 % High 4.3-5.6 [facility] Comment on above: Order Comment: Speci men Type: BLOOD SPECIMEN Ordering Facility: [facility] Address: [address] [place] [address] Result Comment: [place] Diabetes Association guidelines indicate that patients with HgbA1c in the range 5.7-6.4% are at increased risk for development of diabetes, and intervention by lifestyle modification may be beneficial. HgbA1c greater or equal to 6.5% is considered diagnostic of diabetes. Performed By: #### H BA1C #### [facility] CLIA [id number] [address] [facility] LIPID PANEL BASICon 07-10-19 22 Cholesterol [Mass/Vol] 262 mg/dL High <200 [facility] Comment on above: Order Comment: Speci [facility] Type: BLOOD SPECIMEN Ordering Facility: [facility] Address: [address] [address] Result Comment: <200 mg/dL, Desirable 200-239 mg/dL, Borderline high >239 mg/dL, High Performed By: #### 2 4323-8, LIPB #### [facility] CLIA [id number] [address] Cholesterol in HDL [Mass/Vol] 38 mg/dL Low >39 [facility] Comment on above: Order Comment: [facility] Type: BLOOD SPECIMEN Ordering Facility: [facility] Address: [address] [place] [address] Result Comment: 40-5 9 mg/dL, Acceptable >59 mg/dL, High: Negative risk factor for coronary heart disease <40 mg/dL, Low: Positive risk factor for coronary heart disease Performed By: #### 2 4323-8, LIPB #### [facility] CLIA [id number] [address] Cholesterol in LDL [Mass/Vol] 164 mg/dL High <100 [facility] Comment on above: Order Comment: [facility] Type: BLOOD SPECIMEN Ordering Facility: [facility] Address: [address] [address] Result Comment: <100 mg/dL, Optimal 100-129 mg/dL, Near optimal/above optimal 130-159 mg/dL, Borderline high 160-189 mg/dL, High >189 mg/dL, Very high Secondary prevention optimal LDL Cholesterol levels are recommended to be < 70 mg/dL Performed By: #### 2 4323-8, LIPB #### [facility] CLIA [id number] [address] Cholesterol in LDL/Cholesterol in HDL [Mass ratio] 4.32 {ratio} High <2.54 [facility] Comment on above: Order Comment: Lida gallegos Type: BLOOD SPECIMEN Ordering Facility: [facility] Address: [address] [place] [address] Result Comment: Refe chentece: 1. National Cholesterol Education Program ATP III Guideline At-A-Glance Quick Desk Reference: National Heart, Lung, and Blood Gregory. National Institutes of Health. 2001: NIH Publication No. 01-3305. 2. An International Atherosclerosis Society position paper: global recommendations for the management of dyslipidemia: executive summary, Atherosclerosis. 2014: 232(2):410-413. Performed By: #### 2 4323-8, LIPB #### [facility] CLIA [id number] [address] Cholesterol in VLDL [Mass/Vol] 60 mg/dL High <30 [facility] Comment on above: Order Comment: Lida el Type: BLOOD SPECIMEN Ordering Facility: [facility] Address: [address] [place] [address] Performed By: #### 2 4323-8, LIPB #### [facility] CLIA [id number] [address] Cholesterol non HDL [Mass/Vol] 224 mg/dL High <130 [facility] Comment on above: Order Comment: [facility] Type: BLOOD SPECIMEN Ordering Facility: [facility] Address: [address] [address] Result Comment: <130 mg/dL, Optimal 130-159 mg/dL, Near optimal/above optimal 160-189 mg/dL, Borderline high 190-219 mg/dL, High >219 mg/dL, Very high Secondary prevention optimal non HDL Cholesterol levels are recommended to be <100 mg/dL Performed By: #### 2 4323-8, LIPB #### [facility] CLIA [id number] [address] [place] [address] [place] Cholesterol.total/Choles terol in HDL [Mass ratio] 6.89 {ratio} High <5.10 [facility] Comment on above: Order Comment: Speci el Type: BLOOD SPECIMEN Ordering Facility: [facility] Address: [address] [address] Performed By: #### 2 4323-8, LIPB #### [facility] CLIA [id number] [address] FASTING TIME 12 hrs Normal [facility] Comment on above: Order Comment: Speci men Type: BLOOD SPECIMEN Ordering Facility: [facility] Address: [address] [place] [address] Performed By: #### 2 4323-8, LIPB #### [facility] CLIA [id number] [address] Triglyceride [Mass/Vol] 299 mg/dL High <[address] [facility] Comment on above: Order Comment: Speci men Type: BLOOD SPECIMEN Ordering Facility: [facility] Address: [address] [place] [address] Result Comment: <150 mg/dL, Normal 150-199 mg/dL, Borderline high 200-499 mg/dL, High >499 mg/dL, Very high Performed By: #### 2 4323-8, LIPB #### [facility] CLIA [id number] [address] [facility] MRI LIVER (EOVIST) WO/W IVCO Non 05-23-2021 MRI LIVER (EOVIST) WO/W IVCON * * *Final Report* * * DATE OF EXAM: May 23 2021 9:05AM [facility] 2175 - MRI LIVER (EOVIST) WO/W IVCON / PROCEDURE REASON: Abnormal liver enzymes * * * * Physician Interpretation * * * * MRI OF THE ABDOMEN WITHOUT AND WITH CONTRAST CLINICAL HISTORY:Abnormal liver enzymes COMPARISON: The first 12/30/2007, MRI of the abdomen 05/27/2005 TECHNIQUE: Multiplanar, multisequence MR images of the abdomen were obtained before and after the intravenous administration of gadolinium-containing contrast material, using department liver protocol. Multiphase postcontrast imaging, including 20 minute delayed hepatobiliary phase imaging, was performed. Intravenous Contrast: 10ml ml of Eovist RESULT: Liver: There is loss of signal on out of phase images compared to in phase images, indicating hepatic steatosis. A 3.4 cm in the finding area of fat sparing in the central right hepatic lobe and caudate demonstrates increased T1 signal and mild enhancement and persistent delay standard delayed phases, corresponding to the area where the 6.0 cm lobulated lesion was noted on the MRI of 2005, what had represented focal nodular hyperplasia on transjugular biopsy on 2004. A 1.0 cm fat sparing lesion in the right hepatic dome demonstrates arterial hyperenhancement and persistence on delayed phases representing likely focal nodular hyperplasia, less likely inflammatory adenoma given the history of prior inflammation. A 1.3 cm lesion in the left hepatic dome and odontoid focus in the segment 3 demonstrates similar characteristics, also likely a small lesion in Biliary: There is no intrahepatic biliary dilatation. The common bile duct is normal in course and caliber. No filling defects are identified within the common bile duct. Cholecystectomy. Pancreas: No pancreatic ductal dilation. Spleen: There is top normal size of the spleen. There is no focal splenic lesions. Adrenals: No mass. Kidneys: No significant mass. No hydronephrosis. A 0.8 cm simple cyst is present in the superior right renal pole. Vasculature: - Abdominal aorta: Patent - Celiac and SMA: Patent - Portal venous system (SMV, splenic vein, portal vein and branches): Patent. - Hepatic veins: Patent. Visualized portions of the GI tract: No dilation or wall thickening. Diverticulosis without evidence of acute inflammation. Mesentery/ peritoneum:No mass or ascites. Lymphadenopathy: Absent. Musculoskeletal/soft tissues: No significant finding. Lung bases: Unremarkable. Axle And Frame Mechanic (topogram) images: No additional findings. IMPRESSION: 1. Hepatic steatosis. 2. 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 3. Other smaller lesions also with characteristics of FNH are present bilaterally, new since 2004. Senior Solutions Engineer: FRANCESCA Transcribe Date/Time: May 23 2021 2:13P Dictated by : FAITH MOSES MD This examination was interpreted and the report reviewed and electronically signed by: FAITH MOSES MD on May 23 2021 2:30PM EST [id number] N Normal [facility] XR CHEST 2V FRONTAL/LATon XR CHEST 2V FRONTAL/LAT * * *Final Repor t* * * DATE OF EXAM: Apr 14 2021 2:19PM [id number] [id number] - XR CHEST 2V FRONTAL/LAT / PROCEDURE REASON: SOB (shortness of breath) * * * * Physician Interpretation * * * * EXAMINATION: CHEST RADIOGRAPH (2 VIEW FRONTAL and LATERAL) CLINICAL HISTORY: SOB (shortness of breath) MQ: XC2_6 EXAM DATE/TIME: 04/14/2021 2:19 PM COMPARISON: No relevant prior studies available. RESULT: Lines, tubes, and devices: None. Lungs and pleura: No consolidation. No lung mass. No pleural effusion. No pneumothorax. Cardiomediastinal silhouette: Normal cardiomediastinal silhouette. Bones and soft tissues: Unremarkable. IMPRESSION: No acute radiographic abnormality. Senior Solutions Engineer: PSCB Transcribe Date/Time: Apr 14 2021 2:28P Dictated by : WILLY OSEI MD This examination was interpreted and the report reviewed and electronically signed by: WILLY OSEI MD on Apr 14 2021 2:28PM EST [id number] N Normal [facility] Basic Metabolic Panelon 02-22 Anion gap [Moles/Vol] 4 mmol/L Normal 3-13 [facility] Comment on above: Performed By: #### B MP3, DDI2, LFT3, TROPN, HEMDF, LIPA4 #### [facility] [address] [place] [address] Calcium [Mass/Vol] 9.7 mg/dL Normal 8.4-10.4 [facility] Comment on above: Performed By: #### B MP3, DDI2, LFT3, TROPN, HEMDF, LIPA4 #### [facility] [address] [place] [address] CO2 [Moles/Vol] 24 mmol/L Normal 22-30 [facility] Comment on above: Performed By: #### B MP3, DDI2, LFT3, TROPN, HEMDF, LIPA4 #### [facility] [address] [place] [address] Creatinine [Mass/Vol] 0.75 mg/dL Normal 0.52-1.25 [facility] Comment on above: Performed By: #### B MP3, DDI2, LFT3, TROPN, HEMDF, LIPA4 #### [facility] [address] [place] [address] eGFR OTHER > 90.0 Normal >60 [facility] Comment on above: Result Comment: KDIG O guidelines provide the following GFR categories: Stage GFR(ml/min/1.73 m2) Terms G1 >=90 Normal or high G2 60-89 Mildly decreased* G3a 45-59 Mildly to moderately decreased G3b 30-44 Moderately to severely decreased G4 15-29 Severely decreased G5 <15 Kidney failure *Relative to young adult level. In the absence of evidence of kidney damage, neither GFR category G1 nor G2 fulfill the criteria for CKD. The CKD-EPI equation is validated in individuals 18 years of age and older. Currently the best equation for estimating glomerular filtration rate (GFR) from serum creatinine in children is the Bedside Rizo equation. It is less accurate in patients with extremes of muscle mass, restriction of dietary protein, ingestion of creatine, extra-renal metabolism of creatinine, or treatment with medications that affect renal tubular creatinine secretion. Performed By: #### B MP3, DDI2, LFT3, TROPN, HEMDF, LIPA4 #### [facility] [address] [place] [address] GFR/1.73 sq M.predicted among blacks MDRD (S/P/Bld) [Vol rate/Area] mL/min/{1.73_m2} Normal >60 [facility] Comment on above: Performed By: #### B MP3, DDI2, LFT3, TROPN, HEMDF, LIPA4 #### [facility] [address] [place] [address] Glucose [Mass/Vol] 227 mg/dL High 70-100 [facility] Comment on above: Performed By: #### B MP3, DDI2, LFT3, TROPN, HEMDF, LIPA4 #### [facility] [address] [place] [address] Urea nitrogen [Mass/Vol] 8 mg/dL Low 9-20 [facility] Comment on above: Performed By: #### B MP3, DDI2, LFT3, TROPN, HEMDF, LIPA4 #### [facility] [address] [place] [address] Potassium [Moles/Vol] 4.0 mmol/L Normal 3.5-5.1 [facility] Comment on above: Performed By: #### B MP3, DDI2, LFT3, TROPN, HEMDF, LIPA4 #### [facility] [address] [place] [address] Sodium [Moles/Vol] 138 mmol/L Normal 135-145 [facility] Comment on above: Performed By: #### B MP3, DDI2, LFT3, TROPN, HEMDF, LIPA4 #### [facility] [address] [place] [address] Chloride [Moles/Vol] 110 mmol/L High 98-107 [facility] Comment on above: Performed By: #### B MP3, DDI2, LFT3, TROPN, HEMDF, LIPA4 #### [facility] [address] [place] [address] CR Chest Portableon 03-04-19 22 CR Chest Portable Patient Name: CONSTANCE GAGE Diagnostic Radiology ACCESSION EXAM DATE/TIME PROCEDURE ORDERING PROVIDER [id number] 03/04/2021 11:59 EST CR Chest Portable GARRY HENRY MD, DONALD L CPT code 21123 Reason For Exam (CR Chest Portable) Patient complains of chest pain evaluate for CHF Report PORTABLE CHEST (Frontal View) History: Chest pain, dyspnea, concern for CHF Comparison: None available Findings: Frontal portable chest view shows no lung infiltrate or congestion. The heart is normal in size. There is no mediastinal widening, appreciable pneumothorax or pleural effusion. IMPRESSION: No acute pulmonary process. Report Dictated on Final Dictating Physician: MD SWANN AHMAD Signed Date and Time: 03/04/2021 12:09 pm Signed by: MD SWANN AHMAD Transcribed Date and Time: 03/04/2021 12:10 Normal [facility] D-Dimer, Innovanceon 022 D-Dimer, Innovance 0.37 mg/L Normal <0.19-0.50 [facility] Comment on above: Result Comment: Inno lin D-Dimer values of <0.50 mg/L FEU can be used in combination with a pre-test probability model (e.g. Well's) to exclude pulmonary embolism (PE) disease, as well as an aid in the diagnosis of deep vein thrombosis (DVT). Performed By: #### B MP3, DDI2, LFT3, TROPN, HEMDF, LIPA4 #### [facility] [address] [place] [address] Hemogram w/ Autodiffon 03-04 Abs Baso Cnt 0.2 10*3/uL Normal 0.0-0.2 [facility] Comment on above: Performed By: #### B MP3, DDI2, LFT3, TROPN, HEMDF, LIPA4 #### [facility] [address] [place] [address] Abs Neutrophile Cnt 8.6 10*3/uL High 1.8-7.0 [facility] Comment on above: Performed By: #### B MP3, DDI2, LFT3, TROPN, HEMDF, LIPA4 #### [facility] [address] [place] [address] Basophils/100 WBC (Bld) 1.3 % Normal 0.0-2.0 [facility] Comment on above: Performed By: #### B MP3, DDI2, LFT3, TROPN, HEMDF, LIPA4 #### [facility] [address] [place] [address] Eosinophils (Bld) [#/Vol] 0.4 10*3/uL Normal 0.0-0.5 [facility] Comment on above: Performed By: #### B MP3, DDI2, LFT3, TROPN, HEMDF, LIPA4 #### [facility] [address] [place] [address] Eosinophils/100 WBC (Bld) 2.9 % Normal 1.0-6.0 [facility] Comment on above: Performed By: #### B MP3, DDI2, LFT3, TROPN, HEMDF, LIPA4 #### [facility] [address] [place] [address] Erythrocyte distribution width (RBC) [Ratio] 14.3 % Normal 11.5-14.5 [facility] Comment on above: Performed By: #### B MP3, DDI2, LFT3, TROPN, HEMDF, LIPA4 #### [facility] [address] [place] [address] Granulocytes/100 WBC (Bld) 69.3 % Normal 40.0-80.0 [facility] Comment on above: Performed By: #### B MP3, DDI2, LFT3, TROPN, HEMDF, LIPA4 #### [facility] [address] [place] [address] Hematocrit (Bld) [Volume fraction] 42.0 % Normal 35.0-47.0 [facility] Comment on above: Performed By: #### B MP3, DDI2, LFT3, TROPN, HEMDF, LIPA4 #### [facility] [address] [place] [address] Hemoglobin (Bld) [Mass/Vol] 14.1 g/dL Normal 11.7-16.0 [facility] Comment on above: Performed By: #### B MP3, DDI2, LFT3, TROPN, HEMDF, LIPA4 #### [facility] [address] [place] [address] Lymphocytes (Bld) [#/Vol] 2.7 10*3/uL Normal 1.0-4.3 [facility] Comment on above: Performed By: #### B MP3, DDI2, LFT3, TROPN, HEMDF, LIPA4 #### [facility] [address] [place] [address] Lymphocytes/100 WBC (Bld) 22.0 % Normal 20.0-40.0 [facility] Comment on above: Performed By: #### B MP3, DDI2, LFT3, TROPN, HEMDF, LIPA4 #### [facility] [address] [place] [address] MCH (RBC) [Entitic mass] 30.0 pg Normal 26.0-34.0 [facility] Comment on above: Performed By: #### B MP3, DDI2, LFT3, TROPN, HEMDF, LIPA4 #### [facility] [address] [place] [address] MCHC 33.5 % Normal 32.0-36.0 [facility] Comment on above: Performed By: #### B MP3, DDI2, LFT3, TROPN, HEMDF, LIPA4 #### [facility] [address] [place] [address] MCV (RBC) [Entitic vol] 89.6 fL Normal 79.0-98.0 [facility] Comment on above: Performed By: #### B MP3, DDI2, LFT3, TROPN, HEMDF, LIPA4 #### [facility] [address] [place] [address] Monocytes (Bld) [#/Vol] 0.6 10*3/uL Normal 0.0-0.8 [facility] Comment on above: Performed By: #### B MP3, DDI2, LFT3, TROPN, HEMDF, LIPA4 #### [facility] [address] [place] [address] Monocytes/100 WBC (Bld) 4.5 % Normal 2.0-10.0 [facility] Comment on above: Performed By: #### B MP3, DDI2, LFT3, TROPN, HEMDF, LIPA4 #### [facility] [address] [place] [address] Platelet mean volume (Bld) [Entitic vol] 8.0 fL Normal 7.4-10.4 [facility] Comment on above: Performed By: #### B MP3, DDI2, LFT3, TROPN, HEMDF, LIPA4 #### [facility] [address] [place] [address] Platelets (Bld) [#/Vol] 352 10*3/uL Normal 140-440 [facility] Comment on above: Performed By: #### B MP3, DDI2, LFT3, TROPN, HEMDF, LIPA4 #### [facility] [address] [place] [address] RBC (Bld) [#/Vol] 4.70 10*6/uL Normal 3.80-5.20 [facility] Comment on above: Performed By: #### B MP3, DDI2, LFT3, TROPN, HEMDF, LIPA4 #### [facility] [address] [place] [address] WBC (Bld) [#/Vol] 12.4 10*3/uL High 3.6-10.7 [facility] Comment on above: Performed By: #### B MP3, DDI2, LFT3, TROPN, HEMDF, LIPA4 #### [facility] [address] [place] [address] Hepatic Functionon 2 ALP [Catalytic activity/Vol] 120 U/L Normal 38-126 [facility] Comment on above: Performed By: #### B MP3, DDI2, LFT3, TROPN, HEMDF, LIPA4 #### [facility] [address] [place] [address] ALT [Catalytic activity/Vol] 50 U/L High 0-34 [facility] Comment on above: Result Comment: The ALT test is performed by an updated assay method. Please note that the reference intervals have been changed and are now sex specific. Performed By: #### B MP3, DDI2, LFT3, TROPN, HEMDF, LIPA4 #### [facility] [address] [place] [address] AST [Catalytic activity/Vol] 96 U/L High 15-46 [facility] Comment on above: Performed By: #### B MP3, DDI2, LFT3, TROPN, HEMDF, LIPA4 #### [facility] [address] [place] [address] Bilirubin [Mass/Vol] 0.5 mg/dL Normal 0.2-1.3 [facility] Comment on above: Performed By: #### B MP3, DDI2, LFT3, TROPN, HEMDF, LIPA4 #### [facility] [address] [place] [address] Bilirubin.indirect [Mass/Vol] 0.0 mg/dL Normal 0.0-0.3 [facility] Comment on above: Performed By: #### B MP3, DDI2, LFT3, TROPN, HEMDF, LIPA4 #### [facility] [address] [place] [address] Protein [Mass/Vol] 7.1 g/dL Normal 6.3-8.2 [facility] Comment on above: Performed By: #### B MP3, DDI2, LFT3, TROPN, HEMDF, LIPA4 #### [facility] [address] [place] [address] Albumin [Mass/Vol] 3.8 g/dL Normal 3.5-5.0 [facility] Comment on above: Performed By: #### B MP3, DDI2, LFT3, TROPN, HEMDF, LIPA4 #### [facility] [address] [place] [address] Lipaseon 03-04-2021 Lipase [Catalytic activity/Vol] 79 U/L Normal 23-300 [facility] Comment on above: Performed By: #### B MP3, DDI2, LFT3, TROPN, HEMDF, LIPA4 #### [facility] [address] [place] [address] SARS-CoV-2, Flu A/B and RSVo n 03-04-2021 SARS-CoV-2 (COVID-19) RNA COLBY+probe Ql (Unsp spec) SARS-CoV-2 --> Status: F Not Detected. Flu A PCR --> Status: F Not Detected. Flu B PCR --> Status: F Not Detected. RSV PCR --> Status: F Not Detected. Expected Result: Not Detected _ Method: Real-time, RT-PCR This assay was developed by [employer] and distributed under an Emergency Use Authorization (EUA) granted by the FDA for the qualitative detection of nucleic acids from SARS-CoV-2, Influenza A, Influenza B, and Respiratory Syncytial Virus. Provider and patient fact sheets can be found at https://www.[facility].gov/ edia/854691/download and https://www.[facility].gov/ edia/702075/download. Expected Result: Not Detected _ Method: Real-time, RT-PCR This assay was developed by [employer] and distributed under an Emergency Use Authorization (EUA) granted by the FDA for the qualitative detection of nucleic acids from SARS-CoV-2, Influenza A, Influenza B, and Respiratory Syncytial Virus. Provider and patient fact sheets can be found at https://www.[facility].gov/ edia/725443/download and https://www.[facility].gov/ edia/711316/download. Normal [facility] Comment on above: Performed By: #### C VFLR #### [facility] [address] [place] [address] , [address] Troponin Ion 03-04-2021 Troponin I.cardiac [Mass/Vol] ng/mL Normal 0.000-0.034 [facility] Comment on above: Result Comment: . Performed By: #### T ROPN #### [facility] [address] [place] [address] Troponin I.cardiac [Mass/Vol] ng/mL Normal 0.000-0.034 [facility] Comment on above: Result Comment: . Performed By: #### B MP3, DDI2, LFT3, TROPN, HEMDF, LIPA4 #### [facility] [address] [place] [place] [address] CR Elbow 3+ Views Righton CR Elbow 3+ Views Right Patient Name: CONSTANCE GAGE Diagnostic Radiology Exam Date/Time 11/17/2019 12:56:38 EDT Exam CR Elbow 3+ Views Right Ordering Physician [id number] BARRETT Accession Number [id number] CPT4 Codes 45331 () Reason For Exam possible right radial neck fracture, plaese eval Report CLINICAL INFORMATION: Right elbow pain following trauma. Right elbow: AP, oblique and lateral views demonstrate mild deformity of the lateral aspect of the radial head-neck junction suspicious for a nondisplaced mildly impacted acute fracture. There is no evidence of of other acute fracture or dislocation. No elbow joint effusion or displaced fat pad is identified. IMPRESSION: 1. Mild deformity of the lateral aspect of the radial head-neck junction suspicious for a nondisplaced mildly impacted acute fracture. Correlate with clinical parameters. 2. No evidence of other acute bone trauma. Report Dictated on Final Dictated: 11/17/2019 1:01 pm Dictating Physician: MD SWENSON HARLAN Signed Date and Time: 11/17/2019 1:03 pm Signed by: MD SWENSON HARLAN Transcribed Date and Time: 11/17/2019 1:01 Normal [facility] CR Forearm 2 Views Righton 0 11-17-2019 CR Forearm 2 Views Right Patient Name: CONSTANCE GAGE Diagnostic Radiology Exam Date/Time 11/17/2019 12:28:59 EDT Exam CR Forearm 2 Views Right Ordering Physician [id number] BARRETT Accession Number [id number] CPT4 Codes 75490 () Reason For Exam FOOSH Report Right forearm: 11/17/2019. Clinical Information: Pain. Findings: 2 views of the right forearm from the wrist to the elbow reveal the bones to be well mineralized. There is a suggestion of a slightly impacted fracture of the radial neck. A dedicated view of the right elbow is recommended for further evaluation. No other bony abnormalities identified. Report Dictated on Final Dictated: 11/17/2019 12:17 pm Dictating Physician: MD ARANA RISA Signed Date and Time: 11/17/2019 12:18 pm Signed by: MD ARANA RISA Transcribed Date and Time: 11/17/2019 12:17 Normal [facility] CR Wrist Complete 3 Views Sophie [place] 11-17-2019 CR Wrist Complete 3 Views Right Patient Name: CONSTANCE GAGE Diagnostic Radiology Exam Date/Time 11/17/2019 12:28:59 EDT Exam CR Wrist Complete 3 Views Right Ordering Physician [id number] TRU IRIZARRY Accession Number [id number] CPT4 Codes 92616 () Reason For Exam Foosh Report Right wrist: 11/17/2019. Clinical Information: Pain after fall. Findings: Three views of the right wrist reveal the bones to be well mineralized. There is no evidence of fracture or dislocation. The joint spaces are maintained. Impression: No acute process. Report Dictated on Final Dictated: 11/17/2019 12:15 pm Dictating Physician: MD YASMEEN, LAUREN Signed Date and Time: 11/17/2019 12:15 pm Signed by: MD ARANA RISA Transcribed Date and Time: 11/17/2019 12:15 Normal [facility] ED Provider Noteon 0 [facility] Patient: Constance Gage : 1975 Date of Evaluation: 11/17/2019 ED RICARDO Provider: THANIA Burton Chief Complaint Chief Complaint Patient presents with ? Arm Injury fell in yard on Wednesday onto extended right arm and still ahvign pain in forearm. Took Aleve yesterday without relief. YOMBA SHOSHONE I was wearing an N95 mask for the entirety of this encounter. Constance Gage is a 44 y.o. female whopresents to the emergency department with right forearm pain after fall. Patient reports she was playing with her dog in her backyard on Wednesday she tripped in a hole and fell forward catching herself on an outstretched right arm. Since that time she has had mid shaft forearm pain. Otherwise denies wrist pain, elbow pain numbness or tingling, difficulty gripping things are moving her fingers. She has had no injuries to that particular arm previously denies swelling or skin break. ROS: At least 10 systems reviewed and otherwise acutely negative except as in the YOMBA SHOSHONE. Past History Past Medical History: Diagnosis Date ? Anxiety ? Asthma ? Luna esophagus ? Focal nodular hyperplasia of liver ? GERD (gastroesophageal reflux disease) ? Necrobiosis lipoidica diabeticorum (HCC) ? Pustular psoriasis Past Surgical History: Procedure Laterality Date ? CHOLECYSTECTOMY ? COLONOSCOPY Dr. Londono. ? LIVER BIOPSY ? SKIN GRAFT Right [place] ? UPPER GASTROINTESTINAL ENDOSCOPY Social History Socioeconomic History ? Marital status: Single Spouse name: Not on file ? Number of children: Not on file ? Years of education: Not on file ? Highest education level: Not on file Occupational History ? 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 Social Needs ? Financial resource strain: Not hard at all ? Food insecurity Worry: Never true Inability: Never true ? Transportation needs Medical: No Non-medical: No Tobacco Use ? Smoking status: Former Smoker ? Smokeless tobacco: Never Used Substance and Sexual Activity ? Alcohol use: Never Frequency: Never ? Drug use: Not on file ? Sexual activity: Not on file Lifestyle ? Physical activity Days per week: 0 days Minutes per session: 0 min ? Stress: Not at all Relationships ? Social connections Talks on phone: Not on file Gets together: Not on file Attends pentecostalism service: Not on file Active member of club or organization: Not on file Attends meetings of clubs or organizations: Not on file Relationship status: Never ? Intimate partner violence Fear of current or ex partner: Not on file Emotionally abused: Not on file Physically abused: Not on file Forced sexual activity: Not on file Other Topics Concern ? Not on file Social History Narrative ? Not on file Medications/Allergies Discharge Medication List as of 11/17/2019 2:08 PM CONTINUE these medications which have NOT CHANGED Details venlafaxine (EFFEXOR) 37.5 MG tablet TAKE 1/4 TABLET BY MOUTH DAILY FOR 4 DAYS THEN 1/2 TABLET DAILY AFTER SUPPERHistorical Med QUEtiapine (SEROQUEL) 25 MG tablet take 1/2 tablet by mouth once daily at bedtimeHistorical Med fluticasone (FLOVENT HFA) 110 MCG/ACT inhaler Inhale 1 puff into the lungs 2 times daily, Disp-1 Inhaler,R-3Normal albuterol sulfate HFA (VENTOLIN HFA) 108 (90 Base) MCG/ACT inhaler Inhale 2 puffs into the lungs 4 times daily as needed for Wheezing, Disp-3 Inhaler,R-1Normal vitamin D (ERGOCALCIFEROL) 1.25 MG (78971 UT) CAPS capsule Take 1 capsule by mouth once a week, Disp-8 capsule, R-0Normal omeprazole (PRILOSEC) 40 MG delayed release capsule TAKE ONE CAPSULE BY MOUTH ONCE A DAY DIRECTED, R-2Historical Med LORazepam (ATIVAN) 0.5 MG tablet Take 0.5 mg by mouth every 6 hours as needed for Anxiety.Historical Med No Known Allergies Physical Exam ED Triage Vitals [11/17/19 1029] BP Temp Temp Source Pulse Resp SpO2 Height Weight (!) 143/98 97.4 ?F (36.3 ?C) Oral 86 18 98 % 5' 1 (1.549 m) 241 lb (109.3 kg) GENERAL APPEARANCE: Awake and alert. Cooperative. No acute distress. HEAD: Normocephalic. Atraumatic. EYES: EOM's grossly intact. Sclera anicteric. No nystagmus ENT: Mucous membranes are moist. Tolerates saliva. No trismus. Nose without rhinorrhea. NECK: Supple. Trachea midline. No lymphadenopathy. HEART: RRR. No gallops or murmurs noted. LUNGS: Respirations unlabored. CTAB, no rhonchi, rales or wheezing with inspiration or expiration. ABDOMEN: Soft. Non-tender. No guarding or rebound. BS present in all 4 quadrants. EXTREMITIES: Moving all extremities x 4. The right arm is normal in appearance and symmetric compared to the left. There is focal tenderness just proximal to the distal radial ulnar joint. There is no wrist pain and she has full range of motion with ulnar deviation, radial deviation, flexion and extension. The elbow is normal in appearance without bony tenderness. She has full range of motion with supination, pronation, flexion and extension. Humerus is without focal tenderness and she has full range of motion at the right shoulder. She is neurovascularly intact in the median, radial and ulnar distributions. Radial and ulnar pulses are 2+ bilaterally. No overlying skin break. SKIN: Warm and dry. No rashes or abnormal bruising. NEUROLOGICAL: No gross facial drooping. No obvious focal deficits. PSYCHIATRIC: Normal mood. SCREENINGS D Labs: No results found for this visit on 11/17/19. Radiographs: Xr Elbow Right (min 3 Views) Result Date: 11/17/2019 Patient Name: CONSTANCE GAGE ---Diagnostic Radiology--- Exam Date/Time 11/17/2019 12:56:38 EDT Exam CR Elbow 3+ Views Right Ordering Physician [id number] CIFUENTES Accession Number [id number] CPT4 Codes 13054 () Reason For Exam possible right radial neck fracture, plaese eval Report CLINICAL INFORMATION: Right elbow pain following trauma. Right elbow: AP, oblique and lateral views demonstrate mild deformity of the lateral aspect of the radial head-neck junction suspicious for a nondisplaced mildly impacted acute fracture.There is no evidence of of other acute fracture or dislocation. No elbow joint effusion or displaced fat pad is identified. IMPRESSION: 1. Mild deformity of the lateral aspect of the radial head-neck junction suspicious for a nondisplaced mildly impacted acute fracture. Correlate with clinical parameters. 2. No evidence of other acute bone trauma. Report Dictated on --- Final --- Dictated: 11/17/2019 1:01 pm Dictating Physician: MD SWENSON HARLAN Signed Date and Time: 11/17/2019 1:03 pm Signed by: MD SWENSON HARLAN Transcribed Date and Time: 11/17/2019 1:01 Xr Radius Ulna Right (2 Views) Result Date: 11/17/2019 Patient Name: CONSTANCE GAGE ---Diagnostic Radiology--- Exam Date/Time 11/17/2019 12:28:59 EDT Exam CR Forearm 2 Views Right Ordering Physician [id number] BARRETT Accession Number [id number] CPT4 Codes 42784 () Reason For Exam FOOSH Report Right forearm: 11/17/2019. Clinical Information: Pain. Findings: 2 views of the right forearm from the wrist to the elbow reveal the bones to be well mineralized. There is a suggestion of a slightly impacted fracture of the radial neck. A dedicated view of the right elbow is recommended for further evaluation. No other bony abnormalities identified. Report Dictated on --- Final --- Dictated: 11/17/2019 12:17 pm Dictating Physician: MD ARANA RISA Signed Date and Time: 11/17/2019 12:18 pm Signed by: MD ARANA RISA Transcribed Date and Time: 11/17/2019 12:17 Xr Wrist Right 3 Vw Result Date: 11/17/2019 Patient Name: CONSTANCE GAGE ---Diagnostic Radiology--- Exam Date/Time 11/17/2019 12:28:59 EDT Exam CR Wrist Complete 3 Views Right Ordering Physician [id number] TRU IRIZARRY Accession Number [id number] CPT4 Codes 28995 () Reason For Exam Foosh Report Right wrist: 11/17/2019. Clinical Information: Pain after fall. Findings: Three views of the right wrist reveal the bones to be well mineralized. There is no evidence of fracture or dislocation. The joint spaces are maintained. Impression: No acute process. Report Dictated on --- Final --- Dictated: 11/17/2019 12:15 pm Dictating Physician: MD ARANA RISA Signed Date and Time: 11/17/2019 12:15 pm Signed by: MD ARANA RISA Transcribed Date and Time: 11/17/2019 12:15 ED Course and MDM In brief, Constance Gage zion 44 y.o. female who presented to the emergency department with right forearm pain after a fall on an outstretched hand. On initial evaluation the patient was hemodynamically stable, in no acute distress, and saturating appropriately on room air. On physical exam she had focal tenderness to the mid shaft radius but no obvious deformity, swelling or skin break. Otherwise her shoulder, elbow and wrist were nontender to palpation with full range of motion. Plain films of the elbow, forearm and wrist were obtained and remarkable for mild deformity of the lateral aspect of the radial head-neck junction suspicious for a nondisplaced mildly impacted acute fracture. Correlate with clinical parameters. Afterwards seeing these findings I went and reevaluated the patient again had no focal tenderness over the radial head or lateral elbow. There is no swelling or ecchymoses. She re-demonstrated full flexion, extension, supination and pronation without mechanical symptoms including clicking, popping or locking. She remained NVI. Given the mild radiographic findings and lack of clinical findings on physical exam, I do not feel strongly that the patient needs immobilized at this time. The injury was 48 hours ago which is when I would have offered a sling for comfort however given that she is now 48 hours out from injury without significant pain to the area range of motion as tolerated will be the outpatient plan. The patient does follow closely with her primary care physician and I recommended reevaluation by them next week. She should return sooner if she develops acute elbow pain, numbness or tingling down the arm, decreased motor function or any other concerns arise. The patient denied the need for pain medication while in the emergency department. Recommended Tylenol and ibuprofen, rest, ice. All questions were answered and she was discharged home in stable condition. ED Medication Orders (From admission, onward) None Final Impression 1. Right forearm pain 2. Closed nondisplaced fracture of head of right radius, initial encounter DISPOSITION Decision To Discharge 11/17/2019 02:07:58 PM (Please note that portions of this note may have been completed with a voice recognition program. Efforts were made to edit the dictations but occasionally words aremis-transcribed.) THANIA Burton [facility]; THANIA Burton 11/17/19 1950 [facility] XR ELBOW RIGHT (MIN 3 VIEWS) on 11-17-2019 Patient Name: CONSTANCE GAGE ---Diagnostic Radiology--- Exam Date/Time 11/17/2019 12:56:38 EDT Exam CR Elbow 3+ Views Right Ordering Physician [id number] TRU IRIZARRY Accession Number [id number] CPT4 Codes 38970 () Reason For Exam possible right radial neck fracture, plaese eval Report CLINICAL INFORMATION: Right elbow pain following trauma. Right elbow: AP, oblique and lateral views demonstrate mild deformity of the lateral aspect of the radial head-neck junction suspicious for a nondisplaced mildly impacted acute fracture. There is no evidence of of other acute fracture or dislocation. No elbow joint effusion or displaced fat pad is identified. IMPRESSION: 1. Mild deformity of the lateral aspect of the radial head-neck junction suspicious for a nondisplaced mildly impacted acute fracture. Correlate with clinical parameters. 2. No evidence of other acute bone trauma. Report Dictated on --- Final --- Dictated: 11/17/2019 1:01 pm Dictating Physician: MD SWENSON HARLAN Signed Date and Time: 11/17/2019 1:03 pm Signed by: MD SWENSON HARLAN Transcribed Date and Time: 11/17/2019 1:01 [place], [place] [facility] Incoming Radiology Results From [facility] - 11/17/2019 1:05 PM EDT Patient Name: CONSTANCE GAGE ---Diagnostic Radiology--- Exam Date/Time 11/17/2019 12:56:38 EDT Exam CR Elbow 3+ Views Right Ordering Physician TRU ESCAMILLA Accession Number [id number] CPT4 Codes 25981 () Reason For Exam possible right radial neck fracture, plaese eval Report CLINICAL INFORMATION: Right elbow pain following trauma. Right elbow: AP, oblique and lateral views demonstrate mild deformity of the lateral aspect of the radial head-neck junction suspicious for a nondisplaced mildly impacted acute fracture. There is no evidence of of other acute fracture or dislocation. No elbow joint effusion or displaced fat pad is identified. IMPRESSION: 1. Mild deformity of the lateral aspect of the radial head-neck junction suspicious for a nondisplaced mildly impacted acute fracture. Correlate with clinical parameters. 2. No evidence of other acute bone trauma. Report Dictated on --- Final --- Dictated: 11/17/2019 1:01 pm Dictating Physician: MD SWENSON HARLAN Signed Date and Time: 11/17/2019 1:03 pm Signed by: MD SWENSON HARLAN Transcribed Date and Time: 11/17/2019 1:01 [place] XR RADIUS ULNA RIGHT (2 VIEW S)on 11-17-2019 Patient Name: CONSTANCE GAGE ---Diagnostic Radiology--- Exam Date/Time 11/17/2019 12:28:59 EDT Exam CR Forearm 2 Views Right Ordering Physician TRU ESCAMILLA Accession Number [id number] CPT4 Codes 98307 () Reason For Exam FOOSH Report Right forearm: 11/17/2019. Clinical Information: Pain. Findings: 2 views of the right forearm from the wrist to the elbow reveal the bones to be well mineralized. There is a suggestion of a slightly impacted fracture of the radial neck. A dedicated view of the right elbow is recommended for further evaluation. No other bony abnormalities identified. Report Dictated on --- Final --- Dictated: 11/17/2019 12:17 pm Dictating Physician: MD ARANA RISA Signed Date and Time: 11/17/2019 12:18 pm Signed by: MD ARANA RISA Transcribed Date and Time: 11/17/2019 12:17 [facility], [place] [facility] Incoming Radiology Results From [facility] - 11/17/2019 12:29 PM EDT Patient Name: CONSTANCE GAGE ---Diagnostic Radiology--- Exam Date/Time 11/17/2019 12:28:59 EDT Exam CR Forearm 2 Views Right Ordering Physician TRU ESCAMILLA Accession Number [id number] CPT4 Codes 61998 () Reason For Exam FOOSH Report Right forearm: 11/17/2019. Clinical Information: Pain. Findings: 2 views of the right forearm from the wrist to the elbow reveal the bones to be well mineralized. There is a suggestion of a slightly impacted fracture of the radial neck. A dedicated view of the right elbow is recommended for further evaluation. No other bony abnormalities identified. Report Dictated on --- Final --- Dictated: 11/17/2019 12:17 pm Dictating Physician: MD ARANA RISA Signed Date and Time: 11/17/2019 12:18 pm Signed by: MD ARANA RISA Transcribed Date and Time: 11/17/2019 12:17 [facility], [place] XR WRIST RIGHT 3 VWon 2019 Patient Name: CONSTANCE GAGE ---Diagnostic Radiology--- Exam Date/Time 11/17/2019 12:28:59 EDT Exam CR Wrist Complete 3 Views Right Ordering Physician TRU ESCAMILLA Accession Number [id number] CPT4 Codes 39392 () Reason For Exam Foosh Report Right wrist: 11/17/2019. Clinical Information: Pain after fall. Findings: Three views of the right wrist reveal the bones to be well mineralized. There is no evidence of fracture or dislocation. The joint spaces are maintained. Impression: No acute process. Report Dictated on --- Final --- Dictated: 11/17/2019 12:15 pm Dictating Physician: MD ARANA RISA Signed Date and Time: 11/17/2019 12:15 pm Signed by: MD ARANA RISA Transcribed Date and Time: 11/17/2019 12:15 [place], [place] [facility] Incoming Radiology Results From [facility] - 11/17/2019 12:29 PM EDT Patient Name: CONSTANCE GAGE ---Diagnostic Radiology--- Exam Date/Time 11/17/2019 12:28:59 EDT Exam CR Wrist Complete 3 Views Right Ordering Physician [id number] BARRETT Accession Number [id number] CPT4 Codes 15918 () Reason For Exam Foosh Report Right wrist: 11/17/2019. Clinical Information: Pain after fall. Findings: Three views of the right wrist reveal the bones to be well mineralized. There is no evidence of fracture or dislocation. The joint spaces are maintained. Impression: No acute process. Report Dictated on --- Final --- Dictated: 11/17/2019 12:15 pm Dictating Physician: MD ARANA RISA Signed Date and Time: 11/17/2019 12:15 pm Signed by: MD ARANA RISA Transcribed Date and Time: 11/17/2019 12:15 [place], [place] CULTURE URINEon 06-13-2019 CULTURE URINE CULTURE URINE --> Status: F Normal urogenital samuel present. Normal [facility] Comment on above: Performed By: #### C /UR #### [facility] [address] [place] [address] Vit D 25-OH, Totalon 020 Vit D 25-OH, Total 14 ng/mL Low 30-100 [facility] Comment on above: Result Comment: Ther apy is based on measurement of Total 25-OHD with the following classification levels: Less than 20 ng/mL: Indicative of Vit D deficiency 20-30 ng/mL: Suggests Vit D insufficiency Optimal: Greater than or equal to 30 ng/mL Test performed by [employer], measuring Total Vitamin D, not individual fractions. Performed By: #### V D25H ####[facility] [place] [address]#### TSH5, HA1C2, HEMOG, LIPD2, CMP3 ####[facility] [place] [address] CBCon 06-12-2019 Erythrocyte distribution width (RBC) [Ratio] 14.2 % 11.5 - 14.5 % [place], [place] Comment on above: Test Performed by [facility], [place] [address] Hematocrit (Bld) [Volume fraction] 45.2 % 35 - 47 % [place], [place] Comment on above: Test Performed by [facility], [place] [address] Hemoglobin (Bld) [Mass/Vol] 15.1 g/dL 11.7 - 16 g/dL [place], [place] Comment on above: Test Performed by [facility], [address] [place] [address] Interpretation and review of laboratory results Abnormal [place], [place] MCH (RBC) [Entitic mass] 30.1 pg 26 - 34 pg [place], [place] Comment on above: Test Performed by [facility], [address] [place] [address] MCHC (RBC) [Mass/Vol] 33.4 % 32 - 36 % [place], [place] Comment on above: Test Performed by [facility], [address] [place] [address] MCV (RBC) [Entitic vol] 90.1 fL 79 - 98 fL M [place], [place] Comment on above: Test Performed by [facility], [address] [place] [address] Platelet mean volume (Bld) [Entitic vol] 9.0 fL 7.4 - 10.4 fL [place], [place] Comment on above: Test Performed by [facility], [address] [place] [address] Platelets (Bld) [#/Vol] 426 10*3/uL 140 - 440 10*3/uL [place], [place] Comment on above: Test Performed by [facility], [address] [place] [address] RBC (Bld) [#/Vol] 5.02 10*6/uL 3.8 - 5.2 10*6/uL [place], [place] Comment on above: Test Performed by [facility], [address] [place] [address] WBC (Bld) [#/Vol] 14.1 10*3/uL High 3.6 - 10.7 10*3/uL [place], [place] Test Performed by [facility], [place] [address] [place], [place] Comp Metabolic Panelon 06-11 ALP [Catalytic activity/Vol] 127 U/L High 38-126 [facility] Comment on above: Performed By: #### V D25H #### [employer] [address] [place] [address] #### TSH5, HA1C2, HEMOG, LIPD2, CMP3 #### [employer] [address] [place], [place] ALT [Catalytic activity/Vol] 23 U/L Normal 0-34 [facility] Comment on above: Result Comment: The ALT test is performed by an updated assay method. Please note that the reference intervals have been changed and are now sex specific. Performed By: #### V D25H #### [employer] [address] [place] [address] #### TSH5, HA1C2, HEMOG, LIPD2, CMP3 #### [employer] [address] [place] [address] AST [Catalytic activity/Vol] 30 U/L Normal 15-46 [facility] Comment on above: Performed By: #### V D25H #### [employer] [address] [place] [address] #### TSH5, HA1C2, HEMOG, LIPD2, CMP3 #### [facility] [address] [place], [place] Bilirubin [Mass/Vol] 0.5 mg/dL Normal 0.2-1.3 [facility] Comment on above: Performed By: #### V D25H #### [facility] [address] [place] [address] #### TSH5, HA1C2, HEMOG, LIPD2, CMP3 #### [place] [address] [place], [place] Calcium [Mass/Vol] 9.7 mg/dL Normal 8.4-10.4 [facility] Comment on above: Performed By: #### V D25H #### [place] [address] [place] [address] #### TSH5, HA1C2, HEMOG, LIPD2, CMP3 #### [address] Glucose [Mass/Vol] 102 mg/dL High 70-100 [facility] Comment on above: Performed By: #### V D25H #### [place] [address] [place] [address] #### TSH5, HA1C2, HEMOG, LIPD2, CMP3 #### [place] [address] [place], [place] Urea nitrogen [Mass/Vol] 9 mg/dL Normal 7-20 [facility] Comment on above: Performed By: #### V D25H #### [place] [address] [place] [address] #### TSH5, HA1C2, HEMOG, LIPD2, CMP3 #### [place] [address] [place], [place] Anion gap [Moles/Vol] 11 Normal [facility] Comment on above: Performed By: #### V D25H #### [place] [address] [place] [address] #### TSH5, HA1C2, HEMOG, LIPD2, CMP3 #### [place] [address] [place], [place] CO2 [Moles/Vol] 21 mmol/L Low 22-30 [facility] Comment on above: Performed By: #### V D25H #### [place] [address] [place] [address] #### TSH5, HA1C2, HEMOG, LIPD2, CMP3 #### [address] Creatinine [Mass/Vol] 0.81 mg/dL Normal 0.52-1.25 [facility] Comment on above: Performed By: #### V D25H #### [place] [address] [place] [address] #### TSH5, HA1C2, HEMOG, LIPD2, CMP3 #### [address] GFR/1.73 sq M predicted among blacks MDRD (S/P/Bld) [Vol rate/Area] mL/min/{1.73_m2} Normal >60 [facility] Comment on above: Performed By: #### V D25H #### [address] [place] [address] #### TSH5, HA1C2, HEMOG, LIPD2, CMP3 #### [address] GFR/1.73 sq M predicted among non-blacks MDRD (S/P/Bld) [Vol rate/Area] mL/min/{1.73_m2} Normal >60 [facility] Comment on above: Result Comment: Sour ce- MDRD equation with creatinine calibration to IDMS(NKDEP) eGFR not recommended for drug dose adjustment Performed By: #### V D25H #### [address] [place] [address] #### TSH5, HA1C2, HEMOG, LIPD2, CMP3 #### [address] Protein [Mass/Vol] 7.5 g/dL Normal 6.3-8.2 [facility] Comment on above: Performed By: #### V D25H #### [place] [address] [place] [address] #### TSH5, HA1C2, HEMOG, LIPD2, CMP3 #### [address] [address] Potassium [Moles/Vol] 4.3 mmol/L Normal 3.5-5.1 [facility] Comment on above: Performed By: #### V D25H #### [facility] [address] [place] [address] #### TSH5, HA1C2, HEMOG, LIPD2, CMP3 #### [address] [address] Sodium [Moles/Vol] 138 mmol/L Normal 135-145 [facility] Comment on above: Performed By: #### V D25H #### [facility] [address] [place] [address] #### TSH5, HA1C2, HEMOG, LIPD2, CMP3 #### [address] Albumin [Mass/Vol] 4.3 g/dL Normal 3.5-5.0 [facility] Comment on above: Performed By: #### V D25H #### [facility] [address] [place] [address] #### TSH5, HA1C2, HEMOG, LIPD2, CMP3 #### [address] [address] Chloride [Moles/Vol] 105 mmol/L Normal 98-107 [facility] Comment on above: Performed By: #### V D25H #### [facility] [address] [place] [address] #### TSH5, HA1C2, HEMOG, LIPD2, CMP3 #### [address] [address] Comprehensive Metabolic Pane tanner 06-12-2019 Albumin [Mass/Vol] 4.3 g/dL 3.5 - 5 g/dL [facility], [place] Comment on above: Test Performed by [facility], [place] [address] ALP [Catalytic activity/Vol] 127 U/L High 38 - 126 U/L [place], [place] Comment on above: Test Performed by [facility], [place] [address] ALT [Catalytic activity/Vol] 23 U/L 0 - 34 U/L [place], [place] Comment on above: Test Performed by [facility], [place] [address] The ALT test is performed by an updated assay method. Please note that the reference intervals have been changed and are now sex specific. Anion gap [Moles/Vol] 11 mmol/L [place], [place] Comment on above: Test Performed by [facility], [address] [place] [address] AST [Catalytic activity/Vol] 30 U/L 15 - 46 U/L [place], [place] Comment on above: Test Performed by [facility], [address] [place] [address] Bilirubin Ql (U) 0.5 mg/dL 0.2 - 1.3 mg/dL [place], [place] Comment on above: Test Performed by [facility], [place] [address] Calcium [Mass/Vol] 9.7 mg/dL 8.4 - 10. 4 mg/dL [place], [place] Comment on above: Test Performed by [facility], [place] [address] Chloride [Moles/Vol] 105 mmol/L 98 - 10 7 mmol/L [place], [place] Comment on above: Test Performed by [facility], [place] [address] CO2 [Moles/Vol] 21 mmol/L Low 22 - 30 mmol/L [place] Comment on above: Test Performed by [facility], [place] [address] Creatinine [Mass/Vol] 0.81 mg/dL 0.52 - 1.25 mg/dL [place], [place] Comment on above: Test Performed by [facility], [place] [address] EGFR IF NonAfrican [place]alan >60.0 >60 mL/min [place], [place] Comment on above: Test Performed by [facility], [place] [address] Source- MDRD equation with creatinine calibration to IDMS(NKDEP) eGFR not recommended for drug dose adjustment GFR/1.73 sq M predicted among blacks MDRD (S/P/Bld) [Vol rate/Area] mL/min/{1.73_m2} >60 mL/min [place] Comment on above: Test Performed by [facility], [place] [address] Glucose [Mass/Vol] 102 mg/dL High 70 - 100 mg/dL [place], [place] Comment on above: Test Performed by [facility], [address] [place] [address] Potassium [Moles/Vol] 4.3 mmol/L 3.5 - 5.1 mmol/L [place], [place] Comment on above: Test Performed by [facility], [place] [address] Protein [Mass/Vol] 7.5 g/dL 6.3 - 8.2 g/dL [place], [place] Comment on above: Test Performed by [facility], [place] [address] Sodium [Moles/Vol] 138 mmol/L 135 - 145 mmol/L [place], [place] Urea nitrogen [Mass/Vol] 9 mg/dL 7 - 20 mg/d L [place], [place] Comment on above: Test Performed by [facility], [place] [address] Hemoglobin A1Con 06-12-2019 HbA1c (Bld) [Mass fraction] 140 mg/dL Normal [facility] Comment on above: Performed By: #### V D25H #### [facility] [address] [place] [address] #### TSH5, HA1C2, HEMOG, LIPD2, CMP3 #### [place] [address] [place] [address] HbA1c (Bld) [Mass fraction] 6.5 % High 4.0-5.7 [facility] Comment on above: Result Comment: --Hg bA1C levels may not be accurate in patients who have renal disease, received recent blood transfusions, are anemic, or who have dyshemoglobinemia. Performed By: #### V D25H #### [facility] [address] [place] [address] #### TSH5, HA1C2, HEMOG, LIPD2, CMP3 #### [address] [address] eAG 140 mg/dL [place], [place] Comment on above: Test Performed by [address] [address] HbA1c (Bld) [Mass fraction] 6.5 % High 4 - 5.7 % [place], [place] Comment on above: --HgbA1C levels may not be accurate in patients who have renal disease, received recent blood transfusions, are anemic, or who have dyshemoglobinemia. Interpretation and review of laboratory results Abnormal [place], [place] Test Performed by [id number] [place] [address] Hemogramon 06-12-2019 Erythrocyte distribution width (RBC) [Ratio] 14.2 % Normal 11.5-14.5 [facility] Comment on above: Performed By: #### V D25H #### [place] [address] [place] [address] #### TSH5, HA1C2, HEMOG, LIPD2, CMP3 #### [address] [address] Hematocrit (Bld) [Volume fraction] 45.2 % Normal 35.0-47.0 [facility] Comment on above: Performed By: #### V D25H #### [facility] [address] [place] [address] #### TSH5, HA1C2, HEMOG, LIPD2, CMP3 #### [address] [address] Hemoglobin (Bld) [Mass/Vol] 15.1 g/dL Normal 11.7-16.0 [facility] Comment on above: Performed By: #### V D25H #### [place] [address] [place] [address] #### TSH5, HA1C2, HEMOG, LIPD2, CMP3 #### [place] [address] [place], [place] MCH (RBC) [Entitic mass] 30.1 pg Normal 26.0-34.0 [facility] Comment on above: Performed By: #### V D25H #### [facility] [address] [place] [address] #### TSH5, HA1C2, HEMOG, LIPD2, CMP3 #### [place] [address] [place], [place] MCHC (RBC) [Mass/Vol] 33.4 % Normal 32.0-36.0 [facility] Comment on above: Performed By: #### V D25H #### [place] [address] [place] [address] #### TSH5, HA1C2, HEMOG, LIPD2, CMP3 #### [address] MCV (RBC) [Entitic vol] 90.1 fL Normal 79.0-98.0 [facility] Comment on above: Performed By: #### V D25H #### [place] [address] [place] [address] #### TSH5, HA1C2, HEMOG, LIPD2, CMP3 #### [address] Platelet mean volume (Bld) [Entitic vol] 9.0 fL Normal 7.4-10.4 [facility] Comment on above: Performed By: #### V D25H #### [place] [address] [place] [address] #### TSH5, HA1C2, HEMOG, LIPD2, CMP3 #### [address] Platelets (Bld) [#/Vol] 426 10*3/uL Normal 140-440 [facility] Comment on above: Performed By: #### V D25H #### [facility] [address] [place] [address] #### TSH5, HA1C2, HEMOG, LIPD2, CMP3 #### [place] [address] [place], [place] RBC (Bld) [#/Vol] 5.02 10*6/uL Normal 3.80-5.20 [facility] Comment on above: Performed By: #### V D25H #### [facility] [address] [place] [address] #### TSH5, HA1C2, HEMOG, LIPD2, CMP3 #### [address] WBC (Bld) [#/Vol] 14.1 10*3/uL High 3.6-10.7 [facility] Comment on above: Performed By: #### V D25H #### [place] [address] [place] [address] #### TSH5, HA1C2, HEMOG, LIPD2, CMP3 #### [address] Lipid Panelon 06-12-2019 Cholesterol in HDL [Mass/Vol] 34 mg/dL Low 40-60 [facility] Comment on above: Performed By: #### V D25H #### [place] [address] [place] [address] #### TSH5, HA1C2, HEMOG, LIPD2, CMP3 #### [address] Cholesterol.total/Choles terol in HDL [Mass ratio] 7 Normal [facility] Comment on above: Result Comment: Ref Range: < 3 Low Risk for CHD 3-6 Mod Risk for CHD > 6 High Risk for CHD Performed By: #### V D25H #### [facility] [address] [place] [address] #### TSH5, HA1C2, HEMOG, LIPD2, CMP3 #### [address] Protein [Mass/Vol] - Abnormal <100 [facility] Comment on above: Result Comment: LDL unable to calculate, Trig >400 mg/dL Suggest ordering LDL-Chol,Direct. Performed By: #### V D25H #### [facility] [address] [place] [address] #### TSH5, HA1C2, HEMOG, LIPD2, CMP3 #### [facility] [address] [place] [address] Triglyceride [Mass/Vol] 478 mg/dL Abnormal <150 [facility] Comment on above: Performed By: #### V D25H #### [facility] [address] [place] [address] #### TSH5, HA1C2, HEMOG, LIPD2, CMP3 #### [facility] [address] [place] [address] Cholesterol [Mass/Vol] 250 mg/dL Abnormal < 200 [facility] Comment on above: Performed By: #### V D25H #### [facility] [address] [place] [address] #### TSH5, HA1C2, HEMOG, LIPD2, CMP3 #### [facility] [address] [place] [address] Cholesterol [Mass/Vol] 250 mg/dL Abnormal <200 [place], [place] Cholesterol in HDL [Mass/Vol] 34 mg/dL Low 40 - 60 mg/dL [place], [place] Comment on above: Test Performed by [facility], [place] [address] Cholesterol in LDL [Mass/Vol] =- Abnormal <100 mg/dL [place], [place] Comment on above: Test Performed by [facility], [place] [address] LDL unable to calculate, Trig >400 mg/dL Suggest ordering LDL-Chol,Direct. Cholesterol.total/Choles terol in HDL [Mass ratio] 7 {ratio} [place], [place] Comment on above: Test Performed by [facility], [place] [address] Ref Range: < 3 Low Risk for CHD 3-6 Mod Risk for CHD > 6 High Risk for CHD Triglyceride [Mass/Vol] 478 mg/dL Abnormal <150 [place], [place] Comment on above: Test Performed by [facility], [address] [place] [address] Otheron 06-12-2019 Interpretation and review of laboratory results Abnormal [place], [place] Test Performed by [facility], [address] [place] [id number] [place] [address] TSH without Reflexon 020 TSH Qn 3.037 u[IU]/mL 0.465 - 4.68 u[IU]/mL [place], [place] Test Performed by [facility], [address] [place] [address] [place], [place] Thyroid Stim. Hormoneon 05-24 Thyroid Stim. Hormone 3.037 u[IU]/mL Normal 0.465-4.68 0 [facility] Comment on above: Performed By: #### V D25H #### [facility] [address] [place] [address] #### TSH5, HA1C2, HEMOG, LIPD2, CMP3 #### [facility] [address] [address] VL Lower Extremity Venous Le ftOrdered By: Annmarie Ignacio on 02-25-2019 [facility] -------- Left Lower Extremity Venous Duplex Report Ordering Physician: Annmarie Ignacio Bariatric Coordinator: Olu Sarkar Interpreting Physician: Oliver Terry MD -------- Location: [facility] -------- Indications: Pain left entire leg. Pain left calf. -------- Conclusions 1. There is no evidence of acute deep or superficial venous thrombosis noted in the left lower extremity. 2. The right common femoral vein fully compresses and demonstrates normal venous flow. -------- History: Risk factors: Former tobacco use. Obese. -------- Study data: Left lower extremity venous duplex evaluation. Grayscale 2D imaging, color Doppler imaging, and spectral Doppler analysis. Location: Vascular laboratory. Procedure: A vascular evaluation was performed with the patient in the supine position. Images were obtained using a Aprilage E9 vascular ultrasound machine. -------- Venous flow and imaging: + -----+-------+------- -------+ +Location +Overall+Properties + + -----+-------+------- -------+ +L CFV +Patent +Normal phasicity; spontaneous; + + + +normal augmentation; compressible + + -----+-------+------- -------+ +L saphenofemoral junction+Patent +Compressible + + -----+-------+------- -------+ +L profunda femoral +Patent +Normal phasicity; spontaneous; + + + +normal augmentation + + -----+-------+------- -------+ +L FV - prox. +Patent +Compressible + + -----+-------+------- -------+ +L FV - mid +Patent +Normal phasicity; spontaneous; + + + +normal augmentation; compressible + + -----+-------+------- -------+ +L FV - distal +Patent +Compressible + + -----+-------+------- -------+ +L popliteal +Patent +Normal phasicity; spontaneous; + + + +normal augmentation; compressible + + -----+-------+------- -------+ +L gastrocnemius +Patent +Compressible + + -----+-------+------- -------+ +L PTV +Patent +Compressible + + -----+-------+------- -------+ +L peroneal +Patent +Compressible + + -----+-------+------- -------+ +L soleol +Patent +Compressible + + -----+-------+------- -------+ +L GSV +Patent +Compressible + + -----+-------+------- -------+ +R CFV +Patent +Normal phasicity; spontaneous; + + + +normal augmentation; compressible + + -----+-------+------- -------+ Prepared and electronically signed by Oliver Terry MD 02/25/2019 12:54 [employer] Work Phone: Rao Medrano Incoming Cardiology Results From Michele/Bree - 02/25/2019 12:55 PM EST [facility] -------- Left Lower Extremity Venous Duplex Report Ordering Physician: Annmarie Ignacio Bariatric Coordinator: Olu Sarkar Interpreting Physician: Oliver Terry MD -------- Location: [facility] -------- Indications: Pain left entire leg. Pain left calf. -------- Conclusions 1. There is no evidence of acute deep or superficial venous thrombosis noted in the left lower extremity. 2. The right common femoral vein fully compresses and demonstrates normal venous flow. -------- History: Risk factors: Former tobacco use. Obese. -------- Study data: Left lower extremity venous duplex evaluation. Grayscale 2D imaging, color Doppler imaging, and spectral Doppler analysis. Location: Vascular laboratory. Procedure: A vascular evaluation was performed with the patient in the supine position. Images were obtained using a Aprilage E9 vascular ultrasound machine. -------- Venous flow and imaging: + -----+-------+------- -------+ +Location +Overall+Properties + + -----+-------+------- -------+ +L CFV +Patent +Normal phasicity; spontaneous; + + + +normal augmentation; compressible + + -----+-------+------- -------+ +L saphenofemoral junction+Patent +Compressible + + -----+-------+------- -------+ +L profunda femoral +Patent +Normal phasicity; spontaneous; + + + +normal augmentation + + -----+-------+------- -------+ +L FV - prox. +Patent +Compressible + + -----+-------+------- -------+ +L FV - mid +Patent +Normal phasicity; spontaneous; + + + +normal augmentation; compressible + + -----+-------+------- -------+ +L FV - distal +Patent +Compressible + + -----+-------+------- -------+ +L popliteal +Patent +Normal phasicity; spontaneous; + + + +normal augmentation; compressible + + -----+-------+------- -------+ +L gastrocnemius +Patent +Compressible + + -----+-------+------- -------+ +L PTV +Patent +Compressible + + -----+-------+------- -------+ +L peroneal +Patent +Compressible + + -----+-------+------- -------+ +L soleol +Patent +Compressible + + -----+-------+------- -------+ +L GSV +Patent +Compressible + + -----+-------+------- -------+ +R CFV +Patent +Normal phasicity; spontaneous; + + + +normal augmentation; compressible + + -----+-------+------- -------+ Prepared and electronically signed by Oliver Terry MD 02/25/2019 12:54 [facility] Work Phone: Total 25-OH Vitamin Don Total 25-OH Vitamin D 14.4 ng/mL Low 30.0-100.0 [facility] Comment on above: Performed By: #### 2 5VD1 #### [address] [address] Comprehensive Panelon 2018 ALP [Catalytic activity/Vol] 121 U/L High 46-116 [facility] Comment on above: Performed By: #### P 14 #### [facility] [address] [place], [place] [address] Bilirubin [Mass/Vol] 0.3 mg/dL Normal 0.2-1.0 [facility] Comment on above: Performed By: #### P 14 #### [facility] [address] [place], [place] [address] Protein [Mass/Vol] 6.4 g/dL Normal 6.4-8.2 [facility] Comment on above: Performed By: #### P 14 #### [facility] [address] [place], [place] [address] ALT [Catalytic activity/Vol] 20 U/L Normal 12-78 [facility] Comment on above: Performed By: #### P 14 #### [facility] [address] [place], [place] [address] AST [Catalytic activity/Vol] 9 U/L Normal 9-37 [facility] Comment on above: Performed By: #### P 14 #### [facility] [address] [place], [place] [address] Creatinine [Mass/Vol] 0.80 mg/dL Normal 0.51-0.95 [facility] Comment on above: Performed By: #### P 14 #### [facility] [address] [place], [place] [address] Albumin [Mass/Vol] 3.0 g/dL Low 3.4-5.0 [facility] Comment on above: Performed By: #### P 14 #### [facility] [address] [place], [place] [address] Glucose [Mass/Vol] 93 mg/dL Normal 70-99 [facility] Comment on above: Performed By: #### P 14 #### [facility] [address] [place], [place] [address] Urea nitrogen [Mass/Vol] 11 mg/dL Normal 7-18 [facility] Comment on above: Performed By: #### P 14 #### [facility] [address] [place], [place] [address] Anion gap [Moles/Vol] 10 mmol/L Normal 8-16 [facility] Comment on above: Performed By: #### P 14 #### [facility] [address] [place], [place] [address] Calcium [Mass/Vol] 9.1 mg/dL Normal 8.5-10.1 [facility] Comment on above: Performed By: #### P 14 #### [facility] [address] [place], [place] [address] CO2 [Moles/Vol] 25 mmol/L Normal 21-32 [facility] Comment on above: Performed By: #### P 14 #### [facility] [address] [place] [address] Chloride [Moles/Vol] 109 mmol/L High 98-107 [facility] Comment on above: Performed By: #### P 14 #### [facility] [address] [place] [address] Potassium [Moles/Vol] 4.4 mmol/L Normal 3.5-5.1 [facility] Comment on above: Performed By: #### P 14 #### [facility] [address] [place] [address] Sodium [Moles/Vol] 140 mmol/L Normal 136-145 [facility] Comment on above: Performed By: #### P 14 #### [place] [address] Free Thyroxineon 05-26-2018 Free T4 [Mass/Vol] 0.99 ng/dL Normal 0.76-1.46 [facility] Comment on above: Performed By: #### F T4 #### [place] [address] Hemogram/Diffon 05-26-2018 Abs Immature Grans 0.09 thou/cmm High 0.00-0.05 [facility] Comment on above: Performed By: #### C BCD1 #### [place] [address] Abs. Baso 0.14 thou/cmm High 0.01-0.08 [facility] Comment on above: Result Comment: Smea r scanned; tech agrees with automated differential Performed By: #### C BCD1 #### [place] [address] Abs. Seminole 0.72 thou/cmm High 0.27-0.70 [facility] Comment on above: Performed By: #### C BCD1 #### [place] [address] Abs. Neut (ANC) 10.12 thou/cmm High 1.56-6.13 [facility] Comment on above: Performed By: #### C BCD1 #### [place] [id number] Basophils/100 WBC (Bld) 0.9 % Normal [facility] Comment on above: Performed By: #### C BCD1 #### [facility] [address] [place], [place] [address] Eosinophils (Bld) [#/Vol] 0.26 thou/cmm Normal 0.00-0.31 [facility] Comment on above: Performed By: #### C BCD1 #### [facility] [address] [place], [place] [address] Eosinophils/100 WBC (Bld) 1.7 % Normal [facility] Comment on above: Performed By: #### C BCD1 #### [facility] [address] [place], [place] [address] Immature Grans 0.60 % Normal [facility] Comment on above: Performed By: #### C BCD1 #### [facility] [address] [place], [place] [address] Lymphocytes (Bld) [#/Vol] 3.71 thou/cmm Normal 1.18-3.74 [facility] Comment on above: Performed By: #### C BCD1 #### [facility] [address] [place], [place] [address] Lymphocytes/100 WBC (Bld) 24.7 % Normal [facility] Comment on above: Performed By: #### C BCD1 #### [facility] [address] [place], [place] [address] Monocytes/100 WBC (Bld) 4.8 % Normal [facility] Comment on above: Performed By: #### C BCD1 #### [facility] [address] [place], [place] [address] Seg Neutrophil 67.3 % Normal [facility] Comment on above: Performed By: #### C BCD1 #### [facility] [address] [place], [place] [address] Erythrocyte distribution width (RBC) [Ratio] 13.7 % Normal 11.7-14.4 [facility] Comment on above: Performed By: #### C BCD1 #### [facility] [address] [place], [place] [address] Hematocrit (Bld) [Volume fraction] 41.2 % Normal 34.1-44.9 [facility] Comment on above: Performed By: #### C BCD1 #### [facility] [address] [place] [address] Hemoglobin (Bld) [Mass/Vol] 13.2 g/dL Normal 11.2-15.7 [facility] Comment on above: Performed By: #### C BCD1 #### [facility] [address] [place] [address] MCH (RBC) [Entitic mass] 29.0 pg Normal 25.6-32.2 [facility] Comment on above: Performed By: #### C BCD1 #### [facility] [address] [place] [address] MCHC (RBC) [Mass/Vol] 32.0 % Normal 31.6-34.8 [facility] Comment on above: Performed By: #### C BCD1 #### [facility] [address] [place] [address] MCV (RBC) [Entitic vol] 90.5 fL Normal 79.4-94.8 [facility] Comment on above: Performed By: #### C BCD1 #### [facility] [address] [place] [address] Platelet mean volume (Bld) [Entitic vol] 10.6 fL Normal 9.4-12.3 [facility] Comment on above: Performed By: #### C BCD1 #### [facility] [address] [place] [address] Platelets (Bld) [#/Vol] 370 thou/cmm High 182-369 [facility] Comment on above: Performed By: #### C BCD1 #### [facility] [address] [place] [address] RBC (Bld) [#/Vol] 4.55 mil/cmm Normal 3.93-5.22 [facility] Comment on above: Performed By: #### C BCD1 #### [facility] [address] [place] [address] RDW SD 45.6 fl Normal 36.4-46.3 [facility] Comment on above: Performed By: #### C BCD1 #### [place] [id number] WBC (Bld) [#/Vol] 15.03 thou/cmm High 3.98-10.04 [facility] Comment on above: Performed By: #### C BCD1 #### [place] [address] MDRD GFRon 05-26-2018 GFR/1.73 sq M predicted among non-blacks MDRD (S/P/Bld) [Vol rate/Area] mL/min/{1.73_m2} Normal >60mL/min/1.7 3m2 [facility] Comment on above: Result Comment: If t he patient is , multiply the result by 1.210. Performed By: #### G FR #### [place] [address] TSH Reflexon 05-26-2018 TSH Qn 2.860 uIU/mL Normal 0.358-3.740 [facility] Comment on above: Result Comment: Free T4 reflexed if TSH is less than or greater than the reference range. Performed By: #### T SHR #### [place] [address] Uric Acid Bloodon 05-26-2018 Uric Acid Blood 7.4 mg/dL High 2.6-6.0 [facility] Comment on above: Performed By: #### U CAT #### [place] [address] Progress Noteon 01-28-2018 [employer] Interface Message Text Continues with cough, intense at time. No wheeze, no SOB, no fever noted. URI type sx's started last week (5-7 days ago). Exam - NAD, throat clear, nasal turbs nl, lungs CTA Previously Rx'd z=pack and tessalon. Now Rx'd phen-DM 5ml q4h prn, knows sedation risk. OTC cepacol also. All agreed, RK Normal [facility] Vital Signs Date Time Vital Sign Value Performing Clinician Facility 04-27-2024 14:15-0500 Body height 154.9 cm Yoon Martinez VEGETABLE WORKER - COLLECTION ANALYST Work Phone: [facility] 04-27-2024 14:15-0500 Diastolic blood pressure 82 mm[Hg] Yoon Martinez VEGETABLE WORKER - COLLECTION ANALYST Work Phone: [facility] 04-27-2024 14:15-0500 Heart rate 88 /min Yoon Martinez VEGETABLE WORKER - COLLECTION ANALYST Work Phone: [facility] 04-27-2024 14:15-0500 SaO2% (BldA) [Mass fraction] 97 % Yoonshila Martinez VEGETABLE WORKER - COLLECTION ANALYST Work Phone: [facility] 04-27-2024 14:15-0500 Systolic blood pressure 128 mm[Hg] Yoon Martinez VEGETABLE WORKER - COLLECTION ANALYST Work Phone: [facility] 04-21-2024 12:04-0500 Body temperature 97.59 [degF] Jake Sears MD Work Phone: [facility] 04-21-2024 12:04-0500 Diastolic blood pressure 72 mm[Hg] Jake Sears MD Work Phone: [facility] 04-21-2024 12:04-0500 Heart rate 73 /min Jake Sears MD Work Phone: [facility] 04-21-2024 12:04-0500 Respiratory rate 17 /min Jake Sears MD Work Phone: [facility] 04-21-2024 12:04-0500 SaO2% (BldA) [Mass fraction] 98 % Jake Sears MD Work Phone: [facility] 04-21-2024 12:04-0500 Systolic blood pressure 120 mm[Hg] Jake Sears MD Work Phone: [facility] 04-21-2024 06:00-0500 Body mass index (BMI) [Ratio] 41.78 kg/m2 Jake Sears MD Work Phone: [facility] 04-21-2024 06:00-0500 Body weight 100.29 kg Jake Sears MD Work Phone: [facility] 04-20-2024 12:31-0500 Body height 154.9 cm Jake Sears MD Work Phone: [facility] 03-09-2023 15:00-0500 Body mass index (BMI) [Ratio] 46.34 kg/m2 Abdelrahman Romero MD Work Phone: [facility] 03-09-2023 15:00-0500 Body weight 111.25 kg Abdelrahman Romero MD Work Phone: [facility] 03-09-2023 15:00-0500 Diastolic blood pressure 92 mm[Hg] Abdelrahman Romero MD Work Phone: [facility] 03-09-2023 15:00-0500 Heart rate 99 /min Abdelrahman Romero MD Work Phone: [facility] 03-09-2023 15:00-0500 SaO2% (BldA) [Mass fraction] 96 % Abdelrahman Romero MD Work Phone: [facility] 03-09-2023 15:00-0500 Systolic blood pressure 130 mm[Hg] Abdelrahman Romero MD Work Phone: [facility] 10-13-2022 15:57-0400 Body height 154.9 cm Abdelrahman Romero MD Work Phone: [facility] 10-13-2022 15:57-0400 Body mass index (BMI) [Ratio] 47.43 kg/m2 Abdelrahman Romero MD Work Phone: [facility] 10-13-2022 15:57-0400 Body temperature 97.5 [degF] Abdelrahman Romero MD Work Phone: [facility] 10-13-2022 15:57-0400 Body weight 113.85 kg Abdelrahman Romero MD Work Phone: [facility] 10-13-2022 15:57-0400 Diastolic blood pressure 82 mm[Hg] Abdelrahman Romero MD Work Phone: [facility] 10-13-2022 15:57-0400 Heart rate 103 /min Abdelrahman Romero MD Work Phone: [facility] 10-13-2022 15:57-0400 Respiratory rate 16 /min Abdelrahman Romero MD Work Phone: [facility] 10-13-2022 15:57-0400 SaO2% (BldA) [Mass fraction] 96 % Abdelrahman Romero MD Work Phone: [facility] 10-13-2022 15:57-0400 Systolic blood pressure 130 mm[Hg] Abdelrahman Romero MD Work Phone: [facility] 04-08-2022 15:31-0500 Body height 154.9 cm Walker Bruno DO Work Phone: [facility] 04-08-2022 15:31-0500 Body mass index (BMI) [Ratio] 46.93 kg/m2 Walker Bruno DO Work Phone: [employer] [facility] 04-08-2022 15:31-0500 Body temperature 97.7 [degF] Walker Nguyenman DO Work Phone: [employer] [facility] 04-08-2022 15:31-0500 Body weight 112.67 kg Walker Nguyenman DO Work Phone: [employer] [facility] 04-08-2022 15:31-0500 Diastolic blood pressure 94 mm[Hg] Walker Bruno DO Work Phone: [employer] [facility] 04-08-2022 15:31-0500 Heart rate 109 /min Walker Bruno DO Work Phone: [employer] [facility] 04-08-2022 15:31-0500 Respiratory rate 16 /min Walker Bruno DO Work Phone: [facility] 04-08-2022 15:31-0500 Systolic blood pressure 132 mm[Hg] Walker Bruno DO Work Phone: [facility] 07-09-2021 12:57-0400 Body weight 116.03 kg Raudel Garza MD Work Phone: [facility] 07-09-2021 12:57-0400 Diastolic blood pressure 89 mm[Hg] Raudel Garza MD Work Phone: [facility] 07-09-2021 12:57-0400 Heart rate 91 /min Raudel Garza MD Work Phone: [facility] 07-09-2021 12:57-0400 Systolic blood pressure 146 mm[Hg] Raudel Garza MD Work Phone: [facility] 11-17-2019 10:29-0400 BMI (Body Mass Index) 45.54 kg/m2 [facility] [place] 11-17-2019 10:29-0400 Body Temperature 97.39 [degF] [facility] [place] 11-17-2019 10:29-0400 Body weight 109.32 kg [facility] [place] 11-17-2019 10:29-0400 BP Diastolic 98 mm[Hg] [facility] [place] [place] 11-17-2019 10:29-0400 BP Systolic 143 mm[Hg] [facility] [place] [place] 11-17-2019 10:29-0400 Height 154.9 cm [facility] [place] [place] 11-17-2019 10:29-0400 Pulse (Heart Rate) 86 /min [email or web address] [place] 11-17-2019 10:29-0400 Pulse Oximetry 98 % [email or web address] [place] 11-17-2019 10:29-0400 Respiratory Rate 18 /min [facility] [place] Encounters Encounter Date Encounter Type Care Provider Facility Start: 11-20-2024 ambulatory Ted Corrales lity:[facility]: [facility] Start: 11-10-2024 Encounter for genera l adult medical examination without abnormal findings [facility] Start: 11-10-2024 End: 11-10-2024 ambulatory [facility] Start: 09-22-2024 End: 09-22-2024 ambulatory [facility] Start: 09-13-2024 End: 09-13-2024 ambulatory Sandrine King [facility] Start: [facility]01-[facility] Start: 08-29-2024 End: 08-29-2024 ambulatory [facility] Facility:[facility] Start: 08-22-2024 End: 08-22-2024 ambulatory [facility] Facility:[facility] Start: 07-28-2024 End: 07-28-2024 Subsequent hospital visit by physician Levy Chirinos MD Work Phone: [facility] Imaging Comment on above: Chronic kidney disea se, stage 2 (mild) Start: 07-28-2024 End: 07-28-2024 ambulatory [facility] Start: 07-26-2024 End: 10-25-2024 Transcribe Orders Levy Chirinos MD Work Phone: [facility] Comment on above: Chronic kidney disea se, stage 2 (mild) (Primary Dx) Start: 07-24-2024 End: 08-21-2024 ambulatory [facility] Facility:[facility] Start: 07-14-2024 End: 07-22-2024 ambulatory [facility] Facility:[facility] Start: 07-13-2024 ambulatory Michaela Peralta Facility: [facility] Start: 07-04-2024 End: 07-04-2024 ambulatory [facility] Facility:[facility] Start: 06-21-2024 End: 06-21-2024 ambulatory [facility] Facility:[facility] Start: 06-14-2024 End: 06-14-2024 ambulatory Sandrine Fernando Facility:[facility] Start: 06-09-2024 ambulatory [facility] Fac[facility] ty:[facility] Start: 06-08-2024 End: 06-09-2024 ambulatory [facility] Facility:[facility] Start: 06-08-2024 End: 06-08-2024 ambulatory [facility] Facility:[facility] Start: 06-01-2024 End: 06-01-2024 ambulatory [facility] Facility:[facility] Start: 05-29-2024 End: 05-29-2024 ambulatory [facility] Facility:[facility] Start: 05-22-2024 End: 05-22-2024 Emergency department patient visit [address] Facility:[facility] Start: 05-19-2024 End: 05-19-2024 ambulatory [facility] Facility:[facility] Start: 05-17-2024 End: 05-17-2024 ambulatory [facility] Facility:[facility] Start: 05-16-2024 End: 05-16-2024 ambulatory [facility] Start: 05-08-2024 ambulatory [facility] Fac[facility] ty:[facility] Start: 05-05-2024 End: 05-08-2024 Telephone encounter Yoon Martinez VEGETABLE WORKER - COLLECTION ANALYST Work Phone: [facility] Comment on above: Other (sx) Start: 05-04-2024 End: 05-04-2024 [facility] Start: 05-04-2024 End: 05-04-2024 Telephone encounter Yoon Katia Martinez VEGETABLE WORKER - COLLECTION ANALYST [facility] Comment on above: Other (FMLA ) Start: 04-27-2024 End: 04-27-2024 Office outpatient visit 25 minutes Yoon Katia Martinez VEGETABLE WORKER - COLLECTION ANALYST Work Phone: [facility] Comment on above: NSTEMI (non-ST eleva zena myocardial infarction) (HCC) (Primary Dx); Coronary artery disease involving [place] coronary artery of [place] heart without angina pectoris; Essential hypertension; Mixed hyperlipidemia; Class 3 severe obesity without serious comorbidity with body mass index (BMI) of 40.0 to 44.9 in adult, unspecified obesity type ([facility]); Tobacco use; Type 2 diabetes mellitus with hyperglycemia, with long-term current use of insulin ([facility]); Psoriasis Start: 04-27-2024 End: 04-27-2024 ambulatory [facility] Start: 04-19-2024 End: 04-21-2024 Evaluation and management of inpatient Jake Sears MD Work Phone: [facility] Cardiac Vascular Progressive Care Unit PCC 1C Comment on above: NSTEMI (non-ST eleva zena myocardial infarction) ([facility]) (Primary Dx); Stented coronary artery Start: 04-19-2024 End: 04-19-2024 Evaluation and management of inpatient [facility] Facility:[facility] Start: 04-19-2024 ambulatory [facility] Fac[facility] ty:[facility] Start: 03-09-2024 End: 03-09-2024 ambulatory [facility] Facility:[facility] Start: 03-06-2024 End: 03-06-2024 ambulatory [facility] Facility:[facility] Start: 03-01-2024 End: 03-01-2024 ambulatory [facility] Facility:[facility] Start: 01-19-2024 End: 01-19-2024 ambulatory [facility] Facility:[facility] Start: 01-17-2024 End: 01-17-2024 Emergency department patient visit [facility] Facility:[facility] Start: 12-23-2023 End: 12-23-2023 ambulatory [facility] Facility:[facility] Start: 11-26-2023 End: 11-26-2023 ambulatory [facility] Facility:[facility] Start: 05-11-2023 End: 05-11-2023 ambulatory [facility] Work Phone: Start: 05-11-2023 End: 05-11-2023 Patient encounter procedure [facility]Labor[facility] Work Phone: Start: 04-30-2023 End: 04-30-2023 ambulatory [facility] Work Phone: Start: 04-30-2023 End: 04-30-2023 Patient encounter procedure [facility], [facility] Work Phone: Start: 03-09-2023 End: 03-09-[address] [facility] Ambulatory Start: 03-09-2023 End: 03-09-2023 Office outpatient visit 40 minutes Abdelrahman Romero MD Work Phone: [facility] Comment on above: Mass of lower outer quadrant of right breast (Primary Dx); Mild persistent asthma without complication; Type 2 diabetes mellitus with hyperglycemia, without long-term current use of insulin ([facility]); Exacerbation of gout; Encounter for screening mammogram for malignant neoplasm of breast; Encounter for annual general medical examination without abnormal findings in adult; Vitamin D deficiency; Vitamin B 12 deficiency; 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 ([facility]); Encounter for screening for malignant neoplasm of colon Start: 03-09-2023 End: 03-09-2023 Patient encounter procedure Abdelrahman Romero MD Work Phone: [facility] Work Phone: Start: 10-22-2022 End: 10-23-2022 ambulatory [facility] Start: 10-22-2022 End: 10-23-2022 Encounter for general adult medical examination without abnormal findings [facility] Start: 10-13-2022 End: 10-14-[address] [facility] Ambulatory Start: 10-13-2022 End: 10-14-2022 Encounter for general adult medical examination without abnormal findings [facility] Ambulatory Start: 10-13-2022 End: 10-13-2022 Office outpatient new 45 minutes Abdelrahman Romero MD Work Phone: [facility] [employer] [facility] Comment on above: Chronic cough (Prima ry Dx); Class 3 severe obesity due to excess calories with serious comorbidity and body mass index (BMI) of 45.0 to 49.9 in adult ([facility]); Mixed hyperlipidemia; Essential (primary) hypertension; Vitamin B12 deficiency (non anemic); Vitamin D deficiency, unspecified; Type 2 diabetes mellitus with hyperglycemia, without long-term current use of insulin ([facility]); Encounter for screening mammogram for malignant neoplasm of breast; Encounter for annual general medical examination without abnormal findings in adult; Luna's esophagus with dysplasia; Arthralgia, unspecified joint; Frequency of urination Start: 10-13-2022 End: 10-13-2022 Patient encounter procedure Abdelrahman Romero MD Work Phone: [facility] Work Phone: Start: 09-21-2022 End: 09-21-2022 ambulatory LILY LANDIN Facility:[facility] Start: 09-21-2022 End: 09-21-2022 Patient encounter procedure Lily Landin MD Work Phone: [facility] Comment on above: Type 2 diabetes abeba itus without retinopathy (HCC) (Primary Dx); Blurred vision, bilateral; Refractive error Start: 04-08-2022 End: 04-08-2022 Patient encounter status Walker Bruno DO Work Phone: [facility] Start: 04-08-2022 End: 04-08-2022 Periodic preventive med est patient 40-64yrs Walker Bruno DO Work Phone: [facility] Comment on above: Encounter for screen ing and preventative care (Primary Dx); Type 2 diabetes mellitus without complication, without long-term current use of insulin ([facility]) (HCC); Thrush; Herpes simplex; Gastroesophageal reflux disease, unspecified whether esophagitis present; Class 3 severe obesity due to excess calories without serious comorbidity with body mass index (BMI) of 45.0 to 49.9 in adult (HCC); Anxiety Start: 04-06-2022 ambulatory [facility] Start: 04-06-2022 Patient encounter procedure [facility] Start: 07-09-2021 End: 07-09-2021 Patient encounter procedure Raudel Garza MD Work Phone: Endocrinology Comment on above: Diabetes mellitus ty pe 2 with ketoacidosis, uncontrolled (HCC) (Primary Dx); Morbid obesity (HCC); Hypertension, essential Start: 05-23-2021 End: 05-23-2021 Subsequent hospital visit by physician Mri [facility] (I-Stat/1.5t) [facility] Comment on above: Abnormal liver enzym es [R74.8] Start: 11-17-2019 End: 11-17-2019 Emergency department patient visit Leatha Augustin [facility] Emergency Dept Comment on above: Right forearm pain ( Primary Dx) Start: 09-12-2019 End: 09-12-2019 Subsequent hospital visit by physician Leatha Augustin Work Phone: [facility] Comment on above: Arrived Start: 06-12-2019 End: 06-12-2019 Subsequent hospital visit by physician Leatha Augustin Work Phone: [facility] Start: 02-25-2019 End: 02-25-2019 Subsequent hospital visit by physician Annmarie Ignacio MD Work Phone: [facility] Comment on above: Arrived Procedures Date Procedure Procedure Detail Performing Clinician Start: 04-27-2024 Ecg routine ecg w/le ast 12 lds w/i&r Jake Sears MD Work Phone: Start: 04-21-2024 Glucose quantitative blood xcpt reagent strip Jake Sears MD Work Phone: Start: 04-21-2024 Glucose quantitative blood xcpt reagent strip Jake Sears MD Work Phone: Start: 04-21-2024 Glucose quantitative blood xcpt reagent strip Jake Sears MD Work Phone: Start: 04-21-2024 Basic metabolic pane l calcium total Peter Ro MD Work Phone: Start: 04-20-2024 Glucose quantitative blood xcpt reagent strip Jake Sears MD Work Phone: Start: 04-20-2024 Glucose quantitative blood xcpt reagent strip Jake Sears MD Work Phone: Start: 04-20-2024 Ecg routine ecg w/le ast 12 lds trcg only w/o i&r Peter Ro MD Work Phone: Start: 04-20-2024 Cardiac catheterizat ion study Huang Mercado MD Work Phone: Start: 04-20-2024 Percutaneous coronar y intervention Huang Mercado MD Work Phone: Start: 04-20-2024 Ecg routine ecg w/le ast 12 lds trcg only w/o i&r Peter Ro MD Work Phone: Start: 04-20-2024 End: 04-20-2024 POCT ACT Jake Sears MD Work Phone: Start: 04-20-2024 TTE w or wo fol wcon,Doppler Peter Ro MD Work Phone: Start: 04-20-2024 End: 04-20-2024 Thromboplastin time partial plasma/whole blood Peter Ro MD Work Phone: Start: 04-20-2024 Assay of troponin quantitative Huang Mercado MD Work Phone: Start: 04-19-2024 Comprehensive metabo lic panel Huang Mercado MD Work Phone: Start: 04-19-2024 Lipid panel Huang monahan MD Work Phone: Start: 04-19-2024 Radiologic exam ches t single view Huang Mercado MD Work Phone: Start: 04-19-2024 Ecg routine ecg w/le ast 12 lds trcg only w/o i&r Huang Mercado MD Work Phone: Start: 04-19-2024 Glucose quantitative blood xcpt reagent strip Jake Sears MD Work Phone: Start: 04-19-2024 Lipid 1996 panel - S pancho or Plasma Jake Sears MD Work Phone: Start: 04-30-2023 CT of abdomen Start: 03-11-2023 Mammography Abdelrahman durbin MD Work Phone: Start: 10-22-2022 CBC W Auto Different ial panel - Blood [facility] Start: 10-22-2022 Comprehensive metabo lic 2000 panel - Serum or Plasma [facility] Start: 10-22-2022 Cyanocobalamin vitamin b-12 [facility] Start: 10-22-2022 Hemoglobin A1c/Hemoglobin.total in Blood [facility] Start: 10-22-2022 HEPATITIS C ANTIBODY [facility] Start: 10-22-2022 HIV 1/2 ANTIGEN/ANTI BODY SCREEN WIH REFLEX TO CONFIRMATION [facility] Start: 10-22-2022 INSULIN, RANDOM ABDELRAHMAN Kennedy MACO Start: 10-22-2022 Lipid panel ABDELRAHMAN DURBIN Start: 10-22-2022 Magnesium [Mass/volu me] in Serum or Plasma [facility] Start: 10-22-2022 THYROXINE, FREE [facility] Kennedy MACO Start: 10-22-2022 TSH WITH REFLEX TO F REE T4 IF ABNORMAL [facility] Start: 10-22-2022 Urate [Mass/volume] in Serum or Plasma [facility] Start: 10-22-2022 VITAMIN D 25-HYDROXY,TOTAL [facility] Start: 10-22-2022 Lipid 1996 panel - S pancho or Plasma Abdelrahman Romero MD Work Phone: Start: 10-13-2022 POCT UA AUTOMATED MA NUALLY RESULTED [facility] Start: 10-13-2022 POCT ALBUMIN RANDOM URINE [facility] Start: 10-13-2022 Bacteria identified in Urine by Culture ABDELRAHMANRAFY ROMERO Start: 10-13-2022 HM DIABETES FOOT EXAM [facility] Start: 10-13-2022 Urnls dip stick/tabl et rgnt auto w/o microscopy Abdelrahman Romero MD Work Phone: Start: 10-13-2022 End: 10-13-2022 Culture bacterial quanttative colony count urine Abdelrahman Romero MD Work Phone: Start: 05-23-2021 Mri abdomen w/o & w/ contrast material Vlad Mcmahon MD Work Phone: Start: 05-06-2020 Colonoscopy Sandrine Fidel on RN Start: 04-05-2020 Microscopic observat ion [Identifier] in Cervix by Cyto stain Walker Bruno DO Work Phone: Start: 11-17-2019 Radex elbow complete minimum 3 views [employer] Work Phone: Start: 11-17-2019 Radex forearm 2 views R ebe[employer] Work Phone: Start: 11-17-2019 Radex wrist complete minimum 3 views [employer] Work Phone: Start: 09-12-2019 Brncspsm provocation eval major donor coordinator spmtry w/admn agt Leatha E [employer] Work Phone: Start: 09-12-2019 NEBULIZER TX INTERMITTENT Leatha E [employer] Work Phone: Start: 06-12-2019 Assay of thyroid sti mulating hormone tsh Leatha E [employer] Work Phone: Start: 06-12-2019 Blood count complete automated Leatha E [employer] Work Phone: Start: 06-12-2019 Comprehensive metabo lic panel Leatha E [employer] Work Phone: Start: 06-12-2019 Hemoglobin glycosylated a1c Leatha E [employer] Work Phone: Start: 06-12-2019 Lipid panel Leatha E [employer] Work Phone: Start: 06-12-2019 Lipid 1996 panel - S pancho or Plasma Walker Bruno DO Work Phone: Start: 02-25-2019 Dup-scan xtr veins unilateral/limited study Annmarie Ignacio MD Work Phone: Start: 12-14-2017 Colonoscopy Mri (I-Sta t/1.5t) Start: 11-24-2017 Mammography Walker baker DO Work Phone: Start: 12-23-2015 Mammography Mri (I-Sta t/1.5t) Plan of Treatment Date Care Activity Detail Author Start: 2048 RSV Immunization for Adults (1 - 1-dose 75+ series) RSV Immunization for Adults (1 - 1-dose 75+ series) [facility] Start: 2033 RSV Immunization aged 60 or older (1 - 1-dose 60+ series) RSV Immunization aged 60 or older (1 - 1-dose 60+ series) [facility] Start: 05-06-2030 Screening for malignant neoplasm of colon [facility] Start: 12-15-2027 Screening for malignant neoplasm of colon [facility] Start: 04-21-2025 Diabetes: Estimated Glomerular Filtration Rate for Kidney Health Diabetes: Estimated Glomerular Filtration Rate for Kidney Health [facility] Start: 04-19-2025 Hemoglobin A1c measurement Diabetes: Hemoglobin A1C [facility] Start: 04-19-2025 Lipid panel Lipid Panel [facility] Start: 10-23-2024 COVID-19 Vaccine ( season) COVID-19 Vaccine ( season) [facility] Start: 10-23-2024 Influenza vaccination [facility] Start: 07-28-2024 End: 07-28-2024 Patient encounter procedure 07/28/2024 8:40 AM EDT Office Visit [facility] [place] [address] [place] [phone] Devika Mcpherson MD [address] [place] [address] [facility] [place] Start: 05-16-2024 Subsequent hospital visit by physician 05/16/2024 8:15 AM EDT Hospital Encounter [facility] [address] [place] [phone] Devika Mcpherson MD [address] [place] [address] [facility] Start: 04-27-2024 End: 04-27-2025 Basic metabolic 1998 panel - Serum or Plasma Basic metabolic panel Lab Routine NSTEMI (non-ST elevated myocardial infarction) (HCC) Expected: 04/27/2024 (Approximate), Expires: 04/27/2025 [facility] Comment on above: Expected: 04/27/2024 (Approximate), Expi res: 04/27/2025 Start: 04-27-2024 End: 04-27-2025 CBC panel - Blood by Automated count CBC Lab Routine NSTEMI (non-ST elevated myocardial infarction) (HCC) Expected: 04/27/2024 (Approximate), Expires: 04/27/2025 [facility] Work Phone: Comment on above: Expected: 04/27/2024 (Approximate), Expi res: 04/27/2025 Start: 04-27-2024 End: 04-27-2024 Patient encounter procedure 04/27/2024 2:00 PM EST Office Visit [facility] [place] [address] [place] [phone] Yoon Martinez, VEGETABLE WORKER - COLLECTION ANALYST [address] [address] [facility] [place] Start: 03-11-2024 Screening for malignant neoplasm of breast Mammogram [facility] Start: 10-24-2023 COVID-19 Vaccine ( season) COVID-19 Vaccine ( season) [facility] Start: 10-24-2023 Influenza vaccination Influenza Vaccine (#1) [facility] Start: 10-23-2023 Lipid panel Lipid Panel [facility] Start: 10-14-2023 Diabetic foot examination Diabetes: Foot Exam [facility] Start: 10-14-2023 Urine screening for protein Diabetes: Urine Protein Screening [facility] Start: 09-22-2023 Hepatitis C antibody, confirmatory test DILATED RETINAL EXAM [facility] Start: 2023 Zoster Vaccines (1 of 2) Zoster Vaccines (1 of 2) [facility] Start: 04-12-2023 End: 04-12-2023 Patient encounter procedure 04/12/2023 3:00 PM EST Office Visit [facility] [address] [place] [phone] Abdelrahman Romero MD [address] [place] [address] [facility] Start: 04-05-2023 Screening for malignant neoplasm of cervix [facility] Start: 03-09-2023 End: 03-09-2024 25-hydroxyvitamin D3 [Mass/volume] in Serum or Plasma Vitamin D 25-Hydroxy,Total (for eval of Vitamin D levels) Lab Routine Vitamin D deficiency Expected: 03/09/2023 (Approximate), Expires: 03/09/2024 [facility] Work Phone: Comment on above: Expected: 03/09/2023 (Approximate), Expi res: 03/09/2024 Start: 03-09-2023 End: 03-09-2024 C reactive protein [Mass/volume] in Serum or Plasma C-Reactive Protein Lab Routine Mass of lower outer quadrant of right breast Expected: 03/09/2023 (Approximate), Expires: 03/09/2024 [facility] Work Phone: Comment on above: Expected: 03/09/2023 (Approximate), Expi res: 03/09/2024 Start: 03-09-2023 End: 03-09-2024 CBC W Auto Differential panel - Blood CBC and Auto Differential Lab Routine Encounter for annual general medical examination without abnormal findings in adult Expected: 03/09/2023 (Approximate), Expires: 03/09/2024 [facility] Work Phone: Comment on above: Expected: 03/09/2023 (Approximate), Expi res: 03/09/2024 Start: 03-09-2023 End: 03-09-2024 Cobalamin (Vitamin B12) [Mass/volume] in Serum or Plasma Vitamin B12 Lab Routine Vitamin B 12 deficiency Expected: 03/09/2023 (Approximate), Expires: 03/09/2024 [facility] Work Phone: Comment on above: Expected: 03/09/2023 (Approximate), Expi res: 03/09/2024 Start: 03-09-2023 End: 03-09-2024 Comprehensive metabolic 2000 panel - Serum or Plasma Comprehensive Metabolic Panel Lab Routine Mass of lower outer quadrant of right breast Expected: 03/09/2023 (Approximate), Expires: 03/09/2024 [facility] Work Phone: Comment on above: Expected: 03/09/2023 (Approximate), Expi res: 03/09/2024 Start: 03-09-2023 End: 03-09-2024 Erythrocyte sedimentation rate Sedimentation Rate Lab Routine Mass of lower outer quadrant of right breast Expected: 03/09/2023 (Approximate), Expires: 03/09/2024 [facility] Work Phone: Comment on above: Expected: 03/09/2023 (Approximate), Expi res: 03/09/2024 Start: 03-09-2023 End: 03-09-2024 Hemoglobin A1c/Hemoglobin.total in Blood Hemoglobin A1C Lab Routine Type 2 diabetes mellitus with hyperglycemia, without long-term current use of insulin ([facility]) Expected: 03/09/2023 (Approximate), Expires: 03/09/2024 [facility] Work Phone: Comment on above: Expected: 03/09/2023 (Approximate), Expi res: 03/09/2024 Start: 03-09-2023 End: 03-09-2024 Hemoglobin.gastrointestina l.lower [Presence] in Stool by Immunoassay Fecal Occult Blood Immunoassy Microbiology Routine Encounter for screening for malignant neoplasm of colon Expected: 03/09/2023 (Approximate), Expires: 03/09/2024 [facility] Work Phone: Comment on above: Expected: 03/09/2023 (Approximate), Expi res: 03/09/2024 Start: 03-09-2023 End: 03-09-2024 Insulin [Units/volume] in Serum or Plasma Insulin, Random Lab Routine 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 ([facility]) Expected: 03/09/2023 (Approximate), Expires: 03/09/2024 [facility] Work Phone: Comment on above: Expected: 03/09/2023 (Approximate), Expi res: 03/09/2024 Start: 03-09-2023 End: 03-09-2024 Lipid 1996 panel - Serum or Plasma Lipid Panel Lab Routine Encounter for annual general medical examination without abnormal findings in adult Expected: 03/09/2023 (Approximate), Expires: 03/09/2024 [facility] Work Phone: Comment on above: Expected: 03/09/2023 (Approximate), Expi res: 03/09/2024 Start: 03-09-2023 End: 03-09-2024 Magnesium [Mass/volume] in Serum or Plasma Magnesium Lab Routine Type 2 diabetes mellitus with hyperglycemia, without long-term current use of insulin ([facility]) Expected: 03/09/2023 (Approximate), Expires: 03/09/2024 [facility] Work Phone: Comment on above: Expected: 03/09/2023 (Approximate), Expi res: 03/09/2024 Start: 03-09-2023 End: 03-09-2024 TSH with reflex to Free T4 if abnormal TSH with reflex to Free T4 if abnormal Lab Routine Mild persistent asthma without complication Mass of lower outer quadrant of right breast Exacerbation of gout Expected: 03/09/2023 (Approximate), Expires: 03/09/2024 [facility] Work Phone: Comment on above: Expected: 03/09/2023 (Approximate), Expi res: 03/09/2024 Start: 01-21-2023 Hemoglobin A1c measurement Diabetes: Hemoglobin A1C [facility] Start: 11-18-2022 End: 11-18-2022 Patient encounter procedure 11/18/2022 2:00 PM EDT Office Visit [facility] [address] [place] [phone] Abdelrahman Romero MD [address] [place] [address] [facility] Start: 11-13-2022 End: 10-14-2023 DBT Breast - bilateral BI mammo bilateral screening tomosynthesis Imaging Routine Encounter for screening mammogram for malignant neoplasm of breast Expected: 11/13/2022, Expires: 10/14/2023 [facility] Work Phone: Comment on above: Expected: 11/13/2022, Expires: Start: 10-23-2022 COVID-19 Vaccine () COVID-19 Vaccine () [facility] Start: 10-23-2022 Influenza vaccination [facility] Start: 10-13-2022 End: 10-14-2023 25-hydroxyvitamin D3 [Mass/volume] in Serum or Plasma Vitamin D 25-Hydroxy,Total Lab Routine Vitamin D deficiency, unspecified Expected: 10/13/2022 (Approximate), Expires: 10/14/2023 [facility] Work Phone: Comment on above: Expected: 10/13/2022 (Approximate), Expi res: 10/14/2023 Start: 10-13-2022 End: 10-14-2023 CBC W Auto Differential panel - Blood CBC and Auto Differential Lab Routine Mixed hyperlipidemia Essential (primary) hypertension Expected: 10/13/2022 (Approximate), Expires: 10/14/2023 [facility] Work Phone: Comment on above: Expected: 10/13/2022 (Approximate), Expi res: 10/14/2023 Start: 10-13-2022 End: 10-14-2023 Cobalamin (Vitamin B12) [Mass/volume] in Serum or Plasma Vitamin B12 Lab Routine Vitamin B12 deficiency (non anemic) Expected: 10/13/2022 (Approximate), Expires: 10/14/2023 [facility] Work Phone: Comment on above: Expected: 10/13/2022 (Approximate), Expi res: 10/14/2023 Start: 10-13-2022 End: 10-14-2023 Comprehensive metabolic 2000 panel - Serum or Plasma Comprehensive metabolic panel Lab Routine Mixed hyperlipidemia Essential (primary) hypertension Expected: 10/13/2022 (Approximate), Expires: 10/14/2023 [facility] Work Phone: Comment on above: Expected: 10/13/2022 (Approximate), Expi res: 10/14/2023 Start: 10-13-2022 End: 10-14-2023 Hemoglobin A1c/Hemoglobin.total in Blood Hemoglobin A1C Lab Routine Type 2 diabetes mellitus with hyperglycemia, without long-term current use of insulin (CMS/HCC) Expected: 10/13/2022 (Approximate), Expires: 10/14/2023 [facility] Work Phone: Comment on above: Expected: 10/13/2022 (Approximate), Expi res: 10/14/2023 Start: 10-13-2022 End: 10-14-2023 Hepatitis C virus Ab [Presence] in Serum Hepatitis C Antibody Lab Routine Encounter for annual general medical examination without abnormal findings in adult Expected: 10/13/2022 (Approximate), Expires: 10/14/2023 [facility] Work Phone: Comment on above: Expected: 10/13/2022 (Approximate), Expi res: 10/14/2023 Start: 10-13-2022 End: 10-14-2023 HIV 1+2 Ab+HIV1 p24 Ag [Presence] in Serum or Plasma by Immunoassay HIV 1/2 Antigen/Antibody Screen with Reflex to Confirmation Lab Routine Encounter for annual general medical examination without abnormal findings in adult Expected: 10/13/2022 (Approximate), Expires: 10/14/2023 [facility] Work Phone: Comment on above: Expected: 10/13/2022 (Approximate), Expi res: 10/14/2023 Start: 10-13-2022 End: 10-14-2023 Insulin [Units/volume] in Serum or Plasma Insulin, Random Lab Routine Type 2 diabetes mellitus with hyperglycemia, without long-term current use of insulin (CMS/HCC) Expected: 10/13/2022 (Approximate), Expires: 10/14/2023 [facility] Work Phone: Comment on above: Expected: 10/13/2022 (Approximate), Expi res: 10/14/2023 Start: 10-13-2022 End: 10-14-2023 Lipid 1996 panel - Serum or Plasma Lipid panel Lab Routine Mixed hyperlipidemia Essential (primary) hypertension Expected: 10/13/2022 (Approximate), Expires: 10/14/2023 [facility] Work Phone: Comment on above: Expected: 10/13/2022 (Approximate), Expi res: 10/14/2023 Start: 10-13-2022 End: 10-14-2023 Magnesium [Mass/volume] in Serum or Plasma Magnesium Lab Routine Essential (primary) hypertension Type 2 diabetes mellitus with hyperglycemia, without long-term current use of insulin ([facility]) Expected: 10/13/2022 (Approximate), Expires: 10/14/2023 [facility] Work Phone: Comment on above: Expected: 10/13/2022 (Approximate), Expi res: 10/14/2023 Start: 10-13-2022 End: 10-14-2023 Tsh With Reflex To Free T4 If Abnormal Tsh With Reflex To Free T4 If Abnormal Lab Routine Mixed hyperlipidemia Essential (primary) hypertension Expected: 10/13/2022 (Approximate), Expires: 10/14/2023 [facility] Work Phone: Comment on above: Expected: 10/13/2022 (Approximate), Expi res: 10/14/2023 Start: 10-13-2022 End: 10-14-2023 Urate [Mass/volume] in Serum or Plasma Uric Acid Lab Routine Arthralgia, unspecified joint Expected: 10/13/2022 (Approximate), Expires: 10/14/2023 [facility] Work Phone: Comment on above: Expected: 10/13/2022 (Approximate), Expi res: 10/14/2023 Start: 05-18-2023 Hemoglobin A1c measurement Diabetes: Hemoglobin A1C [facility] Start: 07-09-2022 Hepatitis B surface antibody level LDL CHOLESTEROL [facility] Start: 04-22-2022 End: 04-22-2022 Patient encounter procedure 04/22/2022 Office Visit Internal Medicine Walker Bruno, DO [address] [facility] [place] [address] [facility] Start: 04-08-2022 End: 04-08-2023 CBC W Auto Differential panel - Blood CBC auto differential Lab Routine Encounter for screening and preventative care Expected: 04/08/2022 (Approximate), Expires: 04/08/2023 [facility] Comment on above: Expected: 04/08/2022 (Approximate), Expi res: 04/08/2023 Start: 04-08-2022 End: 04-08-2023 Comprehensive metabolic 1998 panel - Serum or Plasma Comprehensive metabolic panel Lab Routine Encounter for screening and preventative care Expected: 04/08/2022 (Approximate), Expires: 04/08/2023 [facility] Comment on above: Expected: 04/08/2022 (Approximate), Expi res: 04/08/2023 Start: 04-08-2022 End: 04-08-2023 Hemoglobin A1c/Hemoglobin.total in Blood Hemoglobin A1c Lab Routine Encounter for screening and preventative care Expected: 04/08/2022 (Approximate), Expires: 04/08/2023 [facility] Comment on above: Expected: 04/08/2022 (Approximate), Expi res: 04/08/2023 Start: 04-08-2022 End: 04-08-2023 Hepatitis C virus Ab [Presence] in Serum or Plasma by Immunoassay Hepatitis C antibody Lab Routine Encounter for screening and preventative care Expected: 04/08/2022 (Approximate), Expires: 04/08/2023 [facility] Comment on above: Expected: 04/08/2022 (Approximate), Expi res: 04/08/2023 Start: 04-08-2022 End: 04-08-2023 HIV 1+2 Ab+HIV1 p24 Ag [Presence] in Serum or Plasma by Immunoassay HIV-1 and HIV-2 Antigen-Antibody Screen Lab Routine Encounter for screening and preventative care Expected: 04/08/2022 (Approximate), Expires: 04/08/2023 [facility] Work Phone: Comment on above: Expected: 04/08/2022 (Approximate), Expi res: 04/08/2023 Start: 04-08-2022 End: 04-08-2023 Lipid 1996 panel - Serum or Plasma Lipid panel Lab Routine Encounter for screening and preventative care Expected: 04/08/2022 (Approximate), Expires: 04/08/2023 [facility] Comment on above: Expected: 04/08/2022 (Approximate), Expi res: 04/08/2023 Start: 04-03-2022 3 comp foot exam completed DIABETIC FOOT EXAM [facility] Start: 01-09-2022 Hemoglobin A1c/Hemoglobin.total in Blood HBA1C [facility] Start: 10-23-2021 Influenza vaccination INFLUENZA (Season Ended) [facility] Start: 10-09-2021 Hemoglobin A1c measurement Diabetes: Hemoglobin A1C [facility] Start: 10-01-2021 Hemoglobin A1c/Hemoglobin.total in Blood HBA1C [facility] Start: 09-24-2021 End: 07-09-2022 Comprehensive metabolic 2000 panel - Serum or Plasma COMP METABOLIC PANEL Lab Routine Diabetes mellitus type 2 with ketoacidosis, uncontrolled (HCC) Expected: 09/24/2021, Expires: 07/09/2022 [facility] Work Phone: Comment on above: Expected: 09/24/2021, Expires: 3 Start: 09-24-2021 End: 07-09-2022 Hemoglobin A1c/Hemoglobin.total in Blood HGB A1C Lab Routine Diabetes mellitus type 2 with ketoacidosis, uncontrolled (HCC) Expected: 09/24/2021, Expires: 07/09/2022 [facility] Work Phone: Comment on above: Expected: 09/24/2021, Expires: 3 Start: 09-24-2021 End: 07-09-2022 LIPID PANEL BASIC LIPID PANEL BASIC Lab Routine Diabetes mellitus type 2 with ketoacidosis, uncontrolled (HCC) Expected: 09/24/2021, Expires: 07/09/2022 [facility] Work Phone: Comment on above: Expected: 09/24/2021, Expires: 3 Start: 08-19-2021 DTaP/Tdap/Td vaccine (2 - Td) DTaP/Tdap/Td vaccine (2 - Td) [facility] Work Phone: Start: 08-19-2021 DTaP/Tdap/Td Vaccines (2 - Td or Tdap) DTaP/Tdap/Td Vaccines (2 - Td or Tdap) [facility] Start: 08-19-2021 Urine microalbumin profile DTAP,TDAP,TD (2 - Td or Tdap) [facility] Start: 01-05-2021 COVID-19 VACCINE (2 - Booster for Araceli series) COVID-19 VACCINE (2 - Booster for Araceli series) [facility] Start: 12-14-2020 Colonoscopy COLONOSCOPY [facility] Start: 12-14-2020 COLORECTAL CANCER SCREENING COLORECTAL CANCER SCREENING [facility] Start: 12-08-2020 HPV TESTING HPV TESTING [facility] Start: 12-08-2020 PAP TESTING PAP TESTING [facility] Start: 06-11-2020 A1C test (Diabetic or Prediabetic) A1C test (Diabetic or Prediabetic) [place] Start: 06-11-2020 HbA1c (Bld) [Mass fraction] A1C test (Diabetic or Prediabetic) [place] Start: 06-11-2020 Lipid panel [facility] Start: 06-11-2020 Lipid screen Lipid screen [place] Start: 01-03-2020 End: 01-03-2020 Office Visit 01/03/2020 Office Visit Internal Medicine Leatha Augustin MD [address] [facility] [place] [address] [facility] Start: 10-24-2019 Influenza vaccination [place] Start: 09-11-2019 Hemoglobin A1c measurement Diabetes: Hemoglobin A1C [facility] Start: 05-27-2019 ANNUAL PCP TEAM CHRONIC DISEASE VISIT ANNUAL PCP TEAM CHRONIC DISEASE VISIT [facility] Start: 03-07-2019 Hepatitis C antibody, confirmatory test DILATED RETINAL EXAM [facility] Start: 11-24-2018 Screening for malignant neoplasm of breast Mammogram [facility] Start: 10-23-2018 Influenza vaccination Flu vaccine (#1) [facility] Work Phone: Start: 2018 COLOGUARD (FIT-DNA) COLOGUARD (FIT-DNA) [facility] Start: [address] COLONOGRAPHY [facility] Start: 2018 FECAL OCCULT BLOOD FECAL OCCULT BLOOD [facility] Start: 2018 SIGMOIDOSCOPY SIGMOIDOSCOPY [facility] Start: 12-22-2016 Mammography MAMMOGRAM [facility] Start: 08-03-2013 Hepatitis B surface antibody level LDL CHOLESTEROL [facility] Start: 2013 Lipid screen Lipid screen [facility] Work Phone: Start: 2013 Screening for malignant neoplasm of breast Mammogram [facility] Start: 2003 Screening for malignant neoplasm of cervix HPV/Cotest [facility] Start: 1994 Cervical cancer screen Cervical cancer screen [facility] Work Phone: Start: 1994 Screening for malignant neoplasm of cervix [facility] Start: 1992 Hepatitis A Vaccines (1 of 2 - Risk 2-dose series) Hepatitis A Vaccines (1 of 2 - Risk 2-dose series) [facility] Start: 1992 Hepatitis B Vaccines (1 of 3 - 19+ 3-dose series) Hepatitis B Vaccines (1 of 3 - 19+ 3-dose series) [facility] Start: 1992 Pneumococcal Vaccine: 50+ Years (1 of 2 - PCV) Pneumococcal Vaccine: 50+ Years (1 of 2 - PCV) [facility] Start: 1992 Urine screening for protein Diabetes: Urine Protein Screening [facility] Start: 1991 Diabetes: Urine Albumin-Creatinine Ratio for Kidney Health Diabetes: Urine Albumin-Creatinine Ratio for Kidney Health [facility] Start: 1991 Diabetic microalbuminuria test Diabetic [place] Start: 1991 Hepatitis C screening Hepatitis C Screening [facility] Start: 1991 HIV SCREENING HIV SCREENING [facility] Start: 1989 ONE PNEUMOVAX PRIOR TO AGE 65 ONE PNEUMOVAX PRIOR TO AGE 65 [facility] Start: 1988 HIV screen HIV screen [facility] Phone: Start: 1988 HIV screening HIV screen [place] Start: 1985 Depression Monitoring Depression Monitoring [facility] Start: 1985 Depresssion Monitoring Depresssion Monitoring [facility] Start: 1983 [object Object] Diabetic foot exam [place] Start: 1983 Diabetic foot examination [facility] Start: 1983 Diabetic retinal exam Diabetic retinal exam [place], [place] Start: 1983 Glaucoma screening Diabetes: Retinopathy Screening [facility] Start: 1983 Hepatitis B screening URINE ALBUMIN:CREATININE RATIO [facility] Start: 1983 Preventive dental service Diabetes: Dental Exam [facility] Start: 1979 PNEUMOCOCCAL (1 - PCV) PNEUMOCOCCAL (1 - PCV) [facility] Start: 1979 Pneumococcal 0-64 years Vaccine (1 of 1 - PPSV23) Pneumococcal 0-64 years Vaccine (1 of 1 - PPSV23) [place] Start: 1979 Pneumococcal Vaccine: Pediatrics (0 to 5 Years) and At-Risk Patients (6 to 64 Years) (1 - PCV) Pneumococcal Vaccine: Pediatrics (0 to 5 Years) and At-Risk Patients (6 to 64 Years) (1 - PCV) [facility] Start: 1979 Pneumococcal Vaccine: Pediatrics (0 to 5 Years) and At-Risk Patients (6 to 64 Years) (1 of 2 - PCV) Pneumococcal Vaccine: Pediatrics (0 to 5 Years) and At-Risk Patients (6 to 64 Years) (1 of 2 - PCV) [facility] Start: 1973 HEPATITIS B (1 of 3 - 3-dose series) HEPATITIS B (1 of 3 - 3-dose series) [facility] Start: 1973 Hepatitis B Vaccines (1 of 3 - 3-dose series) Hepatitis B Vaccines (1 of 3 - 3-dose series) [facility] Start: 1973 HIV screening HIV Screening [facility] Start: 1973 Lipid panel Lipid Panel [facility] Start: 1973 Screening for malignant neoplasm of colon [facility] Start: 1973 Yearly Adult Physical Yearly Adult Physical [facility] Complete PFT with Bronchoprovocation Complete PFT with Bronchoprovocation PFT Routine 09/12/2019 9[facility]42 [facility] End: 06-12-2019 Culture, Urine Culture, Urine Microbiology Routine Once for 1 Occurrences starting 06/12/2019 until 06/12/2019 [facility] Comment on above: Once for 1 Occurrences starting 06/12/19 until 06/12/2019 Culture, Urine Culture, Urine Microbiology Routine 06/12/2019 11:40 AM [facility]T [facility] End: 04-20-2024 ECG 12 lead ECG 12 lead CV ECG Routine Once for 1 Occurrences starting 04/20/2024 until 04/20/2024 [facility] Comment on above: Once for 1 Occurrences starting 04/20/19 until 04/20/2024 End: 05-23-2021 MRI LIVER (EOVIST) WO/W IVCON MRI LIVER (EOVIST) WO/W IVCON Radiology Routine Abnormal liver enzymes 1 Occurrences starting 05/23/2021 until 05/23/2021 [facility] Work Phone: Comment on above: 1 Occurrences starting 05/23/2021 until 05/23/2021 End: 07-28-2024 US [facility]itoneum [facility]: Comment on above: Once for 1 Occurrences starting 07/29/19 until 07/28/2024 End: 06-12-2019 Vitamin D 25 Hydroxy Vitamin D 25 Hydroxy Lab Routine Once for 1 Occurrences starting 06/12/2019 until 06/12/2019 [facility] Comment on above: Once for 1 Occurrences starting 06/12/19 until 06/12/2019 Vitamin D 25 Hydroxy Vitamin D 2 5 Hydroxy Lab Routine 06/12/2019 11:24 AM [facility]T [facility] Immunizations Immunization Date Immunization Notes Care Provider Fa cili 01-13-2023 influenza virus vaccine, unspecified formulation Abdelrahman Romero MD Work Phone: [facility] 01-13-2023 influenza, injectabl e, quadrivalent, preservative free [facility] 12-05-2021 influenza, injectabl e, quadrivalent, preservative free Abdelrahman Romero MD Work Phone: [facility] 12-05-2021 influenza virus vaccine, unspecified formulation Abdelrahman Romero MD Work Phone: [facility] Work Phone: 11-10-2020 Araceli SARS-CoV-2 Vaccination Walker Bruno DO Work Phone: [facility] 12-13-2017 influenza virus vaccine, unspecified formulation [facility] 11-14-2012 influenza virus vaccine, unspecified formulation [facility] 05-19-2012 measles, mumps and rubella virus vaccine [facility] 04-19-2012 measles, mumps and rubella virus vaccine [facility] 08-20-2011 tetanus toxoid, redu ricky diphtheria toxoid, and acellular pertussis vaccine, adsorbed [facility] Payers Date Payer Category Payer Self-pay 2023 [employer] [facility] [employer] [id number] 2023 Unknown [id number] 2021 Unknown MMO MMO [employer] [id number] 2021-Present [phone] [address] [place] [address] O [id number] .[id number] 2021 Unknown [id number] [id number] .[id number] 2021 Unknown [id number] 2019 Unknown [facility] xxxxxxxxxxx 2019-Present [phone] [address] [place] [address] xxxxxxxxxxx [id number] .[id number] 2019 Unknown [facility] [id number] 2019-Present [phone] [address] [place] [address] [id number] [id number] .[id number] 2019 Unknown [facility] [id number] 2019-Present [phone] [address] [place] [address] [id number] [id number] .[id number] 2018 Unknown [employer] [address] xxxxxxxxxxxx 2018-Present [phone] [address] [place] [address] xxxxxxxxxxxx [id number] .[id number] 1973 Unknown [id number] 2.16.840.1.037221.3.579.2 .1245 1973 Unknown [id number] 2.16.840.1.188372.3.579.2 .1244 1973 Unknown [id number] 2.16.840.1.744237.3.579.2 .1244 Unknown [id number] 2.16.840.1.942545.3.579.2 .462 Unknown [id number] 2.16.840.1.206668.3.579.2 .462 Unknown [id number] 2.16.840.1.404495.3.579.2 .462 Unknown [id number] 2.16.840.1.564053.3.579.2 .462 Unknown [id number] 2.16.840.1.105845.3.579.2 .462 Unknown [id number] 2.840.1.218674.3.579.2 .462 Unknown [id number] 2.840.1.585055.3.579.2 .462 Unknown [id number] 2.840.1.643952.3.579.2 .462 Unknown [id number] 2.840.1.006650.3.579.2 .462 Unknown [id number] 2.840.1.487639.3.579.2 .462 Unknown [id number] 2.16840.1.431224.3.579.2 .462 Unknown [id number] 2.16840.1.508733.3.579.2 .462 Unknown [id number] 2.840.1.612783.3.579.2 .462 Unknown [id number] 2.16840.1.485621.3.579.2 .462 Unknown [id number] 2.840.1.445375.3.579.2 .462 Unknown [id number] 2.16.840.1.819134.3.579.2 .462 Unknown [id number] 2.16.840.1.474929.3.579.2 .462 Unknown [id number] 2.840.1.147340.3.579.2 .462 Unknown [id number] 2.16.840.1.291849.3.579.2 .462 Unknown [id number] 2.16.840.1.482843.3.579.2 .462 Unknown [id number] 2.16.840.1.117565.3.579.2 .462 Unknown [id number] 2.16.840.1.340200.3.579.2 .462 Unknown [id number] 2.16.840.1.510911.3.579.2 .462 Unknown [id number] 2.16.840.1.808098.3.579.2 .462 Unknown [id number] 2.16.840.1.781863.3.579.2 .462 Unknown [id number] 2.16.840.1.143853.3.579.2 .462 Unknown [id number] 2.840.1.961547.3.579.2 .462 Unknown [id number] 2.16.840.1.177228.3.579.2 .462 Unknown [id number] 2.16.840.1.017575.3.579.2 .462 Unknown [id number] 2.16.840.1.963521.3.579.2 .462 Unknown [id number] 2.16.840.1.739296.3.579.2 .462 Unknown [id number] 2.16840.1.499061.3.579.2 .462 Unknown [id number] 2.16840.1.043961.3.579.2 .462 Unknown [id number] 2.16.840.1.755189.3.579.2 .462 Unknown [id number] 2.16.840.1.017228.3.579.2 .462 Social History Date Type Detail Facility Start: 04-07-2019 End: 04-27-2024 Tobacco smoking status [facility] Former smoker [facility] Start: 04-07-2019 End: 04-27-2024 Alcohol intake Lifetime non-drinker (finding) [place] Start: 04-07-2019 History SDOH Alcohol Frequency 1 [place] Start: 04-07-2019 History SDOH Social Connections Living 7 [facility] Start: 04-07-2019 History SDOH Physical Activity DPW 0 [place] Start: 04-07-2019 History SDOH Financial 5 [place] Start: 04-07-2019 History SDOH Transport Med 2 [place] Start: 1975 Sex Assigned At Not on file [employer] Work Phone: Start: 04-07-2019 End: 04-27-2024 Tobacco use and exposure Never used [place] Start: 05-13-2021 End: 03-11-2023 Exposure to SARS-CoV-2 (event) Not sure [place] Start: 09-18-1987 End: 09-17-2012 History of tobacco use Current smoker [facility] Start: 09-18-1987 End: 09-17-2012 History of tobacco use Cigarette Smoker [facility] Start: 04-16-2021 End: 09-21-2022 Alcohol intake Current non-drinker of alcohol (finding) [facility] Start: 06-29-2017 End: 04-27-2024 Cigarettes smoked current (pack per day) - Reported 0.5 [facility] Start: 07-09-2021 End: 04-27-2024 Tobacco use panel [facility] Adult Depression Screening Assessment 0 [facility] Start: 06-26-2021 Gender identity Identifies as female gender (finding) [facility] Start: 06-26-2021 Sexual orientation Heterosexual (finding) [facility] Start: 10-13-2022 End: 04-21-2024 Tobacco smoking status NHIS Occasional tobacco smoker [facility] Work Phone: History of tobacco use Passive smoker [facility] Work Phone: Start: 10-13-2022 End: 03-09-2023 Alcohol intake Ex-drinker (finding) [facility] Work Phone: Start: 10-13-2022 Tobacco Comment Not ready quit but will try [facility] Work Phone[facility] Start: 1975 Sex Assigned At Female [facility] Within the last year , have you been afraid of your partner or ex-partner? No [facility] Start: 04-21-2024 Tobacco Comment 04/21/2024 Patient states she is a social smoker only. Only smoked two cigarettes in 2023, around [place] time. [facility] Start: 09-22-2021 Sex Female (finding) [employer] [facility] Procedure Code Equipment Code Equipment Origin al Text Equipment Identifier Dates Use as instructe d daily Start: 04-03-2021 Comment on above: Use as instructed da alicia [employer] [facility] [employer] [id number] - [id number] Start: 04-20-2024 Clinical Notes 02-12-2004 to 05-08-2024 Telephone Encounter - Cici Disla - 05/08/2024 8:42 AM EDTTelephone Encounter - Cici Disla - 05/08/2024 8:42 AM EDTTelephone Encounter - Cici Disla - 05/04/2024 4:33 PM EDT Note Date & Type Note Facility 05-08-2024 Telephone encounter Note [facility] paperwork completed by Gust & faxed & sent to scanning. [facility] 05-08-2024 Miscellaneous Notes [employer] paperwork completed by Gust & faxed & sent to scanning. [place] paperwork given to [employer] RICARDO. documented in this encounter [facility] 05-05-2024 Telephone encounter Note PC to patient, she notes she had a few palpitations today, it was just one beat but occurred 4 times over 5 hours. She also walked a long distance today which was longer than usual for her since her [place]. She had a little shortness of breath and was a little sweaty at one point. She did check her BS which was a little low per her. She felt her chest was sore. Not similar to her [place] presentation. She left work and came home. She has been taking her medications as prescribed. She was asking if she should go to the ER. At this time patient does not sound to be in distress and she agrees, if she would develop symptoms similar to her LA she will seek emergent care. For now she will order a BP cuff and keep track of her BP/HR. She will call sooner if needed. [facility] paperwork completed, will have loan secretary fax. Patient was able to return to work 04/24/24 without restrictions. [facility] 05-05-2024 Miscellaneous Notes PC to patient, she notes she had a few palpitations today, it was just one beat but occurred 4 times over 5 hours. She also walked a long distance today which was longer than usual for her since her LA. She had a little shortness of breath and was a little sweaty at one point. She did check her BS which was a little low per her. She felt her chest was sore. Not similar to her LA presentation. She left work and came home. She has been taking her medications as prescribed. She was asking if she should go to the ER. At this time patient does not sound to be in distress and she agrees, if she would develop symptoms similar to her LA she will seek emergent care. For now she will order a BP cuff and keep track of her BP/HR. She will call sooner if needed. [facility] paperwork completed, will have loan secretary fax. Patient was able to return to work 04/24/24 without restrictions. LM to return call to office. LM to return call to office to further discuss symptoms. Patient calls having sx's of fluttering, shortness of breath, cold sweats, would like to talk to Yoon RICARDO. [phone] documented in this encounter [facility] 05-05-2024 Telephone encounter Note LM to return call to office. [facility] 05-05-2024 Telephone encounter Note LM to return call to office to further discuss symptoms. [facility] 05-05-2024 Telephone encounter Note Patient calls having sx's of fluttering, shortness of breath, cold sweats, would like to talk to PagPop RICARDO. [phone] [facility] 05-04-2024 Telephone encounter Note LA paperwork given to Yoon RICARDO. [facility] 05-04-2024 Miscellaneous Notes FMLA paperwork given to Yoon RICARDO. documented in this encounter [facility] 04-28-2024 Evaluation + Plan note Associated Problem(s): Coronary artery disease involving [place] coronary artery of [place] heart without angina pectoris See #1. [facility] 04-28-2024 Miscellaneous Notes Associated Problem(s): Coronary artery disease involving [place] coronary artery of [place] heart without angina pectoris See #1. Associated Problem(s): Essential hypertension BP well controlled, continue carvedilol, she was not taking her prescribed losartan, she will start losartan 25mg daily. Associated Problem(s): NSTEMI (non-ST elevated myocardial infarction) (HCC) Stable, s/p [id number] LAD. No current complaints of chest pain [...] for heart health reviewed and information given. Associated Problem(s): Class 3 severe obesity without serious comorbidity with body mass index (BMI) of 40.0 to 44.9 in adult (HCC) She states she has lost 40lbs and is still working on losing weight. We discussed healthy diet and exercise. Associated Problem(s): Type 2 diabetes mellitus with hyperglycemia, with long-term current use of insulin (HCC) A1c 6.6 which she states is much better than a year ago when she was first diagnosed. She is managed by endocrinology. Associated Problem(s): Mixed hyperlipidemia Unable to calculate LDL due to elevated triglycerides. We discussed healthy diet and exercise. Now on high-dose statin, continue rosuvastatin 40mg daily. Target LDL less than 70 and ideally less than 55 by ESC criteria. She sees endocrinology soon and will discuss management of elevated triglycerides. May consider addition of ezetimibe or PCSK9i in future if LDL remains above goal. Associated Problem(s): Psoriasis Untreated, recommend she follow-up with her PCP. Associated Problem(s): Tobacco use She has quit and I have congratulated her. We discussed importance of continued cessation. documented in this encounter [employer] [facility] 04-28-2024 Evaluation + Plan note Associated Problem(s): Essential hypertension BP well controlled, continue carvedilol, she was not taking her prescribed losartan, she will start losartan 25mg daily. [facility] 04-28-2024 Evaluation + Plan note Associated Problem(s): NSTEMI (non-ST elevated myocardial infarction) ([facility]) Stable, s/p [id number] LAD. No current complaints of chest pain [...] for heart health reviewed and information given. [employer] 04-28-2024 Evaluation + Plan note Associated Problem(s): Class 3 severe obesity without serious comorbidity with body mass index (BMI) of 40.0 to 44.9 in adult ([facility]) She states she has lost 40lbs and is still working on losing weight. We discussed healthy diet and exercise. [employer] [facility] 04-28-2024 Evaluation + Plan note Associated Problem(s): Type 2 diabetes mellitus with hyperglycemia, with long-term current use of insulin ([facility]) A1c 6.6 which she states is much better than a year ago when she was first diagnosed. She is managed by endocrinology. [employer] 04-28-2024 Evaluation + Plan note Associated Problem(s): Mixed hyperlipidemia Unable to calculate LDL due to elevated triglycerides. We discussed healthy diet and exercise. Now on high-dose statin, continue rosuvastatin 40mg daily. Target LDL less than 70 and ideally less than 55 by ESC criteria. She sees endocrinology soon and will discuss management of elevated triglycerides. May consider addition of ezetimibe or PCSK9i in future if LDL remains above goal. [facility] 04-28-2024 Evaluation + Plan note Associated Problem(s): Psoriasis Untreated, recommend she follow-up with her PCP. [facility] 04-28-2024 Evaluation + Plan note Associated Problem(s): Tobacco use She has quit and I have congratulated her. We discussed importance of continued cessation. [facility] 04-27-2024 History of Present illness Narrative Images from the original note were not included. [facility] - [address] [address] Dept: [phone] Dept Loc: [phone] Reason for Visit: Hospital Follow-up Assessment and Plan 1. NSTEMI (non-ST elevated myocardial infarction) (HCC) Assessment & Plan: Stable, s/p [id number] LAD. No current complaints of chest pain [...] metabolic panel 2. Coronary artery disease involving [place] coronary artery of [place] heart without angina pectoris Assessment & Plan: [...] hyperglycemia, with long-term current use of insulin ([facility]) Assessment & Plan: A1c 6.6 which she states is much better than a year ago when she was first diagnosed. She is managed by endocrinology. 8. Psoriasis Assessment & Plan: Untreated, recommend she follow-up with her PCP. Follow up in about 8 weeks (around 06/22/2024) for Dr. Mcpherson. We will notify her of her lab results and any further recommendations. She will call sooner if needed. Subjective 49-year-old female who presents to office status post hospital. She has a history of HTN, HLD, DM-2, asthma, GERD, obesity and tobacco use. She presented to [facility] with chest pain and was transferred to [facility] 04/19/2024. She initially thought her symptoms were [...] were elevated. She underwent cardiac cath at [place] which revealed moderate proximal RCA stenosis, minimal LCx disease and 100% occlusion of the proximal LAD (?TAFE LECTURER) with collaterals to distal LAD from the RCA. She was then transferred to [facility] for revascularization discussion. She also had another [...] Asthma Luna esophagus Coronary artery disease involving [place] coronary artery of [place] heart without angina pectoris 04/27/2024 Essential hypertension [...] Only smoked two cigarettes in 2023, around Samy time. Substance Use Topics Alcohol use: Never Past Surgical History: Procedure Laterality Date CARDIAC CATHETERIZATION N/A 04/20/2024 Performed by Devika Mcpherson MD at [facility] Cardiac Cath/EP Lab CARDIAC CATHETERIZATION N/A 04/20/2024 Performed by Devika Mcpherson MD at [facility] Cardiac Cath/EP Lab CARDIAC CATHETERIZATION N/A 04/20/2024 Performed by Devika Mcpherson MD at [facility] Cardiac Cath/EP Lab CHOLECYSTECTOMY COLONOSCOPY Dr. Londono. CORONARY STENT PLACEMENT 03/2024 SE-prox to mid LAD LIVER BIOPSY SKIN GRAFT Right lower [place] UPPER GASTROINTESTINAL ENDOSCOPY Family History Problem Relation Name Age of Onset Other (19320) Mother Drawfism. No Known Problems Father Objective Vitals: 04/27/24 1415 BP: 128/82 BP Location: Left arm Patient Position: Sitting BP Cuff Size: Adult Pulse: 88 SpO2: 97% Height: 5' 1 (1.549 m) Body mass index is 41.78 kg/m . Physical Exam Constitutional: General: She is not [...] % Final Cardiac Catheterization 04/20/24: Conclusion Anterior LA due to 100% occluded proximal LAD Successful [...] is normal (~3 mmHg). Technically difficult study. STEVE Mcdowell CNP documented in this encounter [facility] 04-27-2024 Instructions STEVE Mcdowell CNP - 04/27/2024 2:00 PM EST Move isosorbide mononitrate to evening Call next week with an update on symptoms [phone] documented in this encounter [facility] 04-21-2024 Nurse Note Discharge instructions reviewed with patient and family at bedside. IV out and pt is off of monitor. Medications were delivered to bedside. Pt taken down to discharge. [facility] 04-21-2024 Nurse Note Discharge instructions reviewed with patient and family at bedside. IV out and pt is off of monitor. Medications were delivered to bedside. Pt taken down to discharge. documented in this encounter [facility] 04-21-2024 Consult note Associated Order (s): IP CONSULT TO CARDIAC REHAB; IP CONSULT TO CARDIAC REHAB Received referral and reviewed chart. Phase II Cardiopulmonary Rehab Referral discussed with Constance Gage. Cardiopulmonary Rehab education provided and reviewed handout. Pt prefers [facility] location. Will call the patient when appropriate after discharge to schedule evaluation. [facility] 04-21-2024 Note Received referral an d reviewed chart. Phase II Cardiopulmonary Rehab Referral discussed with Constance Gage. Cardiopulmonary Rehab education provided and reviewed handout. Pt prefers [facility] location. Will call the patient when appropriate after discharge to schedule evaluation. [facility] 04-21-2024 Consult note Associated Order (s): IP CONSULT TO CARDIAC REHAB; IP CONSULT TO CARDIAC REHAB Received referral and reviewed chart. Phase II Cardiopulmonary Rehab Referral discussed with Constance Gage. Cardiopulmonary Rehab education provided and reviewed handout. Pt prefers [facility] location. Will call the patient when appropriate after discharge to schedule evaluation. [facility] Interventional Cardiology Consult Note Reason for Consult/Chief Complaint: Chest Pain/Obstructive CAD on [facility] Referring provider: Dr. Sears Established asset protection lead: None History of Present Illness: Constance Gage [...] morning, at 2am, she drove herself to [place]. She ruled in for NSTEMI and was admitted. A left heart cath was performed on 04/19/24 (images in PACs) which revealed moderate proximal RCA disease, minimal Lcx disease, and a 100% occlusion of the proximal LAD (collaterals to distal LAD from the RCA). Given the evidence of LAD TAFE LECTURER, she was transferred to [facility] for PCI vs. CABG consideration. This [...] 65 Resp: 16 16 18 Temp: 36.3 C (97.3 F) 36.3 C (97.4 F) 36.7 C (98.1 F) TempSrc: Temporal Temporal Temporal SpO2: 98% 96% [...] No results found for: TROPDELTSEC Recent Labs 04/19/24 2227 NA 137 K 4.0 CL 107 CO2 20* BUN 10 CREATININE 0.86 EGFR 81.9 Recent Labs 04/19/24 2227 WBC 16.0* HGB 12.1 HCT 36.3 MCV [...] Results from last 7 days Lab Units 04/19/24 222 AST U/L 33 ALT U/L 11 No [...] LVEFPHYS, LVEF2D, EF Kiara Cancino MD Interventional Regional Economist, PGY-VII DATE of SERVICE: 04/20/2024 Cosigned by Devika Mcpherson MD at 04/20/2024 3:46 PM EST Associated attestation - Devika Mcpherson MD - 04/20/2024 3:46 PM EST I, Dr. Devika Mcpherson, saw and evaluated the patient. I personally obtained the lawson and critical portions of the history and physical exam. I reviewed the chart, the fellow's documentation, and discussed the patient with the fellow. I agree with the fellow's medical decision making and have edited the note to reflect my clinical findings and my assessment and plan. Cath images from [place] done yesterday were reviewed. Patient had mild [...] and her parents. She agrees to proceed. documented in this encounter [facility] 04-21-2024 History of Present illness Narrative Patient declined smoking cessation counseling. She is accepting of handouts with contact information for future reference. Nutrition rescreen completed. Chart reviewed. Patient to be monitored and followed by the diet food service technician. SHAKIR Scanlon [facility] Brief Interventional Cardiology follow up NAME: Constance [...] esophagus and morbid obesity who presented to [facility] with substernal chest pain that radiated to [...] have obstructive CAD and was transferred to [facility] for intervention.She underwent uncomplicated LHC right radial approach and received 1 SE to mid-prox LAD with Dr. Mcpherson on 04/20/24. Today she is resting in [...] 64 Resp: 12 13 18 Temp: 36.3 C (97.3 F) 36.7 C (98 F) TempSrc: Temporal Temporal SpO2: 96% 97% Weight: [...] QT Interval 430 QTC Interval 481 P [place] 44 QRS [place] -53 T Wave [place] 111 NC Interval 178 Impression Sinus rhythm Left anterior [...] signed. Information might be incomplete. Conclusion Anterior LA due to 100% occluded proximal LAD D1 [...] which improved with nitrates. Mariam Lundy MSN, VEGETABLE WORKER, BRANCH RETAIL EXECUTIVE-C - Date of Service: 04/19/2024 Nurse Practitioner in Interventional Cardiology [facility] - Cardiology Images from the original note were not included. [facility] Interventional Cardiology NAME: Constance Gage DATE OF : 1975 CHIEF COMPLAINT NSTEMI ASSESSMENT AND PLAN NSTEMI CAD s/p SE to LAD Her post cath EKG is stable. She was loaded with Brilinta during her cath. Her SOB is possibly s/t Brilinta, but patient does not appear to be in any distress. Discussed with Dr. Mcpherson will give patient 40 mg IVP furosemide. [...] GERD/Luna's esophagus and obesity who presented to [facility] with substernal chest pain that radiated to [...] have obstructive CAD and was transferred to [facility] for intervention. Today patient underwent uncomplicated LHC right radial approach and received 1 SE to LAD with Dr. Mcpherson. Patient resting in bed with family at bedside. Her chest pain was improving at the time, but later developed 5/10 bilateral shoulder pain and SOB when she was trying to sleep. Mariam Lundy MSN, VEGETABLE WORKER, BRANCH RETAIL EXECUTIVE-C - Date of Service: 04/19/2024 Nurse Practitioner in Interventional Cardiology [facility] - Cardiology [facility] Cardiology /Electrophysiology Progress Note HPI / Interval History: 49 y.o. F with a history of HTN, HLD, tobacco use, T2DM, asthma, GERD/Luna esophagus and obesity who presents with as a transfer from [facility] with obstructive CAD noted on LHC. This morning, the patient reports that she is no longer experiencing any chest pain. Her right wrist is somewhat sore from her LHC yesterday. Ready for repeat LHC today. Assessment/Plan Type 1 NSTEMI Obstructive CAD Patient s/p LHC at [facility] 04/19 with noted RCA lesion and TAFE LECTURER - ASA 81mg daily - Rosuvastatin 40mg [...] 65 Resp: 16 16 18 Temp: 36.3 C (97.3 F) 36.3 C (97.4 F) 36.7 C (98.1 F) TempSrc: Temporal Temporal Temporal SpO2: 98% 96% [...] No results found for: TROPDELTSEC Recent Labs 04/19/24 222 NA 137 K 4.0 CL 107 CO2 [...] Renee Lau MD Date Of Service 04/20/2024 Cosigned by Jake Sears MD at 04/20/2024 11:45 AM EST Associated attestation - Jake Sears MD - 04/20/2024 11:45 AM EST See attestation of H&P. Jake Sears MD Department of Cardiovascular Disease, Division of Heart Failure [facility] documented in this encounter [facility] 04-21-2024 Note Patient declined smo alex cessation counseling. She is accepting of handouts with contact information for future reference. [facility] 04-21-2024 Note Formatting of this n ote might be different from the original. Care Management Progress Note Patient remains on 1C s/p SE to mid-prox LAD 04/20. Discharge plan home independently. Length of Stay (Days): 2 GMLOS: 2 [facility] 04-21-2024 Note Formatting of this n ote might be different from the original. Care Management Progress Note Patient remains on 1C s/p SE to mid-prox LAD 04/20. Discharge plan home independently. Length of Stay (Days): 2 GMLOS: 2 [facility] 04-21-2024 Note Care Management Prog ress Note Patient remains on 1C s/p SE to mid-prox LAD 04/20. Discharge plan home independently. Length of Stay (Days): 2 GMLOS: 2 [facility] 04-21-2024 Miscellaneous Notes Care Management Progress Note Patient remains on 1C s/p SE to mid-prox LAD 04/20. Discharge plan home independently. Length of Stay (Days): 2 GMLOS: 2 Problem: Pain - Adult Goal: Verbalizes/displays adequate comfort level or baseline comfort level Outcome: Progressing Problem: Safety - Adult Goal: Free from fall injury Outcome: Progressing Problem: Discharge Planning Goal: Discharge to home or other facility with appropriate resources Outcome: Progressing Problem: Chronic Conditions and Co-morbidities Goal: Patient's chronic conditions and co-morbidity symptoms are monitored and maintained or improved Outcome: Progressing Sedation Plan ASA class 3 - patient with severe systemic disease Mallampati class: II - soft palate, uvula, fauces visible. Sedation plan: local anesthesia and minimal sedation Risks, benefits, and alternatives discussed with patient, mother and father. Immediate reassessment prior to sedation: Patient's status reviewed and vital signs assessed; acceptable to perform procedure and proceed to administer sedation as planned. Problem: Pain - Adult Goal: Verbalizes/displays adequate comfort level or baseline comfort level Outcome: Progressing Problem: Safety - Adult Goal: Free from fall injury Outcome: Progressing Problem: Discharge Planning Goal: Discharge to home or other facility with appropriate resources Outcome: Progressing Problem: Chronic Conditions and Co-morbidities Goal: Patient's chronic conditions and co-morbidity symptoms are monitored and maintained or improved Outcome: Progressing documented in this encounter [facility] 04-21-2024 Note Attestation signed by Jake Sears MD at [...] of Cardiovascular Disease, Division of Heart Failure [facility] 5:00 PM 04/21/24 [facility] Discharge Summary Name: Constance Gage Date of : 1975 Date of Admission: 04/19/2024 Date of Discharge: 04/21/2024 Discharge Attending: Jake Sears MD Primary Care Provider: No primary care provider on file. Type of Admission: Admission Code Status: Full Code Reason for Admission: NSTEMI, Concern for LAD TAFE LECTURER s/p LHC at OSH Discharge Diagnoses: NSTEMI [...] Problem Relation Name Age of Onset Other (87455) Mother Drawfism. No Known Problems Father Social History Tobacco Use Smoking status: Every Day Smokeless tobacco: Never Substance Use Topics Alcohol use: Never Drug use: Never Hospital Course Constance Gage is a 49 y.o. female with PMH significant for HTN, HLD, tobacco use, T2DM, asthma, GERD/Luna esophagus who presented to [facility] as a transfer from [facility] after she presented with chest pain and was found to have an NSTEMI. LHC performed and LAD lesion noted - concern that lesion a TAFE LECTURER. Patient subsequently transferred here in the setting of suspected TAFE LECTURER for further assessment. Repeat LHC performed 04/20. Occlusion able to be intervened upon with SE placement. Patient discharging on DAPT, high-intensity statin, BB. Her home losartan was stopped in the setting of low normal BP and Imdur initiation. Consultants: IP CONSULT TO CARDIAC REHAB IP CONSULT TO CARDIAC REHAB Procedures: 04/20/24 [facility] Anterior LA due to 100% occluded proximal LAD D1 [...] Time Provider Department Center 04/27/2024 2:00 PM Yoon Martinez APRN - COLLECTION ANALYST [facility] Ar Discharge Plan Medication List START [...] MG SL tablet Commonly known as: Nitrostat P (more content not included)... [facility] 04-21-2024 Hospital course Narrative Images from the original note were not included. [facility] Cardiology Discharge Summary Name: Constance Gage Date of : 1975 Date of Admission: 04/19/2024 Date of Discharge: 04/21/2024 Discharge Attending: Jake Sears MD Primary Care Provider: No primary care provider on file. Type of Admission: Admission Code Status: Full Code Reason for Admission: NSTEMI, Concern for LAD TAFE LECTURER s/p LHC at OSH Discharge Diagnoses: NSTEMI [...] Problem Relation Name Age of Onset Other (29783) Mother Drawfism. No Known Problems Father Social History Tobacco Use Smoking status: Every Day Smokeless tobacco: Never Substance Use Topics Alcohol use: Never Drug use: Never Hospital Course Constance Gage is a 49 y.o. female with PMH significant for HTN, HLD, tobacco use, T2DM, asthma, GERD/Luna esophagus who presented to [facility] as a transfer from [facility] after she presented with chest pain and was found to have an NSTEMI. LHC performed and LAD lesion noted - concern that lesion a TAFE LECTURER. Patient subsequently transferred here in the setting of suspected TAFE LECTURER for further assessment. Repeat LHC performed 04/20. Occlusion able to be intervened upon with SE placement. Patient discharging on DAPT, high-intensity statin, BB. Her home losartan was stopped in the setting of low normal BP and Imdur initiation. Consultants: IP CONSULT TO CARDIAC REHAB IP CONSULT TO CARDIAC REHAB Procedures: 04/20/24 [facility] Anterior LA due to 100% occluded proximal LAD D1 [...] Time Provider Department Center 04/27/2024 2:00 PM Yoon Martinez APRN - COLLECTION ANALYST [facility] 95 Ar Discharge [...] 145 MCG capsule Commonly known as: Linzess okzpoxoc-kbwspanjh-votpltknkofmt e [id number] otic suspension Commonly known as: Cortisporin sucralfate 1 GM/10ML suspension Commonly known as: Carafate Where to Get Your Medications These medications were sent to [facility] [address] [place] [address], [facility] [id number] Hours: Wednesday to Wednesday 10 am to 6 pm Aspirin Low Dose 81 MG EC tablet Brilinta 90 MG tablet carvedilol 3.125 MG tablet isosorbide mononitrate ER 30 MG 24 hr tablet nitroglycerin 0.4 MG SL tablet rosuvastatin 40 MG tablet Objective: Physical Exam: Vitals: BP 110/75 (BP Location: Left arm) Pulse 64 Temp 36.7 C (98 F) (Temporal) Resp 18 Ht 5' 1 (1.549 m) Wt 221 lb 1.6 oz (100 kg) SpO2 97% BMI 41.78 kg/m Intake/Output Summary (Last 24 hours) at 04/21/2024 1116 Last data filed at 04/21/2024 0500 Gross per 24 hour Intake 200 ml Output 655 ml Net -455 ml Admission weight: 222 lb 9.6 oz (101 kg) Last weight: Wt Readings from Last 1 Encounters: 04/21/24 221 lb 1.6 oz (100 kg) Body mass index is 41.78 kg/m . BMI Classification: Morbidly Obese (>40.0) Physical Exam [...] Indicators if applicable. Quality Indicators for Acute LA / PCI: Guideline Directed Medical Therapy Aspirin: Yes P2Y12 Inhibitor: Yes High-Intensity Statin: Yes Beta Soco: Yes [place]-I/ARB/ARNI: No, not medically indicated MRA: [...] diagnosed with ACS. If any questions, call: [facility] [phone] Total time Discharge activity. []30 min or less [x]Greater than 30 min Renee Lau MD Parts of this note may be generated using a voice recognition software program. Please excuse any cocoa bean roaster helper errors that may have occurred. This note was electronically signed by Renee Lau MD on 04/21/24 Cosigned by Jake Sears MD at 04/21/2024 5:01 PM EST Associated attestation - Jake Sears MD - 04/21/2024 5:01 PM EST I, Dr. Jake Sears, saw and evaluated [...] of Cardiovascular Disease, Division of Heart Failure [facility] [place] 5:00 PM 04/21/24 documented in this encounter [facility] 04-21-2024 Hospital Discharge instructions Josie Miller, VEGETABLE WORKER - COLLECTION ANALYST - 04/21/2024 10:14 AM EST Call your doctor with any medication questions or if you notice any side effects from your medications. If you are unable to fill your medications, please call your Optical Glass Wet Inspector immediately. The office number is located with your follow-up appointment information. Call your doctor if any redness or drainage from the wound site. DO NOT stop taking your medication unless instructed to do so by your doctor. Read the drug information material that were given to you and take medications as instructed by your doctor. New drugs may have been added to your medications, that will strengthen your heart and prevent re-stenosis of the coronary arteries. Drink 6 glasses of water (8 ounces each) over the next 24 hours. Water helps clear the dye from your body. No alcoholic beverages for 24 hours. It may interfere with healing. No exercise or sex for 5 days. Call 911 for chest pain, arm pain, nausea, neck pain, dizziness or unusual sweating AND your pain has not relieved with 2 doses of Nitroglycerin. Wrist: Call your doctor if a lump at the puncture site enlarges or is larger than marble size. Call your doctor for numbness, tingling, or swelling of the fingers, hand or wrist. Call your doctor for increased area or bruising with discoloration extending into the arm. If bleeding occurs, hold pressure with your thumb against the puncture site and your finger against the back of the wrist for 10 minutes, if BLEEDING continues CALL 911. OK to shower. No tub baths, swimming pools or hot tub soaking for three days. Wash site daily with soap and water, dry gently. The healing wound should remain soft and dry. Keep site clean and dry, no soaking of wrist for three days (no cleaning or dish washing). Remove band aid the day after procedure and leave open to air. No bending of affected wrist for 24 hours. DO NOT lift more than three pounds for 3-5 days[address] driving for 24 hours. GIVE PCI PACKET (FROM DISTRIBUTED GENERATION PROJECT MANAGER) TO PATIENT Give Coronary Artery Discharge Booklet PLEASE CALL YOUR HEART DOCTOR IF YOU CANNOT GET YOUR MEDICATIONS. THE NUMBER IS LISTED WITH YOUR FOLLOW-UP APPOINTMENT. Procedure Sedation Instructions If you have received sedation: you must have someone drive you home You should not drive a car, operate machinery, drink alcohol or perform any activity that requires alertness for the rest of the day. The effects of the sedative should be gone by tomorrow. Cardiac Rehab The Cardiac Rehab team at [facility] consists of highly skilled exercise physiologists, nurses, respiratory therapists and physicians working together with you. Our purpose is to help you have a full recovery and achieve the goals you set for yourself. Over the years many of our patients have returned to activities they assumed they would never do again! We can help restore your confidence and motivation to make lifestyle changes that can have a significant impact on your health and quality of life! We can help answer questions and concerns you may have about exercise, lifestyle, medications, diet, stress and anxiety which are common following a hospitalization. We monitor ECG and vital signs during exercise and discuss your progress with you and report to your physician. Cardiac Rehab is proven to help reduce readmissions, improve functional capacity and lower recurrence of problems with your heart. We have facilities at both [facility] and [facility]. At both locations we have street level parking which is free and our sites are easily accessible. For both [facility] you can contact us at . We invite you to call us with your questions or to get started in our program. If you have other questions or concerns be sure to ask your provider during your follow up visit. We look forward to seeing you there. Our locations: [facility] [address] [facility] [id number] [facility] Ground Floor [id number] - Ground floor documented in this encounter [facility] 04-20-2024 Plan of care note Problem: Pain - Adult Goal: Verbalizes/displays adequate comfort level or baseline comfort level Outcome: Progressing Problem: Safety - Adult Goal: Free from fall injury Outcome: Progressing Problem: Discharge Planning Goal: Discharge to home or other facility with appropriate resources Outcome: Progressing Problem: Chronic Conditions and Co-morbidities Goal: Patient's chronic conditions and co-morbidity symptoms are monitored and maintained or improved Outcome: Progressing [facility] 04-20-2024 Note [facility] Post-Procedure Note Patient Name: Constance Gage Date: 04/20/2024, 1:28 PM Pre-Operative Diagnosis: Anterior LA Post-Operative Diagnosis: Anterior LA Procedure: Coronary angiogram, PCI, R radial access [...] PGY7, Interventional Cardiovascular Fellow at 1:29 PM [facility] 04-20-2024 Procedure note [facility] Post-Procedure Note Patient Name: Constance Gage Date: 04/20/2024, 1:28 PM Pre-Operative Diagnosis: Anterior LA Post-Operative Diagnosis: Anterior LA Procedure: Coronary angiogram, PCI, R radial access [...] PGY7, Interventional Cardiovascular Fellow at 1:29 PM [facility] Work Phone: 04-20-2024 Procedure note [facility] Post-Procedure Note Patient Name: Constance Gage Date: 04/20/2024, 1:28 PM Pre-Operative Diagnosis: Anterior LA Post-Operative Diagnosis: Anterior LA Procedure: Coronary angiogram, PCI, R radial access [...] PGY7, Interventional Cardiovascular Fellow at 1:29 PM documented in this encounter [facility] 04-20-2024 Nurse procedure note Sedation Plan ASA class 3 - patient with severe systemic disease Mallampati class: II - soft palate, uvula, fauces visible. Sedation plan: local anesthesia and minimal sedation Risks, benefits, and alternatives discussed with patient, mother and father. Immediate reassessment prior to sedation: Patient's status reviewed and vital signs assessed; acceptable to perform procedure and proceed to administer sedation as planned. [facility] Work Phone: 04-20-2024 Consult note Formatting of th is note is different from the original. [facility] Interventional Cardiology Consult Note Reason for Consult/Chief Complaint: Chest Pain/Obstructive CAD on [facility] Referring provider: Dr. Sears Established asset protection lead: None History of Present Illness: Constance Gage [...] morning, at 2am, she drove herself to [place]. She ruled in for NSTEMI and was admitted. A left heart cath was performed on 04/19/24 (images in PACs) which revealed moderate proximal RCA disease, minimal Lcx disease, and a 100% occlusion of the proximal LAD (collaterals to distal LAD from the RCA). Given the evidence of LAD TAFE LECTURER, she was transferred to [facility] for PCI vs. CABG consideration. This [...] 65 Resp: 16 16 18 Temp: 36.3 C (97.3 F) 36.3 C (97.4 F) 36.7 C (98.1 F) TempSrc: Temporal Temporal Temporal SpO2: 98% 96% [...] LVEFPHYS, LVEF2D, EF Kiara Cancino MD Interventional Regional Economist, PGY-VII DATE of SERVICE: 04/20/2024 Cosigned by Devika Mcpherson MD at 04/20/2024 3:46 PM EST Associated attestation - Devika Mcpherson MD - 04/20/2024 3:46 PM EST I, Dr. Devika Mcpherson, saw and evaluated the patient. I personally obtained the lawson and critical portions of the history and physical exam. I reviewed the chart, the fellow's documentation, and discussed the patient with the fellow. I agree with the fellow's medical decision making and have edited the note to reflect my clinical findings and my assessment and plan. Cath images from [place] done yesterday were reviewed. Patient had mild [...] and her parents. She agrees to proceed. [facility] Work Phone: 04-19-2024 Plan of care note Problem: Pain - Adult Goal: Verbalizes/displays adequate comfort level or baseline comfort level Outcome: Progressing Problem: Safety - Adult Goal: Free from fall injury Outcome: Progressing Problem: Discharge Planning Goal: Discharge to home or other facility with appropriate resources Outcome: Progressing Problem: Chronic Conditions and Co-morbidities Goal: Patient's chronic conditions and co-morbidity symptoms are monitored and maintained or improved Outcome: Progressing [facility] 04-19-2024 History and physical note [facility] Cardiology History and Physical If patient is on ICS, for questions (see Vp Hr Diversity Finder): 7:00 AM- 5:00 PM: Contact ICS Fellow 5:00 PM - 11:00 PM: Contact ICS Moonlighter 11:00 PM- 7:00 AM: Contact Night Call (HLU) Fellow Reason for Consult/Chief Complaint: Chest pain History of Present Illness: Constance Gage is a 49 y.o. female with a history of HTN, HLD, tobacco use, T2DM, asthma, GERD/Luna esophagus and obesity who presents with as a transfer from [facility] with chest pain. She reports initially experiencing [...] chest/jaw. She decided to drive herself to [place] ER around 2am. On arrival to the [...] pain improved. She was taken to the labor relations analyst on 04/19 and was found to have obstructive CAD ([facility] records pending) and was subsequently transferred to [facility] for further management. Past Medical History: Past [...] Problem Relation Name Age of Onset Other (15012) Mother Drawfism. No Known Problems Father Social [...] 04/19/24200404/19/242013 BP: 136/83 Resp: 20 Temp: 36.9 C (98.4 F) TempSrc: Oral SpO2: 96% Weight: 222 lb 9.6 oz (101 kg) No intake or output data in the 24 hours ending 04/19/242123 Wt Readings from Last 3 Encounters: 04/19/24 [...] to underlying obstructive CAD demonstrated following invasive evaluation/LHC at [facility]. We will continue management for ACS with heparin/ASA/statin and plan for repeat cardiac catheterization tomorrow. Plan: - Start ASA 81mg daily - Start Rosuvastatin 40mg daily - Transthoracic Echocardiogram - Continue heparin gtt - Start Carvedilol 3.125mg BID - NPO at midnight for [facility] tomorrow Hypertension -Hold Losartan 25 mg, restart after [facility] Hyperlipidemia -Rosuvastatin as above Type 2 Diabetes Mellitus -Insulin glargine 15U qAM + SSI/ POCT before every meal and nightly GERD/Tacho Esophagus -Pantoprazole 40 mg every morning Gout -Colchicine 0.6 mg daily Huang Mercado MD DATE of SERVICE: 04/19/2024 Cosigned by Jake Sears MD at 04/20/2024 11:44 AM EST Associated attestation - Jake Sears MD - 04/20/2024 11:44 AM EST I, Dr. Jake Sears, saw and evaluated [...] negative, plan for med management and outpatient TAFE LECTURER evaluation. Jkae Sears MD Department of Cardiovascular Disease, Division of Heart Failure [facility] 11:43 AM 04/20/24 [facility] 04-19-2024 Note Attestation signed by Jake Sears MD at 04/20/2024 11:44 AM I, [...] negative, plan for med management and outpatient TAFE LECTURER evaluation. Jake Sears MD Department of Cardiovascular Disease, Division of Heart Failure [facility] 11:43 AM 04/20/24 [facility] Cardiology History and Physical If patient is on ICS, for questions (see Vp Hr Diversity Finder): 7:00 AM- 5:00 PM: Contact ICS Fellow 5:00 PM - 11:00 PM: Contact ICS Moonlighter 11:00 PM- 7:00 AM: Contact Night Call (HLU) Fellow Reason for Consult/Chief Complaint: Chest pain History of Present Illness: Constance Gage is a 49 y.o. female with a history of HTN, HLD, tobacco use, T2DM, asthma, GERD/Luna esophagus and obesity who presents with as a transfer from [facility] with chest pain. She reports initially experiencing [...] chest/jaw. She decided to drive herself to [place] ER around 2am. On arrival to the [...] pain improved. She was taken to the labor relations analyst on 04/19 and was found to have obstructive CAD ([facility] records pending) and was subsequently transferred to [facility] for further management. 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 Londono. LIVER BIOPSY SKIN GRAFT Right [place] UPPER GASTROINTESTINAL ENDOSCOPY Family History: Family History Problem Relation Name Age of Onset Other (85995) Mother Drawfism. No Known Problems Father Social [...] output data in the 24 hours ending 04/19/242123 Wt Readings from Last 3 Encounters: 04/19/24 [...] well perfused NEURO/PSYCH: A&O x 3, no (more content not included)... [facility] 04-19-2024 History and physical note [facility] Cardiology History and Physical If patient is on ICS, for questions (see Vp Hr Diversity Finder): 7:00 AM- 5:00 PM: Contact ICS Fellow 5:00 PM - 11:00 PM: Contact ICS Moonlighter 11:00 PM- 7:00 AM: Contact Night Call (HLU) Fellow Reason for Consult/Chief Complaint: Chest pain History of Present Illness: Constance Gage is a 49 y.o. female with a history of HTN, HLD, tobacco use, T2DM, asthma, GERD/Luna esophagus and obesity who presents with as a transfer from [facility] with chest pain. She reports initially experiencing [...] chest/jaw. She decided to drive herself to [place] ER around 2am. On arrival to the [...] pain improved. She was taken to the labor relations analyst on 04/19 and was found to have obstructive CAD ([facility] records pending) and was subsequently transferred to [facility] for further management. Past Medical History: Past [...] Problem Relation Name Age of Onset Other (03407) Mother Drawfism. No Known Problems Father Social [...] 04/19/24200404/19/242013 BP: 136/83 Resp: 20 Temp: 36.9 C (98.4 F) TempSrc: Oral SpO2: 96% Weight: 222 lb 9.6 oz (101 kg) No intake or output data in the 24 hours ending 04/19/242123 Wt Readings from Last 3 Encounters: 04/19/24 [...] to underlying obstructive CAD demonstrated following invasive evaluation/LHC at [facility]. We will continue management for ACS with heparin/ASA/statin and plan for repeat cardiac catheterization tomorrow. Plan: - Start ASA 81mg daily - Start Rosuvastatin 40mg daily - Transthoracic Echocardiogram - Continue heparin gtt - Start Carvedilol 3.125mg BID - NPO at midnight for [facility] tomorrow Hypertension -Hold Losartan 25 mg, restart after [facility] Hyperlipidemia -Rosuvastatin as above Type 2 Diabetes Mellitus -Insulin glargine 15U qAM + SSI/ POCT before every meal and nightly GERD/Tacho Esophagus -Pantoprazole 40 mg every morning Gout -Colchicine 0.6 mg daily Huang Mercado MD DATE of SERVICE: 04/19/2024 Cosigned by Jake Sears MD at 04/20/2024 11:44 AM EST Associated attestation - Jake Sears MD - 04/20/2024 11:44 AM EST I, Dr. Jake Sears, saw and evaluated [...] negative, plan for med management and outpatient TAFE LECTURER evaluation. Jake Sears MD Department of Cardiovascular Disease, Division of Heart Failure [facility] [place] 11:43 AM 04/20/24 documented in this encounter [facility] 04-19-2024 Note [facility] 03-09-2023 History of Present illness Narrative Images from the original note were not included. Subjective Patient ID: Constance Gage is a 47 y.o. female who presents for Breast Mass (Right breast. Started around Samy. Gotten bigger in size ). Today she is accompanied by alone. Breast Pain Chronicity: New Associated Symptoms: breast mass, breast pain, breast redness, skin change, swelling and tenderness Associated Symptoms: no breast discharge and no adenopathy Affected side: Right Onset: 1 to 4 weeks ago Progression since onset: Worsening Currently : No Contraceptive use: postmenopausal. History of hormonal contraceptive use: no History of hormone replacement therapy: no Practices self breast exam: yes Risk factors: obesity and smoking Risk factors: no risk factors related to alcohol, no family history of breast cancer, no family history of ovarian cancer, no genetic predisposition, no precancerous breast condition, no late menopause and no radiation exposure Diagnostic workup: No prior workup Treatments tried: None Review of Systems Hematological: Negative for adenopathy. Objective Blood Pressure (Abnormal) 130/92 Pulse 99 Weight 111 kg (245 lb 4 oz) Last Menstrual Period 10/13/2020 (Approximate) Oxygen Saturation 96% Body Mass Index 46.34 kg/m BSA: 2.19 meters squared Growth percentiles: Facility age limit for growth %flaquito is 20 years. Facility age limit for growth %flaquito is 20 years. Physical Exam Vitals and nursing note reviewed. Constitutional: Appearance: Normal appearance. HENT: Head: Normocephalic. Right Ear: Tympanic membrane normal. Left Ear: Tympanic membrane normal. Cardiovascular: Rate and Rhythm: Normal rate and regular rhythm. Pulses: Normal pulses. Heart sounds: Normal heart sounds. Chest: Chest wall: No mass, lacerations, deformity, swelling, tenderness, crepitus or edema. There is no dullness to percussion. Breasts: Right: Swelling, mass, skin change and tenderness present. No bleeding, inverted nipple or nipple discharge. Left: Normal. No swelling, bleeding, inverted nipple, mass, nipple discharge, skin change or tenderness. Abdominal: General: Abdomen is flat. Bowel sounds are normal. Musculoskeletal: General: Normal range of motion. Lymphadenopathy: Upper Body: Right upper body: No supraclavicular, axillary or pectoral adenopathy. Left upper body: No supraclavicular, axillary or pectoral adenopathy. Neurological: Mental Status: She is alert. Psychiatric: Mood and Affect: Mood normal. Behavior: Behavior normal. Assessment/Plan Problem List Items Addressed This Visit ICD-10-CM Mild persistent asthma without complication J45.30 Relevant Orders TSH with reflex to Free T4 if abnormal Type 2 diabetes mellitus with hyperglycemia, without long-term current use of insulin ([facility]) E11.65 Relevant Orders Hemoglobin A1C Magnesium Mass of lower outer quadrant of right breast - Primary N63.13 Relevant Medications cephalexin (Keflex) 500 mg capsule Other Relevant Orders BI US breast complete right BI mammo right diagnostic Sedimentation Rate C-Reactive Protein TSH with reflex to Free T4 if abnormal Comprehensive Metabolic Panel Exacerbation of gout M10.9 Relevant Orders TSH with reflex to Free T4 if abnormal Other Visit Diagnoses Diagnosis Codes Encounter for screening mammogram for malignant neoplasm of breast Z12.31 Relevant Orders BI mammo left screening tomosynthesis Encounter for annual general medical examination without abnormal findings in adult Z00.00 Relevant Orders Lipid Panel CBC and Auto Differential Vitamin D deficiency E55.9 Relevant Orders Vitamin D 25-Hydroxy,Total (for eval of Vitamin D levels) Vitamin B 12 deficiency E53.8 Relevant Orders Vitamin B12 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 20 capsule 0 No current facility-administered medications for this visit. Will call after mammogram and breast US is done. If needed will have her go to the breast specialist. If abscess confirmed then will see her back in 2 weeks to checked [facility] breast exam. Needs blood work done. F/U sooner is symptoms get worse documented in this encounter [facility] Work Phone: 03-09-2023 Instructions Abdelrahman Romero MD - 03/09/2023 3:00 PM EST F/U in 1 month for diabetes and htn Orders Placed This Encounter Procedures BI US breast complete right BI mammo right diagnostic BI mammo left screening tomosynthesis Lipid Panel Vitamin D 25-Hydroxy,Total (for eval of Vitamin D levels) Vitamin B12 Sedimentation Rate C-Reactive Protein CBC and Auto Differential TSH with reflex to Free T4 if abnormal Insulin, Random Comprehensive Metabolic Panel Hemoglobin A1C Magnesium documented in this encounter [facility] Work Phone: 10-13-2022 History of Present illness Narrative Subjective Patient ID: Constance Gage is a 47 y.o. female who presents for New patient to establish care (Chronic cough, has seen ENT thinks it may be from GERD/Luna's Esophagus) and Diabetes (Was on Metformin has not had refilled x 1 year). Diabetes She presents for her follow-up diabetic visit. She has type 2 diabetes mellitus. Her disease course has been fluctuating. Pertinent negatives for hypoglycemia include no confusion, dizziness, headaches, seizures or sleepiness. Associated symptoms include foot paresthesias. Pertinent negatives for diabetes include no chest pain, no polydipsia, no polyphagia and no polyuria. Pertinent negatives for hypoglycemia complications include no blackouts, no hospitalization, no nocturnal hypoglycemia, no required assistance and no required glucagon injection. There are no diabetic complications. Risk factors for coronary artery disease include diabetes mellitus, obesity and tobacco exposure. When asked about current treatments, none were reported. She is compliant with treatment none of the time. Her weight is increasing steadily (Patient noted she has gained 60 lbs in the past 3 years). Diabetic current diet: Does not eat a lot of meat; Drinks 2 cans of coke/day. When asked about meal planning, she reported none. She has not had a previous visit with a dietitian. She rarely participates in exercise. An [place] inhibitor/angiotensin II receptor soco is not being taken. She does not see a auto parker.Eye exam is not current. Cough This is a chronic problem. The current episode started more than 1 year ago (2018). The problem has been gradually worsening. The problem occurs constantly (Wakes up in the middle of the night due to the cough sometimes). The cough is Non-productive (sharp shooting pain associated with the cough. Tickles and irritation associated with cough). Pertinent negatives include no chest pain, ear pain, fever, headaches, sore throat or shortness of breath. Associated symptoms comments: Voice change noted (raspy voice). Nothing aggravates the symptoms. Risk factors for lung disease include smoking/tobacco exposure. She has tried OTC cough suppressant, a beta-agonist inhaler and steroid inhaler for the symptoms. The treatment provided no relief. Her past medical history is significant for asthma and bronchitis. There is no history of bronchiectasis, COPD, emphysema, environmental allergies or pneumonia. Review of Systems Constitutional: Negative for fever. HENT: Positive for voice change. Negative for congestion, drooling, ear pain, hearing loss, sore throat and trouble swallowing. Eyes: Negative for photophobia and itching. Respiratory: Positive for cough. Negative for shortness of breath. Cardiovascular: Negative for chest pain. Gastrointestinal: Positive for nausea and vomiting. Endocrine: Negative for polydipsia, polyphagia and polyuria. Genitourinary: Positive for decreased urine volume. Negative for dysuria, flank pain, hematuria and pelvic pain. Musculoskeletal: Negative. Negative for back pain and joint swelling. Allergic/Immunologic: Negative for environmental allergies. Neurological: Negative for dizziness, seizures, syncope and headaches. Hematological: Negative for adenopathy. Does not bruise/bleed easily. Psychiatric/Behavioral: Negative for confusion, dysphoric mood, hallucinations and self-injury. The patient is not hyperactive. Objective Blood Pressure 130/82 (BP Location: Left arm, Patient Position: Sitting, BP Cuff Size: Large adult) Pulse 103 Temperature 36.4 C (97.5 F) Respiration 16 Height 1.549 m (5' 1) Weight 114 kg (251 lb) Last Menstrual Period 10/13/2020 (Approximate) Oxygen Saturation 96% Body Mass Index 47.43 kg/m Physical Exam Constitutional: Appearance: She is normal weight. HENT: Head: Normocephalic and atraumatic. Right Ear: Tympanic membrane, ear canal and external ear normal. Left Ear: Tympanic membrane, ear canal and external ear normal. Nose: Nose normal. Mouth/Throat: Mouth: Mucous membranes are moist. Pharynx: Oropharynx is clear. Eyes: Extraocular Movements: Extraocular movements intact. Conjunctiva/sclera: Conjunctivae normal. Cardiovascular: Rate and Rhythm: Normal rate and regular rhythm. Abdominal: General: Abdomen is flat. Bowel sounds are normal. Palpations: Abdomen is soft. Musculoskeletal: General: Normal range of motion. Cervical back: Normal range of motion and neck supple. Skin: General: Skin is warm and dry. Capillary Refill: Capillary refill takes less than 2 seconds. Neurological: General: No focal deficit present. Mental Status: She is alert and oriented to person, place, and time. Mental status is at baseline. Psychiatric: Mood and Affect: Mood normal. Behavior: Behavior normal. Thought Content: Thought content normal. Judgment: Judgment normal. Assessment/Plan Problem List Items Addressed This Visit None Visit Diagnoses Chronic cough - Primary Relevant Medications famotidine (Pepcid) 40 mg tablet Class 3 severe obesity due to excess calories with serious comorbidity and body mass index (BMI) of 45.0 to 49.9 in adult (CMS/FORMERLY [facility]) Mixed hyperlipidemia Relevant Orders Lipid panel Tsh With Reflex To Free T4 If Abnormal Comprehensive metabolic panel CBC and Auto Differential Essential (primary) hypertension Relevant Orders Lipid panel Tsh With Reflex To Free T4 If Abnormal Comprehensive metabolic panel CBC and Auto Differential Magnesium Vitamin B12 deficiency (non anemic) Relevant Orders Vitamin B12 Vitamin D deficiency, unspecified Relevant Orders Vitamin D 25-Hydroxy,Total Type 2 diabetes mellitus with hyperglycemia, without long-term current use of insulin (CMS/HCC) Relevant Orders POCT Albumin random urine manually resulted Hm Diabetes Foot Exam (Completed) Hemoglobin A1C Insulin, Random Magnesium Encounter for screening mammogram for malignant neoplasm of breast Relevant Orders BI mammo bilateral screening tomosynthesis Encounter for annual general medical examination without abnormal findings in adult Relevant Orders HIV 1/2 Antigen/Antibody Screen with Reflex to Confirmation Hepatitis C Antibody Luna's esophagus with dysplasia Relevant Medications famotidine (Pepcid) 40 mg tablet Arthralgia, unspecified joint Relevant Orders Uric Acid Frequency of urination Relevant Orders Urine Culture POCT UA Automated manually resulted F/U in 1 month for diabetes Will call with results. Will decide what medications after Blood work is done She was explained that we are unable to address all her concerns today however will wait for blood work to decide steps in treatment patient was agreeable with plan and will follow-up with us in a few weeks. We will get colonoscopy results from GI specialist and did review endocrinology and former PCP consultation and reports through her epic chart. documented in this encounter [facility] Work Phone: 10-13-2022 Instructions Abdelrahman Romero MD - 10/13/2022 3:40 PM EDT F/U in 1 month for diabetes Will call with results. Will decide what medications after Blood work is done Current Outpatient Medications Medication Sig Dispense Refill LORazepam (Ativan) 0.5 mg tablet TAKE ONE TABLET BY MOUTH EVERY 8 HOURS NEEDED for anxiety for up to 30 days famotidine (Pepcid) 40 mg tablet Take 1 tablet (40 mg) by mouth 2 times a day. 180 tablet 0 No current facility-administered medications for this visit. Orders Placed This Encounter Procedures Urine Culture BI mammo bilateral screening tomosynthesis Lipid panel Tsh With Reflex To Free T4 If Abnormal Vitamin B12 Vitamin D 25-Hydroxy,Total Comprehensive metabolic panel CBC and Auto Differential HIV 1/2 Antigen/Antibody Screen with Reflex to Confirmation Hepatitis C Antibody Hemoglobin A1C Insulin, Random Uric Acid Magnesium POCT Albumin random urine manually resulted POCT UA Automated manually resulted Hm Diabetes Foot Exam 7-0-7-Almost None! Healthy Habits Start Early EAT 5 OR MORE SERVINGS OF VEGETABLES AND FRUITS EVERY DAY. Help Constance get three vegetables and two fruits each day. Red, green, yellow, orange...encourage them to try all the colors so they can enjoy different flavors and get more vitamins. How can I help Constance do this? -BE PATIENT WITH Constance, remember it may take 10 times before they start to like new food. So, start with small bites and just keep trying. -Serve at least one vegetable or fruit at every meal. Even try two. Remember, portions do not have to be as big as you think. -Encourage eating fruits and vegetables instead of drinking them..it's a better way to get fiber and vitamins..so limit the amount of juice to 1/2 cup per day for children 1-6 years and one cup per day for children 7-18 years of age. Try using 1/2 part water and 1/2 part juice. Spend less than two hours per day watching television and other screen media. Screen media includes video games, movies and computer use for entertainment. How can I help Constance do this? -Turn off the TV at dinner. Dinner is the best time to hang out with your kids and just talk, learn about their day, and tell them about your day. Your kids have a lot to learn from you and dinner is a great time to share. documented in this encounter [facility] Work Phone: 09-21-2022 Note HNO ID: [id number] Author: Lily Landin MD Service: ? Author Type: Physician Type: Progress Notes Filed: 09/21/2022 9:43 AM Note Text: Reviewed int med ntoe 04/08/22 Reviewed endocrinology 07/09/21 Reviewed lipid panel 07/09/21 Reviewed A1C 07/09/21 (E11.9) Type 2 diabetes mellitus without retinopathy (HCC) (primary encounter diagnosis) (H53.8) Blurred vision, bilateral (H52.7) Refractive error No Diabetic retinopathy found today. I recommend follow up in one year for repeat evaluation. I stressed good Diabetes Mellitus control to avoid loss of vision. Manifest refraction given I have confirmed and edited as necessary the relevant ophthalmic history, ROS, and the neuro exam findings as obtained by others. I have seen and examined Constance Almaraz Gregorio. I have discussed the case and the management of this patient's care with the Resident/Fellow, if applicable. I also have reviewed and agree with the assessment and plan as stated above and agree with all of its relevant components. Lily Edmond MD [facility] 09-21-2022 History of Present illness Narrative Reviewed int med ntoe 04/08/22 Reviewed endocrinology 07/09/21 Reviewed lipid panel 07/09/21 Reviewed A1C 07/09/21 (E11.9) Type 2 diabetes mellitus without retinopathy (HCC) (primary encounter diagnosis) (H53.8) Blurred vision, bilateral (H52.7) Refractive error No Diabetic retinopathy found today. I recommend follow up in one year for repeat evaluation. I stressed good Diabetes Mellitus control to avoid loss of vision. Manifest refraction given I have confirmed and edited as necessary the relevant ophthalmic history, ROS, and the neuro exam findings as obtained by others. I have seen and examined Constance Almaraz Amsshawn. I have discussed the case and the management of this patient's care with the Resident/Fellow, if applicable. I also have reviewed and agree with the assessment and plan as stated above and agree with all of its relevant components. Lily Edmond MD documented in this encounter [facility] 04-08-2022 History of Present illness Narrative Images from the original note were not included. . Visit type: Established patient Reason for Visit: Oral Swelling (Lump on tongue also thick white coating also has facial swelling lt side ,PROCTOR, swollen gland and rash ) Assessment and Plan 1. Encounter for screening and preventative care - reviewed -age appropriate blood work/screenings today -educated on safety, educated on safe sex practices. Declines sti testing today -Depression screen today, negative - HIV-1 and HIV-2 Antigen-Antibody Screen - Hepatitis C antibody - CBC auto differential - Comprehensive metabolic panel - Lipid panel - Hemoglobin A1c 2. Type 2 diabetes mellitus without complication, without long-term current use of insulin (CMS/HCC) (HCC) Symptoms well controlled with metformin 500mg daily. Patient tolerating well. Will continue current treatment plan. Last a1c 7.6 - AMB POC HEMOGLOBIN A1C 3. Thrush -will need to do infectious workup per above, no history of thrush but appears pretty clear on examination of tongue and oropharynx -start nystatin swish and swallow 4. Herpes simplex -first outbreak which could explain severeity of cold-like symptoms and adenopathy -will start valtrex and reevalaute. Follow up in about 2 weeks (around 04/22/2022). Subjective HPI 46 y.o female presents for swollen glands/preventative care On Wednesday, she has noticed a discoloration on her tongue that formed a lump. Has noticed symptoms sore throat, ear pain, fascial tingling. Denies any teeth/gum pain. Has developed a bit of a cough. Has also noticed a swollen lymph node. Did notice a intermittent fever 101-102 that would self break. No other major changes since last bein gseen. Due for yearly blood work. Anxiety: was given a script for ativan in june of 2021, has not needed further kenyon. Type 2 Diabetes: follows no particular diet or exercise. Has been compliant on medication. Due for yearly blood work GERD: controlled on protonxi Review of Systems Constitutional: Negative for activity change, appetite change, chills, fatigue, fever and unexpected weight change. HENT: Positive for mouth sores and sore throat. Negative for congestion, postnasal drip, sinus pressure and sinus pain. Eyes: Negative for photophobia, pain, discharge, itching and visual disturbance. Respiratory: Negative for cough, shortness of breath and wheezing. Cardiovascular: Negative for chest pain, palpitations and leg swelling. Gastrointestinal: Negative for abdominal pain, blood in stool, constipation, diarrhea, nausea and vomiting. Endocrine: Negative for polydipsia and polyuria. Genitourinary: Negative for difficulty urinating, dysuria, frequency, hematuria and urgency. Musculoskeletal: Negative for arthralgias, back pain, myalgias and neck pain. Skin: Positive for rash. Negative for wound. Neurological: Negative for dizziness, weakness, light-headedness and numbness. Psychiatric/Behavioral: Negative for decreased concentration, dysphoric mood, self-injury, sleep disturbance and suicidal ideas. The patient is not nervous/anxious. No Known Allergies Outpatient Medications Prior to Visit Medication Sig Dispense Refill LORazepam (Ativan) 0.5 MG tablet TAKE ONE TABLET BY MOUTH EVERY 8 HOURS NEEDED for anxiety for up to 30 days pantoprazole (ProtoNix) 40 MG EC tablet Take 40 mg by mouth daily. as directed predniSONE (Deltasone) 10 MG tablet Take 40 mg by mouth daily. No facility-administered medications prior to visit. 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 Londono. LIVER BIOPSY SKIN GRAFT Right lower [place] UPPER GASTROINTESTINAL ENDOSCOPY Family History Problem Relation Name Age of Onset Other (92056) Mother Drawfism. No Known Problems Father Objective BP (!) 132/94 (BP Location: Left arm, Patient Position: Sitting, BP Cuff Size: Large adult) Pulse 109 Temp 36.5 C (97.7 F) (Temporal) Resp 16 Ht 5' 1 (1.549 m) Wt 248 lb 6.4 oz (113 kg) BMI 46.93 kg/m Physical Exam Constitutional: General: She is not in acute distress. Appearance: Normal appearance. She is normal weight. She is not ill-appearing or diaphoretic. HENT: Head: Normocephalic and atraumatic. Right Ear: Tympanic membrane, ear canal and external ear normal. Left Ear: Tympanic membrane, ear canal and external ear normal. Nose: Nose normal. No congestion or rhinorrhea. Mouth/Throat: Mouth: Mucous membranes are moist. Pharynx: Oropharyngeal exudate and posterior oropharyngeal erythema present. Eyes: Extraocular Movements: Extraocular movements intact. Conjunctiva/sclera: Conjunctivae normal. Pupils: Pupils are equal, round, and reactive to light. Neck: Vascular: No carotid bruit. Cardiovascular: Rate and Rhythm: Normal rate and regular rhythm. Pulses: Normal pulses. Heart sounds: Normal heart sounds. No murmur heard. No friction rub. No gallop. Pulmonary: Effort: Pulmonary effort is normal. Breath sounds: No wheezing or rhonchi. Abdominal: General: Abdomen is flat. Bowel sounds are normal. There is no distension. Palpations: Abdomen is soft. Tenderness: There is no abdominal tenderness. Musculoskeletal: General: No swelling, deformity or signs of injury. Normal range of motion. Cervical back: Normal range of motion. Tenderness present. Right lower leg: No edema. Left lower leg: No edema. Lymphadenopathy: Cervical: Cervical adenopathy present. Skin: General: Skin is warm and dry. Capillary Refill: Capillary refill takes less than 2 seconds. Findings: Rash present. No lesion. Neurological: General: No focal deficit present. Mental Status: She is alert and oriented to person, place, and time. Mental status is at baseline. Psychiatric: Mood and Affect: Mood normal. Behavior: Behavior normal. Thought Content: Thought content normal. Data Reviewed and Summarized Labs: Imaging/Testing: Walker Bruno DO documented in this encounter [employer] 04-06-2022 Telephone encounter Note S: Patient spoke with [facility] nurse regarding lump on tongue B: Onset of symptoms/concern this past Wednesday A: patient reports reddened area to mid back of tongue and a lump the size of a small grape. Patient reports the discoloration started about 6 weeks ago, but the lump just appeared. Patient says there is pain 5/10, radiates to left ear and jaw. Patient is able to swallow, reports pain with swallowing. Patient denies any fever. Patient reports she is scheduled for an EGD due to pain and the concern of cancer. Patient wants to be seen by PCP. R: Appointment scheduled 04/08/[address] Bruno at 1520. No further needs at this time. Patient instructed to call back with new or worsening symptoms. Reason for Disposition Patient wants to be seen Protocols used: Mouth [id number] [facility] 04-06-2022 Miscellaneous Notes S: Patient spoke with [facility] nurse regarding lump on tongue B: Onset of symptoms/concern this past Wednesday A: patient reports reddened area to mid back of tongue and a lump the size of a small grape. Patient reports the discoloration started about 6 weeks ago, but the lump just appeared. Patient says there is pain 5/10, radiates to left ear and jaw. Patient is able to swallow, reports pain with swallowing. Patient denies any fever. Patient reports she is scheduled for an EGD due to pain and the concern of cancer. Patient wants to be seen by PCP. R: Appointment scheduled 04/08/[address] Bruno at 1520. No further needs at this time. Patient instructed to call back with new or worsening symptoms. Reason for Disposition Patient wants to be seen Protocols used: Mouth [id number] documented in this encounter [facility] 07-09-2021 History of Present illness Narrative Date of Service: July 09, 2021 FOLLOW UP VISIT: DIABETES Current Immunizations: Most Recent Immunizations Administered Date(s) Administered COVID-19 vaccine (ARACELI) 11/10/2020 Influenza Vaccine, Split-Non Spec 12/13/2017 MMR 05/19/2012 Tdap (Age 7+) 08/20/2011 Current Outpatient Medications Medication Sig Dispense Refill LORazepam (ATIVAN) 0.5 mg Take 0.5 mg by mouth as needed. albuterol HFA (PROVENTIL HFA, VENTOLIN HFA) 90 mcg/actuation inhaler Inhale 2 Puffs as instructed every 4 hours as needed. 8 g 0 blood sugar diagnostic ([employer] TransportT[employer]CH ULTRA TEST) test strip Use as instructed daily 100 Strip 3 omeprazole (PRILOSEC) 20 mg capsule Take 40 mg by mouth once daily. benzonatate (TESSALON PERLE) 100 mg capsule amoxicillin-clavulanic acid (AUGMENTIN) 875-125 mg per tablet oseltamivir (TAMIFLU) 75 mg capsule empagliflozin (JARDIANCE) 25 mg tablet Take 1 tablet by mouth daily with breakfast. (Patient not taking: Reported on 07/09/2021 ) 90 tablet 3 metFORMIN ER (GLUCOPHAGE XR) 500 mg 24 hr tablet Take 1 tablet by mouth once daily. (Patient not taking: Reported on 07/09/2021 ) 90 tablet 3 allopurinol (ZYLOPRIM) 100 mg tablet Take 1 tablet by mouth once daily. (Patient not taking: Reported on 04/03/2021 ) 30 tablet 2 ergocalciferol, vitamin D2, (VITAMIN D) 50,000 unit capsule Take 1 capsule by mouth once each week for 8 doses. 8 capsule 0 cholecalciferol, vitamin D3, (VITAMIN D3 ORAL) Take by mouth. (Patient not taking: Reported on 04/03/2021 ) No current facility-administered medications for this visit. TSH (uU/mL) Date Value 02/10/2012 2.160 02/18/2004 2.360 ALT (U/L) Date Value 07/09/2021 35 04/16/2021 41 Potassium Date Value 07/09/2021 4.3 mmol/L 05/26/2018 4.4 mEq/L Creatinine (mg/dL) Date Value 07/09/2021 0.76 05/26/2018 0.80 08/03/2012 0.93 07/12/2012 0.86 Hemoglobin A1C (%) Date Value 07/09/2021 7.6 08/03/2012 5.2 02/18/2004 5.3 Hemoglobin A1C (POCT) (%) Date Value 04/03/2021 7.3 Glucose (mg/dL) Date Value 07/09/2021 175 05/26/2018 93 Lipids: Cholesterol, Total (mg/dL) Date Value 07/09/2021 262 08/03/2012 188 HDL Cholesterol (mg/dL) Date Value 07/09/2021 38 08/03/2012 32 LDL Cholesterol (mg/dL) Date Value 07/09/2021 164 08/03/2012 123 Triglyceride (mg/dL) Date Value 07/09/2021 299 08/03/2012 163 eGFR (no units) Date Value 05/26/2018 >60 HISTORY OF PRESENT ILLNESS 46 year old female who comes for evaluation of Type 2 DM. Patient has had diabetes since 2019 Symptoms when she presented were blurred vision. The patient was started on jardiance and metformin in mar. Developed yeast infections so she stopped both medications. The patient is currently taking. No medication to manage her diabetes.When taking jardiance weight from 256 to 248 and now back to 255 lbs. hba1c 07/09/21 7.4 The patient has been on this regimen without significant change for n/a The patient's main concern(s): Hyperglycemia. - new diagnosis The patient's current diet is: No specific diet regimen Number of meals per day: 2 Number of snack per day: 1 Frequency of skipping meals 1 per day (lunch) Hypoglycemia awareness:N/A. Frequency of hypoglycemia is unsure if she has had BG<70 SMBG Unknown - she has not been given BGM Hyperglycemia: Yes - per o[facility] labs Type of Monitor: N/A Frequency of Monitoring: Not applicable BG Values: N/A Co-Morbidities: Asthma, Gout, Hyperlipidemia , Hypertension , Obesity , Psoriasis and Vitamin D Deficiency COMPLICATIONS: None EXERCISE: - Not currently OTHER EYE: Last eye exam 2018 PODIATRY: Last podiatry visit NEVER EDUCATION: Last Diabetes Education Visit NEVER PAST MEDICAL HISTORY PAST MEDICAL HISTORY Diagnosis Date Anxiety Degenerative skin disorder Degenerative skin disorder 02/12/2004 Depression 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 pituitary (relates given ?hormone as a child for small stature) not on any replacement right now other (drawfism) Mother PAST SURGICAL HISTORY PAST SURGICAL HISTORY Procedure Laterality Date ELBOW LEFT OP SURGERY reconstrucion LIVER BIOPSY REMOVAL GALLBLADDER ALLERGIES ALLERGIES No Known Allergies SOCIAL HISTORY Social History Tobacco Use Smoking status: Former Smoker Packs/day: 0.50 Years: 25.00 Pack years: 12.50 Types: Cigarettes Start date: 09/18/1987 Quit date: 09/17/2012 Years since quittin.5 Smokeless tobacco: Never Used Tobacco comment: Quit 4 years ago Substance Use Topics Alcohol use: No Drug use: No REVIEW OF SYSTEMS: GENERAL: No weight loss, malaise or fevers and WEIGHT has increased by 60 lb over the past 2 years EYES:Normal and Glaucoma CARDIAC: palpitations and edema LUNG Wheezing asthma dx May 2000on albuterol inhaler prn GI: diarrhea, nausea heartburn (Tacho's esophagus), GERD :dysuria LIBIDO: decreased menopause SEXUAL/REPRODUCTIVE: normal never been SKIN: hx of necrobiosis diabetacoroum s/p skin graft R [place] MUSCULO-SKELETAL: Joint pain (general), Stiffness and Swelling (general) NERVOUS SYSTEM: numbness of the feet and tingling pain FEET Pt without callus formation, foot deformity including partial or complete amputation of the foot, ulceration, or peripheral neuropathy DEPRESSION: yes The rest of the ROS is otherwise negative PHYSICAL EXAM: BP 146/89 Pulse 91 Wt 116 kg (255 lb 12.8 oz) LMP 04/03/2021 (Approximate) BMI 48.33 kg/m . Appearance Well appearing, alert, in no acute distress, well-hydrated, well nourished. and Morbidly obese Eyes PERRLA, conjunctiva and sclera normal Neck Supple, no adenopathy; thyroid symmetric, normal size, no bruits Heart RRR with normal S1 and S2, no murmurs, no gallops, no JVD appreciated Lungs clear to auscultation Abd bowel sounds normoactive, no bruits, soft, non-tender, non-distended, without organomegaly or palpable masses, no tenderness to palpation Extremities Normal, No deformities, No skin discoloration, No edema and Normal pulses bilaterally. Neuro:Awake, alert and oriented x 3, No involuntary motions., Reflexes symmetrical and Monofilament normal Feet:Shoes and socks removed and sensitive to 10 gm monofilament Skin:Positive for scaling rash bottom of feet bilat skin graft R christ[place]on Impression and recommendations: diabetes mellitus type 2, uncontrolled Associated diagnoses are: Asthma, Hyperlipidemia , Hypertension , morbid Obesity and Psoriasis hx necrobiosis lipoidica diabetacorum COMPLICATIONS: None Diet: low carb [place] Monitor blood glucose 1 times per day Contact the office if the blood sugar readings are consistently high or if you are having frequent hypoglycemia. Medications metformin er 500 mg start rybelsus 3 mg/d x 1 month then 7 mg/d d/c jardiance start lisinopril 10 mg/d for hypertension Patient to continue to follow up with her PCP and with other consultants regarding her other medical problems. Next visit in 3 months. Check CMP, lipid profile, HbA1c, 1 week prior to return Raudel Garza MD documented in this encounter [facility] 07-09-2021 Elise Petitpriti - 07/09/2021 12:55 PM EDT Thank you for choosing the [facility] Department of Endocrinology, Diabetes and Metabolism. Did you know that you need to call 48 hours in advance of your scheduled visit, if you are unable to make your appointment? The End[facility]inology [facility] Metabolism [facility] thanks you for your commitment, because patients not showing to their appointment results in a lost opportunity for patients to receive [facility] care at the [facility]. To Cancel an appointment, please choose one of the following: - Call the Appointment Call Center at [phone] - From [place], Go to Appointments Cancel Appts If cancelling, consider your need to reschedule to prevent further delays in your care. To Schedule an appointment, please choose one of the following: - Call the Appointment Call Center at [phone] - From [place], Go to Appointments Request an Appt documented in this encounter [facility] 05-23-2021 Note HNO ID: [id number] Author: RT Jabari(R) Service: Radiology Author Type: Hat Presser Type: Progress Notes Filed: 05/23/2021 8:37 AM Note Text: Radiology Service Progress Note DATE OF SERVICE: May 23, 2021 TIME: 8:35 AM PATIENT IDENTITY VERIFICATION COMPLETED USING TWO (2) STANDARD IDENTIFIERS: Name and Date of confirmed by patient verbally. FALL SCREENING: Has the patient had 2 falls in the last year or 1 fall with injury or currently using an Ambulatory Assistive Device (Walker, Cane, Wheelchair, Crutches, etc.)? No PATIENT GENDER DATA: Female. status: : No status: NO. PATIENT RELEVANT IMPLANT DATA REVIEWED: Yes ALLERGIES: Reviewed and unchanged CONTRAST ALLERGY: NO. EXAM: MRI - CONTRAST TYPE: GROUP I OR GROUP III RISK FACTORS: N/A CREATININE: Creatinine Date Value Ref Range Status 05/26/2018 0.80 0.51 - 0.95 mg/dL Final 08/03/2012 0.93 0.70 - 1.40 mg/dL Final 07/12/2012 0.86 0.70 - 1.40 mg/dL Final eGFR-All Other Races Date Value Ref Range Status 08/03/2012 >60 . Final Comment: eGFR (Estimated GFR) Units of measure: mL/min/1.73 meters squared eGFR is derived from the reexpressed MDRD Study equation using the following parameters: serum creatinine, age, gender and race. The creatinine assay has been calibrated to be traceable to IDMS. An eGFR <60 mL/min/1.73m2 for >3 months is consistent with chronic kidney disease. Refer to KDOQI guidelines for clinical interpretation. eGFR- Date Value Ref Range Status 08/03/2012 >60 Final P.O.C.T. RESULTS: N/A May 23, 2021 TREATMENT: N/A PERIPHERAL IV DATA: Ambulatory: A peripheral IV was started in the Left antecubital site with a Angio cath: 22 gauge. RADIOLOGY DEPARTMENT: MR; Exam(s) Completed: Body: Liver (routine) SIGNATURE: RT Jabari(R) PATIENT NAME: Constance Gage DATE: May 23, 2021 TIME: 8:35 AM [facility] 05-23-2021 History of Present illness Narrative Radiology Service Progress Note DATE OF SERVICE: May 23, 2021 TIME: 8:35 AM PATIENT IDENTITY VERIFICATION COMPLETED USING TWO (2) STANDARD IDENTIFIERS: Name and Date of confirmed by patient verbally. FALL SCREENING: Has the patient had 2 falls in the last year or 1 fall with injury or currently using an Ambulatory Assistive Device (Walker, Cane, Wheelchair, Crutches, etc.)? No PATIENT GENDER DATA: Female. status: : No status: NO. PATIENT RELEVANT IMPLANT DATA REVIEWED: Yes ALLERGIES: Reviewed and unchanged CONTRAST ALLERGY: NO. EXAM: MRI - CONTRAST TYPE: GROUP I OR GROUP III RISK FACTORS: N/A CREATININE: Creatinine Date Value Ref Range Status 05/26/2018 0.80 0.51 - 0.95 mg/dL Final 08/03/2012 0.93 0.70 - 1.40 mg/dL Final 07/12/2012 0.86 0.70 - 1.40 mg/dL Final eGFR-All Other Races Date Value Ref Range Status 08/03/2012 >60 . Final Comment: eGFR (Estimated GFR) Units of measure: mL/min/1.73 meters squared eGFR is derived from the reexpressed MDRD Study equation using the following parameters: serum creatinine, age, gender and race. The creatinine assay has been calibrated to be traceable to IDMS. An eGFR <60 mL/min/1.73m2 for >3 months is consistent with chronic kidney disease. Refer to KDOQI guidelines for clinical interpretation. eGFR- Date Value Ref Range Status 08/03/2012 >60 Final P.O.C.T. RESULTS: N/A May 23, 2021 TREATMENT: N/A PERIPHERAL IV DATA: Ambulatory: A peripheral IV was started in the Left antecubital site with a Angio cath: 22 gauge. RADIOLOGY DEPARTMENT: MR; Exam(s) Completed: Body: Liver (routine) SIGNATURE: RT Jabari(Suzy) PATIENT NAME: Constance Gage DATE: May 23, 2021 TIME: 8:35 AM documented in this encounter [facility] 04-14-2021 Note HNO ID: [id number] Author: DALE Ansari) Service: Radiology Author Type: Technologist Type: Progress Notes Filed: 04/14/2021 2:18 PM Note Text: Radiology Service Progress Note PATIENT NAME: Constance Gage DATE OF SERVICE: April 14, 2021 TIME: 2:18 PM PATIENT IDENTITY VERIFICATION COMPLETED USING TWO (2) IDENTIFIERS: Name and Date of confirmed by patient verbally. FALL SCREENING: Has the patient had 2 falls in the last year or 1 fall with injury or currently using an Ambulatory Assistive Device (Walker, Cane, Wheelchair, Crutches, etc.)? No PATIENT GENDER DATA: Female. status: : No status: NO. PATIENT RELEVANT IMPLANT DATA REVIEWED: Not Applicable RADIOLOGY DEPARTMENT: General X-ray: Exam(s) Completed: Chest X-Ray PERIPHERAL IV DATA: Not applicable SIGNED BY: RT Coty(Suzy) April 14, 2021 2:18 PM [facility] 02-12-2004 History of Past i llness Narrative Problem Noted Date Resolved Date Degenerative skin disorder 02/12/200403/17 Overview: necrobiosis lipoidica R calf, Rx excision Abnormal weight gain 02/12/2004 03/17/2012 documented as of this encounter (statuses as of 05/24/2021) [facility] History of Past illness Narrative* Problem Noted Date Resolved Date Degenerative skin disorder 02/12/200403/17 Overview: necrobiosis lipoidica R calf, Rx excision Abnormal weight gain 02/12/2004 03/17/2012 documented as of this encounter (statuses as of 07/09/2021) [facility] History of Past illness Narrative* Problem Noted Date Diagnosed Date Resolved Date Degenerative skin disorder 02/12/2004 0 03/17/2012 Overview: necrobiosis lipoidica R calf, Rx excision Abnormal weight gain 02/12/2004 013 documented as of this encounter (statuses as of 09/21/2022) [facility] Diagnosis Abnormal liver enzymes Other nonspecific abnormal serum enzyme levels [facility]* Diagnosis Diabetes mellitus type 2 with ketoacidosis, uncontrolled (HCC)- Primary Type II or unspecified type diabetes mellitus with ketoacidosis, uncontrolled Morbid obesity ([facility]) Morbid obesity Hypertension, essential Unspecified essential hypertension [facility]* Diagnosis Type 2 diabetes mellitus without retinopathy ([facility])- Primary Type II or unspecified type diabetes mellitus without mention of complication, not stated as uncontrolled Blurred vision, bilateral Other specified visual disturbances Refractive error Unspecified disorder of refraction and accommodation [facility]* Diagnosis Chronic cough- Primary Cough Class 3 severe obesity due to excess calories with serious comorbidity and body mass index (BMI) of 45.0 to 49.9 in adult ([facility]) Mixed hyperlipidemia Essential (primary) hypertension Unspecified essential hypertension Vitamin B12 deficiency (non anemic) Other B-complex deficiencies Vitamin D deficiency, unspecified Type 2 diabetes mellitus with hyperglycemia, without long-term current use of insulin ([facility]) Encounter for screening mammogram for malignant neoplasm of breast Encounter for annual general medical examination without abnormal findings in adult Luna's esophagus with dysplasia Arthralgia, unspecified joint Frequency of urination Urinary frequency documented in this encounter [facility] Work Phone: Evaluation note* Diagnosis Mass of lower outer quadrant of right breast- Primary Mild persistent asthma without complication Type 2 diabetes mellitus with hyperglycemia, without long-term current use of insulin ([facility]) Exacerbation of gout Encounter for screening mammogram for malignant neoplasm of breast Encounter for annual general medical examination without abnormal findings in adult Vitamin D deficiency Vitamin B 12 deficiency Other B-complex deficiencies 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 ([facility]) Encounter for screening for malignant neoplasm of colon documented in this encounter [facility] Work Phone: Evaluation noteNo assessment information available [facility] Work Phone: Evaluation note* Diagnosis Encounter for screening and preventative care- Primary Type 2 diabetes mellitus without complication, without long-term current use of insulin ([facility]) (HCC) Thrush Candidiasis of mouth Herpes simplex Herpes simplex without mention of complication Gastroesophageal reflux disease, unspecified whether esophagitis present Class 3 severe obesity due to excess calories without serious comorbidity with body mass index (BMI) of 45.0 to 49.9 in adult ([facility]) Anxiety Anxiety state, unspecified [facility] Diagnosis NSTEMI (non-ST elevated myocardial infarction) ([facility])- Primary Acute myocardial infarction, subendocardial infarction, episode of care unspecified NSTEMI (non-ST elevated myocardial infarction) ([facility]) Acute myocardial infarction, subendocardial infarction, episode of care unspecified Stented coronary artery Postsurgical percutaneous transluminal coronary angioplasty status NSTEMI (non-ST elevated myocardial infarction) ([facility]) Acute myocardial infarction, subendocardial infarction, episode of care unspecified [facility] Diagnosis NSTEMI (non-ST elevated myocardial infarction) ([facility])- Primary Acute myocardial infarction, subendocardial infarction, episode of care unspecified Coronary artery disease involving [place] coronary artery of [place] heart without angina pectoris Essential hypertension Unspecified essential hypertension Mixed hyperlipidemia Class 3 severe obesity without serious comorbidity with body mass index (BMI) of 40.0 to 44.9 in adult, unspecified obesity type ([facility]) Tobacco use Type 2 diabetes mellitus with hyperglycemia, with long-term current use of insulin ([facility]) Psoriasis Other psoriasis [facility] Diagnosis NSTEMI (non-ST elevated myocardial infarction) (HCC)- Primary Acute myocardial infarction, subendocardial infarction, episode of care unspecified Coronary artery disease involving [place] coronary artery of [place] heart without angina pectoris Essential hypertension Unspecified essential hypertension Mixed hyperlipidemia Class 3 severe obesity without serious comorbidity with body mass index (BMI) of 40.0 to 44.9 in adult, unspecified obesity type Tobacco use Type 2 diabetes mellitus with hyperglycemia, with long-term current use of insulin (HCC) Psoriasis Other psoriasis Chronic kidney disease, stage 2 (mild) [facility] Diagnosis NSTEMI (non-ST elevated myocardial infarction) (HCC)- Primary Acute myocardial infarction, subendocardial infarction, episode of care unspecified Coronary artery disease involving [place] coronary artery of [place] heart without angina pectoris Essential hypertension Unspecified essential hypertension Mixed hyperlipidemia Class 3 severe obesity without serious comorbidity with body mass index (BMI) of 40.0 to 44.9 in adult, unspecified obesity type Tobacco use Type 2 diabetes mellitus with hyperglycemia, with long-term current use of insulin (HCC) Psoriasis Other psoriasis Chronic kidney disease, stage 2 (mild)- Primary Chronic kidney disease, stage 2 (mild) documented in this encounter [facility] for visit Narrative* Diagnostic Procedure Only (Routine) - Closed Specialty Diagnoses / Procedures Referred By Contac t Referred To Contact RADIO [facility] Diagnoses Abnormal levels of other serum enzymes Abnormal liver enzymes [R74.8] Procedures MRI ABDOMEN W/O & W/CONTRAST MATERIAL MRI WWO ABD [address] Vlad Mcmahon MD [address] [place] [address] Radio Mri [place] [facility] [address] [place] [address] Referral ID Status Reason Start Date Expiration Date Visits Re quested Visits Authorized [id number] Closed 05/09/2021 06/23/2021 1 1 [facility] for visit Narrative* Auth/Cert (Routine) Specialty Diagnoses / Procedures Referred By Contac t Referred To Contact Diagnoses NSTEMI (non-ST elevated myocardial infarction) (HCC) CP needs heart cath Procedures . Jake Sears MD [address] [place] [address] Phone: tel: fax: [facility] [address] [address] Phone: tel: Referral ID Status Reason Start Date Expiration Date Visits Re quested Visits Authorized [id number] 1 1 [facility] Summary Purpose Family History No Family History Records FoundNo Family History Records FoundNo Family History Records FoundNo Family History Records FoundNo Family History Records FoundNo Family History Records FoundNo Family History Records FoundNo Family History Records FoundNo Family History Records FoundNo Family History Records FoundNo Family History Records Found Advance Directives No Advanced Directives Records FoundDocuments on File Type Date Recorded 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 Expl anation Advance Directives and Living Will Power of Motorcycle Technician Documents on File Type Date Recorded 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 Expl anation ACP-Advance Directive ACP-Power of Motorcycle Technician Date Activated Date Inactivated Comments 04/19/2024 8:17 PM 04/21/2024 4:52 PM Date Activated Date Inactivated Comments 04/19/2024 8:17 PM 04/21/2024 4:52 PM Discharge Instructions * Instructions* Tru Fuentes PA - 11/17/2019 - Tylenol 400 mg every 4 hours, ibuprofen 600 mg every 6 hours - weight-bear as tolerated it to your right extremity - return for worsening elbow/ arm pain, locking or clicking documented in this encounter Assessments Diagnosis Right forearm pain Pain in limb Medications Administered Section Active Administered Medications - up to 3 most recent administrations Medication Order MAR Action Action Date Dose Rate Site fluorescein-benoxinate 0.25-0.4 % 1 Drop (FLURESS) 1 Drop, BOTH EYES, DIRECTED, Starting on Wed09/21/22 at 0930, Until Wed09/21/22 at 2128, Administer for applanation tonometry. In the event of a Fluress shortage, administer 1 drop of Floral-Fluor into both eyes as directed for applanation tonometry., [facility] MED ORDERS Given 09/21/2022 9:30 AM EDT 1 Drop PHENYLephrine 2.5 % 1 Drop (AK-DILATE, MARGUERITE-SYNEPHRINE) 1 Drop, BOTH EYES, DIRECTED, Starting on Wed09/21/22 at 0930, Until Wed09/21/22 at 2128, Administer for dilation PROTECT FROM LIGHT, [facility] MED ORDERS Given 09/21/2022 9:30 AM EDT 1 Drop tropicamide 1 % 1 Drop (MYDRIACYL) 1 Drop, BOTH EYES, DIRECTED, Starting on Wed09/21/22 at 0930, Until Wed09/21/22 at 2129, Administer for dilation, [facility] MED ORDERS Given 09/21/2022 9:30 AM EDT 1 Drop Reason for Referral Specialty Diagnoses / Procedures Referred By Contglen t Referred To Contact Radiology Diagnoses Encounter for screening mammogram for malignant neoplasm of breast Procedures BI mammo bilateral screening tomosynthesis Abdelrahman Romero MD [address] [facility] [address] [place] [address] Referral ID Status Reason Start Date Expiration Date Visits Requested Visits Authorized [id number] Authorized Perform Procedure 10/13/2022 04/11/2023 1 1 Specialty Diagnoses / Procedures Referred By Delma ramirez Referred To Contact Radiology Diagnoses Encounter for screening mammogram for malignant neoplasm of breast Procedures BI mammo left screening tomosynthesis Abdelrahman Romero MD [address] [employer] [address] [place] [address] Referral ID Status Reason Start Date Expiration Date Visits Requested Visits Authorized [id number] Authorized Perform Procedure 03/09/2023 03/08/2024 1 1 Chief Complaint and Reason for Visit Chief Complaint NAUSEA, GASTROENTERI TIS Additional Source Comments INFORMATION SOURCE (unrecogn ized section and content) DATE CREATED AUTHOR 09/23/2018 [facility] DATE CREATED AUTHOR AUTHOR'S ORGANIZ ATION 11/30/2018 [facility] DATE CREATED AUTHOR AUTHOR'S ORGANIZ ATION 03/19/2020 [facility] DATE CREATED AUTHOR AUTHOR'S ORGANIZ ATION 07/06/2021 [facility] DATE CREATED AUTHOR AUTHOR'S ORGANIZ ATION 07/11/2021 [facility] DATE CREATED AUTHOR AUTHOR'S ORGANIZ ATION 09/21/2022 [facility] DATE CREATED AUTHOR AUTHOR'S ORGANIZ ATION 10/24/2022 [facility] DATE CREATED AUTHOR AUTHOR'S ORGANIZ ATION 10/26/2022 [facility] DATE CREATED AUTHOR AUTHOR'S ORGANIZ ATION 03/11/2023 [facility] DATE CREATED AUTHOR AUTHOR'S ORGANIZ ATION 07/30/2024 [facility] DATE CREATED AUTHOR AUTHOR'S ORGANIZ ATION 11/11/2024 [facility] Reason for Visit (unrecogniz ed section and content) Reason Comments Arm Injury fell in yard on esday onto extended right arm and still ahvign pain in forearm. Took Aleve yesterday without relief. Reason Comments Insulin Dependent Diabetes Mellitus Reason Comments Decreased Vision Both Eyes Reason Comments New patient to establish care Chronic [facility], has seen ENT thinks it may be from GERDBarrett's Esophagus Diabetes Was on Metformin has not had refilled x 1 year Reason Comments Breast Mass Right breast. Starte d around [place]. Gotten bigger in size Reason Onset Date Comments Oral Swelling 04/06/2022 Reason Comments Oral Swelling Lump on tongue also thick white coating also has facial swelling lt side ,PROCTOR, swollen gland and rash Reason Comments Hospital Follow-up Reason Onset Date Comments Other 05/04/2024 FMLA Reason Onset Date Comments Other 05/05/2024 sx Source Comments (unrecognize d section and content) In the event this informatio n is protected by the Federal Confidentiality of Alcohol and Drug Abuse Patient Records regulations: The Federal rules restrict any use of the information to criminally investigate or prosecute any alcohol or drug abuse patient.[facility] the event this information is protected by the Federal Confidentiality of Alcohol and Drug Abuse Patient Records regulations: The Federal rules restrict any use of the information to criminally investigate or prosecute any alcohol or drug abuse patient.[facility] the event this information is protected by the Federal Confidentiality of Alcohol and Drug Abuse Patient Records regulations: The Federal rules restrict any use of the information to criminally investigate or prosecute any alcohol or drug abuse patient.[facility] Care Teams (unrecognized sec tion and content) Polymerization Oven Operator Relationship Specialty Start Date End Date Leatha Augustin PCP - General Internal Medicine 11/20/19 Polymerization Oven Operator Relationship Specialty Start Date End Date Leatha Augustin MD PCP - General Internal Medicine 11/20/19 Polymerization Oven Operator Relationship Specialty Start Date End Date Leatha Augustin MD PCP - General Internal Medicine 11/20/19 Polymerization Oven Operator Relationship Specialty Start Date End Date Abdelrahman Romero MD [address] [place], [place] [id number] PCP - General Family Medicine 09/30/22 Polymerization Oven Operator Relationship Specialty Start Date End Date Abdelrahman Romero MD [address] [place], [place] [id number] PCP - General Family Medicine 09/30/22 Polymerization Oven Operator Relationship Specialty Start Date End Date Leatha Augustin MD [address] [place] [address] [address] [place], [place] [address] PCP - General 04/07/19 Team Status: Active Member Role Status Dates ABDELRAHMAN ROMERO Primary Care Provider Active Team Status: Inactive Member Role Status Dates Dr. Ted Wise MD Attending Provider, Referr ing Provider Active MELLISSA QUICK Primary Care Provider Active Team Status: Inactive Member Role Status Dates MELLISSA QUICK Primary Care Provider Active Dr. Ted Wise MD Attending Provider, Referr ing Provider Active Polymerization Oven Operator Relationship Specialty Start Date End Date Leatha Augustin MD [address] [facility] [address] [place] [address] PCP - General 04/07/19 Polymerization Oven Operator Relationship Specialty Start Date End Date Casimiro Kelly [address] [place] [address] PCP - General Internal Medicine 04/27/24 Polymerization Oven Operator Relationship Specialty Start Date End Date Casimiro Kelly B [address] [place] [address] PCP - General Internal Medicine 04/27/24 Polymerization Oven Operator Relationship Specialty Start Date End Date Cherrie Kellyjohnnytanisha B [address] [place] [address] PCP - General Internal Medicine 04/27/24 Polymerization Oven Operator Relationship Specialty Start Date End Date Cherrie Kellyjohnnytanisha B [address] [place] [address] PCP - General Internal Medicine 04/27/24 Goals (unrecognized section and content) Goals may be documented in a n alternate sectionGoals may be documented in an alternate section Scheduled Active and Recently Administ ered Medications (unrecognized section and content) Medication Order 04/19/2024 04/20/2024 04/21/2024 aspirin EC tablet 81 mg 81 mg, Oral, Daily, First dose on Wed04/19/24 at 2030, Do not crush, chew, or split. 2212 (Given - Provider: Lebron Guzman Jr., RN) 0819 (Given - Provider: Racheal Bone RN) 0803 (Given - Provider: Racheal Bone RN) carvedilol (Coreg) tablet 3.125 mg 3.125 mg, Oral, 2 times daily with meals, First dose on Wed04/19/24 at 2215 2243 (Given - Provider: Lebron Guzman Jr., RN) 0819 (Given - Provider: Racheal Bone RN)1646 (Given - Provider: Racheal Bone RN) 0803 (Given - Provider: Racheal Bone RN) colchicine tablet 0.6 mg 0.6 mg, Oral, Daily, First dose on Wed04/19/24 at 2030 2220 (Given - Provider: Lebron Guzman Jr., RN) 0819 (Given - Provider: Racheal Bone RN) 0804 (Given - Provider: Racheal Bone RN) furosemide (Lasix) injection 40 mg (COMPLETED) 40 mg, IntraVENous, Administer over 2 Minutes, Once, On Wed04/20/24 at 1630, For 1 dose 1646 (Given - Provider: Racheal Bone RN) heparin injection 4,000 Units (COMPLETED) 4,000 Units, IntraVENous, Once, On Wed04/19/24 at 2045, For 1 dose, Initial one time bolus 2210 (Given - Provider: Lebron Guzman Jr., RN) insulin glargine (Lantus) injection 10 Units (CANCELED) 10 Units, SubCUTAneous, Every morning, First dose (after last modification) on Wed04/20/24 at 0915, Do not hold without physician order. 0920 (Given - Provider: Racheal Bone RN) insulin glargine (Lantus) injection 10 Units 10 Units, SubCUTAneous, Every morning, First dose (after last modification) on Wed04/21/24 at 0900, Do not hold without physician order. 09 (Given - Provider: Racheal Bone RN) Insulin Lispro (Humalog) injection 0-12 Units(Linked Group 1) 0-12 Units, SubCUTAneous, 3 times daily with meals, First dose on Wed04/20/24 at 0800, Medium Dose Correction Algorithm Glucose: Dose: LESS than 150 No Insulin 150-199 2 Units 200-249 4 Units 250-299 6 Units 300-349 8 Units 350-400 10 Units Above 400 12 Units 0800 (Not Given - Provider: Racheal Bone RN - Reason: NPO)1200 (Not Given - Provider: Racheal Bone RN - Reason: NPO)1829 (Given - Provider: Racheal Bone RN) 09 (Given - Provider: Racheal Bone RN)1329 (Given - Provider: Racheal Bone RN) Insulin Lispro (Humalog) injection 0-12 Units(Linked Group 1) 0-12 Units, SubCUTAneous, Nightly, First dose on Wed04/19/24 at 2100, If eating or bolus tube feeding: Medium Dose Correction Algorithm Glucose: Dose: LESS than 150 No Insulin 150-199 2 Units 200-249 4 Units 250-299 6 Units 300-349 8 Units 350-400 10 Units Above 400 12 Units 2100 (Not Given - Provider: Lebron Guzman Jr., RN - Reason: Order parameters not met) 2100 (Given - Provider: Lebron Guzman Jr., RN) isosorbide dinitrate (Isordil) tablet 20 mg (CANCELED) 20 mg, Oral, 3 times daily, First dose on Wed04/20/24 at 1400, Hold for SBP < 100 1427 (Given - Provider: Racheal Bone RN)2101 (Given - Provider: Lebron Guzman Jr., RN) 08 (Given - Provider: Racheal Bone RN) isosorbide mononitrate ER (Imdur) 24 hr tablet 30 mg 30 mg, Oral, Daily, First dose on Wed04/21/24 at 1200, Do not chew or crush ER tablets; may be divided in half. Due to insoluble matrix embedding, ER tablets that are scored may be split. 1329 (Given - Provider: Racheal Bone RN) losartan (Cozaar) tablet 25 mg 25 mg, Oral, Daily, First dose on Wed04/19/24 at 2030, On hold since Wed04/19/2024 at 2017 until manually unheld 2016 (Held by provider - Provider: Huang Mercado MD - Reason: Other)2029 (Dose Auto Held) 0900 (Dose Auto Held) 0900 (Dose Auto Held)165 (Unheld by provider - Provider: Automatic Discharge Provider) pantoprazole (ProtoNix) EC tablet 40 mg 40 mg, Oral, Daily, First dose on Wed04/19/24 at 2030, Do not crush, chew, or split. 2211 (Given - Provider: Lebron Guzman Jr., RN) 818 (Given - Provider: Racheal Bone RN) 802 (Given - Provider: Racheal Bone RN) polyethylene glycol (PEG) 3350 (Miralax) packet 17 g 17 g, Oral, Daily, First dose on Wed04/19/24 at 2029 2029 (Not Given - Provider: Lebron Guzman Jr., RN - Reason: Patient/family refused) 09 (Not Given - Provider: Racheal Bone RN - Reason: NPO) 09 (Not Given - Provider: Racheal Bone RN - Reason: Patient/family refused) rosuvastatin (Crestor) tablet 40 mg 40 mg, Oral, Nightly, First dose on Wed04/19/24 at 2100 221 (Given - Provider: Lebron Guzman Jr., RN) 2100 (Given - Provider: Lebron Guzman Jr., RN) ticagrelor (Brilinta) tablet 90 mg 90 mg, Oral, 2 times daily, First dose on Amanda 04/20/24 at 2100, [facility], Ticagrelor maintenance dose should be given with 81mg of Aspirin. 2100 (Given - Provider: Lebron Guzman Jr., RN) 802 (Given - Provider: Racheal Bone RN) Continuous Medication Order 04/19/2024 04/20/2024 04/21/2024 heparin 25,000 units in dextrose 5% 250mL infusion (premix) (CANCELED) 5-30 Units/kg/hr 101 kg (5.05-30.3 mL/hr, rounded to 5.1-30.3 mL/hr), IntraVENous, Continuous, Starting on 04/19/24 at 2045, LOW Dose Heparin Weight Based Dosing (CAD/STEMI/NSTEMI/AFIB/ECM O) >>>>Initial dose: 9 units/kg/hr<<<< Subsequent dosing: aPTT < 30 Heparin Full re-bolus Increase infusion by 2 units/kg/hr - notify prescriber; aPTT 30-49.9 Heparin Half re-bolus Increase infusion by 1 unit/kg/hr; aPTT 50-70.9 No bolus No change; aPTT 71-95.9 Hold heparin for 60 min Decrease infusion by 1 unit/kg/hr; aPTT > 95.9 Hold heparin for 60 min Decrease infusion by 2 units/kg/hr - notify prescriber; Check aPTT: 6 hours after initiation and 6 hours after every dose change - every 12 hrs x 1 day after 2 consecutive therapeutic aPTT - daily after every 12 hrs x 1 day is complete. Contact provider for further directions if: a) The patient has reached maximum dose and has not achieved the goal of therapy or b) If this medication is held outside of ordered parameters 2210 (Rate/Dose Change - Provider: Lebron Guzman Jr., RN - Comment: new from [place]. Cardioogy bedside wants to restart at 9 units with bolus)2337 (Stopped - Provider: Lebron Guzman Jr., RN - Comment: Holding for 60min then decrease by 1 unit. 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 1645 (Given - Provider: Racheal Bone RN) Acetaminophen-Caffeine (Excedrin Tension Headache) 500-65 MG per tablet 2 tablet 2 tablet, Oral, Every 6 hours PRN, headaches, Starting on Amanda 04/20/24 at 2101 dextrose 5 % infusion 100 mL/hr, IntraVENous, PRN, Blood sugar less than 70mg/dL, Starting on Wed04/19/24 at 2019, Start infusion following administration of dextrose 50% or glucagon. dextrose 50 % solution 12.5 g 12.5 g, IntraVENous, PRN, low blood sugar, Blood glucose less than 70 mg/dL and patient NOT ALERT or NPO., Starting on Wed04/19/24 at 2019, If patient does not respond within 5 minutes, repeat dose x1. Start D5W at 100 mL/hour until ordering provider can be reached. Repeat blood glucose in 15 minutes. If blood glucose is less than 70 mg/dL, repeat treatment and recheck blood glucose in 15 minutes x2. If using Glucostabilizer, dose as instructed per system. fentaNYL (Sublimaze) injection (CANCELED) IntraVENous, As needed, Starting on Amanda 04/20/24 at 1238, Intraprocedure 1238 (Given - Provider: Williams Linares RN)1255 (Given - Provider: Williams Linares RN)1307 (Given - Provider: Williams Linares RN) glucagon (human recombinant) injection 1 mg 1 mg, IntraMUSCular, PRN, low blood sugar, Blood glucose less than 70 mg/dL and patient NOT ALERT or NPO and does not have IV access., Starting on Wed04/19/24 at 2019, After administration, attempt intravenous access and start D5W at 100 mL/hr. Repeat blood glucose in 15 minutes x2 and notify provider. glucose oral gel 15 g 15 g, Oral, As needed, low blood sugar, Starting on Wed04/19/24 at 2019, If blood glucose less than 50 mg/dL and patient ALERT and NOT NPO, give 2 tubes glucose gel. If blood glucose less than 70 mg/dL and patient ALERT and NOT NPO, give 1 tube glucose gel. Repeat blood glucose in 15 minutes. If blood glucose is less than 70 mg/dL, repeat treatment and recheck blood glucose in 15 minutes x2 and notify provider. heparin injection 4,000 Units (CANCELED) 4,000 Units, IntraVENous, As needed, per heparin dosing algorithm, Starting on Wed04/19/24 at 2031, Full dose re-bolus based on pharmacy algorithm 0647 (Given - Provider: Lebron Guzman Jr., RN) heparin injection (CANCELED) IntraVENous, As needed, Starting on Amanda 04/20/24 at 1241, Intraprocedure 1242 (Given - Provider: Williams Linares, RN)1254 (Given - Provider: Williams Linares, RN)1321 (Given - Provider: Williams Linares RN) HYDROmorphone (Dilaudid) injection 0.25 mg 0.25 mg, IntraVENous, Every 3 hours PRN, severe pain (7-10), Chest pain, Starting on Wed04/19/24 at 2204, If oral and injectable narcotics ordered, use oral first and only use injectable if oral is ineffective or cannot take oral. Do Not give oral and injectable within 1 hour of each other unless specifically ordered. iopamidol (Isovue-300) 61 % injection (CANCELED) As needed, Starting on Amanda 04/20/24 at 1312, Intraprocedure 1312 (Given - Provider: Devika Mcpherson MD) lidocaine (Xylocaine) 1 % injection (CANCELED) As needed, Starting on Amanda 04/20/24 at 1237, Intraprocedure 1237 (Given - Provider: Peter Ro MD) LORazepam (Ativan) tablet 0.5 mg 0.5 mg, Oral, Every 8 hours PRN, anxiety, Starting on Wed04/19/24 at 2011, On hold since Wed04/19/2024 at 2017 until manually unheld 2016 (Held by provider - Provider: Huang Mercado MD - Reason: Other) 165 (Unheld by provider - Provider: Automatic Discharge Provider) midazolam (Versed) injection (CANCELED) IntraVENous, As needed, Starting on Amanda 04/20/24 at 1238, Intraprocedure 1238 (Given - Provider: Williams Linares, RN)1255 (Given - Provider: Williams Linares, RN) naloxone (Narcan) injection 0.4 mg 0.4 mg, IntraVENous, Every 5 min PRN, opioid reversal, respiratory depression, Starting on Wed04/19/24 at 2205, +++ For RR <10, pinpoint pupils, over sedation for opioid reversal - MUST notify senior construction project manager provider immediately after first dose, may give IM or SQ if no IV access +++ nitroglycerin (Indra-Bid) 2 % ointment (CANCELED) Administer over 6 Hours, As needed, Starting on Amanda 04/20/24 at 1315, Intraprocedure 1315 (Given - Provider: Williams Linares RN) nitroglycerin (Nitrostat) SL tablet 0.4 mg 0.4 mg, SubLINGual, Every 5 min PRN, chest pain, Starting on Wed04/19/24 at 2203, May administer up to 3 doses per episode. 2220 (Given - Provider: Lebron Guzman Jr., RN) nitroglycerin (Nitrostat) SL tablet (CANCELED) As needed, Starting on Amanda 04/20/24 at 1333, Intraprocedure 1333 (Given - Provider: Williams Linares RN) NITROGLYCERIN 100 MCG / ML IN D5W VIAL FOR INTRA-OP/INTRAPROCEDURE USE (CANCELED) As needed, Starting on Amanda 04/20/24 at 1240, Intraprocedure 1240 (Given - Provider: Peter Ro MD) NITROGLYCERIN 100 MCG / ML IN D5W VIAL FOR INTRA-OP/INTRAPROCEDURE USE (CANCELED) As needed, Starting on Amanda 04/20/24 at 1306, Intraprocedure 1306 (Given - Provider: Devika Mcpherson MD) NITROGLYCERIN 100 MCG / ML IN D5W VIAL FOR INTRA-OP/INTRAPROCEDURE USE (CANCELED) As needed, Starting on Amanda 04/20/24 at 1310, Intraprocedure 1310 (Given - Provider: Devika Mcpherson MD) ondansetron (Zofran) injection 4 mg(Linked Group 2) 4 mg, IntraVENous, Every 6 hours PRN, nausea, vomiting, Starting on Wed04/19/24 at 2012, 1st Line. Give IV if patient is unable to take orally. If inadequate response within 60 minutes, proceed to next-line agent or contact provider if no further options ordered. 0803 (See Alternativ e - Provider: Racheal Bone RN) ondansetron (Zofran) injection (CANCELED) As needed, Starting on Amanda 04/20/24 at 1345, Intraprocedure 1345 (Given - Provider: Williams Linares RN) ondansetron ODT (Zofran-ODT) disintegrating tablet 4 mg(Linked Group 2) 4 mg, Oral, Every 8 hours PRN, nausea, vomiting, Starting on Wed04/19/24 at 2012, 1st Line. If inadequate response within 60 minutes, proceed to next-line agent or contact provider if no further options ordered. Patient should allow tablet to dissolve on tongue. Do not remove from blister pack until just before administering. 0803 (Given - Provider: Racheal Bone RN) perflutren protein A microsphere (Optison) 3 mL in sodium chloride (PF) 0.9 % 10 mL IV syringe (COMPLETED) 0-10 mL, IntraVENous, IMG once PRN, other, Suboptimal echo image, Starting on Amanda 04/20/24 at 1203, For 1 dose, CV Procedural Medications, Administer via slow IVP for suboptimal echocardiogram enhancement. May administer as divided doses to reach optimal image enhancement 1203 (Given - Provider: Racheal Bone RN) senna-docusate sodium (Senokot-S) 8.6-50 MG tablet 1 tablet 1 tablet, Oral, Daily PRN, constipation, Starting on Wed04/19/24 at 2014, Cannot be crushed in PEG, Indications: Constipation sodium chloride 0.9 % infusion 5-250 mL/hr, IntraVENous, PRN, if patient receiving piggyback infusions and maintenance fluids are not ordered OR KVO fluids to protect IV site / prevent frequent line interruptions / long duration, Starting on Wed04/19/24 at 2012, For piggyback infusion, administer at same rate as piggyback for a total of 25 mL. Enter 25 mL into dose field and piggyback rate into rate field of order. If piggyback is infusing at a rate less than 100 mL/hr, enter 25 mL into dose field and 100 mL/hr into rate field of order. For KVO fluids, enter rate of 20 mL/hr or less into rate field of order. ticagrelor (Brilinta) tablet (CANCELED) Oral, As needed, Starting on Wed04/20/24 at 1238, Intraprocedure 1238 (Given - Provider: Williams Linares RN) verapamil (Isoptin) injection (CANCELED) As needed, Starting on Wed04/20/24 at 1240, Intraprocedure 1240 (Given - Provider: Peter Ro MD) Linked Groups Order Group 1: Insulin Lispro (Humalog) injection 0-12 UnitsJump to med 0-12 Units, SubCUTAneous, 3 times daily with meals, First dose on Wed04/20/24 at 0800, Medium Dose Correction Algorithm Glucose: Dose: LESS than 150 No Insulin 150-199 2 Units 200-249 4 Units 250-299 6 Units 300-349 8 Units 350-400 10 Units Above 400 12 Units And Insulin Lispro (Humalog) injection 0-12 UnitsJump to med 0-12 Units, SubCUTAneous, Nightly, First dose on Wed04/19/24 at 2100, If eating or bolus tube feeding: Medium Dose Correction Algorithm Glucose: Dose: LESS than 150 No Insulin 150-199 2 Units 200-249 4 Units 250-299 6 Units 300-349 8 Units 350- 400 10 Units Above 400 12 Units Group 2: ondansetron ODT (Zofran-ODT) disintegrating tablet 4 mgJump to med 4 mg, Oral, Every 8 hours PRN, nausea, vomiting, Starting on Wed04/19/24 at 2012, 1st Line. If inadequate response within 60 minutes, proceed to next-line agent or contact provider if no further options ordered. Patient should allow tablet to dissolve on tongue. Do not remove from blister pack until just before administering. Or ondansetron (Zofran) injection 4 mgJump to med 4 mg, IntraVENous, Every 6 hours PRN, nausea, vomiting, Starting on 2/26/25 at 2013, 1st Line. Give IV if patient is unable to take orally. If inadequate response within 60 minutes, proceed to next-line agent or contact provider if no further options ordered. FOR RECORDS PERTAINING TO PATIENTS WHO ARE OR HAVE BEEN ENROLLED IN A CHEMICAL DEPENDENCY/SUBSTANCEABUSE PROGRAM, SOME INFORMATION MAY BE OMITTED. This clinical summary was aggregated from multiple sources. Caution should be exercised in using it in the provision of clinical care. This summary normalizes information from multiple sources, and as a consequence, information in this document may materially change the coding, format and clinical context of patient data. In addition, data may be omitted in some cases. CLINICAL DECISIONS SHOULD BE BASED ON THE PRIMARY CLINICAL RECORDS. [facility]. provides no warranty or guarantee of the accuracy or completeness of information in this document.
--- NOTE | 2024-11-14 20:11 | STRESSREP_ITS ---
Stress Test Report Exercise myocardial perfusion stress test. 49-year-old lady with a history of coronary disease. Stress protocol: Resting EKG demonstrates normal sinus rhythm with a rate of 62 bpm resting blood pressure is 108/70 mmHg. The patient exercised according to the regular Ramón protocol for a total duration of 4 minutes and 10 seconds attaining a maximum heart rate of 144 bpm which was 85% of maximum predicted heart rate; the maximum workload was 7 metabolic equivalents. At rest there were no ST or T wave changes noted to suggest ischemia and at peak exercise upsloping ST changes only were noted which did not meet the criteria for ischemia. Midsternal heaviness noted. The peak blood pressure was 144/80 mmHg. Rate-pressure product was 16,007. Myocardial perfusion protocol. 14.5 mCi of technetium 99m sestamibi was injected at rest. The patient exercised according to regular Ramón protocol for total duration of 4 minutes and 10 seco nds and at peak exercise 45 mCi of technetium 99m sestamibi was injected stress images were obtained stress and rest images were reconstructed in comparing the short axis vertical long and horizontal long axis. Gated images were also obtained. Perfusion SPECT analysis: Review of the stress images demonstrate normal uptake of tracer noted in all areas of the myocardium. The resting images similarly demonstrate normal uptake of tracer noted in all areas of the myocardium. No areas of reversibility are noted to suggest ischemia no previous infarct was noted. Gated SPECT analysis: The gated ejection fraction is 72%. Conclusion: Normal exercise myocardial perfusion stress test at a moderate workload. Mild chest discomfort noted
== END | disposition home or self-care (01) ==
LOC: CVS 06:51
PROVIDERS: PCP Internal Medicine; Referring Provider Nurse Practitioner Gerontology; Visit Provider Nurse Practitioner Gerontology
DX: R07.2 Precordial pain (principal); E11.22 Type 2 diabetes mellitus with diabetic chronic kidney disease; Z95.5 Presence of coronary angioplasty implant and graft; I25.2 Old myocardial infarction; I25.10 Atherosclerotic heart disease of native coronary artery without angina pectoris; R80.9 Proteinuria, unspecified; I12.9 Hypertensive chronic kidney disease with stage 1 through stage 4 chronic kidney disease, or unspecified chronic kidney disease; N18.2 Chronic kidney disease, stage 2 (mild)
CPT/HCPCS: 78452; 93017; A9500; A4216

== ENCOUNTER → 2024-11-20 | Outpatient (CLI) | payer OTHER, SELFPAY ==
--- OUTSIDE RECORDS SUMMARY | 2024-07-28 17:14 | XMS RPT_ITS ---
Author Name Auto Generated Organization OHIP Care Team Providers Care Clay Shop Supervisor Name Role Phone DEVIKA SEALS Attending Unavailable MARIAM LUNDY Referring Unavailable OLEGHE, EFEWONGBE Primary Care Unavailable VU SAAB Attending Unavailable OLEGHE, EFEWONGBE Primary Care Unavailable VINNY CHIRINOS Attending Unavailable VINNY CHIRINOS Referring Unavailable OLEGHE, EFEWONGBE Primary Care Unavailable ERASMO GODOY Referring Unavailable JAKE SEARS Admitting Unavailable JAKE SEARS Attending Unavailable PROBLEMS DATE TYPE CONDITION / CODE ATTENDING STATUS [facility] 07/28/2024 Admitting Diagnosis Chronic kidney disease, stage 2 (mild) / N18.2(ICD-10) VINNY CHIRINOS [facility] 04/27/2024 Admitting Diagnosis Tobacco use / Z72.0(ICD-10) VU SAAB [facility] 04/27/2024 Admitting Diagnosis Mixed hyperlipidemia / E78.2(ICD-10) [facility] 04/27/2024 Admitting Diagnosis Obesity, class 3 / E66.813(ICD-10) [facility] 04/27/2024 Admitting Diagnosis Morbid (severe) obesity due to excess calories (HCC) / E66.01(ICD-10) [facility] 04/27/2024 Admitting Diagnosis Body mass index (BMI) 40.0-44.9, adult (HCC) / Z68.41(ICD-10) [facility] 04/27/2024 Admitting Diagnosis Essential (primary) hypertension / I10(ICD-10) [facility] 04/27/2024 Admitting Diagnosis Atherosclerotic heart disease of kiowa tribe coronary artery without angina pectoris / I25.10(ICD-10) [facility] 04/19/2024 Admitting Diagnosis Non-ST elevation (NSTEMI) myocardial infarction (HCC) / I21.4(ICD-10) [facility] 04/19/2024 Admitting Diagnosis Presence of coronary angioplasty implant and graft / Z95.5(ICD-10) JAKE SEARS [facility] PROCEDURES No Procedure Records Found RESULTS US RETROPERITONEAL Observed: 07/29/2024 10:46 AM Status: F Source: [facility] 1975 [id number] Exam Date/Time: 07/28/2024 17:18 Procedure: US RETROPERITONEAL Ordering Provider: CHIRINOS JAYAPRAKASH Reason For Exam: chronic kidney disease starge 2 US RETROPERITONEAL COMPLETE CLINICAL INDICATION: chronic kidney disease stage 2. Difficulty voiding/urinating. TECHNIQUE: Complete ultrasound of the genitourinary retroperitoneal structures including color flow imaging and bladder COMPARISON: Correlation is made to dictated report CT abdomen pelvis 07/12/2023, MRI liver 05/23/2021 performed at outside facility. FINDINGS: Limitations: Overlying bowel gas, body habitus, and rib shadowing. Right kidney: 10.3 x 3.6 x 4.2 cm. Cortical thickness and echotexture appear within normal limits. No obstructive uropathy or nephrolithiasis. Left kidney: 9.3 x 4.6 x 4.6 cm. Cortical thickness and echotexture appear within normal limits. Questionable punctate simple cyst measuring about 0.9 x 0.9 cm upper pole. 5 x 6 mm nonobstructing calculus mid pole. Urinary bladder: Prevoid urinary bladder calculated at 63 mL. Post void residual 0.5 mL. Allowing for limitations due to under distention no suspicious urinary bladder wall thickening. No calculi. Right and left ureteral jets are visualized. Additional findings: Visualized hepatic parenchyma demonstrates steatosis. IMPRESSION: 1. Both kidneys demonstrate normal cortical thickness and echotexture without obstructive uropathy. 2. 5 x 6 mm nonobstructing calculus left kidney. 3. Prevoid urinary bladder volume calculated at 63 mL. Post void urinary bladder residual calculated at 0.5 mL. Report Dictated on Electronically Signed By: Irvin Gorman MD Electronically Signed Date/Time: 07/29/2024 10:46 AM EDT 36 Observed: 05/08/2024 8:42 AM Status: COMPLETED Source: [facility] paperwork completed by [employer] RICARDO & faxed & sent to scanning. [id number] Observed: 05/05/2024 2:58 PM Status: COMPLETED Source: [facility] See telephone encounter from same day. 36 Observed: 05/05/2024 2:39 PM Status: COMPLETED Source: [facility] PC to patient, she notes she had a few palpitations today, it was just one beat but occurred 4 times over 5 hours. She also walked a long distance today which was longer than usual for her since her MD. She had a little shortness of breath and was a little sweaty at one point. She did check her BS which was a little low per her. She felt her chest was sore. Not similar to her MD presentation. She left work and came home. She has been taking her medications as prescribed. She was asking if she should go to the ER. At this time patient does not sound to be in distress and she agrees, if she would develop symptoms similar to her MD she will seek emergent care. For now she will order a BP cuff and keep track of her BP/HR. She will call sooner if needed. [place] paperwork completed, will have law secretary fax. Patient was able to return to work 04/24/24 without restrictions. 36 Observed: 05/05/2024 12:35 PM Status: COMPLETED [facility] LM to return call to office. 36 Observed: 05/05/2024 10:49 AM Status: COMPLETED Source: [facility] [employer] [facility] LM to return call to office to further discuss symptoms. 36 Observed: 05/05/2024 10:19 AM Status: COMPLETED [facility] Patient calls having sx's of fluttering, shortness of breath, cold sweats, would like to talk to [employer] RICARDO. [phone] 36 Observed: 05/04/2024 4:33 PM Status: COMPLETED Source: [facility] [employer] [facility] paperwork given to Xuba RICARDO. PROGRESS NOTE Observed: 04/28/2024 2:22 PM Status: COM PLETED [facility] See #1. PROGRESS NOTE Observed: 04/28/2024 2:21 PM Status: COMPLETED Source: [facility] [employer] [facility] BP well controlled, continue carvedilol, she was not taking her prescribed losartan, she will start losartan 25mg daily. PROGRESS NOTE Observed: 04/28/2024 2:21 PM Status: COMPLETED Source: [facility] [employer] [facility] Stable, s/p [id number] LAD . No current complaints of chest pain or shortness of breath. Episodic chest pain sounds musculoskeletal in nature and not similar to her presenting angina. Her shortness of breath at night sounds related to Brilinta, she will take with food and move timing up so not taking right before bed. Reviewed importance of DAPT including ASA 81mg daily lifelong without interruption, and ticagrelor (Brilinta) 90mg BID for at least 1 year without interruption unless otherwise advised by cardiology. She will contact the office if shortness of breath does not improve and we can consider changing to prasugrel or clopidogrel. Continue carvedilol, losartan, Imdur, rosuvastatin, pantoprazole and SL Nitro PRN. Encouraged participation in cardiac rehab. Diet for heart health reviewed and information given. PROGRESS NOTE Observed: 04/28/2024 2:19 PM Status: COMPLETED Source: [facility] She states she has lost 40lb s and is still working on losing weight. We discussed healthy diet and exercise. PROGRESS NOTE Observed: 04/28/2024 2:19 PM Status: COMPLETED Source: [facility] A1c 6.6 which she states is much better than a year ago when she was first diagnosed. She is managed by endocrinology. PROGRESS NOTE Observed: 04/28/2024 2:18 PM Status: COMPLETED Source: [facility] Unable to calculate LDL due to elevated triglycerides. We discussed healthy diet and exercise. Now on high-dose statin, continue rosuvastatin 40mg daily. Target LDL less than 70 and ideally less than 55 by ESC criteria. She sees endocrinology soon and will discuss management of elevated triglycerides. May consider addition of ezetimibe or PCSK9i in future if LDL remains above goal. PROGRESS NOTE Observed: 04/28/2024 2:17 PM Status: COMPLETED Source: [facility] Untreated, recommend she fol low-up with her PCP. PROGRESS NOTE Observed: 04/28/2024 2:16 PM Status: COMPLETED Source: [facility] She has quit and I have vicky ratulated her. We discussed importance of continued cessation. 37 Observed: 04/27/2024 2:00 PM Status: COMPLETED Source: [facility] Move isosorbide mononitrate to evening Call next week with an update on symptoms [phone] PROGRESS NOTE Observed: 04/27/2024 2:00 PM Status: COMPLETED Source: [facility] [address] [id number] Dept: [phone] Dept Loc: [phone] Reason for Visit: Hospital Follow-up Assessment and Plan 1. NSTEMI (non-ST elevated myocardial infarction) (HCC) Assessment & Plan: Stable, s/p [id number] LAD. No current complaints of chest pain or shortness of breath. Episodic chest pain sounds musculoskeletal in nature and not similar to her presenting angina. Her shortness of breath at night sounds related to Brilinta, she will take with food and move timing up so not taking right before bed. Reviewed importance of DAPT including ASA 81mg daily lifelong without interruption, and ticagrelor (Brilinta) 90mg BID for at least 1 year without interruption unless otherwise advised by cardiology. She will contact the office if shortness of breath does not improve and we can consider changing to prasugrel or clopidogrel. Continue carvedilol, losartan, Imdur, rosuvastatin, pantoprazole and SL Nitro PRN. Encouraged participation in cardiac rehab. Diet for heart health reviewed and information given. Orders: - ECG 12 lead - CLINIC PERFORMED - CBC - Basic metabolic panel 2. Coronary artery disease involving kiowa tribe coronary artery of kiowa tribe heart without angina pectoris Assessment & Plan: See #1. 3. Essential hypertension Assessment & Plan: BP well controlled, continue carvedilol, she was not taking her prescribed losartan, she will start losartan 25mg daily. 4. Mixed hyperlipidemia Assessment & Plan: Unable to calculate LDL due to elevated triglycerides. We discussed healthy diet and exercise. Now on high-dose statin, continue rosuvastatin 40mg daily. Target LDL less than 70 and ideally less than 55 by ESC criteria. She sees endocrinology soon and will discuss management of elevated triglycerides. May consider addition of ezetimibe or PCSK9i in future if LDL remains above goal. 5. Class 3 severe obesity without serious comorbidity with body mass index (BMI) of 40.0 to 44.9 in adult, unspecified obesity type (HCC) Assessment & Plan: She states she has lost 40lbs and is still working on losing weight. We discussed healthy diet and exercise. 6. Tobacco use Assessment & Plan: She has quit and I have congratulated her. We discussed importance of continued cessation. 7. Type 2 diabetes mellitus with hyperglycemia, with long-term current use of insulin (HCC) Assessment & Plan: A1c 6.6 which she states is much better than a year ago when she was first diagnosed. She is managed by endocrinology. 8. Psoriasis Assessment & Plan: Untreated, recommend she follow-up with her PCP. Follow up in about 8 weeks (around 06/22/2024) for Dr. Seals. We will notify her of her lab results and any further recommendations. She will call sooner if needed. Subjective 49-year-old female who presents to office status post hospital. She has a history of HTN, HLD, DM-2, asthma, GERD, obesity and tobacco use. She presented to [facility] with chest pain and was transferred to [facility] 04/19/2024. She initially thought her symptoms were heartburn, after Tums and antacids her symptoms seem to improve. Her pain then recurred a few days later with greater intensity and began to radiate to her left arm and jaw so she went to ER. Her EKG had no ST elevations but anterior Q waves and nonspecific T wave abnormalities. Her pain relieved with nitroglycerin and heparin and her high-sensitivity troponins were elevated. She underwent cardiac cath at [place] which revealed moderate proximal RCA stenosis, minimal LCx disease and 100% occlusion of the proximal LAD (?CREDIT ADMINISTRATOR) with collaterals to distal LAD from the RCA. She was then transferred to [facility] for revascularization discussion. She also had another episode of mild chest pain and accelerated idioventricular rhythm on telemetry. It was felt her LAD occlusion was subacute rather than chronic. Her echo noted an EF of 50%. She underwent SE-proximal to mid LAD x 1. She had mild discomfort post PCI and was started on nitrates. She also received a dose of IV Lasix due to shortness of breath. The next day her symptoms had resolved and she was discharged home. She presents today with fatigue. She also hasn't had much of an appetite since discharge. She's had shortness of breath, mainly noticed after her evening Brilinta dose as she is going to bed, taking lorazepam has helped. She has also noted a few episodes of sharp chest discomfort, this is different than her presenting symptoms but were concerning to her and she took SL Nitro, the pain did go away but she also felt it was related to her anxiety. She had 1 brief episode of palpitations that resolved within seconds. She has also experienced some dizziness and a headache a few hours after her medications. She currently denies chest pain or shortness of breath. EKG today demonstrates SR, 88 T-wave inversions I, aVL and V2. Review of Systems Constitutional: Positive for appetite change and fatigue. Negative for chills and fever. Respiratory: Positive for shortness of breath (after night-time dose of Brilinta, some with exertion). Negative for cough and wheezing. Cardiovascular: Positive for chest pain (sharp pains, a few episodes, not similar to angina and no associated sypmtoms, did take Nitro) and palpitations (Wednesday, flutter, caused her to cough, lasted 5 seconds). Negative for leg swelling. Neurological: Positive for dizziness and headaches (a few hours after AM medications). Negative for syncope. Hematological: Does not bruise/bleed easily. Allergies Allergen Reactions Empagliflozin Rash and Vomiting Only Yeast infection Metformin Other Reaction(s): Kidney Stones/High Uric Acid Semaglutide Nausea Only Tirzepatide Outpatient Medications Prior to Visit Medication Sig Dispense Refill ciclopirox (Loprox) 0.77 % cream APPLY TWICE A DAY TO FEET AND BETWEEN TOES FOR 2 WEEKS THEN NEEDED clindamycin 1 % gel APPLY TO AFFECTED AREAS ON THE CHEST TWICE DAILY NEEDED clobetasol (Temovate) 0.05 % cream colchicine 0.6 MG tablet Take 0.6 mg by mouth daily. insulin glargine (Lantus) 100 UNIT/ML pen Insulin Glargine (Lantus Solostar U-100 Insulin) 100 unit/mL (3 mL) insulin pen Active 20 UNIT SC ONCE June 16, 2023 12:00am LORazepam (Ativan) 0.5 MG tablet TAKE ONE TABLET BY MOUTH EVERY 8 HOURS NEEDED for anxiety for up to 30 days nitroglycerin (Nitrostat) 0.[address] 1 tablet (0.4 mg) under the tongue every 5 minutes as needed for chest pain. 100 tablet 11 pantoprazole (ProtoNix) 40 MG EC tablet Take 40 mg by mouth daily. as directed aspirin 81 MG EC tablet Take 1 tablet (81 mg) by mouth daily. 30 tablet 11 carvedilol (Coreg) 3.125 MG tablet Take 1 tablet (3.125 mg) by mouth 2 times daily (with meals). 60 tablet 11 isosorbide mononitrate ER (Imdur) 30 MG 24 hr tablet Take 1 tablet (30 mg) by mouth daily. Do not crush or chew. 30 tablet 11 rosuvastatin (Crestor) 40 MG tablet Take 1 tablet (40 mg) by mouth Nightly. 30 tablet 11 ticagrelor (Brilinta) 90 MG tablet Take 1 tablet (90 mg) by mouth 2 times daily. 60 tablet 11 Mounjaro 2.5 MG/0.5ML solution auto-injector losartan (Cozaar) 25 MG tablet Take 25 mg by mouth. metFORMIN XR (Glucophage-XR) 500 MG 24 hr tablet Take 1 tablet (500 mg) by mouth daily (with breakfast). Do not crush, chew, or split. 30 tablet 11 No facility-administered medications prior to visit. Past Medical History: Diagnosis Date Anxiety Asthma Luna esophagus Coronary artery disease involving kiowa tribe coronary artery of kiowa tribe heart without angina pectoris 04/27/2024 Essential hypertension 03/24/2024 Focal nodular hyperplasia of liver GERD (gastroesophageal reflux disease) Mixed hyperlipidemia 04/27/2024 Necrobiosis lipoidica diabeticorum (CMS/HCC) (HCC) NSTEMI (non-ST elevated myocardial infarction) (HCC) 04/19/2024 Pustular psoriasis Social History Tobacco Use Smoking status: Former Types: Cigarettes Smokeless tobacco: Never Tobacco comments: 04/21/2024 Patient states she is a social smoker only. Only smoked two cigarettes in 2023, around [place] time. Substance Use Topics Alcohol use: Never Past Surgical History: Procedure Laterality Date CARDIAC CATHETERIZATION N/A 04/20/2024 Performed by Devika Seals MD at [facility] Cardiac Cath/EP Lab CARDIAC CATHETERIZATION N/A 04/20/2024 Performed by Devika Seals MD at [facility] Cardiac Cath/EP Lab CARDIAC CATHETERIZATION N/A 04/20/2024 Performed by Devika Seals MD at [facility] Cardiac Cath/EP Lab CHOLECYSTECTOMY COLONOSCOPY Dr. Londono. CORONARY STENT PLACEMENT 03/2024 SE-prox to mid LAD LIVER BIOPSY SKIN GRAFT Right lower [place] UPPER GASTROINTESTINAL ENDOSCOPY Family History Problem Relation Name Age of Onset Other (39806) Mother Drawfism. No Known Problems Father Objective Vitals: 04/27/24 1415 BP: 128/82 BP Location: Left arm Patient Position: Sitting BP Cuff Size: Adult Pulse: 88 SpO2: 97% Height: 5' 1 (1.549 m) Body mass index is 41.78 kg/m?. Physical Exam Constitutional: General: She is not in acute distress. Appearance: She is obese. Cardiovascular: Rate and Rhythm: Normal rate and regular rhythm. Pulses: Normal pulses. Radial pulses are 2+ on the right side. Heart sounds: Normal heart sounds. No murmur heard. No friction rub. No gallop. Comments: R radial cath site without hematoma, or oozing. Mildly red at puncture site, no pus noted. Mild ecchymosis surrounding site, soft, and mildly tender. R hand with brisk capillary refill. Pulmonary: Effort: Pulmonary effort is normal. No respiratory distress. Breath sounds: Normal breath sounds. No wheezing or rales. Abdominal: General: Bowel sounds are normal. There is no distension. Musculoskeletal: Right lower leg: No edema. Left lower leg: No edema. Skin: General: Skin is warm and dry. Neurological: Mental Status: She is alert and oriented to person, place, and time. Psychiatric: Mood and Affect: Mood normal. Data Reviewed and Summarized Lab Results Component Value Date WBC 13.4 (H) 04/21/2024 HGB 12.2 04/21/2024 HCT 35.3 04/21/2024 MCV 87.2 04/21/2024 PLT 311 04/21/2024 Lab Results Component Value Date GLUCOSE 157 (H) 04/21/2024 CALCIUM 8.7 04/21/2024 NA 134 (L) 04/21/2024 K 3.5 04/21/2024 CO2 21 (L) 04/21/2024 CL 107 04/21/2024 BUN 13 04/21/2024 CREATININE 0.90 04/21/2024 Lab Results Component Value Date CHOL 235 (H) 04/19/2024 CHOL 250 (A) 06/12/2019 Lab Results Component Value Date HDL 31 (L) 04/19/2024 HDL 34 (L) 06/12/2019 Lab Results Component Value Date LDLCALC 04/19/2024 Comment: Calculated LDL invalid, triglycerides >400 mg/dl Lab Results Component Value Date TRIG 529 (H) 04/19/2024 TRIG 478 (A) 06/12/2019 No results found for: CHOLHDL EF BP Date Value Ref Range Status 04/20/2024 49 (A) 55 - 100 % Final Cardiac Catheterization 04/20/24: Conclusion Anterior MD due to 100% occluded proximal LAD Successful IVUS-guided PCI of proximal to mid LAD with a 3.0x38 mm Xience SE, post dilated proximally with a 3.5 NC balloon. Small diagonal branch was jailed but not compromised. Recommendations Patient management should include: Aggressive risk factor modification, aggressive medical management, smoking cessation counselling, cardiac rehabillitation and drug-eluting stent maintenance. Echocardiogram 04/20/24: Left Ventricle: Left ventricle size is normal. Normal wall thickness. Low normal left ventricular systolic function. The EF by visual approximation is 50%. Global longitudinal strain is -14.5%. Normal wall motion. Normal diastolic function. Right Ventricle: Right ventricle size is normal. Normal systolic function. No significant valvular abnormalities. IVC/Hepatic Veins: IVC diameter is normal and decreases greater than 50% during inspiration; therefore the estimated right atrial pressure is normal (~3 mmHg). Technically difficult study. Vu Saab APRN - SUPPLY OFFICER OFFICE VISIT Observed: 04/27/2024 2:00 PM Status: COMPLETED Source: [facility] [id number] Constance Gage [birth year] F Date Provider Department Center 04/27/2024 [id number] SAAB [facility] [address] Family History Problem Relation Age of Onset Other Mother Comments: Drawfism. No Known Problems Father Family Status - Relation Status Age at Mother Alive Father Level of Service:[id number] NE OFFICE/OUTPATIENT ESTABLISHED MOD MDM 30 MIN Reason for Visit and Comments: Hospital Follow-up [832] NURSING NOTE Observed: 04/21/2024 2:52 PM Status: COMPLETED [facility] Discharge instructions revie wed with patient and family at bedside. IV out and pt is off of monitor. Medications were delivered to bedside. Pt taken down to discharge. CONSULT Observed: 04/21/2024 2:18 PM Status: COMPLETED Source: [facility] Received referral and review ed chart. Phase II Cardiopulmonary Rehab Referral discussed with Constance Gage. Cardiopulmonary Rehab education provided and reviewed handout. Pt prefers [facility] location. Will call the patient when appropriate after discharge to schedule evaluation. RESS NOTE Observed: 04/21/2024 12:30 PM Status: COMPLETED [facility] Patient declined smoking prosper sation counseling. She is accepting of handouts with contact information for future reference. [phone] Observed: 04/21/2024 11:22 AM Status: COMPLETED Source: [facility] [employer] [facility] Care Management Progress Not e Patient remains on 1C s/p SE to mid-prox LAD 04/20. Discharge plan home independently. Length of Stay (Days): 2 GMLOS: 2 DISCHARGE SUMMARY Observed: 04/21/2024 11:15 AM Status: COMPLETED Source: [facility] Attestation signed by Jake Sears MD at 04/21/2024 5:01 PM I, Dr. Jake Sears, saw and evaluated the patient on 04/21/2024. I personally obtained the lawson and critical portions of the history and physical exam. I reviewed the chart, the fellow's documentation, and discussed the patient with the fellow. I agree with the fellow's medical decision making and have edited the note to reflect my clinical findings and my assessment and plan. In summary, Constance Gage is a 49 yo F with class 3 obesity, HTN, and DM2 who had NSTEMI, s/p PCI to LAD. - DAPT, statin - Plan for low dose Imdur -- can stop at outpatient if doing well (some mild residual chest pain) Stable for discharge Jake Sears MD Department of Cardiovascular Disease, Division of Heart Failure [facility] [place] 5:00 PM 04/21/24 [facility] Discharge Summary Name: Constance Gage Date of : 1975 Date of Admission: 04/19/2024 Date of Discharge: 04/21/2024 Discharge Attending: Jake Sears MD Primary Care Provider: No primary care provider on file. 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 Londono. LIVER BIOPSY SKIN GRAFT Right [place] UPPER GASTROINTESTINAL ENDOSCOPY Family History Problem Relation Name Age of Onset Other (16437) Mother Drawfism. No Known Problems Father Social History Tobacco Use Smoking status: Every Day Smokeless tobacco: Never Substance Use Topics Alcohol use: Never Drug use: Never Hospital Course Constance Gage is a 49 y.o. female with PMH significant for HTN, HLD, tobacco use, T2DM, asthma, GERD/Luna esophagus who presented to [facility] as a transfer from [facility] after she presented with chest pain and was found to have an NSTEMI. LHC performed and LAD lesion noted - concern that lesion a CREDIT ADMINISTRATOR. Patient subsequently transferred here in the setting of suspected CREDIT ADMINISTRATOR for further assessment. Repeat LHC performed 04/20. Occlusion able to be intervened upon with SE placement. Patient discharging on DAPT, high-intensity statin, BB. Her home losartan was stopped in the setting of low normal BP and Imdur initiation. Consultants: IP CONSULT TO CARDIAC REHAB IP CONSULT TO CARDIAC REHAB Procedures: 04/20/24 [facility] Anterior MD due to 100% occluded proximal LAD D1 has a moderate 60% proximal stenosis LM has no disease. LCX has mild diffuse disease. RCA was not imaged. Successful IVUS guided PCI of the mid to proximal LAD with a 3.0x38 mm Xience SE. Post dilated proximally with a 3.5x15 mm NC balloon. THe D1 was jailed by the stent but was protected with a guidewire and remained patent. A very small diagonal branch became occluded and the patient had chest pain, which improved with nitrates. Last diet during hospitalization: Adult diet Regular; Low Fat/Low Chol/High Fiber/2 gm Na Recommended at discharge: Same as above. Activity No heavy lifting. Disposition: Home Condition at Discharge: good Followup Testing/ Instructions: - consider re-initiation of home losartan as outpatient, would stop Imdur and re-start losartan if she remains chest pain free Facility/Home Care Agency: NONE Pending Results: None Future Appointments Date Time Provider Department Center 04/27/2024 2:00 PM Vu Montalvo Katiana, TRANSMITTER CHIEF - SUPPLY OFFICER [facility] [address] Discharge Plan Medication List START taking these medications Aspirin Low Dose 81 MG EC tablet Generic drug: aspirin Take 1 tablet (81 mg) by mouth daily. Start taking on: April 22, 2024 Brilinta 90 MG tablet Generic drug: ticagrelor Take 1 tablet (90 mg) by mouth 2 times daily. carvedilol 3.125 MG tablet Commonly known as: Coreg Take 1 tablet (3.125 mg) by mouth 2 times daily (with meals). ciclopirox 0.77 % cream Commonly known as: Loprox clindamycin 1 % gel colchicine 0.6 MG tablet isosorbide mononitrate ER 30 MG 24 hr tablet Commonly known as: Imdur Take 1 tablet (30 mg) by mouth daily. Do not crush or chew. losartan 25 MG tablet Commonly known as: Cozaar Mounjaro 2.5 MG/0.5ML solution auto-injector Generic drug: Tirzepatide nitroglycerin 0.4 MG SL tablet Commonly known as: Nitrostat Place 1 tablet (0.4 mg) under the tongue every 5 minutes as needed for chest pain. pantoprazole 40 MG EC tablet Commonly known as: ProtoNix CHANGE how you take these medications rosuvastatin 40 MG tablet Commonly known as: Crestor Take 1 tablet (40 mg) by mouth Nightly. What changed: medication strength how much to take when to take this CONTINUE taking these medications clobetasol 0.05 % cream Commonly known as: Temovate insulin glargine 100 UNIT/ML pen Commonly known as: Lantus LORazepam 0.5 MG tablet Commonly known as: Ativan metFORMIN XR 500 MG 24 hr tablet Commonly known as: Glucophage-XR Take 1 tablet (500 mg) by mouth daily (with breakfast). Do not crush, chew, or split. STOP taking these medications cholecalciferol 200 Unit tablet split tablet Commonly known as: Vitamin D3 dexlansoprazole [address] capsule Commonly known as: Dexilant doxycycline 100 MG capsule Commonly known as: Vibramycin fluconazole 150 MG tablet Commonly known as: Diflucan linaCLOtide 145 MCG capsule Commonly known as: Linzess dfwstntn-rkmvnddhn-bubszcazwfcwpy 3.5-87194-5 otic suspension Commonly known as: Cortisporin sucralfate 1 GM/10ML suspension Commonly known as: Carafate Where to Get Your Medications These medications were sent to [facility] [address] [place] [address] Hours: Wednesday to Wednesday 10 am to 6 pm Aspirin Low Dose 81 MG EC tablet Brilinta 90 MG tablet carvedilol 3.125 MG tablet isosorbide mononitrate ER 30 MG 24 hr tablet nitroglycerin 0.4 MG SL tablet rosuvastatin 40 MG tablet Objective: Physical Exam: Vitals: BP 110/75 (BP Location: Left arm) Pulse 64 Temp 36.7 ?C (98 ?F) (Temporal) Resp 18 Ht 5' 1 (1.549 m) Wt 221 lb 1.6 oz (100 kg) SpO2 97% BMI 41.78 kg/m? Intake/Output Summary (Last 24 hours) at 04/21/2024 1116 Last data filed at 04/21/2024 0500 Gross per 24 hour Intake 200 ml Output 655 ml Net -455 ml Admission weight: 222 lb 9.6 oz (101 kg) Last weight: Wt Readings from Last 1 Encounters: 04/21/24 221 lb 1.6 oz (100 kg) Body mass index is 41.78 kg/m?. BMI Classification: Morbidly Obese (>40.0) Physical Exam Constitutional: General: She is not in acute distress. Appearance: She is not toxic-appearing. HENT: Head: Normocephalic and atraumatic. Nose: No rhinorrhea. Eyes: General: No scleral icterus. Neck: Comments: No JVD Cardiovascular: Rate and Rhythm: Normal rate. Heart sounds: No murmur heard. No friction rub. No gallop. Pulmonary: Effort: Pulmonary effort is normal. No respiratory distress. Breath sounds: No wheezing. Abdominal: Palpations: Abdomen is soft. Tenderness: There is no abdominal tenderness. Musculoskeletal: Right lower leg: No edema. Left lower leg: No edema. Neurological: General: No focal deficit present. Mental Status: She is alert. Psychiatric: Mood and Affect: Mood normal. Behavior: Behavior normal. Laboratory Tests: NT-ProBNP level; last two recorded values, may include those outside this admission. Lab Results Component Value Date BNP 1,135 (H) 04/19/2024 BNP 85 04/22/2021 Lab Results Component Value Date WBC 13.4 (H) 04/21/2024 HGB 12.2 04/21/2024 HCT 35.3 04/21/2024 MCV 87.2 04/21/2024 PLT 311 04/21/2024 Lab Results Component Value Date GLUCOSE 157 (H) 04/21/2024 CALCIUM 8.7 04/21/2024 NA 134 (L) 04/21/2024 K 3.5 04/21/2024 CO2 21 (L) 04/21/2024 CL 107 04/21/2024 BUN 13 04/21/2024 CREATININE 0.90 04/21/2024 Lab Results Component Value Date ALT 11 04/19/2024 AST 33 04/19/2024 ALKPHOS 100 04/19/2024 BILITOT 0.6 04/19/2024 National Registry/ Accreditation Requirements/ Other DC information. Quality Indicators if applicable. Quality Indicators for Acute MD / PCI: Guideline Directed Medical Therapy Aspirin: Yes P2Y12 Inhibitor: Yes High-Intensity Statin: Yes Beta Angelia: Yes [place]-I/ARB/ARNI: No, not medically indicated MRA: No, not medically indicated Smoking cessation counseling completed: Yes Benefits of Cardiac Rehab attendance discussed with patient. 72-hour follow up phone call requested: Not applicable Has LV evaluation been performed this admission? Yes EF BP Date Value Ref Range Status 04/20/2024 49 (A) 55 - 100 % Final STEMI follow up within 7 days, NSTEMI/PCI/ADHF follow up within 14 days. Must be scheduled prior to hospital discharge. Follow up appointment scheduled: Yes Patient and Family Counseling Addressed: Activity. Diet restrictions/heart healthy. Discharge medications and importance of cardiac medication compliance. Importance of follow-up with Cardiology. Recognition of the signs/symptoms of ACS and need to seek emergent care. Patient specific ACS risk factor modifications. Medications to avoid if diagnosed with ACS. If any questions, call: [facility] Cardiology [phone] Total time Discharge activity. []30 min or less [x]Greater than 30 min Renee Lau MD Parts of this note may be generated using a voice recognition software program. Please excuse any upper cutter out errors that may have occurred. This note was electronically signed by Renee Lau MD on 04/21/24 ECG 12-LEAD Observed: 04/21/2024 9:37 AM Status: F Source: [facility] [employer] [facility] IMPRESSION: Sinus rhythm Left anterior fascicular block Left ventricular hypertrophy Anterior Q waves, possibly due to LVH Abnrm T, consider ischemia, anterolateral lds ST elevation, consider inferior injury Electronically Signed On 04-21-2024 09:37:02 EST by Laurie Estevez ECG 12-LEAD Observed: 04/21/2024 9:35 AM Status: F Source: [facility] [employer] [facility] IMPRESSION: Sinus rhythm Left anterior fascicular block Anterior Q waves, possibly due to LVH LVH w/ repol abnormalities, possible ischemia Electronically Signed On 04-21-2024 09:35:49 EST by Laurie Estevez PROGRESS NOTE Observed: 04/21/2024 9:09 AM Status: COMPLETED Source: [facility] [employer] [facility] Nutrition rescreen completed . Chart reviewed. Patient to be monitored and followed by the diet shop technician. SHAIKR Scanlon PROGRESS NOTE Observed: 04/21/2024 8:50 AM Status: COMPLETED Source: [facility] Brief Interventional Cardiology follow up NAME: Constance Gage DATE OF : 1975 CHIEF COMPLAINT NSTEMI ASSESSMENT AND PLAN NSTEMI CAD s/p SE to mid-prox LAD on 04/20/24 Patient is stable without angina. VS and labs are stable. GDMT: DAPT (lifelong aspirin and Brilinta), carvedilol, and rosuvastatin. Will refer to cardiac rehab. Discussed co-pay for Brilinta, patient is agreeable. Patient being discharge by ICS team. Discharge teaching done including medication, diet, activity, care of cath site and participation in cardiac rehab. Primary Hypertension Well controlled. BP Goal <120/80. Continue carvedilol, losartan and diuretics Mixed Hyperlipidemia Last LDL unable to calculate d/t severely elevated TG, LDL goal of <55 mg/dL per ESC guidelines. Last LFTs were stable. She states that she has been reluctant to starting statin, continue high intensity rosuvastatin. Would consider adding Vescepa for TG if no improvement in 3 months. Patient should follow low fat/low cholesterol diet. Avoid foods/drinks high in sugar and limit your alcohol consumption. IDDM2 Last HgbA1c was 6.6 %, well controlled. Continue current therapy. Follow ADA diet. Tobacco use Patient was a social smoker, plans to stop. Reinforced tobacco cessation. Morbid obesity She has lost some weight, she is not interested in seeing bariatric center. Lifestyle modification: Follow a low-calorie low carbohydrate diet. Exercise for 30 minutes a day 3 or more days a week. Weight loss to improve BMI. SUBJECTIVE Constance Gage is an 49 y.o. female with past medical history significant for hypertension, hyperlipidemia, IDDM2, tobacco use, GERD/Luna's esophagus and morbid obesity who presented to [facility] with substernal chest pain that radiated to her back while watching TV with SOB. She treated her CP with TUMS because she felt like it was r/t to GERD. A few days later she couldn't get comfortable trying to sleep when she developed onset of CP that radiated to her left arm and jaw. HS troponin 52 --> 81. EKG showed SR with non-specific T wave abnormalities. She underwent a LCH on 04/19 found to have obstructive CAD and was transferred to [facility] for intervention.She underwent uncomplicated [facility] right radial approach and received 1 SE to mid-prox LAD with Dr. Seals on 04/20/24. Today she is resting in bed, her CP and SOB have resolved. No acute events overnight. Allergies Allergen Reactions Empagliflozin Rash and Vomiting Only Yeast infection Metformin Other Reaction(s): Kidney Stones/High Uric Acid Semaglutide Nausea Only Tirzepatide OBJECTIVE Vitals: 04/21/24 0100 04/21/24 0339 04/21/24 0600 04/21/24 0718 BP: 105/66 110/75 BP Location: Left arm Left arm Patient Position: Pulse: 69 64 Resp: 12 13 18 Temp: 36.3 ?C (97.3 ?F) 36.7 ?C (98 ?F) TempSrc: Temporal Temporal SpO2: 96% 97% Weight: 221 lb 1.6 oz (100 kg) Height: Intake/Output Summary (Last 24 hours) at 04/21/2024 1016 Last data filed at 04/21/2024 0500 Gross per 24 hour Intake 200 ml Output 655 ml Net -455 ml Right radial site is tender soft, warm, dry, without hematoma, or ecchymosis. Site is covered with DSD . Sensation intact. Pulses palpable +2. MEDICATIONS aspirin, 81 mg, Oral, Daily carvedilol, 3.125 mg, Oral, BID WC colchicine, 0.6 mg, Oral, Daily insulin glargine, 10 Units, SubCUTAneous, q AM insulin lispro, 0-12 Units, SubCUTAneous, TID WC And insulin lispro, 0-12 Units, SubCUTAneous, Nightly isosorbide dinitrate, 20 mg, Oral, TID [Held by provider] losartan, 25 mg, Oral, Daily pantoprazole, 40 mg, Oral, Daily polyethylene glycol (PEG) 3350, 17 g, Oral, Daily rosuvastatin, 40 mg, Oral, Nightly ticagrelor, 90 mg, Oral, BID INFUSION MEDICATIONS LAB VALUES AND TESTING REVIEWED Recent Labs 04/19/24222604/21/24 0346 NA 137 134* K 4.0 3.5 CL 107 107 CO2 20* 21* BUN 10 13 CREATININE 0.86 0.90 Recent Labs 04/19/24222604/21/24 0346 WBC 16.0* 13.4* HGB 12.1 12.2 HCT 36.3 35.3 MCV 90.3 87.2 PLT 316 311 Recent Labs 04/19/242226 BNP 1,135* Recent Labs 04/19/242226 TRIG 529* HDL 31* CHOL 235* Lab Results Component Value Date LDLCALC 04/19/2024 Comment: Calculated LDL invalid, triglycerides >400 mg/dl Lab Results Component Value Date TSH 2.23 04/19/2024 CARDIAC TESTS TELEMETRY FINDINGS: NSR with PACS and ventricular rate of 60-70 bpm. EKG: Encounter Date: 04/19/24 ECG 12 lead Result Value Heart Rate 75 QRSD Interval 105 QT Interval 430 QTC Interval 481 P [place] 44 QRS [place] -53 T Wave [place] 111 NE Interval 178 Impression Sinus rhythm Left anterior fascicular block Anterior Q waves, possibly due to LVH LVH w/ repol abnormalities, possible ischemia Electronically Signed On 04-21-2024 09:35:49 EST by Laurie Estevez Tracing reviewed ECHOCARDIOGRAM: 04/19/24 TRANSTHORACIC ECHOCARDIOGRAM (TTE) COMPLETE (CONTRAST/BUBBLE/3D PRN) 04/20/2024 4:06 PM (Final) Interpretation Summary Left Ventricle: Left ventricle size is normal. Normal wall thickness. Low normal left ventricular systolic function. The EF by visual approximation is 50%. Global longitudinal strain is -14.5%. Normal wall motion. Normal diastolic function. Right Ventricle: Right ventricle size is normal. Normal systolic function. No significant valvular abnormalities. IVC/Hepatic Veins: IVC diameter is normal and decreases greater than 50% during inspiration; therefore the estimated right atrial pressure is normal (~3 mmHg). Technically difficult study. Signed by: Laurie Estevez on 04/20/2024 4:06 PM HEART CATH: 04/19/24 CARDIAC PROCEDURE (Preliminary) This result has not been signed. Information might be incomplete. Conclusion Anterior MD due to 100% occluded proximal LAD D1 has a moderate 60% proximal stenosis LM has no disease. LCX has mild diffuse disease. RCA was not imaged. Successful IVUS guided PCI of the mid to proximal LAD with a 3.0x38 mm Xience SE. Post dilated proximally with a 3.5x15 mm NC balloon. THe D1 was jailed by the stent but was protected with a guidewire and remained patent. A very small diagonal branch became occluded and the patient had chest pain, which improved with nitrates. Mariam Lundy MSN, TRANSMITTER CHIEF, FOUNDRY HELPER-C - Date of Service: 04/19/2024 Nurse Practitioner in Interventional Cardiology [facility] - Cardiology CBC WITH AUTO DIFFERENTIAL Collected: 04/21/2024 3:46 AM Status: F Source: [facility] TYPE CODE TESTS RESULT OUT OF RANGE REFERENCE UNITS LAB [id number] WBC 13.4 High 3.6-10.7 10*3/uL LAB [id number] RBC 4.05 3.80-5.20 10*6/uL LAB 1922005 HEMOGLOBIN 12.2 11.7-16.0 g/dL LAB 4791770 HEMATOCRIT 35.3 35.0-47.0 % LAB 5383035 MCV 87.2 77.0-99.0 fL LAB [id number] MCH 30.1 26.0-34.0 pg LAB [id number] MCHC 34.6 30.5-36.0 % LAB 8552534 RDW 13.8 11.5-15.0 % LAB [id number] PLATELET COUNT 311 140-440 10*3/uL LAB [id number] MPV 10.3 9.0-12.7 fL LAB 254 NRBC 0.0 0.0-2.0 /100 WBCs LAB 3113045 NEUTROPHILS RELATIVE 65.3 38.0-82.0 % LAB [id number] LYMPHOCYTES RELATIVE 25.0 15.0-45.0 % LAB 2554477 MONOCYTES RELATIVE 6.0 5.0-13.0 % LAB 0919123 EOSINOPHILS RELATIVE 2.3 0.0-6.0 % LAB 0582925 BASOPHILS RELATIVE 0.8 0.0-2.0 % LAB 7575005 IMMATURE GRANS % 0.6 0.0-2.0 % LAB 8157264 NEUTROPHILS ABSOLUTE 8.8 High 1.8-7.5 10*3/uL LAB 4428012 LYMPHOCYTES ABSOLUTE 3.4 1.0-4.3 10*3/uL LAB 2136780 MONOCYTES ABSOLUTE 0.8 0.0-0.9 10*3/uL LAB 8625008 EOSINOPHILS ABSOLUTE 0.3 0.0-0.5 10*3/uL LAB 4783183 BASOPHILS ABSOLUTE 0.1 0.0-0.2 10*3/uL LAB 060208 IMMATURE GRANS ABSOLUTE 0.1 High <0.1 10*3/uL Performed By: #### [id number] # ### Vending Route Driver: CONSTANCE SANDERSON ([phone]) [facility] [address] [place] [address] MAGNESIUM Collected: 3:46 AM Status: F Source: [facility] TYPE CODE TESTS RESULT OUT OF RANGE REFERENCE UNITS LAB [id number] MAGNESIUM 1.9 1.6-2.6 mg/dL Result Comment: ORDER COMMEN TS: Higher values can be expected in females during menses. Performed By: #### Rufina CALIX [id number] #### Vending Route Driver: CONSTANCE SANDERSON ([phone]) [facility] ([facility]) [address] [place] [address] BASIC METABOLIC PANEL Collected: 2024 3:46 AM Status: F Source: [facility] TYPE CODE TESTS RESULT OUT OF RANGE REFERENCE UNITS LAB [id number] SODIUM 134 Low 136-145 mmol/L LAB 2908194 POTASSIUM 3.5 3.5-5.1 mmol/L Result Comment: Plasma potas sium values may be up to 0.5 mmol/L lower than serum values. LAB 6316759 CHLORIDE 107 98-107 mmol/L LAB 6712053 CARBON DIOXIDE 21 Low 22-29 mmol/L LAB 0391296 UREA NITROGEN 13 9-23 mg/dL LAB 5772634 CREATININE 0.90 0.57-1.11 mg/dL LAB 8969174 GLUCOSE 157 High 74-100 mg/dL LAB 7608342 CALCIUM 8.7 8.4-10.2 mg/dL LAB [id number] ANION GAP (MUNGUIA, CALCULATED) 6 3-13 mmol/L LAB 4955953 GLOMERULAR FILTRATION RATE ML/MIN/1.73 SQ M.PREDICTED 77.6 >60.0 mL/min/1. 73m*2 Result Comment: Calculation based on the Chronic Kidney Disease Epidemiology Collaboration (CKD-EPI) equation refit without adjustment for race Performed By: #### [id number], L AB15 #### Vending Route Driver: CONSTANCE SANDERSON ([phone]) [facility]) [address] [place] [address] 30 Observed: 04/20/2024 10:08 PM Status: COMPLETED Source: [facility] Problem: Pain - Adult Goal: Verbalizes/displays adequate comfort level or baseline comfort level Outcome: ProgressingProblem: Safety - Adult Goal: Free from fall injury Outcome: ProgressingProblem: Discharge Planning Goal: Discharge to home or other facility with appropriate resources Outcome: ProgressingProblem: Chronic Conditions and Co-morbidities Goal: Patient's chronic conditions and co-morbidity symptoms are monitored and maintained or improved Outcome: Progressing TRANSTHORACIC ECHOCARDIOGRAM (TTE) COMPLETE W/ CONTRAST Observed: 04/20/2024 4:06 PM Status: F Source: [facility] This is a summary report. Th e complete report is available in the patient's medical record. If you cannot access the medical record, please contact the sending organization for a detailed fax or copy. ? Left?Ventricle: Left ventricle size is normal. Normal wall thickness. Low normal left ventricular systolic function. The EF by visual approximation is 50%. Global longitudinal strain is -14.5%. Normal wall motion. Normal diastolic function. ? Right?Ventricle: Right ventricle size is normal. Normal systolic function. ? No significant valvular abnormalities. ? IVC/Hepatic Veins: IVC diameter is normal and decreases greater than 50% during inspiration; therefore the estimated right atrial pressure is normal (~3 mmHg). ? Technically difficult study. PROGRESS NOTE Observed: 04/20/2024 3:38 PM Status: COMPLETED [facility] Inter[facility] Cardiology NAME: Constance Gage DATE OF : 1975 CHIEF COMPLAINT NSTEMI ASSESSMENT AND PLAN NSTEMI CAD s/p SE to LAD Her post cath EKG is stable. She was loaded with Brilinta during her cath. Her SOB is possibly s/t Brilinta, but patient does not appear to be in any distress. Discussed with Dr. Seals will give patient 40 mg IVP furosemide. Continue the Brilinta, SOB should improve with time. Use ordered pain relievers as needed. Patient updated with plan. Her right radial site is soft, warm, dry, without pain, hematoma, or ecchymosis. Site is covered with radial band. Sensation intact. Pulses palpable +2. SUBJECTIVE Constance Gage is an 49 y.o. female with past medical history significant for hypertension, hyperlipidemia, DM2, tobacco use, GERD/Luna's esophagus and obesity who presented to [facility] with substernal chest pain that radiated to her back while watching TV with SOB. She treated her CP with TUMS because she felt like it was r/t to GERD. A few days later she couldn't get comfortable trying to sleep when she developed onset of CP that radiated to her left arm and jaw. HS troponin 52 --> 81. EKG showed SR with non-specific T wave abnormalities. She underwent a LCH on 04/19 found to have obstructive CAD and was transferred to [facility] for intervention. Today patient underwent uncomplicated C right radial approach and received 1 SE to LAD with Dr. Seals. Patient resting in bed with family at bedside. Her chest pain was improving at the time, but later developed 5/10 bilateral shoulder pain and SOB when she was trying to sleep. Mariam Lundy MSN, TRANSMITTER CHIEF, FOUNDRY HELPER-C - Date of Service: 04/19/2024 Nurse Practitioner in Interventional Cardiology [facility] - Cardiology PROCEDURE NOTE Observed: 04/20/2024 1:27 PM Status: COMPLETED Source: [facility] Cardiac Cathete rization Laboratory Post-Procedure Note Patient Name: Constance Gage Date: 04/20/2024, 1:28 PM Pre-Operative Diagnosis: Anterior MD Post-Operative Diagnosis: Anterior MD Procedure: Coronary angiogram, PCI, R radial access Findings: LM: no significant disease LAD: 100% proximal occlusion LCX: mild disease RCA: not imaged Intervention SE to mid-prox LAD Complications: none -She was having chest pain post cath, no concerning ST changes on ECG. She had nitroglycerin paste and got a sublingual nitroglycerin and her CP went down to a 2/10. Plan: dapt, statin, stop heparin, will start isordil 20 tid for her CP in addition to nitropaste for now Physician Signature: PGY7, Interventional Cardiovascular Fellow at 1:29 PM ANESTHESIA NOTE Observed: 04/20/2024 12:21 PM Status: COMPLETED Source: [facility] Sedation Plan ASA class 3 - patient with severe systemic disease Mallampati class: II - soft palate, uvula, fauces visible. Sedation plan: local anesthesia and minimal sedation Risks, benefits, and alternatives discussed with patient, mother and father. Immediate reassessment prior to sedation: Patient's status reviewed and vital signs assessed; acceptable to perform procedure and proceed to administer sedation as planned. CONSULT Observed: 04/20/2024 11:09 AM Status: COMPLETED Source: [facility] Attestation signed by Devika Seals MD at 04/20/2024 3:46 PM I, Dr. Devika Seals, saw and evaluated the patient. I personally obtained the lawson and critical portions of the history and physical exam. I reviewed the chart, the fellow's documentation, and discussed the patient with the fellow. I agree with the fellow's medical decision making and have edited the note to reflect my clinical findings and my assessment and plan. Cath images from [place] done yesterday were reviewed. Patient had mild chest discomfort overnight. Telemetry reviewed, there is an episode of accelerated idioventricular rhythm. I suspect her LAD occlusion is subacute rather than chronic. Echocardiogram reviewed- anterior and apical hypokinesis without thrombus. Dilated RV (Patient reports tobacco use and untreated CIRILO). Will plan for PCI to proximal LAD. Risk, benefits, alternatives discussed with the patient and her parents. She agrees to proceed. [facility] [place] [facility] Interventional Cardiology Consult Note Reason for Consult/Chief Complaint: Chest Pain/Obstructive CAD on [facility] Referring provider: Dr. Sears Established instructor physical education: None History of Present Illness: Constance Gage is a 49 y.o. female with a past medical history of HTN, HLD, T2DM, GERD/Luna esophagus and tobacco abuse who was transerred from [facility] after an initial presentation for chest pain. The patient began experiencing episodes of chest pain on Wednesday. She described this as a chest discomfort. On Wednesday, the pain increased in intensity and she was unable to sleep. Wednesday morning, at 2am, she drove herself to [place]. She ruled in for NSTEMI and was admitted. A left heart cath was performed on 04/19/24 (images in PACs) which revealed moderate proximal RCA disease, minimal Lcx disease, and a 100% occlusion of the proximal LAD (collaterals to distal LAD from the RCA). Given the evidence of LAD CREDIT ADMINISTRATOR, she was transferred to [facility] for PCI vs. CABG consideration. This morning, the patient is feeling well. She notes no history of chest pain in the past. She has no discomfort at the moment, she noted she had some mild chest discomfort las evening that radiated to her neck and jaw. No palpitations, shortness of breath, lightheadedness or dizziness. Assessment/Plan NSTEMI Coronary Artery Disease -Patient presented to OSH with chest pain and was admitted for NSTEMI. -LHC performed on 04/19/24 with 100% proximal occlusion of the LAD with collaterals from the RCA to the distal LAD. -Will obtain a transthoracic echocardiogram to evaluate LV function. -Will plan to iFR the RCA with +/- attempted revascularization of LAD pending echo results. -Continue heparin drip, ASA 81 mg daily, rosuvastatin 40 mg daily, and carvedilol 3.125 mg BID. Medications: aspirin, 81 mg, Oral, Daily carvedilol, 3.125 mg, Oral, BID WC colchicine, 0.6 mg, Oral, Daily [START ON 04/21/2024] insulin glargine, 10 Units, SubCUTAneous, q AM insulin lispro, 0-12 Units, SubCUTAneous, TID WC And insulin lispro, 0-12 Units, SubCUTAneous, Nightly [Held by provider] losartan, 25 mg, Oral, Daily pantoprazole, 40 mg, Oral, Daily polyethylene glycol (PEG) 3350, 17 g, Oral, Daily rosuvastatin, 40 mg, Oral, Nightly Infusion Medications: heparin, 5-30 Units/kg/hr, Last Rate: 10 Units/kg/hr (04/20/24 0713) Physical Examination: Vitals: 04/19/24 2243 04/20/24 0356 04/20/24 0547 04/20/24 0807 BP: 111/65 106/72 117/74 BP Location: Left arm Patient Position: Sitting Pulse: 81 72 65 Resp: 16 16 18 Temp: 36.3 ?C (97.3 ?F) 36.3 ?C (97.4 ?F) 36.7 ?C (98.1 ?F) TempSrc: Temporal Temporal Temporal SpO2: 98% 96% 96% Weight: 222 lb 1.6 oz (101 kg) Intake/Output Summary (Last 24 hours) at 04/20/2024 1109 Last data filed at 04/20/2024 0919 Gross per 24 hour Intake -- Output 700 ml Net -700 ml Wt Readings from Last 3 Encounters: 04/20/24 222 lb 1.6 oz (101 kg) 04/08/22 248 lb 6.4 oz (113 kg) 04/22/21 255 lb 4.8 oz (116 kg) Physical Exam Constitutional: no distress. well nourished. well hydrated Psychiatric: A &O x 3. Medical insight good NMT: Oral mucosa is pink and moist Neck: no JVD. Respiratory: Lungs are CTAB Cardiac exam: Rhythm: NSR ; Normal S1 and S2 Murmur: none Other: No rub; no gallop Vasc: Peripheral pulses normal Abdomen: soft, non-tender, non-distended Extremities: no LE edema Skin: Warm to touch and well perfused Laboratory Tests: TROPONIN I, CONVENTIONAL SENSITIVITY TROPONIN I Date Value Ref Range Status 03/04/2021 <0.012 0.000 - 0.034 ng/mL Final Comment: . 03/04/2021 <0.012 0.000 - 0.034 ng/mL Final Comment: . TROPONIN I, HIGH SENSITIVITY Troponin HS Serial Baseline Date Value Ref Range Status 04/19/2024 1,668 (HH) <=14 ng/L Final Comment: In individuals presenting with symptoms > 2h, a baseline troponin <= 5 ng/L suggests acute cardiac injury is unlikely and further serial testing is generally not indicated. 2h Troponin HS (Serial 2nd Troponin) Date Value Ref Range Status 04/20/2024 1,470 (HH) <=14 ng/L Final Comment: Rising or falling troponin delta greater than 15 ng/L as compared to baseline value is significant for acute cardiac injury. No results found for: TROPDELTBASE No results found for: TROPHS3 No results found for: TROPDELTSEC Recent Labs 04/19/242226 NA 137 K 4.0 CL 107 CO2 20* BUN 10 CREATININE 0.86 EGFR 81.9 Recent Labs 04/19/242226 WBC 16.0* HGB 12.1 HCT 36.3 MCV 90.3 PLT 316 Lab Results Component Value Date HGBA1C 6.6 (H) 04/19/2024 Lab Results Component Value Date TSH 2.23 04/19/2024 Lab Results Component Value Date CHOL 235 (H) 04/19/2024 CHOL 250 (A) 06/12/2019 Lab Results Component Value Date HDL 31 (L) 04/19/2024 HDL 34 (L) 06/12/2019 Lab Results Component Value Date LDLCALC 04/19/2024 Comment: Calculated LDL invalid, triglycerides >400 mg/dl Lab Results Component Value Date TRIG 529 (H) 04/19/2024 TRIG 478 (A) 06/12/2019 No results found for: CHOLHDL No results found for: LDLCHOLESTER Recent Labs 04/19/242226 BNP 1,135* No results for input(s): INR in the last 72 hours. Results from last 7 days Lab Units 04/19/242226 AST U/L 33 ALT U/L 11 No results found for: IRON, TIBC, FERRITIN Radiology: CXR: personally reviewed: Cardiac Tests Personally Reviewed: Last EKG 04/19/24 ECG 12-LEAD 04/20/2024 9:08 AM (Final) Impression Sinus rhythm Low voltage, precordial leads LEFT VENTRICULAR HYPERTROPHY with secondary ST T wave abnormalities Electronically Signed On 04-20-2024 09:08:54 EST by Ruby Arevalo Signed by: Ruby Arevalo on 04/20/2024 9:08 AM Reports reviewed: Last Echo No results found for this or any previous visit. Last Cath No results found for this or any previous visit. Last Stress Test No results found for this or any previous visit. Last EP study No results found for this or any previous visit. No results found for: EFBP, PLVEF, LVEFPHYS, LVEF2D, EF Kiara Cancino MD Interventional Shipping And Receiving Operator, PGY-VII DATE of SERVICE: 04/20/2024 PROGRESS NOTE Observed: 04/20/2024 10:51 AM Status: COMPLETED Source: [facility] Attestation signed by Jake Sears MD at 04/20/2024 11:45 AM See attestation of H&P. Jake Sears MD Department of Cardiovascular Disease, Division of Heart Failure [facility] [place] [facility] Cardiology /Electrophysiology Progress Note HPI / Interval History: 49 y.o. F with a history of HTN, HLD, tobacco use, T2DM, asthma, GERD/Luna esophagus and obesity who presents with as a transfer from [facility] with obstructive CAD noted on C. This morning, the patient reports that she is no longer experiencing any chest pain. Her right wrist is somewhat sore from her LHC yesterday. Ready for repeat LHC today. 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 - ASA 81mg daily - Rosuvastatin 40mg daily - TTE pending - Continue heparin gtt - continue Carvedilol 3.125mg BID - NPO, LHC planned for today for FFR of RCA lesion and possible PCI Hypertension -Hold Losartan 25 mg, restart after LHC Hyperlipidemia -Rosuvastatin as above Type 2 Diabetes Mellitus -Insulin glargine 15U qAM + SSI/ POCT before every meal and nightly GERD/Tacho Esophagus -Pantoprazole 40 mg every morning Gout -Colchicine 0.6 mg daily Medications: aspirin, 81 mg, Oral, Daily carvedilol, 3.125 mg, Oral, BID WC colchicine, 0.6 mg, Oral, Daily [START ON 04/21/2024] insulin glargine, 10 Units, SubCUTAneous, q AM insulin lispro, 0-12 Units, SubCUTAneous, TID WC And insulin lispro, 0-12 Units, SubCUTAneous, Nightly [Held by provider] losartan, 25 mg, Oral, Daily pantoprazole, 40 mg, Oral, Daily polyethylene glycol (PEG) 3350, 17 g, Oral, Daily rosuvastatin, 40 mg, Oral, Nightly Infusion Medications: heparin, 5-30 Units/kg/hr, Last Rate: 10 Units/kg/hr (04/20/24 0713) Physical Examination: Vitals: 04/19/24 2243 04/20/24 0356 04/20/24 0547 04/20/24 0807 BP: 111/65 106/72 117/74 BP Location: Left arm Patient Position: Sitting Pulse: 81 72 65 Resp: 16 16 18 Temp: 36.3 ?C (97.3 ?F) 36.3 ?C (97.4 ?F) 36.7 ?C (98.1 ?F) TempSrc: Temporal Temporal Temporal SpO2: 98% 96% 96% Weight: 222 lb 1.6 oz (101 kg) Intake/Output Summary (Last 24 hours) at 04/20/2024 1051 Last data filed at 04/20/2024 0919 Gross per 24 hour Intake -- Output 700 ml Net -700 ml Patient Vitals for the past 168 hrs: Weight Weight Method 04/20/24546 222 lb 1.6 oz (101 kg) Standing scale 04/19/242004 222 lb 9.6 oz (101 kg) Standing scale Physical Exam Constitutional: Appearance: She is not toxic-appearing. HENT: Head: Normocephalic and atraumatic. Nose: No rhinorrhea. Eyes: General: No scleral icterus. Neck: Comments: No JVD Cardiovascular: Rate and Rhythm: Normal rate. Heart sounds: No murmur heard. No friction rub. No gallop. Pulmonary: Effort: Pulmonary effort is normal. Breath sounds: Normal breath sounds. Abdominal: Palpations: Abdomen is soft. Tenderness: There is no abdominal tenderness. Musculoskeletal: Right lower leg: No edema. Left lower leg: No edema. Skin: General: Skin is warm and dry. Neurological: Mental Status: She is alert. Psychiatric: Mood and Affect: Mood normal. Behavior: Behavior normal. Laboratory Tests: TROPONIN I, CONVENTIONAL SENSITIVITY TROPONIN I Date Value Ref Range Status 03/04/2021 <0.012 0.000 - 0.034 ng/mL Final Comment: . 03/04/2021 <0.012 0.000 - 0.034 ng/mL Final Comment: . TROPONIN I, HIGH SENSITIVITY Troponin HS Serial Baseline Date Value Ref Range Status 04/19/2024 1,668 (HH) <=14 ng/L Final Comment: In individuals presenting with symptoms > 2h, a baseline troponin <= 5 ng/L suggests acute cardiac injury is unlikely and further serial testing is generally not indicated. 2h Troponin HS (Serial 2nd Troponin) Date Value Ref Range Status 04/20/2024 1,470 (HH) <=14 ng/L Final Comment: Rising or falling troponin delta greater than 15 ng/L as compared to baseline value is significant for acute cardiac injury. No results found for: TROPDELTBASE No results found for: TROPHS3 No results found for: TROPDELTSEC Recent Labs 04/19/242226 NA 137 K 4.0 CL 107 CO2 20* BUN 10 CREATININE 0.86 Recent Labs 04/19/242226 WBC 16.0* HGB 12.1 HCT 36.3 MCV 90.3 PLT 316 Recent Labs 04/19/242226 BNP 1,135* Recent Labs 04/19/242226 TRIG 529* HDL 31* CHOL 235* No results found for: LDLCHOLESTER Lab Results Component Value Date TSH 2.23 04/19/2024 No results found for: EFBP, PLVEF, LVEFPHYS, LVEF2D, EF No results found for this or any previous visit. Other reports reviewed: Cardiac Tests: EC/27 Sinus rhythm Low voltage, precordial leads LVH with secondary ST T wave abnormalities Telemetry findings reviewed: NSR, ~ 10 second period of accelerated idioventricular rhythm No results found for: EFBP, PLVEF, LVEFPHYS, LVEF2D, EF Renee Lau MD Date Of Service 04/20/2024 ECG 12-LEAD Observed: 04/20/2024 9:08 AM Status: F Source: Macrotherapy [facility] IMPRESSION: Sinus rhythm Low voltage, precordial leads LEFT VENTRICULAR HYPERTROPHY with secondary ST T wave abnormalities Electronically Signed On 04-20-2024 09:08:54 EST by Ruby Arevalo APTT Collected: 6:14 AM Status: F Source: [facility] TYPE CODE TESTS RESULT OUT OF RANGE REFERENCE UNITS LAB [id number] APTT 21.2 20.0-30.5 s Result Comment: ORDER COMMEN TS: NOTE: The therapeutic time for Heparin anticoagulation, based on Xa activity inhibition, is an APTT of 46-80 seconds. Performed By: #### [id number] ## ## Vending Route Driver: CONSTANCE SANDERSON ([phone]) [facility] ([facility]) [address] [place] [address] HIGH SENSITIVITY TROPONIN, SERIAL, SECOND TEST Collected: 04/20/2024 12:34 AM Status: F Source: [facility] TYPE CODE TESTS RESULT OUT OF RANGE REFERENCE UNITS LAB 534 2H TROPONIN HS (SERIAL 2ND TROPONIN) 1470 High Alert <=14 ng/L Result Comment: Rising or fa lling troponin delta greater than 15 ng/L as compared to baseline value is significant for acute cardiac injury. Performed By: #### [id number] #### Vending Route Driver: CONSTANCE SANDERSON ([phone]) [facility] [address] Observed: 04/19/2024 11:39 PM Status: COMPLETED Source: [facility] Problem: Pain - Adult Goal: Verbalizes/displays adequate comfort level or baseline comfort level Outcome: ProgressingProblem: Safety - Adult Goal: Free from fall injury Outcome: ProgressingProblem: Discharge Planning Goal: Discharge to home or other facility with appropriate resources Outcome: ProgressingProblem: Chronic Conditions and Co-morbidities Goal: Patient's chronic conditions and co-morbidity symptoms are monitored and maintained or improved Outcome: Progressing APTT Collected: 10:27 PM Status: F Source: [facility] TYPE CODE TESTS RESULT OUT OF RANGE REFERENCE UNITS LAB [id number] APTT 74.2 High 20.0-30.5 s Result Comment: ORDER COMMEN TS: NOTE: The therapeutic time for Heparin anticoagulation, based on Xa activity inhibition, is an APTT of 46-80 seconds. Performed By: #### [id number] ## ## Vending Route Driver: CONSTANCE SANDERSON ([phone]) [facility] ([facility]) [address] [place] [address] CBC WITH AUTO DIFFERENTIAL Collected: 0 04/19/2024 10:27 PM Status: F Source: [facility] TYPE CODE TESTS RESULT OUT OF RANGE REFERENCE UNITS LAB [id number] WBC 16.0 High 3.6-10.7 10*3/uL LAB 9363869 RBC 4.02 3.80-5.20 10*6/uL LAB 1391589 HEMOGLOBIN 12.1 11.7-16.0 g/dL LAB 1318450 HEMATOCRIT 36.3 35.0-47.0 % LAB 2654006 MCV 90.3 77.0-99.0 fL LAB 9493867 MCH 30.1 26.0-34.0 pg LAB 1346553 MCHC 33.3 30.5-36.0 % LAB 6845945 RDW 13.9 11.5-15.0 % LAB 5706709 PLATELET COUNT 316 140-440 10*3/uL LAB 2010839 MPV 10.6 9.0-12.7 fL LAB 254 NRBC 0.0 0.0-2.0 /100 WBCs LAB 7261617 NEUTROPHILS RELATIVE 62.2 38.0-82.0 % LAB 4696285 LYMPHOCYTES RELATIVE 30.7 15.0-45.0 % LAB 6600009 MONOCYTES RELATIVE 4.0 Low 5.0-13.0 % LAB 1739381 EOSINOPHILS RELATIVE 1.8 0.0-6.0 % LAB 5831907 BASOPHILS RELATIVE 0.8 0.0-2.0 % LAB 8507805 IMMATURE GRANS % 0.5 0.0-2.0 % LAB 2819186 NEUTROPHILS ABSOLUTE 9.9 High 1.8-7.5 10*3/uL LAB 9426566 LYMPHOCYTES ABSOLUTE 4.9 High 1.0-4.3 10*3/uL LAB 1343520 MONOCYTES ABSOLUTE 0.6 0.0-0.9 10*3/uL LAB 1282410 EOSINOPHILS ABSOLUTE 0.3 0.0-0.5 10*3/uL LAB 8530438 BASOPHILS ABSOLUTE 0.1 0.0-0.2 10*3/uL LAB 386270 IMMATURE GRANS ABSOLUTE 0.1 High <0.1 10*3/uL Performed By: #### [id number] # ### Vending Route Driver: CONSTANCE SANDERSON ([phone]) [facility]) [address] [place] [address] HEMOGLOBIN A1C Collected: 04/19/2024 10:27 PM Status : F Source: [facility] TYPE CODE TESTS RESULT OUT OF RANGE REFERENCE UNITS LAB 1004383 HEMOGLOBIN A1C 6.6 High <5.7 %HbA1C Result Comment: Normal less than 5.7% Prediabetes 5.7% to 6.4% Diabetes 6.5% or higher --HgbA1C levels may not be accurate in patients who have renal disease, received recent blood transfusions, are anemic, or who have dyshemoglobinemia. LAB 9098819 ESTIMATED AVERAGE GLUCOSE 143 mg/dL Result Comment: ORDER COMMEN TS: HbA1c values of 5.7-6.4 percent indicate an increased risk for developing diabetes mellitus. HbA1c values greater than or equal to 6.5 percent are diagnostic of diabetes mellitus. For diagnosis of diabetes in individuals without unequivocal hyperglycemia, results should be confirmed by repeat testing. Performed By: #### [id number] ### # Vending Route Driver: CONSTANCE SANDERSON ([phone]) [facility] [address] MAGNESIUM Collected: 10:27 PM Status: F Source: [facility] TYPE CODE TESTS RESULT OUT OF RANGE REFERENCE UNITS LAB 0430851 MAGNESIUM 1.9 1.6-2.6 mg/dL Result Comment: ORDER COMMEN TS: Higher values can be expected in females during menses. Performed By: #### [id number], L AB103, LAB17, LAB18, [id number], [id number] #### Vending Route Driver: CONSTANCE SANDERSON ([phone]) [facility] [address] [place] [address] COMPREHENSIVE METABOLIC PANEL Collected : 04/19/2024 10:27 PM Status: F Source: [facility] TYPE CODE TESTS RESULT OUT OF RANGE REFERENCE UNITS LAB 1890349 SODIUM 137 136-145 mmol/L LAB 4670993 POTASSIUM 4.0 3.5-5.1 mmol/L Result Comment: Plasma potas sium values may be up to 0.5 mmol/L lower than serum values. LAB 7667304 CHLORIDE 107 98-107 mmol/L LAB 4598258 CARBON DIOXIDE 20 Low 22-29 mmol/L LAB [id number] ANION GAP (MUNGUIA, CALCULATED) 10 3-13 mmol/L LAB 8201236 UREA NITROGEN 10 9-23 mg/dL LAB 8920396 CREATININE 0.86 0.57-1.11 mg/dL LAB 7698241 GLUCOSE 161 High 74-100 mg/dL LAB 5152213 CALCIUM 8.6 8.4-10.2 mg/dL LAB 5675802 AST (SGOT) 33 <34 U/L LAB 2638244 ALT 11 <30 U/L LAB 5171692 ALKALINE PHOSPHATASE 100 40-150 U/L LAB 2530438 ALBUMIN 2.9 Low 3.5-5.0 g/dL LAB 4769887 BILIRUBIN, TOTAL 0.6 <1.2 mg/dL LAB 5877094 TOTAL PROTEIN 5.8 Low 6.4-8.3 g/dL LAB 4487712 GLOMERULAR FILTRATION RATE ML/MIN/1.73 SQ M.PREDICTED 81.9 >60.0 mL/min/1. 73m*2 Result Comment: Calculation based on the Chronic Kidney Disease Epidemiology Collaboration (CKD-EPI) equation refit without adjustment for race Performed By: #### [id number], L AB103, LAB17, LAB18, [id number], [id number] #### Vending Route Driver: CONSTANCE SANDERSON ([phone]) [facility] ([address] LIPID PANEL Collected: 04/19/2024 10:27 PM Status: F Source: [facility] TYPE CODE TESTS RESULT OUT OF RANGE REFERENCE UNITS LAB 7231762 TRIGLYCERIDE 529 High <150 mg/dL LAB 4473493 CHOLESTEROL 235 High <200 mg/dL LAB 3267172 HDL CHOLESTEROL 31 Low >=60 mg/dL LAB 5270390 CHOL/HDL 8 Result Comment: Ref Range: < 3 Low Risk for CHD 3-6 Mod Risk for CHD > 6 High Risk for CHD LAB 6287 VERY LOW DENSITY LIPOPROTEIN, CALCULATED 106 High <=30 mg/dL LAB 6288 NON-HDL CHOLESTEROL, CALCULATED 204 High <130 LAB 2166283 LOW DENSITY LIPOPROTEIN Result Comment: Calculated L DL invalid, triglycerides >400 mg/dl Performed By: #### [id number], L AB103, LAB17, LAB18, [id number], [id number] #### Vending Route Driver: CONSTANCE SANDERSON ([phone]) [facility]) [address] [place] [address] HIGH SENSITIVITY TROPONIN, S ERIAL BASELINE Collected: 04/19/2024 10:27 PM Status: F Source: [facility] TYPE CODE TESTS RESULT OUT OF RANGE REFERENCE UNITS LAB [id number] TROPONIN HS SERIAL BASELINE 1668 High Alert <=14 ng/L Result Comment: In individua ls presenting with symptoms > 2h, a baseline troponin <= 5 ng/L suggests acute cardiac injury is unlikely and further serial testing is generally not indicated. Performed By: #### [id number], L AB103, LAB17, LAB18, [id number], [id number] #### Vending Route Driver: CONSTANCE SANDERSON ([phone]) [facility]) [address] [place] [address] THYROID STIMULATING HORMONE Collected: 04/19/2024 10: 27 PM Status: F Source: [facility] TYPE CODE TESTS RESULT OUT OF RANGE REFERENCE UNITS LAB 6643675 THYROID STIMULATING HORMONE 2.23 0.35-4.94 uIU/mL Performed By: #### [id number], L AB103, LAB17, LAB18, [id number], [id number] #### Vending Route Driver: CONSTANCE SANDERSON ([phone]) [facility] ([facility]) [address] [place] [address] NT PRO BNP Collected: 10:27 PM Status: F Source: [facility] TYPE CODE TESTS RESULT OUT OF RANGE REFERENCE UNITS LAB 2161419 NT PRO BNP 1135 High <125 pg/mL Performed By: #### [id number], L AB103, LAB17, LAB18, [id number], [id number] #### Vending Route Driver: CONSTANCE SANDERSON ([phone]) [address] XR CHEST 1 VIEW Observed: 04/19/2024 9:49 PM Status: F Source: [facility] Patient Name: CONSTANCE GAGE : 1975 Exam Date/Time: 04/19/2024 21:41 Procedure: XR CHEST 1 VIEW Ordering Provider: MERACDO ALI Reason For Exam: CHEST PAIN INDICATION: Chest pain. VIEWS: Chest portable-one image COMPARISON: 03/04/2021 FINDINGS: The trachea is midline. The cardiac silhouette is upper limits of normal in size. There is no confluent consolidation. The right hemidiaphragm is mildly elevated. IMPRESSION: No radiographic acute cardiopulmonary process. Report Dictated on Electronically Signed By: Racheal Cardona MD Electronically Signed Date/Time: 04/19/2024 9:49 PM EST HISTORY AND PHYSICAL NOTE Observed: 03/26 8:22 PM Status: COMPLETED Source: [facility] Attestation signed by Jaek Sears MD at 04/20/2024 11:44 AM I, Dr. Jake Sears, saw and evaluated the patient on 04/20/2024. I personally obtained the lawson and critical portions of the history and physical exam. I reviewed the chart, the fellow's documentation, and discussed the patient with the fellow. I agree with the fellow's medical decision making and have edited the note to reflect my clinical findings and my assessment and plan. In summary, Constance Gage is a 49 yo F with NSTE-ACS -- plan to evaluate for PCI possibility of RCA -- if FFR negative, plan for med management and outpatient CREDIT ADMINISTRATOR evaluation. Jake Sears MD Department of Cardiovascular Disease, Division of Heart Failure [facility] [place] 11:43 AM 04/20/24 [facility] [place] [facility] Cardiology History and Physical If patient is on ICS, for questions (see Electronic Resources Librarian Finder): 7:00 AM- 5:00 PM: Contact ICS Fellow 5:00 PM - 11:00 PM: Contact ICS Moonlighter 11:00 PM- 7:00 AM: Contact Night Call (HLU) Fellow Reason for Consult/Chief Complaint: Chest pain History of Present Illness: Constance Gage is a 49 y.o. female with a history of HTN, HLD, tobacco use, T2DM, asthma, GERD/Luna esophagus and obesity who presents with as a transfer from [facility] with chest pain. She reports initially experiencing substernal chest pain/pressure that radiated through her back and upper chest watching TV during the day at home last Wednesday. She also noticed some associated shortness of breath. She assumed that her symptoms were heartburn, and after they persisted throughout the day she took some Tums and antacids and her symptoms seemingly resolved. She felt otherwise ok over the weekend until Wednesday night at around 11 PM, when her symptoms returned with greater intensity. She was asleep at the time and could not become comfortable, her's chest pain increased in intensity started radiating into her left arm and chest/jaw. She decided to drive herself to [place] ER around 2am. On arrival to the ER, vital signs significant for BP 136/83, afebrile, RR 20, hypoxic and nontachypneic on room air. EKG showed sinus rhythm with anterior q waves, poor R wave progression and non-specific T wave abnormalities. Labs significant for normal creatinine at 0.8, WBC 16.6, no anemia, normal electrolytes, high-sensitivity troponin 52->81. Per OSH records, initial EKG did not show an acute ischemic changes. She was started on NTG and heparin and her chest pain improved. She was taken to the cardiovascular lab director on 04/19 and was found to have obstructive CAD ([facility] records pending) and was subsequently transferred to [facility] for further management. 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 Londono. LIVER BIOPSY SKIN GRAFT Right [place] UPPER GASTROINTESTINAL ENDOSCOPY Family History: Family History Problem Relation Name Age of Onset Other (61725) Mother Drawfism. No Known Problems Father Social History: Social History Tobacco Use Smoking status: Every Day Smokeless tobacco: Never Substance Use Topics Alcohol use: Never Drug use: Never Medications: aspirin, 81 mg, Oral, Daily colchicine, 0.6 mg, Oral, Daily heparin, 4,000 Units, IntraVENous, Once insulin glargine, 10 Units, SubCUTAneous, BID [START ON 04/20/2024] insulin lispro, 0-12 Units, SubCUTAneous, TID WC And insulin lispro, 0-12 Units, SubCUTAneous, Nightly [Held by provider] losartan, 25 mg, Oral, Daily pantoprazole, 40 mg, Oral, Daily polyethylene glycol (PEG) 3350, 17 g, Oral, Daily rosuvastatin, 40 mg, Oral, Nightly Allergies: Empagliflozin, Metformin, Semaglutide, and Tirzepatide Reviewed Review of Systems: All other systems were reviewed and are negative other than as noted in the HPI. Physical Examination: Vitals: Vitals: 04/19/24200404/19/242013 BP: 136/83 Resp: 20 Temp: 36.9 ?C (98.4 ?F) TempSrc: Oral SpO2: 96% Weight: 222 lb 9.6 oz (101 kg) No intake or output data in the 24 hours ending 04/19/244 Wt Readings from Last 3 Encounters: 04/19/24 222 lb 9.6 oz (101 kg) 04/08/22 248 lb 6.4 oz (113 kg) 04/22/21 255 lb 4.8 oz (116 kg) GEN: NAD, AT/AC, MMM ENT: Oral mucosa is pink and moist CARDS: RRR, S1/S2, No R,M,G, JVD normal RESP: No rales, ronchi, wheezing VASC: 2+ Peripheral pulses ABD: NT, ND, BS+ Extremities: Trace LE edema Skin: Warm to touch and well perfused NEURO/PSYCH: A&O x 3, no focal deficits Laboratory Tests: No results for input(s): NA, K, CL, CO2, BUN, CREATININE, GLU in the last 72 hours. No results for input(s): CKTOTAL, CKMB, CKMBINDEX, TROPONINI in the last 72 hours. No results for input(s): WBC, HGB, HCT, MCV, PLT in the last 72 hours. Lab Results Component Value Date HGBA1C 6.5 (H) 06/12/2019 Lab Results Component Value Date TSH 3.037 06/12/2019 Lab Results Component Value Date CHOL 250 (A) 06/12/2019 Lab Results Component Value Date HDL 34 (L) 06/12/2019 No results found for: LDLCALC Lab Results Component Value Date TRIG 478 (A) 06/12/2019 No results found for: CHOLHDL No results found for: LDLCHOLESTER No lab exists for component: NTPROBNP No components found for: LVEF, LVEFMODE Radiology: CXR (image reviewed): Cardiac Tests Personally Reviewed: Last EKG 04/22/21 (Final) Tracing reviewed. Reports reviewed: Last Echo No results found for this or any previous visit. Last Cath No results found for this or any previous visit. Last Stress Test No results found for this or any previous visit. Last EP study No results found for this or any previous visit. * No results found for: EFBP, PLVEF, LVEFPHYS, LVEF2D, EF DEVIKA Score Link Assessment/Plan Type 1 NSTEMI CAD On evaluation, patient presents with chest pain likely secondary to underlying obstructive CAD demonstrated following invasive evaluation/C at [facility]. We will continue management for ACS with heparin/ASA/statin and plan for repeat cardiac catheterization tomorrow. Plan: - Start ASA 81mg daily - Start Rosuvastatin 40mg daily - Transthoracic Echocardiogram - Continue heparin gtt - Start Carvedilol 3.125mg BID - NPO at midnight for [facility] tomorrow Hypertension -Hold Losartan 25 mg, restart after [facility] Hyperlipidemia -Rosuvastatin as above Type 2 Diabetes Mellitus -Insulin glargine 15U qAM + SSI/ POCT before every meal and nightly GERD/Tacho Esophagus -Pantoprazole 40 mg every morning Gout -Colchicine 0.6 mg daily Huang Mercado MD DATE of SERVICE: 04/19/2024 ALLERGIES No Allergies Records Found ENCOUNTERS ADMIT/DISCHARGE ACCOUNT NUMBER ADMITTING ENCOUNTER CLASS LOC ATION SOURCE 07/28/2024/ 5 [id number] Ambulatory Buildin [id number] [facility] 05/16/2024/ 5 [id number] Ambulatory Buildin [id number] [facility] 04/27/2024/ 5 [id number] Ambulatory Buildin [id number] [facility] 04/19/2024/ 5 [id number] JAKE SEARS Inpatient Encounter Buildin [id number]: [facility] 1C-138Bed: 1C-138 A [facility] PAYERS ENCOUNTER GUARANTOR PAYER SUBSCRIBER SOURCE 07/28/2024 Primary Insurance:AETNAPolicy Number: [id number] Date:[id number] Name:Commercial CONSTANCE Almaraz ELLYB: [id number] [place] [address] [facility] 05/16/2024 Primary Insurance:AETNAPolicy Number: [id number] Date:[id number] Name:Commercial CONSTANCE Almaraz AMSSHARADDOB: [id number] [place] [address] [facility] 04/27/2024 Primary Insurance:AETNAPolicy Number: [id number] Date:[id number] Name:Commercial CONSTANCE Almaraz AMSSHARADDOB: [id number] [place] [address] [facility] 04/19/2024 Primary Insurance:AETNAPolicy Number: [id number] Date:[id number] Name:Commercial CONSTANCE Almaraz MERARIDOB: [id number] [place] [address] [facility]
[2024-09-08 08:26] VITALS: BMI 41.0
--- NOTE | 2024-11-20 08:55 | RAD_ITS ---
PROCEDURE: ESOPHAGUS DUAL CONTRAST 11/20/2024 REASON FOR EXAM: DYSPHAGIA, ESOPHAGEAL OBSTRUCTION, BARRETTS ESOPHA TECHNIQUE: ESOPHAGUS DUAL CONTRAST FLUOROSCOPIC TIME: 2 minutes 28 seconds FLUOROGRAPHIC IMAGES: 43 COMPARISON: None FINDINGS: There is normal esophagus with normal mucosal patterns. No focal strictures or filling defects identified. There is normal progressive contrast material from the esophagus into the stomach. A small hiatal hernia is present with visualization of the Schatzki's ring. Barium tablet passes the GE junction without difficulty. RAD/Esophagus Dual Contrast IMPRESSION: Normal esophagram with no direct visualization of spontaneous reflux. No esoph ageal dysmotility or mucosal abnormality is demonstrated. There is a small hiatal hernia with Schatzki's ring visualized. Reading Location: [place] [id number]
== END | disposition home or self-care (01) ==
LOC: RAD 08:53
PROVIDERS: PCP Internal Medicine; Referring Provider Internal Medicine; Visit Provider Internal Medicine
DX: K22.70 Barrett's esophagus without dysplasia (principal); R13.10 Dysphagia, unspecified; K22.2 Esophageal obstruction
CPT/HCPCS: 74221

== ENCOUNTER → 2025-01-04 | Outpatient (CLI) | payer OTHER, SELFPAY ==
[2024-09-08 08:26] VITALS: BMI 41.0
[2025-01-04 11:13] LABS: Color, Urine Yellow (Yellow); Glucose, Dipstick Normal (Normal); Ketone-Dipstick Negative (Negative); Leukocyte Esterase-Dipstick 25 /ul (Negative); Nitrite-Dipstick Negative (Negative); Occult Blood-Urine 250 /ul (Negative); Protein-Dipstick 30 mg/dl (Negative); Specific Gravity, Urine 1.025 (1.002-1.030); Urine Bilirubin Dipstick Negative (Negative)
[2025-01-04 11:37] LABS: Mucous, Urine 0 SEEN /hpf (<or=2+); Red Blood Cells-Urine 25-50 SEEN /hpf (0-5); Squamous Epithelial Cells - UA 0-5 SEEN /hpf (5-10)
[2025-01-04 11:55] LABS: AST(SGOT) 23 U/L (<=31); Alanine Aminotransfer ALT/SGPT 19 U/L (<=34); Albumin, Serum 4.1 g/dL (3.5-5.0); Alkaline Phosphatase 95 U/L (35-104); Bilirubin, Direct 0.21 mg/dL (0.00-0.30); Cholesterol 131 mg/dL (<=200); Globulin 3.1 g/dL (2.2-4.2); Low Density Lipoprotein Calc. 49 mg/dL; Triglycerides 275 mg/dL; Very Low Density Lipoprotein 55 mg/dL (5-40); cholesterol:hdl ratio screen 3.36
[2025-01-04 12:14] LABS: AST(SGOT) 23 U/L (<=31); Alanine Aminotransfer ALT/SGPT 20 U/L (<=34); Albumin, Serum 4.2 g/dL (3.5-5.0); Alkaline Phosphatase 97 U/L (35-104); Anion Gap 13 (5-15); BUN 16 mg/dL (4-19); BUN/Creat Ratio 11.7 RATIO (10-20); Calcium,Total 9.6 mg/dL (7.6-11.0); Carbon Dioxide 17.4 mmol/L (21.0-32.0); Chloride 108 mmol/L (98-108); Globulin 2.9 g/dL (2.2-4.2); Glucose 96 mg/dL (70-99); Potassium 4.5 mmol/L (3.3-5.1)
== END | disposition home or self-care (01) ==
LOC: LAB 10:14
PROVIDERS: Nurse Practitioner Family; PCP Internal Medicine; Referring Provider Internal Medicine Endocrinology, Diabetes & Metabolism; Visit Provider Internal Medicine Endocrinology, Diabetes & Metabolism
DX: R31.9 Hematuria, unspecified (principal); N18.9 Chronic kidney disease, unspecified; E78.00 Pure hypercholesterolemia, unspecified
CPT/HCPCS: 36415; 80053; 80061; 80076; 81001; 87086

== ENCOUNTER → 2025-01-05 | Outpatient (CLI) | payer OTHER, SELFPAY ==
[2024-09-08 08:26] VITALS: BMI 41.0
--- NOTE | 2025-01-05 09:20 | CT_ITS ---
PROCEDURE: ABDOMEN/PELVIS WITHOUT CONT 01/05/2025 REASON FOR EXAM: Left flank and abdominal pain TECHNIQUE: Procedure Code: CTABDPEL Modality: CT Procedure: ABDOMEN/PELVIS WITHOUT CONT Noncontrast technique limits evaluation of the abdominal and pelvic viscera. Coronal and Sagittal reconstruction series were provided. One or more dose reduction techniques were used (e.g., Automated exposure control, adjustment of the mA and/or kV according to patient size, use of iterative reconstruction technique). RADIATION DOSE SUMMARY: CTDlvol: 20.09 mGy DLP: 1099.34 mGycm COMPARISON: 06/30/2023 FINDINGS: Lung bases: Clear Liver: Normal size. No obvious mass. Gallbladder: Surgically absent. Spleen: Normal size. Pancreas: Normal size. No surrounding inflammation. Adrenals: Unremarkable Kidneys: There is dilatation of the left renal calices in the left renal pelvis due to a 1.2 cm stone in the left renal pelvis measuring 310 Hounsfield units. The left ureter is not dilated. However, on axial image 97 and coronal recon image 75 there is a faint 2 mm calcification within the proximal 3rd of the left ureter with Hounsfield units measuring 35. No obstructive uropathy involving the right kidney. Neither kidney shows evidence of solid lesion. Bladder: Distends normally. Reproductive Organs: Normal-appearing uterus, no suspicious cystic mass or free fluid Bowel: No CT evidence of obstruction or acute inflammation involving bowel loops. There is retained stool in the colon and scattered colonic diverticula without CT evidence of acute diverticulitis. Appendix: Normal appendix seen on coronal recon images 63 through 68. Lymph nodes: No suspicious mesenteric or retroperitoneal adenopathy Vasculature: Mild diffuse atherosclerotic calcifications are noted. Peritoneum / Retroperitoneum: No free fluid or air Bones: Degenerative bony changes CT/Abdomen/Pelvis without Cont IMPRESSION: There is dilatation of the left renal calices and of the left renal pelvis due to a 1.2 cm stone in the left renal pelvis measuring 310 Hounsfield units Although the left ureter is not dilated, there is evidence of a subtle faint 2 mm stone in the proximal 3rd of the left ureter on images described above. It measures 35 Hounsfield units No free intraperitoneal fluid, air, or suspicious adenopathy, normal appendix v isualized Colonic diverticulosis without CT evidence of acute diverticulitis Reading Location: [facility]
== END | disposition home or self-care (01) ==
LOC: CT 09:12
PROVIDERS: PCP Internal Medicine; Referring Provider Urology; Visit Provider Urology
DX: N20.0 Calculus of kidney (principal)
CPT/HCPCS: 74176

== ENCOUNTER 2025-01-25 10:28 | Day surgery (SDC) | payer OTHER, SELFPAY ==
[2024-09-08 08:26] VITALS: BMI 41.0
--- NOTE | 2025-01-08 17:33 | PAT.ANE_ITS ---
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 When Was Last Pacemaker Check QUESTION #4 FULL TEXT: You/Your Family Experience fever (hyperthermia) with Anesthesia Last Oral Intake Last Oral intake: Last Oral Intake NPO since Meds taken in AM with sips of water? 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: PONV - canal structure operator Female Yes 01/08/25 14:39 HX of Motion Sickness Yes 01/08/25 14:39 HX of N/V After Surgery Yes 01/08/25 14:39 Non-Smoker Yes 01/08/25 14:39 Duration of Surgery greater Yes 01/08/25 14:39 than 60 minutes Number of Risk Factors 5 01/08/25 14:39 PONV Score Severe Risk 01/08/25 14:39 Height & Weight Height & Weight: Anesthesia: Height & Weight Height 5 ft 1 in 01/05/25 15:17 Respiratory Assessment Respiratory Assessment - canal structure operator: Respiratory Tract Infection Hx - canal structure operator Hx Respiratory Tract Infection No 01/08/25 14:39 STOP Sleep Apnea STOP Sleep Apnea - canal structure operator: STOP Sleep Apnea - canal structure operator Hx Hypertension Yes: CONTROLLED WITH MED 01/08/25 14:39 Hx Sleep Apnea Yes 01/08/25 14:39 CPAP Yes 01/08/25 14:39 BIPAP No 01/08/25 14:39 Do you snore loudly (louder than talking or can be heard Do you often feel tired/ fatigued/ sleepy during daytime? Has anyone observed you stop breathing during sleep? STOP Results Positive 01/08/25 14:39 QUESTION #5 FULL TEXT : Do you snore loudly (louder than talking or can be heard through closed doors)? 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 Specify any problems Hx of Preganancy in last 3 No 01/08/25 14:39 Months Nurse Filling Out Transfusion DSCHRIBER 01/08/25 14:39 & Questions: Date: 01/08/25 01/08/25 14:39 Time: 14:40 01/08/25 14:39 Patient unable to answer at this time (ie. confused, unrespo /Reproduction History /Reproductive History - canal structure operator: /Reproductive Hx- canal structure operator Hx Now No 01/08/25 14:39 Gestational Age (in weeks): EDC: Hx Hx Para Hx Section SAB No 01/08/25 14:39 Does the father of the baby or his family experience fever w Father of the baby Malignant Hypertension history comment [facility] Medical History (Updated 01/08/25 @ 14:55 by Socoror Degroot) Post-menopausal Wears glasses Depression Anxiety Insulin dependent diabetes mellitus History of renal disease Fatty liver Restless legs Back pain Migraine headache Syncope Difficulty swallowing Dietary restriction History of hiatal hernia History of ulceration Gastric reflux Smoker CPAP (continuous positive airway pressure) dependence Shortness of breath on exertion Leg cramps History of pain when walking History of edema History of echocardiogram History of stress test Cardiology follow-up encounter Chest pain IBS (irritable bowel syndrome) History of non-ST elevation myocardial infarction (NSTEMI) (~03/2024) Cervical cancer Myocardial infarction Gout Asthma Hypertension Home Medications ?Medication ?Instructions ?Recorded ?Last Taken ?Type compress.stocking,knee,reg,lrg #2 ea 07/23/23 Unknown Rx aspirin 81 mg tablet,delayed 81 mg PO DAILY 05/04/24 0 05/17/24 History release carvedilol 3.125 mg tablet 3.125 mg PO Q12H 05/04/24 0 05/17/24 History lorazepam 0.5 mg tablet 0.5 mg PO DAILY PRN anxiety #30 05/04/24 Unknown Rx tabs nitroglycerin 0.4 mg sublingual 0.4 mg sublingual ONCE PRN chest 05/04/24 Unknown Rx tablet pain #20 tabs clobetasol 0.05 % topical cream 1 applic topical QDAY PRN SKIN 05/18/24 Unknown History ticagrelor 90 mg tablet (Brilinta) 90 mg PO BID 01/06/25 History insulin glargine 100 unit/mL (3 30 unit subcut QAM 10/16 Unknown History mL) subcutaneous pen (Lantus Solostar U-100 Insulin) pen needle, diabetic 31 gauge x #100 ea 11/01/24 Unkno wn Rx 02/25 (CareFine Pen Needle) rosuvastatin 10 mg tablet 10 mg PO QDAY #90 tabs 11/10 Unknown Rx isosorbide mononitrate 30 mg 30 mg PO BID #60 tabs Unknown Rx tablet,extended release 24 hr cefdinir 300 mg capsule 300 mg PO BID #20 caps 01/05 Unknown Rx oxycodone-acetaminophen 5 mg-325 1 tab PO TID PRN pain 7 days #10 01/05/25 Unknown Rx mg tablet (Percocet) tabs phenazopyridine 200 mg tablet 200 mg PO TID #30 tabs 1 03/07/24 Unknown Rx (Pyridium) finerenone 10 mg tablet (Kerendia) 10 mg PO QHS Unknown History tirzepatide 5 mg/0.5 mL 5 mg subcut MO 01/08/2512/23 History subcutaneous pen injector (Selvin) Allergy/AdvReac Type Severity Reaction Status Date / Time empagliflozin (From Allergy Severe Vomiting Verified 01/08/25 14:34 Jardiance) metformin AdvReac Severe Kidney Verified 01/08/25 14:34 Stones/High Uric Acid semaglutide (From Rybelsus) AdvReac Severe Nausea Verified 01/08/25 14:34 Family History Mother Arthritis Heart disease Psoriasis Cancer lymphoma, cervical Hypercholesterolemia Hypertension Depression Autoimmune disorder defect Hormone disorder Grandmother Arthritis Heart disease Hypercholesterolemia Hypertension Depression Psychiatric care Mental disorder Alcoholism Anxiety Grandmother Diabetes type 2 Alcoholism Anxiety Grandfather Depression Mental disorder Psychiatric care Alcoholism Anxiety Father Alcoholism Anxiety Grandfather Alcoholism Anxiety Other Asthma CVA (cerebral vascular accident) Cervical cancer Endometriosis High cholesterol Liver disease Respiratory disease Suicide attempt Surgical History (Updated 01/08/25 @ 14:55 by Socorro Degroot) History of cardiac catheterization Hx of colonoscopy History of esophagogastroduodenoscopy (EGD) History of liver biopsy Stented coronary artery (~03/2024) History of elbow surgery H/O angioplasty H/O skin graft History of cholecystectomy Social History household members: none housing: house current occupational status: employed current occupation: [employer] Smoking Status: Current some day smoker tobacco type: cigarettes Tobacco: How many years used: 30 alcohol intake: never substance use type: does not use well-balanced diet: other details: keto, no soda caffeine: No what type of physical activity do you participate in: other details: Infrequent seatbelt use: always do you feel safe at home: Yes Audit: Pertinent Findings Pertinent Findings EKG Perinent findings: 05/29/2024. Sinus rhythm. Low voltage in precordial leads. Incomplete right bundle branch block. Stress test pertinent findings: November 14, 2024. EF is 72%. No areas of reversibility are noted to suggest ischemia. No previous infarct. Echo (EF%) pertinent findings: June 08, 2024. EF is 60%. No aortic valve stenosis noted. Heart catheterization pertinent findings: 04/19/2024. Proximal LAD 100% stenosis. Collaterals noted from RCA to the LAD and D1. Proximal RCA has 50% stenosis. Recommend referral to tertiary center for [employer]PA[employer] angioplasty versus CABG. (Patient did undergo PCI/stent of mid?proximal LAD at [facility]). Consult pertinent findings: August 29, 2024. Dilma JORGENSEN. 1. Coronary artery disease-status post PCI/stent to her mid to proximal LAD in March 2024. She also has collaterals from the RCA to the LAD/D1. And 50% stenosis of the RCA. Due to current symptoms she is currently pending a stress test. (See above). Continue current medical therapy. 2. Hypertension?well-controlled 3. Type 2 diabetes-patient is to follow-up with endocrinology. Currently on insulin and Mounjaro. Recommendation Anesthesia Recommendation Anesthesia recommendation: OPTIMIZED for anesthesia
[2025-01-09 13:13] LABS: Hematocrit 37.3 % (37-47); Hemoglobin 12.3 g/dL (12.0-15.0); Mean Corp Hgb Conc 33.0 g/dL (32-36); Mean Corpuscular Volume 93.3 fL (81-99); Mean Platelet Vol. 10.2 fl (6.2-12.0); Platelet Count 407 K/mm3 (150-450); RBC Distribution Width CV 14.5 % (11.6-14.6); RBC Distribution Width SD 49.4 fl (35.1-43.9); Red Blood Count 4.00 M/mm3 (4.2-5.4); White Blood Count 16.2 K/mm3 (4.4-11.0)
--- NOTE | 2025-01-09 17:19 | PAT.ANE_ITS ---
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 When Was Last Pacemaker Check QUESTION #4 FULL TEXT: You/Your Family Experience fever (hyperthermia) with Anesthesia Last Oral Intake Last Oral intake: Last Oral Intake NPO since Meds taken in AM with sips of water? 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 Female Yes 01/08/25 14:39 HX of Motion Sickness Yes 01/08/25 14:39 HX of N/V After Surgery Yes 01/08/25 14:39 Non-Smoker Yes 01/08/25 14:39 Duration of Surgery greater Yes 01/08/25 14:39 than 60 minutes Number of Risk Factors 5 01/08/25 14:39 PONV Score Severe Risk 01/08/25 14:39 Height & Weight Height & Weight: Anesthesia: Height & Weight Height 5 ft 1 in 01/05/25 15:17 Respiratory Assessment Respiratory Assessment - preschool associate teacher: Respiratory Tract Infection Hx - preschool associate teacher Hx Respiratory Tract Infection No 01/08/25 14:39 STOP Sleep Apnea STOP Sleep Apnea - preschool associate teacher: STOP Sleep Apnea - preschool associate teacher Hx Hypertension Yes: CONTROLLED WITH MED 01/08/25 14:39 Hx Sleep Apnea Yes 01/08/25 14:39 CPAP Yes 01/08/25 14:39 BIPAP No 01/08/25 14:39 Do you snore loudly (louder than talking or can be heard Do you often feel tired/ fatigued/ sleepy during daytime? Has anyone observed you stop breathing during sleep? STOP Results Positive 01/08/25 14:39 QUESTION #5 FULL TEXT : Do you snore loudly (louder than talking or can be heard through closed doors)? 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 Specify any problems Hx of Preganancy in last 3 No 01/08/25 14:39 Months Nurse Filling Out Transfusion DSCHRIBER 01/08/25 14:39 & Questions: Date: 01/08/25 01/08/25 14:39 Time: 14:40 01/08/25 14:39 Patient unable to answer at this time (ie. 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: /Reproductive Hx- preschool associate teacher Hx Now No 01/08/25 14:39 Gestational Age (in weeks): EDC: Hx Hx Para Hx Section SAB No 01/08/25 14:39 Does the father of the baby or his family experience fever w Father of the baby Malignant Hypertension history comment [facility] Medical History (Updated 01/08/25 @ 14:55 by Socorro Degroot) Post-menopausal Wears glasses Depression Anxiety Insulin dependent diabetes mellitus History of renal disease Fatty liver Restless legs Back pain Migraine headache Syncope Difficulty swallowing Dietary restriction History of hiatal hernia History of ulceration Gastric reflux Smoker CPAP (continuous positive airway pressure) dependence Shortness of breath on exertion Leg cramps History of pain when walking History of edema History of echocardiogram History of stress test Cardiology follow-up encounter Chest pain IBS (irritable bowel syndrome) History of non-ST elevation myocardial infarction (NSTEMI) (~03/2024) Cervical cancer Myocardial infarction Gout Asthma Hypertension Home Medications ?Medication ?Instructions ?Recorded ?Last Taken ?Type compress.stocking,knee,reg,lrg #2 ea 07/23/23 Unknown Rx aspirin 81 mg tablet,delayed 81 mg PO DAILY 05/04/24 0 05/17/24 History release carvedilol 3.125 mg tablet 3.125 mg PO Q12H 05/04/24 0 05/17/24 History lorazepam 0.5 mg tablet 0.5 mg PO DAILY PRN anxiety #30 05/04/24 Unknown Rx tabs nitroglycerin 0.4 mg sublingual 0.4 mg sublingual ONCE PRN chest 05/04/24 Unknown Rx tablet pain #20 tabs clobetasol 0.05 % topical cream 1 applic topical QDAY PRN SKIN 05/18/24 Unknown History ticagrelor 90 mg tablet (Brilinta) 90 mg PO BID 01/06/25 History insulin glargine 100 unit/mL (3 30 unit subcut QAM 10/16 Unknown History mL) subcutaneous pen (Lantus Solostar U-100 Insulin) pen needle, diabetic 31 gauge x #100 ea 11/01/24 Unkno wn Rx 02/25 (CareFine Pen Needle) rosuvastatin 10 mg tablet 10 mg PO QDAY #90 tabs 11/10 Unknown Rx isosorbide mononitrate 30 mg 30 mg PO BID #60 tabs Unknown Rx tablet,extended release 24 hr cefdinir 300 mg capsule 300 mg PO BID #20 caps 01/05 Unknown Rx oxycodone-acetaminophen 5 mg-325 1 tab PO TID PRN pain 7 days #10 01/05/25 Unknown Rx mg tablet (Percocet) tabs phenazopyridine 200 mg tablet 200 mg PO TID #30 tabs 1 03/07/24 Unknown Rx (Pyridium) finerenone 10 mg tablet (Kerendia) 10 mg PO QHS Unknown History tirzepatide 5 mg/0.5 mL 5 mg subcut MO 01/08/2512/23 History subcutaneous pen injector (Selvin) Allergy/AdvReac Type Severity Reaction Status Date / Time empagliflozin (From Allergy Severe Vomiting Verified 01/08/25 14:34 Jardiance) metformin AdvReac Severe Kidney Verified 01/08/25 14:34 Stones/High Uric Acid semaglutide (From Rybelsus) AdvReac Severe Nausea Verified 01/08/25 14:34 Family History Mother Arthritis Heart disease Psoriasis Cancer lymphoma, cervical Hypercholesterolemia Hypertension Depression Autoimmune disorder defect Hormone disorder Grandmother Arthritis Heart disease Hypercholesterolemia Hypertension Depression Psychiatric care Mental disorder Alcoholism Anxiety Grandmother Diabetes type 2 Alcoholism Anxiety Grandfather Depression Mental disorder Psychiatric care Alcoholism Anxiety Father Alcoholism Anxiety Grandfather Alcoholism Anxiety Other Asthma CVA (cerebral vascular accident) Cervical cancer Endometriosis High cholesterol Liver disease Respiratory disease Suicide attempt Surgical History (Updated 01/08/25 @ 14:55 by Socorro Degroot) History of cardiac catheterization Hx of colonoscopy History of esophagogastroduodenoscopy (EGD) History of liver biopsy Stented coronary artery (~03/2024) History of elbow surgery H/O angioplasty H/O skin graft History of cholecystectomy Social History household members: none housing: house current occupational status: employed current occupation: [id number] Smoking Status: Current some day smoker tobacco type: cigarettes Tobacco: How many years used: 30 alcohol intake: never substance use type: does not use well-balanced diet: other details: keto, no soda caffeine: No what type of physical activity do you participate in: other details: Infrequent seatbelt use: always do you feel safe at home: Yes Audit: Pertinent Findings HISTORY of Pertinent Findings History of Pertinent Findings: EKG Pertinent Findings EKG Perinent findings 05/29/2024. Sinus rhythm. 01/08/25 17:43 Low voltage in precordial leads. Incomplete right bundle branch block. Stress Test Pertinent Findings Stress test pertinent findings November 14, 2024. EF is 01/08/25 17:37 72%. No areas of reversibility are noted to suggest ischemia. No previous infarct. Echo Pertinent Findings Echo (EF%) pertinent findings June 08, 2024. EF is 60%. 01/08/25 17:36 No aortic valve stenosis noted. Heart Catheterization Pertinent Findings Heart catheterization 04/19/2024. Proximal LAD 100 01/08/25 17:51 pertinent findings % stenosis. Collaterals noted from RCA to the LAD and D1. Proximal RCA has 50 % stenosis. Recommend referral to tertiary center for POTATO PICKER angioplasty versus CABG. (Patient did undergo PCI/stent of mid?proximal LAD at [facility]). Consult Pertinent Findings Consult pertinent findings August 29, 2024. Dilma JORGENSEN. 01/08/25 17:51 1. Coronary artery disease- status post PCI/stent to her mid to proximal LAD in March 2024. She also has collaterals from the RCA to the LAD/D1. And 50% stenosis of the RCA. Due to current symptoms she is currently pending a stress test. (See above). Continue current medical therapy. 2. Hypertension?well- controlled 3. Type 2 diabetes-patient is to follow-up with endocrinology. Currently on insulin and Mounjaro. Pertinent Findings Additional pertinent findings: CBC on 01/09/2025 showed W BC 16.2. The final decision will be made by the anesthesiologist on the day of the procedure. I suspect this is a possibility of UTI and the patient is coming for lithotripsy Recommendation Anesthesia Recommendation Anesthesia recommendation: OPTIMIZED for anesthesia
--- NOTE | 2025-01-10 14:56 | PAT.ANESEVAL ---
Pre-Assessment Diagnosis/Proposed Procedure Planned Operative Procedure(s): CYSTO LEFT URETEROSCOPY STONE BASKET EXTRACTION SAIDA LITHTRIPSY LEFT STENT INSERTION Anesthesia History Anesthesia History - belt fixer: Anesthesia History - belt fixer Hx Hospitalization Yes: [place] 03/202401/08/25 14:39 Any Problems With Anesthesia Yes: PONV,SLOW TO AWAKEN 01/08/25 14:39 Cholinesterase deficiency No 01/08/25 14:39 You/Your Family Experience No 01/08/25 14:39 fever (hyperthermia) with Relationship Recent Exposure to Contagious Disease Does patient have nerve No 01/08/25 14:39 stimulator Patient instructed to have device shut off --Does patient have Pacemaker or ICD? When Was Last Pacemaker Check QUESTION #4 FULL TEXT: You/Your Family Experience fever (hyperthermia) with Anesthesia Last Oral Intake Last Oral intake: Last Oral Intake NPO since Meds taken in AM with sips of water? Meds patient instructed to take am of surgery PONV PONV - belt fixer: PONV - belt fixer Female Yes 01/08/25 14:39 HX of Motion Sickness Yes 01/08/25 14:39 HX of N/V After Surgery Yes 01/08/25 14:39 Non-Smoker Yes 01/08/25 14:39 Duration of Surgery greater Yes 01/08/25 14:39 than 60 minutes Number of Risk Factors 5 01/08/25 14:39 PONV Score Severe Risk 01/08/25 14:39 Height & Weight Height & Weight: Anesthesia: Height & Weight Height 5 ft 1 in 01/05/25 15:17 Respiratory Assessment Respiratory Assessment - belt fixer: Respiratory Tract Infection Hx - belt fixer Hx Respiratory Tract Infection No 01/08/25 14:39 STOP Sleep Apnea STOP Sleep Apnea - belt fixer: STOP Sleep Apnea - belt fixer Hx Hypertension Yes: CONTROLLED WITH MED 01/08/25 14:39 Hx Sleep Apnea Yes 01/08/25 14:39 CPAP Yes 01/08/25 14:39 BIPAP No 01/08/25 14:39 Do you snore loudly (louder than talking or can be heard Do you often feel tired/ fatigued/ sleepy during daytime? Has anyone observed you stop breathing during sleep? STOP Results Positive 01/08/25 14:39 QUESTION #5 FULL TEXT : Do you snore loudly (louder than talking or can be heard through closed doors)? 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 Use History - belt fixer: Tobacco Use History - belt fixer Tobacco Use Smoking Status Current some day smoker 01/08/25 14:39 Hx Tobacco Use Yes 01/08/25 14:39 Years Smoking Packs Smoked per Day Smoking Cessation Date was within the last 15 years Hx Smoking Cessation Date 01/08/25 14:39 Hx Smoking Cessation Yes 01/08/25 14:39 Counseling Hematologic Medial History Hematologic Hx - belt fixer: Hematologic Medical Hx - calender wind up tender Hx of Blood Transfusion No 01/08/25 14:39 Hx of Transfusion in last 3 No 01/08/25 14:39 Months Date of Last Transfusion (if within last 3 months) Ever experience any problems No 01/08/25 14:39 with transfusion(s)? Specify any problems Hx of Preganancy in last 3 No 01/08/25 14:39 Months Nurse Filling Out Transfusion DSCHRIBER 01/08/25 14:39 & Questions: Date: 01/08/25 01/08/25 14:39 Time: 14:40 01/08/25 14:39 Patient unable to answer at this time (ie. confused, unrespo /Reproduction History /Reproductive History - belt fixer: /Reproductive Hx- belt fixer Hx Now No 01/08/25 14:39 Gestational Age (in weeks): EDC: Hx Hx Para Hx Section SAB No 01/08/25 14:39 Does the father of the baby or his family experience fever w Father of the baby Malignant Hypertension history comment Active Medications Active Medications: Current Medications Generic Name Dose Route Start Last Admin Trade Name Freq PRN Reason Stop Dose Admin Cefazolin Sodium 2 gm/ Sodium 110 mls @ 200 mls/hr 01/11/25 07:00 Chloride IV 01/11/25 07:32 INTRAOP ONE [facility] Medical History (Updated 01/08/25 @ 14:55 by Socorro Degroot) Post-menopausal Wears glasses Depression Anxiety Insulin dependent diabetes mellitus History of renal disease Fatty liver Restless legs Back pain Migraine headache Syncope Difficulty swallowing Dietary restriction History of hiatal hernia History of ulceration Gastric reflux Smoker CPAP (continuous positive airway pressure) dependence Shortness of breath on exertion Leg cramps History of pain when walking History of edema History of echocardiogram History of stress test Cardiology follow-up encounter Chest pain IBS (irritable bowel syndrome) History of non-ST elevation myocardial infarction (NSTEMI) (~03/2024) Cervical cancer Myocardial infarction Gout Asthma Hypertension Home Medications ?Medication ?Instructions ?Recorded ?Last Taken ?Type compress.stocking,knee,reg,lrg #2 ea 07/23/23 Unknown Rx aspirin 81 mg tablet,delayed 81 mg PO DAILY 05/04/24 05/17/24 History release carvedilol 3.125 mg tablet 3.125 mg PO Q12H 05/04/24 05/17/24 History lorazepam 0.5 mg tablet 0.5 mg PO DAILY PRN anxiety #30 05/04/24 Unknown Rx tabs nitroglycerin 0.4 mg sublingual 0.4 mg sublingual ONCE PRN chest 05/04/24 Unknown Rx tablet pain #20 tabs clobetasol 0.05 % topical cream 1 applic topical QDAY PRN SKIN 05/18/24 Unknown History ticagrelor 90 mg tablet (Brilinta) 90 mg PO BID 05/29/24 01/06/25 History insulin glargine 100 unit/mL (3 30 unit subcut QAM 08/29/24 Unknown History mL) subcutaneous pen (Lantus Solostar U-100 Insulin) pen needle, diabetic 31 gauge x #100 ea 11/01/24 Unknown Rx 1/4 (CareFine Pen Needle) rosuvastatin 10 mg tablet 10 mg PO QDAY #90 tabs 11/10/24 Unknown Rx isosorbide mononitrate 30 mg 30 mg PO BID #60 tabs 11/16/24 Unknown Rx tablet,extended release 24 hr cefdinir 300 mg capsule 300 mg PO BID #20 caps 01/05/25 Unknown Rx oxycodone-acetaminophen 5 mg-325 1 tab PO TID PRN pain 7 days #10 01/05/25 Unknown Rx mg tablet (Percocet) tabs phenazopyridine 200 mg tablet 200 mg PO TID #30 tabs 01/05/25 Unknown Rx (Pyridium) finerenone 10 mg tablet (Kerendia) 10 mg PO QHS 01/08/25 Unknown History tirzepatide 5 mg/0.5 mL 5 mg subcut MO 01/08/25 01/01/25 History subcutaneous pen injector (Mounjaro) Allergy/AdvReac Type Severity Reaction Status Date / Time empagliflozin (From Allergy Severe Vomiting Verified 01/08/25 14:34 Jardiance) metformin AdvReac Severe Kidney Verified 01/08/25 14:34 Stones/High Uric Acid semaglutide (From Rybelsus) AdvReac Severe Nausea Verified 01/08/25 14:34 Family History Mother Arthritis Heart disease Psoriasis Cancer lymphoma, cervical Hypercholesterolemia Hypertension Depression Autoimmune disorder defect Hormone disorder Grandmother Arthritis Heart disease Hypercholesterolemia Hypertension Depression Psychiatric care Mental disorder Alcoholism Anxiety Grandmother Diabetes type 2 Alcoholism Anxiety Grandfather Depression Mental disorder Psychiatric care Alcoholism Anxiety Father Alcoholism Anxiety Grandfather Alcoholism Anxiety Other Asthma CVA (cerebral vascular accident) Cervical cancer Endometriosis High cholesterol Liver disease Respiratory disease Suicide attempt Surgical History (Updated 01/08/25 @ 14:55 by Socorro Degroot) History of cardiac catheterization Hx of colonoscopy History of esophagogastroduodenoscopy (EGD) History of liver biopsy Stented coronary artery (~03/2024) History of elbow surgery H/O angioplasty H/O skin graft History of cholecystectomy Social History household members: none housing: house current occupational status: employed 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 Sinus rhythm. 01/08/25 17:43 Low voltage in precordial leads. Incomplete right bundle branch block. Stress Test Pertinent Findings Stress test pertinent findings November 14, 2024. EF is 01/08/25 17:37 72%. No areas of reversibility are noted to suggest ischemia. No previous infarct. Echo Pertinent Findings Echo (EF%) pertinent findings June 08, 2024. EF is 60%. 01/08/25 17:36 No aortic valve stenosis noted. Heart Catheterization Pertinent Findings Heart catheterization 04/19/2024. Proximal LAD 100 01/08/25 17:51 pertinent findings % stenosis. Collaterals noted from RCA to the LAD and D1. Proximal RCA has 50 % stenosis. Recommend referral to tertiary center for HEALTH EDUCATION COORDINATOR angioplasty versus CABG. (Patient did undergo PCI/stent of mid?proximal LAD at the [facility]). Consult Pertinent Findings Consult pertinent findings August 29, 2024. Dilma JORGENSEN. 01/08/25 17:51 1. Coronary artery disease- status post PCI/stent to her mid to proximal LAD in March 2024. She also has collaterals from the RCA to the LAD/D1. And 50% stenosis of the RCA. Due to current symptoms she is currently pending a stress test. (See above). Continue current medical therapy. 2. Hypertension?well- controlled 3. Type 2 diabetes-patient is to follow-up with endocrinology. Currently on insulin and Mounjaro. Additional Pertinent Findings Additional pertinent findings CBC on 01/09/2025 showed W 01/09/25 17:20 BC 16.2. The final decision will be made by the anesthesiologist on the day of the procedure. I suspect this is a possibility of UTI and the patient is coming for lithotripsy Recommendation Anesthesia Recommendation Anesthesia recommendation: OPTIMIZED for anesthesia
[2025-01-25] VITALS (10 sets, daily range): BP systolic 105–126; BP diastolic 75–87; PULSE 68–78; RESP 12–16; TEMP 36.6–36.9; O2SAT 92–100; BMI 40.8
--- NOTE | 2025-01-25 09:27 | DCINST_ITS ---
Discharge Instructions Diet Discharge Diet: No restrictions Activity Discharge Activity: Return to Normal Activity Dressing / Incision Call your doctor if you observe: Fever of 101 or Higher, Inability to urinate, Inability to have a bowel movement, Chest pain and Calf discomfort Follow Up Care Please Follow Up With: Estella Calero MD Test Results: Test results from this visit will be discussed in further detail at your follow- up appointment, if applicable. Discharge Plan Admission Attending Provider: Estella Calero Primary Care Provider: Casimiro Kelly Instructions Print Language: St Helen[place] Discharge Orders/Prescriptions Prescriptions: New oxycodone-acetaminophen 5-325 mg tablet 1 tab PO Q8H PRN (Reason: pain) 3 Days Qty: 10 0RF ondansetron 4 mg tablet,disintegrating 4 mg PO Q8H PRN (Reason: nausea and vomiting) Qty: 10 0RF phenazopyridine 200 mg tablet 200 mg PO TID PRN (Reason: pain) Qty: 30 3RF Continued (DME) compress.stocking,knee,reg,lrg Misc See Rx Instructions .MEDSUPPLY Qty: 2 1RF Rx Instructions: wear daily for venous insufficiency 20-30 mmHg carvedilol 3.125 mg tablet 3.125 mg PO Q12H aspirin 81 mg tablet,delayed release (DR/EC) 81 mg PO DAILY nitroglycerin 0.4 mg tablet, sublingual 0.4 mg sublingual ONCE PRN (Reason: chest pain) Qty: 20 0RF lorazepam 0.5 mg tablet 0.5 mg PO DAILY PRN (Reason: anxiety) Qty: 30 0RF Patient Comments: last taken 2 weeks ago clobetasol 0.05 % cream 1 applic topical QDAY PRN (Reason: SKIN) Brilinta 90 mg tablet 90 mg PO BID insulin glargine [Lantus Solostar U-100 Insulin] 100 unit/mL (3 mL) insulin pen 30 unit subcut QAM rosuvastatin 10 mg tablet 10 mg PO QDAY Qty: 90 1RF cefdinir 300 mg capsule 300 mg PO BID Qty: 20 0RF phenazopyridine [Pyridium] 200 mg tablet 200 mg PO TID Qty: 30 3RF Kerendia 10 mg tablet 10 mg PO QHS Mounjaro 5 mg/0.5 mL pen injector 5 mg subcut MO (DME) pen needle, diabetic [CareFine Pen Needle] 31 gauge x 1/4 needle See Rx Instructions .Route Qty: 100 1RF Rx Instructions: once daily isosorbide mononitrate 30 mg tablet extended release 24 hr 30 mg PO BID Qty: 60 11RF Referrals / Follow Up: Casimiro Kelly MD [Primary Care Provider, Internal Medicine] Disposition Disposition (needs filled in before D/C Order can be placed): Home, Self Care
--- NOTE | 2025-01-25 09:27 | PCM.HP.BLA ---
History and Physical Date of Admission: 01/25/25 Date of Service: 01/05/25 MR#: [id number] Acct: [id number] Name: DENA GAGE Rep #: [id number] : 1975 Provider: Dr. Estella Calero MD Age/Sex: 49/F Location: [facility] [place] Status: Signed Intake Vital Signs 01/04/2509:14 01/05/2515:17 Height 5 ft 1 in 5 ft 1 in Weight: 217 lb 6 oz 217 lb BMI 41.1 41.0 BP 106/76 120/83 H Blood Pressure Location Lt brachial Position Sitting Pulse 87 76 Pulse Source Monitor Temp 98.1 F Pulse Oximetry (%) 98 Oxygen Delivery Method room air Intake Visit Reasons: Kidney stone Chief Complaint: new patient for kidney stones Professional [employer] Required: No Accompanied by: self Is patient in pain?: Yes (abdomen groin and flank ) Pain scale (1-10): 4 Allergies empagliflozin (From Jardiance) Allergy (Severe, Verified 01/05/25 15:15) Vomiting metformin Adverse Reaction (Severe, Verified 01/05/25 15:15) Kidney Stones/High Uric Acid semaglutide (From Rybelsus) Adverse Reaction (Severe, Verified 01/05/25 15:15) Nausea Medications ?Medication ?Instructions ?Recorded ?Confirmed ?Type compress.stocking,knee,reg,lrg #2 ea 07/23/23 01/05/25 Rx aspirin 81 mg tablet,delayed 81 mg PO DAILY 05/04/24 01/05/25 History release carvedilol 3.125 mg tablet 3.125 mg PO Q12H 05/04/24 01/05/25 History lorazepam 0.5 mg tablet 0.5 mg PO DAILY PRN anxiety #30 05/04/24 01/05/25 Rx tabs nitroglycerin 0.4 mg sublingual 0.4 mg sublingual ONCE PRN chest 05/04/24 01/05/25 Rx tablet pain #20 tabs clobetasol 0.05 % topical cream 1 applic topical QDAY PRN 05/18/24 01/05/25 History ticagrelor 90 mg tablet (Brilinta) 90 mg PO BID 05/29/24 01/05/25 History evolocumab 140 mg/mL subcutaneous 140 mg subcut Q2W 08/29/24 01/05/25 History pen injector (Repathtabby SureClick) insulin glargine 100 unit/mL (3 30 unit subcut QAM 08/29/24 01/05/25 History mL) subcutaneous pen (Lantus Solostar U-100 Insulin) finerenone 10 mg tablet (Kerendia) 10 mg PO QDAY #30 tabs 09/13/24 01/05/25 Rx pen needle, diabetic 31 gauge x #100 ea 11/01/24 01/05/25 Rx 1/4 (CareFine Pen Needle) rosuvastatin 10 mg tablet 10 mg PO QDAY #90 tabs 11/10/24 01/05/25 Rx isosorbide mononitrate 30 mg 30 mg PO BID #60 tabs 11/16/24 01/05/25 Rx tablet,extended release 24 hr tirzepatide 5 mg/0.5 mL 5 mg (0.5 mL) subcut QWEEK #2 mL 01/04/25 01/05/25 Rx subcutaneous pen injector (Selvin) cefdinir 300 mg capsule 300 mg PO BID #20 caps 01/05/25 01/05/25 Rx oxycodone-acetaminophen 5 mg-325 1 tab PO TID PRN pain 7 days #10 01/05/25 01/05/25 Rx mg tablet (Percocet) tabs phenazopyridine 200 mg tablet 200 mg PO TID #30 tabs 01/05/25 01/05/25 Rx (Pyridium) Medication Reconciliation completed?: Yes Post menopausal: Yes Have you fallen in the past year?: Yes Nurse's Note: Bladder scan PVR 29cc. PFSH Medical History IBS (irritable bowel syndrome) Heart disease GI problem Gallstones Diabetes Health care maintenance History of abdominal pain Preventative health care History of non-ST elevation myocardial infarction (NSTEMI) (~03/2024) Fracture of arm Cervical cancer Myocardial infarction Heart failure CKD (chronic kidney disease) stage 2, GFR 60-89 ml/min Type II diabetes mellitus Hypertension Obesity Blood in urine Cellulitis Chest pain Psoriasis GERD (gastroesophageal reflux disease) Liver disease Head ache Gout Asthma Arthritis Surgical History History of liver biopsy Stented coronary artery (~03/2024) History of elbow surgery H/O angioplasty H/O skin graft History of cholecystectomy Family History Mother Arthritis Heart disease Psoriasis Cancer lymphoma, cervical Hypercholesterolemia Hypertension Depression Autoimmune disorder defect Hormone disorder Grandmother Arthritis Heart disease Hypercholesterolemia Hypertension Depression Psychiatric care Mental disorder Alcoholism Anxiety Grandmother Diabetes type 2 Alcoholism Anxiety Grandfather Depression Mental disorder Psychiatric care Alcoholism Anxiety Father Alcoholism Anxiety Grandfather Alcoholism Anxiety Other Asthma CVA (cerebral vascular accident) Cervical cancer Endometriosis High cholesterol Liver disease Respiratory disease Suicide attempt Social History household members: none housing: house current occupational status: employed 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 She is here for evaluation and management of a left kidney stone. She has been having pain on and off in her left side for the last 2 years. She has had a few episodes during that time of nausea, vomiting, and severe pain and gross hematuria. She has had bad pain for the last 3 weeks with these episodes. No recent fevers. She is voiding 4 times during the day, 0 times at night. There is urge incontinence where she cannot make it to the bathroom. She has significant urgency. History of bed wetting that resolved on its own. There is stress incontinence with cough, laugh, sneeze, lifting, etc. She is using no pads in 24 hours unless upper respiratory infection.. She has had this one urinary tract infections in the last year. She is not sexually active. There is no sensation of vaginal bulging. She has the following issues with chronic bowel function: constipation or diarrhea. She eats prunes when she is constipation, and we discussed doing one one every day. There is no pelvic pain. She has a history of smoking. She quit in March 2024 because she had a heart attack. She does cheat occasionally. There is no history of blood clots or easy bleeding. On anticoagulation for her cardiac stent. There is not a family history of female cancer in the family. ROS Const Constitutional: No chills, fatigue, fever(s), headache(s), night sweats, weakness, weight change, abnormal sleep pattern or change in appetite Eyes Eyes: No change in vision ENT ENT: No headache(s) or dry mouth Resp Respiratory: No cough, chest congestion, shortness of breath or wheezing Cardio Cardiology: Positive for other (No chest pain.); No shortness of breath, irregular heart rhythm or lightheadedness Gastro GI: Positive for abdominal pain, constipation, diarrhea, nausea/dyspepsia and vomiting; No change in bowel habits Musc Musculoskeletal: No abnormal gait Skin Skin: No yellowing of the eye, lesions, itchy eyes, rash or skin ulcer Neuro Neurology: No abnormal gait, confusion, dizziness, weakness, headache(s) or memory loss Psych Psychiatric: No abnormal sleep pattern, No change in appetite, No confusion and No memory loss Endo Endocrine: No fatigue, increased thirst/drinking or weight change Aller/Imm Allergy/Immunologic: No itchy eyes or wheezing Devan/Lymp Hematologic/Lymphatic: No easy bleeding, easy bruising or enlarged lymph nodes Exam Const General: cooperative, healthy appearing, comfortable and no acute distress [facility] Head: normocephalic and atraumatic Ears: hearing grossly normal bilaterally and external ears normal Nose: external nose normal Eyes General: appearance normal, both eyes and all related structures Neck Neck: normal visual inspection and trachea midline Chest Chest palpation & inspection: normal inspection of the chest Resp Effort & Inspection: normal respiratory effort, able to speak in complete sentences and symmetric chest movement Cardio Rate: regular rate GI Inspection: normal to inspection Palpation: soft and nontender General: CVA tenderness on the left Skin General: no rashes or lesions noted Neuro General: patient alert, patient awake, patient oriented x3 and CN's II-XI intact bilaterally Extrem General: normal to inspection Psych Appearance: grossly normal and well kempt Mental Status: mental status grossly normal Office Procedures Post Void Residual Post Void Residual: 29cc Results POC Urinalysis w/Micro Office Urine Color ? Last Edit by Yesica Pickett on 01/05/25 15:26 Office Urine Clarity ? Last Edit by Yesica Pickett on 01/05/25 15:26 Office Urine Glucose Negative Last Edit by Yesica Pickett on 01/05/25 15:26 Office Urine Ketones Negative Last Edit by Yesica Pickett on 01/05/25 15:26 Office Urine Bilirubin Small (1+) Last Edit by Yesica Pickett on 01/05/25 15:26 Office Urine Urobilinogen 0.2 mg/dL Last Edit by Yesica Pickett on 01/05/25 15:26 Off Ur Spec [place] 1.030 Last Edit by Yesica Pickett on 01/05/25 15:26 Office Urine pH 5.5 Last Edit by Yesica Pickett on 01/05/25 15:26 Office Urine Protein Trace Last Edit by Yesica Pickett on 01/05/25 15:26 Office Urine Blood Large Last Edit by Yesica Pickett on 01/05/25 15:26 Office Urine Blood Hemolyzed Trace Last Edit by Yesica Pickett on 01/05/25 15:26 Office Urine Nitrate Negative Last Edit by Yesica Pickett on 01/05/25 15:26 Off Ur Leukocytes Negatve Last Edit by Yesica Pickett on 01/05/25 15:26 Off Ur WBC Microscopic ? Last Edit by Yesica Pickett on 01/05/25 15:26 Off Ur RBC Microscopic ? Last Edit by Yesica Pickett on 01/05/25 15:26 Off Ur Bacteria Microscopic ? Last Edit by Yesica Pickett on 01/05/25 15:26 Coding Level of Care Code Off vis,new,level 4 Diagnoses Calculus of kidney N20.0 Urinary tract infection N39.0 Mixed incontinence N39.46 Overactive bladder N32.81 Additional Codes Intake - Is patient in pain?: Yes (1125F) Intake - Medication Reconciliation completed?: Yes (1160F) Assessment and Plan Assessment and Plan (1) Calculus of kidney: Status: Acute (2) Urinary tract infection: Status: Acute (3) Mixed incontinence: Status: Acute (4) Overactive bladder: Status: Acute Orders: Orders POC UA Automated w/Microscopy 01/05/25 N20.0 - Calculus of kidney PVR 01/05/25 N39.46 - Mixed incontinence Medications: New cefdinir 300 mg PO BID 20 caps 0RF oxycodone-acetaminophen 5-325 mg (Percocet) 1 TAB PO TID PRN 10 tabs 0RF pain 7 days N20.0 - Calculus of kidney phenazopyridine (Pyridium) 200 mg PO TID 30 tabs 3RF Plan urine culture antibiotics pain management schedule surgical intervention with cystoscopy, left ureteroscopy, thulium laser lithotripsy, stone basket extraction and left ureteral stent insertion clearance by cardiology obtained, will hold Brilinta for 5 days and continue the aspirin. hold Mounjaro 24 hr UA stone protocol and address lower urinary tract symptoms after surgery The procedure, recovery and expectations were explained. The risks, benefits and alternatives were discussed, including but not limited to, the risks of anesthesia, bleeding, infection, injury, pain and the need for further intervention. We have discussed the risk of exposure to and/or potential harm posed by viral illnesses with having a surgery/procedure at this time. A joint decision was made at this time to proceed with the scheduled surgery/procedure as indicated on the consent form. Clinical Quality Measures Falls Risk Screening/Assistive Devices Have you fallen in the past year?: Yes 01/06/25 [id number] <Electronically signed by Estella Calero MD> Date Estella Calero MD
--- NOTE | 2025-01-25 09:28 | OP.PCM_ITS ---
Multi Select Codes Urology Urology Charge Forwarding-multi code: [id number] Cysto w/ insert Ureteral Stent and [id number] Cysto w/ urtroscopy &/Pyeloscophy DX Operative Report (Standard) Operative Information Date of Procedure: 01/25/25 Pre-Operative Diagnosis: Left ureteral calculus, flank pain Post-Operative Diagnosis: Same Surgery/Procedure Performed: Same auction clerk: No Type of Anesthesia: General RN Documented Start/Stop Times: Operation Date: 01/25/25 12:15 Case Time Into Pre-Op 01/25/25 10:39 Out of Pre-Op 01/25/25 12:44 Anesthesia Start 01/25/25 12:48 Into Room 01/25/25 12:48 Procedure Start 01/25/25 13:01 Procedure End 01/25/25 13:22 Anesthesia End 01/25/25 13:25 Out of Room 01/25/25 13:25 Into Recovery 01/25/25 13:28 Into Phase II Recovery 01/25/25 14:18 Out of Recovery 01/25/25 14:18 Out of Phase II 01/25/25 15:20 Procedure Start Time: 13:01 Procedure Stop Time: 13:22 Select all DRAINS/GRAFTS/IMPLANTS that apply: Drains Drain details: 6 Gibralt[place] 22 cm JJ stent Estimated Blood Loss: <5cc Specimen collected: No Description of surgery: The patient is a 49-year-old female with a right ureteral calculus who presents for surgical intervention. Informed consent was obtained. She was taken to the operating room and placed in the operating room table. Anesthesia monitored the head, neck, airway, IV access and vital signs throughout the case. Once anesthesia was appropriately administered, she was placed into dorsolithotomy position and was prepped and draped in usual sterile fashion. The cystoscope was inserted through the urethra under direct visualization into the urinary bladder. The bladder mucosa was visualized in its entirety revealing no evidence of mass, erythema, ulceration or foreign body. The right ureteral orifice was cannulated with a 0.035 Glidewire followed by a second 0.035 Glidewire used for a safety wire. The flexible ureteroscope was attempted to be passed over the Glidewire. Access was unable to be obtained beyond the distal ureter. The ureter became narrow and as attempts were made, edema started to occur. The decision was made to place a ureteral stent and return after dilation in approximately 2 weeks to manage the stone. A 6 Gibraltarian 22 cm JJ stent was placed over one of the Glidewire's and was in good position in the renal pelvis and the urinary bladder. Her bladder was then emptied and the cystoscope was removed. She was awakened and taken to the recovery room in good condition. There were no complications during this procedure. Surgical Findings: Unable to gain access beyond the distal ureter secondary to ureteral narrowing Complications Complications: No Admit VTE Documentation VTE Present on Admission: Yes VTE Mechan Device Prophylaxis: SCD's VTE Pharm Prophylaxis ordered?: Yes
[2025-01-25] MEDS: Lactated Ringers 1,000 ML 15 ML IV (11:01)
--- NOTE | 2025-01-25 11:41 | PCM.PRE.AN2 ---
ASA Classification* ASA Classification ASA Classification: 3 Assessment & Plan Anesthesia* Anesthesia Assessment Anesthesia Assessment: Discussed sedation and/or anesthesia options, risks, benefits, and alternatives with patient/parents/legal guardian/POA. Questions invited. The patient/parents/legal guardian/POA seems to understand and agrees to proceed with anesthesia plan. Reviewed the physical assessment, medical history, allergy history and patient home medications list prior to surgery/procedure/anesthetic and documented any changes. Performed airway and anesthesia risk assessments. Anesthesia Type Anesthesia Type: General History Source History Obtained from:: Patient and Chart Anesthesia Focused Assessment* Temperature: 98.0 F Pulse Rate: 73 Blood Pressure: 126/87 Respiratory Rate: 16 Pulse Ox: 100 Oxygen Delivery Method: Room Air Airway Assessment Mouth opens: >3 cm Mallampati Score: IV Teeth Condition: Missing (Patient is missing a couple teeth. Rest are tight.) Neck Range of motion (ROM): Full ROM Labs Anesthesia Preop lab: CBC WBC, (4.4-11.0) 16.2 K/mm3 H 01/09/25, 12:08 RBC, (4.2-5.4) 4.00 M/mm3 L 01/09/25, 12:08 Hgb, (12.0-15.0) 12.3 g/dL 01/09/25, 12:08 Hct, (37-47) 37.3 % 01/09/25, 12:08 Plt Count, (150-450) 407 K/mm3 01/09/25, 12:08 CHEMISTRY Potassium, (3.3-5.1) 4.5 mmol/L 01/04/25, 10:18 Sodium, (133-145) 139 mmol/L 01/04/25, 10:18 BUN, (4-19) 16 mg/dL 01/04/25, 10:18 Creatinine, (0.70-1.20) 1.33 mg/dL H 01/04/25, 10:18 Glucose, (70-99) 96 mg/dL 01/04/25, 10:18 POC Glucose, (74-106) 105 mg/dL 04/19/24, 17:33 TSH, (0.358-3.740) 3.000 uIU/mL 03/01/24, 10:27 COAG PT, (11.7-14.9) 13.5 SECONDS 04/19/24, 13:38 Pre-Assessment Diagnosis/Proposed Procedure Planned Operative Procedure(s): CYSTO LEFT URETEROSCOPY STONE BASKET EXTRACTION SAIDA LITHTRIPSY LEFT STENT INSERTION Anesthesia History 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 When Was Last Pacemaker Check QUESTION #4 FULL TEXT: You/Your Family Experience fever (hyperthermia) with Anesthesia Last Oral Intake Last Oral intake: Last Oral Intake NPO since 18:30 01/25/25 10:47 Meds taken in AM with sips of No 01/25/25 10:47 water? Meds patient instructed to take am of surgery PONV PONV - manufactured buildings supervisor: PONV - manufactured buildings supervisor Female Yes 01/08/25 14:39 HX of Motion Sickness Yes 01/08/25 14:39 HX of N/V After Surgery Yes 01/08/25 14:39 Non-Smoker Yes 01/08/25 14:39 Duration of Surgery greater Yes 01/08/25 14:39 than 60 minutes Number of Risk Factors 5 01/08/25 14:39 PONV Score Severe Risk 01/08/25 14:39 Height & Weight Height & Weight: Anesthesia: Height & Weight Height 5 ft 1 in 01/25/25 10:47 Weight: 98.2 kg 01/25/25 10:47 Body Mass Index (BMI) 40.8 01/25/25 10:47 Respiratory Assessment Respiratory Assessment - manufactured buildings supervisor: Respiratory Tract Infection Hx - manufactured buildings supervisor Hx Respiratory Tract Infection No 01/08/25 14:39 STOP Sleep Apnea STOP Sleep Apnea - manufactured buildings supervisor: STOP Sleep Apnea - manufactured buildings supervisor Hx Hypertension Yes: CONTROLLED WITH MED 01/08/25 14:39 Hx Sleep Apnea Yes 01/08/25 14:39 CPAP Yes 01/08/25 14:39 BIPAP No 01/08/25 14:39 Do you snore loudly (louder than talking or can be heard Do you often feel tired/ fatigued/ sleepy during daytime? Has anyone observed you stop breathing during sleep? STOP Results Positive 01/08/25 14:39 QUESTION #5 FULL TEXT : Do you snore loudly (louder than talking or can be heard through closed doors)? 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 Use History - manufactured buildings supervisor: Tobacco Use History - manufactured buildings supervisor Tobacco Use Smoking Status Current some day smoker 01/08/25 14:39 Hx Tobacco Use Yes 01/08/25 14:39 Years Smoking Packs Smoked per Day Smoking Cessation Date was within the last 15 years Hx Smoking Cessation Date 01/23/24 05/22/24 15:19 Hx Smoking Cessation Yes 01/08/25 14:39 Counseling Any additional information?: Yes Smoking Status: Current every day smoker (Patient did not smoke today.) Hematologic Medial History Hematologic Hx - manufactured buildings supervisor: 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 Specify any problems Hx of Preganancy in last 3 No 01/08/25 14:39 Months Nurse Filling Out Transfusion DSCHRIBER 01/08/25 14:39 & Questions: Date: 01/08/25 01/08/25 14:39 Time: 14:40 01/08/25 14:39 Patient unable to answer at this time (ie. confused, unrespo /Reproduction History /Reproductive History - manufactured buildings supervisor: /Reproductive Hx- manufactured buildings supervisor Hx Now No 01/08/25 14:39 Gestational Age (in weeks): EDC: Hx Hx Para Hx Section SAB No 01/08/25 14:39 Does the father of the baby or his family experience fever w Father of the baby Malignant Hypertension history comment Active Medications Active Medications: Current Medications Generic Name Dose Route Start Last Admin Trade Name Freq PRN Reason Stop Dose Admin Lactated Ringer's 1,000 mls @ 15 mls/hr 01/25/25 10:45 01/25/25 11:01 IV 15 mls/hr .Q48H LARON Administration PFSH Medical History Post-menopausal Wears glasses Depression Anxiety Insulin dependent diabetes mellitus History of renal disease Fatty liver Restless legs Back pain Migraine headache Syncope Difficulty swallowing Dietary restriction History of hiatal hernia History of ulceration Gastric reflux Smoker CPAP (continuous positive airway pressure) dependence Shortness of breath on exertion Leg cramps History of pain when walking History of edema History of echocardiogram History of stress test Cardiology follow-up encounter Chest pain IBS (irritable bowel syndrome) History of non-ST elevation myocardial infarction (NSTEMI) (~03/2024) Cervical cancer Myocardial infarction Gout Asthma Hypertension Home Medications ?Medication ?Instructions ?Recorded ?Last Taken ?Type compress.stocking,knee,reg,lrg #2 ea 07/23/23 Unknown Rx aspirin 81 mg tablet,delayed 81 mg PO DAILY 05/04/24 05/17/24 History release carvedilol 3.125 mg tablet 3.125 mg PO Q12H 05/04/24 05/17/24 History lorazepam 0.5 mg tablet 0.5 mg PO DAILY PRN anxiety #30 05/04/24 Unknown Rx tabs nitroglycerin 0.4 mg sublingual 0.4 mg sublingual ONCE PRN chest 05/04/24 Unknown Rx tablet pain #20 tabs clobetasol 0.05 % topical cream 1 applic topical QDAY PRN SKIN 05/18/24 Unknown History ticagrelor 90 mg tablet (Brilinta) 90 mg PO BID 05/29/24 01/06/25 History insulin glargine 100 unit/mL (3 30 unit subcut QAM 08/29/24 Unknown History mL) subcutaneous pen (Lantus Solostar U-100 Insulin) pen needle, diabetic 31 gauge x #100 ea 11/01/24 Unknown Rx 1/4 (CareFine Pen Needle) rosuvastatin 10 mg tablet 10 mg PO QDAY #90 tabs 11/10/24 Unknown Rx isosorbide mononitrate 30 mg 30 mg PO BID #60 tabs 11/16/24 Unknown Rx tablet,extended release 24 hr cefdinir 300 mg capsule 300 mg PO BID #20 caps 01/05/25 Unknown Rx phenazopyridine 200 mg tablet 200 mg PO TID #30 tabs 01/05/25 Unknown Rx (Pyridium) finerenone 10 mg tablet (Kerendia) 10 mg PO QHS 01/08/25 Unknown History tirzepatide 5 mg/0.5 mL 5 mg subcut MO 01/08/25 01/01/25 History subcutaneous pen injector (Mounjaro) Allergy/AdvReac Type Severity Reaction Status Date / Time empagliflozin (From Allergy Severe Vomiting Verified 01/25/25 10:45 Jardiance) metformin AdvReac Severe Kidney Verified 01/25/25 10:45 Stones/High Uric Acid semaglutide (From Rybelsus) AdvReac Severe Nausea Verified 01/25/25 10:45 Family History Mother Arthritis Heart disease Psoriasis Cancer lymphoma, cervical Hypercholesterolemia Hypertension Depression Autoimmune disorder defect Hormone disorder Grandmother Arthritis Heart disease Hypercholesterolemia Hypertension Depression Psychiatric care Mental disorder Alcoholism Anxiety Grandmother Diabetes type 2 Alcoholism Anxiety Grandfather Depression Mental disorder Psychiatric care Alcoholism Anxiety Father Alcoholism Anxiety Grandfather Alcoholism Anxiety Other Asthma CVA (cerebral vascular accident) Cervical cancer Endometriosis High cholesterol Liver disease Respiratory disease Suicide attempt Surgical History History of cardiac catheterization Hx of colonoscopy History of esophagogastroduodenoscopy (EGD) History of liver biopsy Stented coronary artery (~03/2024) History of elbow surgery H/O angioplasty H/O skin graft History of cholecystectomy Social History household members: none housing: house current occupational status: employed current occupation: [employer] Smoking Status: Current every day smoker (Patient did not smoke today.) tobacco type: cigarettes Tobacco: How many years used: 30 alcohol intake: never substance use type: does not use well-balanced diet: other details: keto, no soda caffeine: No what type of physical activity do you participate in: other details: Infrequent seatbelt use: always do you feel safe at home: Yes Review of Systems (Anesthesia) ROS Narrative System reviewed and no additional complaints, except as documented. Physical Exam Resp clear to auscultation bilaterally
[2025-01-25] MEDS: Cefazolin 1 GM/5 ML Vial 2 GM IV (12:48)
[2025-01-25] MEDS: Midazolam 2 MG/2 ML Syringe IV (12:53)
[2025-01-25] MEDS: Lidocaine 1% (5 ml sdv) 5 ML Vial IV (12:53)
[2025-01-25] MEDS: fentaNYL 100 MCG/2 ML Ampul IV (13:03)
--- NOTE | 2025-01-25 13:37 | PCM.POST.ANE ---
Anesthesia: Postop Eval I Current Vital Signs Temperature: 98.5 F Pulse Rate: 68 Blood Pressure: 105/75 Respiratory Rate: 12 Pulse Ox: 92 Oxygen Delivery Method: Room Air Assessment Airway patent: Yes Spontaneous unlabored respirations: Yes Mental status: Asleep nausea: No Vomiting: No Anesthesia Complication: No Fluid Hydration Crystalloid volume administer (ml): 600 Total IV fluid infused: 600 Progress Note Anesthesia document: Postop Eval 1 completed: Yes
--- NOTE | 2025-01-25 15:13 | SUR.PHASEII ---
PATIENT VERBALIZED SHE WAS UPSET WITH HER PROVIDER DR. VUONG. I ASKED PATIENT IF SHE WANTED TO SPEAK TO A PATIENT ADVOCATE OR THE SURGERY DIRECTOR AND SHE DECLINED.
--- NOTE | 2025-01-25 17:22 | POSTOPAN2_ITS ---
Anesthesia Postop Eval I Sum Postop Eval Completion status Anesthesia document: Postop Eval 1 completed: Yes Anesthesia Postop Eval I Summary Anesthesia Postop Eval I Summary: Anesthesia Postop Eval I: Assessment Summary Airway patent Yes 01/25/25 13:38 TOOL TENDER.SHOF Spontaneous unlabored Yes 01/25/25 13:38 TOOL TENDER.SHOF respirations Mental status Asleep 01/25/25 13:38 TOOL TENDER.SHOF nausea No 01/25/25 13:38 TOOL TENDER.SHOF Vomiting No 01/25/25 13:38 TOOL TENDER.SHOF Anesthesia Postop Eval I: Fluid Summary Crystalloid volume administer 600 01/25/25 13:38 TOOL TENDER.SHOF (ml) Colloids volume administered ( ml) Blood Product volume administered (ml) Total IV fluid infused 600 01/25/25 13:38 TOOL TENDER.SHOF Anesthesia Postop Eval I: Summary Notes Anesthesia Complication No 01/25/25 13:38 TOOL TENDER.SHOF Anesthesia Complication Comment: Post-operative progress note Anesthesia: Postop Eval II Evaluation Mental status: Awake and Calm Pain Level: 2 nausea: No Vomiting: No Complications Anesthesia Complication: No
--- NOTE | 2025-01-25 17:22 | PCM.POSTANE2 ---
Anesthesia Postop Eval I Sum Postop Eval Completion status Anesthesia document: Postop Eval 1 completed: Yes Anesthesia Postop Eval I Summary Anesthesia Postop Eval I Summary: Anesthesia Postop Eval I: Assessment Summary Airway patent Yes 01/25/25 13:38 ORIENTATION AND MOBILITY SPECIALIST.SHOF Spontaneous unlabored Yes 01/25/25 13:38 ORIENTATION AND MOBILITY SPECIALIST.SHOF respirations Mental status Asleep 01/25/25 13:38 ORIENTATION AND MOBILITY SPECIALIST.SHOF nausea No 01/25/25 13:38 ORIENTATION AND MOBILITY SPECIALIST.SHOF Vomiting No 01/25/25 13:38 ORIENTATION AND MOBILITY SPECIALIST.SHOF Anesthesia Postop Eval I: Fluid Summary Crystalloid volume administer 600 01/25/25 13:38 ORIENTATION AND MOBILITY SPECIALIST.SHOF (ml) Colloids volume administered ( ml) Blood Product volume administered (ml) Total IV fluid infused 600 01/25/25 13:38 ORIENTATION AND MOBILITY SPECIALIST.SHOF Anesthesia Postop Eval I: Summary Notes Anesthesia Complication No 01/25/25 13:38 ORIENTATION AND MOBILITY SPECIALIST.SHOF Anesthesia Complication Comment: Post-operative progress note Anesthesia: Postop Eval II Evaluation Mental status: Awake and Calm Pain Level: 2 nausea: No Vomiting: No Complications Anesthesia Complication: No
== END 2025-01-25 15:20 | disposition home or self-care (01) ==
LOC: SDC 10:28 → AC 10:29
PROVIDERS: PCP Internal Medicine; Referring Provider Urology; Visit Provider Urology
PROC: 0TJ98ZZ Inspection of Ureter, Via Natural or Artificial Opening Endoscopic (ICD-10-PCS; CPT 52352; principal; 2025-01-25 12:00)
DX: N20.1 Calculus of ureter (principal); E11.22 Type 2 diabetes mellitus with diabetic chronic kidney disease; Z79.4 Long term (current) use of insulin; N39.0 Urinary tract infection, site not specified; Z87.891 Personal history of nicotine dependence; Z79.899 Other long term (current) drug therapy; N39.46 Mixed incontinence; N32.81 Overactive bladder; Z95.5 Presence of coronary angioplasty implant and graft; N18.2 Chronic kidney disease, stage 2 (mild); I12.9 Hypertensive chronic kidney disease with stage 1 through stage 4 chronic kidney disease, or unspecified chronic kidney disease; I25.2 Old myocardial infarction; Z90.49 Acquired absence of other specified parts of digestive tract; Z79.82 Long term (current) use of aspirin
CPT/HCPCS: 52332; 52351; 00910; 76000; 82962; 85027; C1769; C2617; J2405

== ENCOUNTER 2025-02-08 09:52 | Day surgery (SDC) | payer OTHER, SELFPAY ==
[2024-09-08 08:26] VITALS: BMI 41.0
--- NOTE | 2025-02-02 15:23 | PAT.ANE_ITS ---
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 When Was Last Pacemaker Check QUESTION #4 FULL TEXT: You/Your Family Experience fever (hyperthermia) with Anesthesia Last Oral Intake Last Oral intake: Last Oral Intake NPO since Meds taken in AM with sips of water? Meds patient instructed to take am of surgery PONV PONV - battery wrecker operator: PONV - battery wrecker operator Female Yes 02/02/25 11:52 HX of Motion Sickness Yes 02/02/25 11:52 HX of N/V After Surgery No 02/02/25 11:52 Non-Smoker Yes 02/02/25 11:52 Duration of Surgery greater No 02/02/25 11:52 than 60 minutes Number of Risk Factors 3 02/02/25 11:52 PONV Score Moderate Risk 02/02/25 11:52 Height & Weight Height & Weight: Anesthesia: Height & Weight Height 5 ft 1 in 01/25/25 10:47 Respiratory Assessment Respiratory Assessment - battery wrecker operator: Respiratory Tract Infection Hx - battery wrecker operator Hx Respiratory Tract Infection No 02/02/25 11:52 STOP Sleep Apnea STOP Sleep Apnea - battery wrecker operator: STOP Sleep Apnea - battery wrecker operator Hx Hypertension Yes 02/02/25 11:52 Hx Sleep Apnea Yes 02/02/25 11:52 CPAP No 02/02/25 11:52 BIPAP No 02/02/25 11:52 Do you snore loudly (louder than talking or can be heard Do you often feel tired/ fatigued/ sleepy during daytime? Has anyone observed you stop breathing during sleep? STOP Results Positive 02/02/25 11:52 QUESTION #5 FULL TEXT : Do you snore loudly (louder than talking or can be heard through closed doors)? 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 Use History - battery wrecker operator: Tobacco Use History - battery wrecker operator Tobacco Use Smoking Status Current some day smoker 02/02/25 11:52 Hx Tobacco Use Yes 02/02/25 11:52 Years Smoking Packs Smoked per Day Smoking Cessation Date was within the last 15 years Hx Smoking Cessation Date 02/02/25 11:52 Hx Smoking Cessation Yes 02/02/25 11:52 Counseling Hematologic Medial History Hematologic Hx - battery wrecker operator: Hematologic Medical Hx - registered physical therapist Hx of Blood Transfusion No 02/02/25 11:52 Hx of Transfusion in last 3 No 02/02/25 11:52 Months Date of Last Transfusion (if within last 3 months) Ever experience any problems No 02/02/25 11:52 with transfusion(s)? Specify any problems Hx of Preganancy in last 3 No 02/02/25 11:52 Months Nurse Filling Out Transfusion VCHRISTIN 02/02/25 11:52 & Questions: Date: 02/02/25 02/02/25 11:52 Time: 11:54 02/02/25 11:52 Patient unable to answer at this time (ie. confused, unrespo /Reproduction History /Reproductive History - battery wrecker operator: /Reproductive Hx- battery wrecker operator Hx Now No 02/02/25 11:52 Gestational Age (in weeks): EDC: Hx Hx Para Hx Section SAB No 02/02/25 11:52 Does the father of the baby or his family experience fever w Father of the baby Malignant Hypertension history comment PFSH Medical History Post-menopausal Wears glasses Depression Anxiety Insulin dependent diabetes mellitus History of renal disease Fatty liver Restless legs Back pain Migraine headache Syncope Difficulty swallowing Dietary restriction History of hiatal hernia History of ulceration Gastric reflux Smoker CPAP (continuous positive airway pressure) dependence Shortness of breath on exertion Leg cramps History of pain when walking History of edema History of echocardiogram History of stress test Cardiology follow-up encounter Chest pain IBS (irritable bowel syndrome) History of non-ST elevation myocardial infarction (NSTEMI) (~03/2024) Cervical cancer Myocardial infarction Gout Asthma Hypertension Home Medications ?Medication ?Instructions ?Recorded ?Last Taken ?Type compress.stocking,knee,reg,lrg #2 ea 07/23/23 Unknown Rx aspirin 81 mg tablet,delayed 81 mg PO DAILY 05/04/24 0 05/17/24 History release carvedilol 3.125 mg tablet 3.125 mg PO Q12H 05/04/24 0 05/17/24 History lorazepam 0.5 mg tablet 0.5 mg PO DAILY PRN anxiety #30 05/04/24 Unknown Rx tabs nitroglycerin 0.4 mg sublingual 0.4 mg sublingual ONCE PRN chest 05/04/24 Unknown Rx tablet pain #20 tabs clobetasol 0.05 % topical cream 1 applic topical QDAY PRN SKIN 05/18/24 Unknown History ticagrelor 90 mg tablet (Brilinta) 90 mg PO BID 01/06/25 History insulin glargine 100 unit/mL (3 30 unit subcut QAM 10/16 Unknown History mL) subcutaneous pen (Lantus Solostar U-100 Insulin) pen needle, diabetic 31 gauge x #100 ea 11/01/24 Unkno wn Rx 02/25 (CareFine Pen Needle) rosuvastatin 10 mg tablet 10 mg PO QDAY #90 tabs 11/10 Unknown Rx phenazopyridine 200 mg tablet 200 mg PO TID #30 tabs 1 03/07/24 Unknown Rx (Pyridium) finerenone 10 mg tablet (Kerendia) 10 mg PO QHS Unknown History tirzepatide 5 mg/0.5 mL 5 mg subcut WE 01/08/2512/23 History subcutaneous pen injector (Mounjaro) estradiol 0.01% (0.1 mg/gram) 1 g vaginal 3XW 3 months #42.5 01/25/25 Unknown Rx vaginal cream grams ondansetron 4 mg disintegrating 4 mg PO Q8H PRN nausea and 01/25/25 Unknown Rx tablet vomiting #10 tabs oxycodone-acetaminophen 5 mg-325 1 tab PO Q8H PRN pain 3 days #10 01/25/25 Unknown Rx mg tablet tabs phenazopyridine 200 mg tablet 200 mg PO TID PRN pain # 30 tabs 01/25/25 Unknown Rx isosorbide mononitrate 30 mg 30 mg PO DAILY 02/02/25 U nknown History tablet,extended release 24 hr tamsulosin 0.4 mg capsule 0.4 mg PO DAILY 02/02/25 Unk nown History Allergy/AdvReac Type Severity Reaction Status Date / Time empagliflozin (From Allergy Severe Vomiting Verified 02/02/25 11:43 Jardiance) metformin AdvReac Severe Kidney Verified 02/02/25 11:43 Stones/High Uric Acid semaglutide (From Rybelsus) AdvReac Severe Nausea Verified 02/02/25 11:43 Family History Mother Arthritis Heart disease Psoriasis Cancer lymphoma, cervical Hypercholesterolemia Hypertension Depression Autoimmune disorder defect Hormone disorder Grandmother Arthritis Heart disease Hypercholesterolemia Hypertension Depression Psychiatric care Mental disorder Alcoholism Anxiety Grandmother Diabetes type 2 Alcoholism Anxiety Grandfather Depression Mental disorder Psychiatric care Alcoholism Anxiety Father Alcoholism Anxiety Grandfather Alcoholism Anxiety Other Asthma CVA (cerebral vascular accident) Cervical cancer Endometriosis High cholesterol Liver disease Respiratory disease Suicide attempt Surgical History (Updated 02/02/25 @ 11:51 by Savana Patel) History of cystoscopy History of cardiac catheterization Hx of colonoscopy History of esophagogastroduodenoscopy (EGD) History of liver biopsy Stented coronary artery (~03/2024) History of elbow surgery H/O angioplasty H/O skin graft History of cholecystectomy Social History household members: none housing: house current occupational status: employed 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 Sinus rhythm. Incomplete right bundle branch block. Stress test pertinent findings: 11/14/2024. Negative. 72% EF. Echo (EF%) pertinent findings: 06/08/2024. EF 60%. Normal size function Consult pertinent findings: Cardiology 08/29/2024. CAD. Chronic. Stent mid to proximal LAD. 04/13/2024 check stress test. Continue medical therapy otherwise. Hypertension chronic well-controlled. Recommendation Anesthesia Recommendation Anesthesia recommendation: OPTIMIZED for anesthesia
[2025-02-08] VITALS (15 sets, daily range): BP systolic 98–133; BP diastolic 58–93; PULSE 63–75; RESP 16–18; TEMP 36.1–36.4; O2SAT 92–100; BMI 39.1
--- NOTE | 2025-02-08 10:31 | PCM.HP.STD ---
[facility] - General General Date of Service: 02/08/25 Chief Complaint: Left flank pain HPI Narrative DENA GAGE, is a 49 F who presents for repeat left ureteroscopy with laser lithotripsy and stone extraction with left ureteral stent change. She had a left ureteral stent placed approximately 2 weeks ago when access was unable to be obtained to the stone secondary to ureteral narrowing. She now presents for definitive intervention. Informed consent has been obtained. She has significant discomfort from the ureteral stent that is indwelling at this time. [facility] Medical History Post-menopausal Wears glasses Depression Anxiety Insulin dependent diabetes mellitus History of renal disease Fatty liver Restless legs Back pain Migraine headache Syncope Difficulty swallowing Dietary restriction History of hiatal hernia History of ulceration Gastric reflux Smoker CPAP (continuous positive airway pressure) dependence Shortness of breath on exertion Leg cramps History of pain when walking History of edema History of echocardiogram History of stress test Cardiology follow-up encounter Chest pain IBS (irritable bowel syndrome) History of non-ST elevation myocardial infarction (NSTEMI) (~03/2024) Cervical cancer Myocardial infarction Gout Asthma Hypertension Home Medications ?Medication ?Instructions ?Recorded ?Last Taken ?Type compress.stocking,knee,reg,lrg #2 ea 07/23/23 Unknown Rx aspirin 81 mg tablet,delayed 81 mg PO DAILY 05/04/24 02/07/25 History release carvedilol 3.125 mg tablet 3.125 mg PO Q12H 05/04/24 02/07/25 History lorazepam 0.5 mg tablet 0.5 mg PO DAILY PRN anxiety #30 05/04/24 02/07/25 Rx tabs nitroglycerin 0.4 mg sublingual 0.4 mg sublingual ONCE PRN chest 05/04/24 02/07/25 Rx tablet pain #20 tabs clobetasol 0.05 % topical cream 1 applic topical QDAY PRN SKIN 05/18/24 02/07/25 History ticagrelor 90 mg tablet (Brilinta) 90 mg PO BID 05/29/24 02/03/25 History pen needle, diabetic 31 gauge x #100 ea 11/01/24 Unknown Rx 1/4 (CareFine Pen Needle) rosuvastatin 10 mg tablet 10 mg PO QDAY #90 tabs 11/10/24 02/07/25 Rx phenazopyridine 200 mg tablet 200 mg PO TID #30 tabs 01/05/25 02/07/25 Rx (Pyridium) finerenone 10 mg tablet (Kerendia) 10 mg PO QHS 01/08/25 02/07/25 History tirzepatide 5 mg/0.5 mL 5 mg subcut WE 01/08/25 01/31/25 History subcutaneous pen injector (Mounjaro) estradiol 0.01% (0.1 mg/gram) 1 g vaginal 3XW 3 months #42.5 01/25/25 02/07/25 Rx vaginal cream grams ondansetron 4 mg disintegrating 4 mg PO Q8H PRN nausea and 01/25/25 02/07/25 Rx tablet vomiting #10 tabs oxycodone-acetaminophen 5 mg-325 1 tab PO Q8H PRN pain 3 days #10 01/25/25 02/07/25 Rx mg tablet tabs phenazopyridine 200 mg tablet 200 mg PO TID PRN pain #30 tabs 01/25/25 02/07/25 Rx isosorbide mononitrate 30 mg 30 mg PO DAILY 02/02/25 02/07/25 History tablet,extended release 24 hr tamsulosin 0.4 mg capsule 0.4 mg PO DAILY 02/02/25 02/07/25 History insulin glargine 100 unit/mL (3 30 unit (0.3 mL) subcut QAM #27 mL 02/08/25 Unknown Rx mL) subcutaneous pen (Lantus Solostar U-100 Insulin) Allergy/AdvReac Type Severity Reaction Status Date / Time empagliflozin (From Allergy Severe Vomiting Verified 02/02/25 11:43 Jardiance) metformin AdvReac Severe Kidney Verified 02/02/25 11:43 Stones/High Uric Acid semaglutide (From Rybelsus) AdvReac Severe Nausea Verified 02/02/25 11:43 Family History Mother Arthritis Heart disease Psoriasis Cancer lymphoma, cervical Hypercholesterolemia Hypertension Depression Autoimmune disorder defect Hormone disorder Grandmother Arthritis Heart disease Hypercholesterolemia Hypertension Depression Psychiatric care Mental disorder Alcoholism Anxiety Grandmother Diabetes type 2 Alcoholism Anxiety Grandfather Depression Mental disorder Psychiatric care Alcoholism Anxiety Father Alcoholism Anxiety Grandfather Alcoholism Anxiety Other Asthma CVA (cerebral vascular accident) Cervical cancer Endometriosis High cholesterol Liver disease Respiratory disease Suicide attempt Surgical History History of cystoscopy History of cardiac catheterization Hx of colonoscopy History of esophagogastroduodenoscopy (EGD) History of liver biopsy Stented coronary artery (~03/2024) History of elbow surgery H/O angioplasty H/O skin graft History of cholecystectomy Social History household members: none housing: house current occupational status: employed current occupation: [employer] Smoking Status: Current every day smoker (Patient did not smoke today.) tobacco type: cigarettes Tobacco: How many years used: 30 alcohol intake: never substance use type: does not use well-balanced diet: other details: keto, no soda caffeine: No what type of physical activity do you participate in: other details: Infrequent seatbelt use: always do you feel safe at home: Yes ROS Constitutional Constitutional: Denies chills or fever(s) Eyes Eyes: Reports systems reviewed and no addt'l complaints, except as documented ENT HEENT: Reports systems reviewed and no addt'l complaints, except as documented Cardiovascular Cardiovascular: Denies chest pain or dyspnea Respiratory/Chest Respiratory/Chest: Denies cough or dyspnea Gastrointestinal Gastrointestinal: Reports abdominal pain; Denies vomiting Genitourinary Genitourinary: Reports flank pain, hematuria and urinary urgency Musculoskeletal Musculoskeletal: Reports back pain; Denies abnormal gait or difficulty walking Integumentary Integumentary: Reports systems reviewed and no addt'l complaints, except as documented Neurologic Neurologic: Reports systems reviewed and no addt'l complaints, except as documented Psychiatric Psychiatric: Reports systems reviewed and no addt'l complaints, except as documented Endocrine Endocrinology: Reports systems reviewed and no addt'l complaints, except as documented Hematologic/Lymphatic Hematologic/Lymphatic: Reports systems reviewed and no addt'l complaints, except as documented Allergic/Immunologic Allergic/Immunologic: Reports systems reviewed and no addt'l complaints, except as documented Patient's Goals Of Care . What would you like to achieve or improve as a result of your hospital stay?: N/A Physical Exam Const oriented x3 and no apparent distress Resp normal respiratory effort Cardio regular rate GI soft to palpation and non-tender Bladder / Kidney Exam: No catheter in place and CVA tenderness left Extremity normal to inspection Assessment & Plan Assessment/Plan (1) Ureteral calculus: PLAN: Plan Proceed with intervention as scheduled Cystoscopy, left ureteroscopy, laser lithotripsy, stone basket extraction, left ureteral stent change Questions have been answered
--- NOTE | 2025-02-08 10:36 | DCINST_ITS ---
Discharge Instructions Diet Discharge Diet: No restrictions Activity Discharge Activity: Return to Normal Activity Dressing / Incision Call your doctor if you observe: Fever of 101 or Higher, Inability to urinate and Inability to have a bowel movement Follow Up Care Please Follow Up With: Estella Calero MD Test Results: Test results from this visit will be discussed in further detail at your follow- up appointment, if applicable. Discharge Plan Admission Attending Provider: Estella Calero Primary Care Provider: Casimiro Kelly Instructions Print Language: Burundian Discharge Orders/Prescriptions Prescriptions: New oxycodone-acetaminophen 5-325 mg tablet 1 tab PO Q8H PRN (Reason: pain) 3 Days Qty: 10 0RF cephalexin 500 mg capsule 500 mg PO Q12 3 Days Qty: 6 0RF ondansetron 4 mg tablet,disintegrating 4 mg PO Q8H PRN (Reason: nausea and vomiting) Qty: 10 0RF Continued (DME) compress.stocking,knee,reg,lrg Misc See Rx Instructions .MEDSUPPLY Qty: 2 1RF Rx Instructions: wear daily for venous insufficiency 20-30 mmHg carvedilol 3.125 mg tablet 3.125 mg PO Q12H aspirin 81 mg tablet,delayed release (DR/EC) 81 mg PO DAILY nitroglycerin 0.4 mg tablet, sublingual 0.4 mg sublingual ONCE PRN (Reason: chest pain) Qty: 20 0RF lorazepam 0.5 mg tablet 0.5 mg PO DAILY PRN (Reason: anxiety) Qty: 30 0RF Patient Comments: last taken 2 weeks ago clobetasol 0.05 % cream 1 applic topical QDAY PRN (Reason: SKIN) Brilinta 90 mg tablet 90 mg PO BID Patient Comments: LAST DOSE 02/03/2025 PRIOR TO OR rosuvastatin 10 mg tablet 10 mg PO QDAY Qty: 90 1RF phenazopyridine [Pyridium] 200 mg tablet 200 mg PO TID Qty: 30 3RF Kerendia 10 mg tablet 10 mg PO QHS Mounjaro 5 mg/0.5 mL pen injector 5 mg subcut WE Patient Comments: LASAT DOSE 01/31/2025 oxycodone-acetaminophen 5-325 mg tablet 1 tab PO Q8H PRN (Reason: pain) 3 Days Qty: 10 0RF ondansetron 4 mg tablet,disintegrating 4 mg PO Q8H PRN (Reason: nausea and vomiting) Qty: 10 0RF phenazopyridine 200 mg tablet 200 mg PO TID PRN (Reason: pain) Qty: 30 3RF tamsulosin 0.4 mg capsule 0.4 mg PO DAILY isosorbide mononitrate 30 mg tablet extended release 24 hr 30 mg PO DAILY (DME) pen needle, diabetic [CareFine Pen Needle] 31 gauge x 1/4 needle See Rx Instructions .Route Qty: 100 1RF Rx Instructions: once daily estradiol 0.01 % (0.1 mg/gram) cream 1 g vaginal 3XW 90 Days Qty: 42.5 3RF insulin glargine [Lantus Solostar U-100 Insulin] 100 unit/mL (3 mL) insulin pen 30 unit subcut QAM Qty: 27 1RF Referrals / Follow Up: Casimiro Kelly MD [Primary Care Provider, Internal Medicine] Disposition Disposition (needs filled in before D/C Order can be placed): Home, Self Care
--- NOTE | 2025-02-08 11:01 | PCM.OPRPT ---
Multi Select Codes Urology Urology Charge Forwarding-multi code: [id number] Cysto w/ Simple Removal Stone and Stent and [id number] Cysto/Uretero w/Lithotripsy Operative Report (Standard) Operative Information Date of Procedure: 02/08/25 Pre-Operative Diagnosis: Left ureteral calculus Post-Operative Diagnosis: Same Surgery/Procedure Performed: Cystoscopy, left ureteroscopy, laser lithotripsy extensive, left ureteral stent change tower director: No Type of Anesthesia: General RN Documented Start/Stop Times: Operation Date: 02/08/25 11:40 Case Time Into Pre-Op 02/08/25 09:57 Anesthesia Start 02/08/25 11:13 Into Room 02/08/25 11:13 Procedure Start 02/08/25 11:26 Procedure End 02/08/25 12:49 Anesthesia End 02/08/25 12:52 Out of Room 02/08/25 12:52 Into Recovery 02/08/25 12:55 Into Phase II Recovery 02/08/25 14:59 Out of Recovery 02/08/25 14:59 Out of Phase II 02/08/25 15:40 Procedure Start Time: 11:26 Procedure Stop Time: 12:49 Select all DRAINS/GRAFTS/IMPLANTS that apply: Drains Drain details: 6 [place] 22 cm JJ stent Estimated Blood Loss: <5cc Specimen collected: No Description of surgery: The patient is a 49-year-old female here for definitive management of her large renal calculus with laser lithotripsy secondary to inability to stop anticoagulation. She has had a left indwelling ureteral stent for approximately 2 weeks secondary to ureteral narrowing. Informed consent was obtained. She was taken to the operating room and placed on the operating room table. Anesthesia monitored the head, neck, airway, IV access and vital signs throughout the case. Once anesthesia was appropriately administered she was placed into dorsolithotomy position was prepped and draped in usual sterile fashion. The cystoscope was inserted through the urethra under direct visualization into the urinary bladder. The ureteral stent was immediately observed and was already beginning to encrusted with calcium deposits. It was grasped with forceps and pulled the urethra where it was backloaded with a 0.035 Glidewire. The stent was then removed. A second Glidewire was then placed alongside the first. Flexible ureteroscope was placed over one of the wires leaving 1 for use as a safety wire. The ureter was still tight but access to the renal pelvis was obtained. There was debris and clot but no evidence of infection. The stone was identified. A 200 ?m laser fiber was utilized to dust the stone and breaking it into small fragments. This took quite some time and is intermittent flushing of the renal pelvis was needed and due to equipment issue, a new camera was obtained in the middle of the case. When all of the stone pieces were felt to be small enough to pass without difficulty, the entire length of the ureter was directly visualized finding no evidence of injury or remaining stone burden. The safety wire and the cystoscope were then utilized for placement of a 6 [place] 22 cm JJ stent with good positioning in the renal pelvis as well as the urinary bladder. The dust from the bladder was then irrigated. Her bladder was emptied and the cystoscope was then removed. She was awakened and taken to the recovery room in good condition. There were no complications during this procedure. Surgical Findings: Large renal pelvic stone, narrow ureter Complications Complications: No Admit VTE Documentation VTE Present on Admission: Yes VTE Mechan Device Prophylaxis: SCD's VTE Pharm Prophylaxis ordered?: Yes
--- NOTE | 2025-02-08 11:04 | PCM.PRE.AN2 ---
ASA Classification* ASA Classification ASA Classification: 2 Assessment & Plan Anesthesia* Anesthesia Assessment Anesthesia Assessment: Discussed sedation and/or anesthesia options, risks, benefits, and alternatives with patient/parents/legal guardian/POA. Questions invited. The patient/parents/legal guardian/POA seems to understand and agrees to proceed with anesthesia plan. Reviewed the physical assessment, medical history, allergy history and patient home medications list prior to surgery/procedure/anesthetic and documented any changes. Performed airway and anesthesia risk assessments. Anesthesia Type Anesthesia Type: General History Source History Obtained from:: Patient and Chart Anesthesia Focused Assessment* Temperature: 97.5 F Pulse Rate: 75 Blood Pressure: 125/75 Respiratory Rate: 16 Pulse Ox: 100 Oxygen Delivery Method: Room Air Airway Assessment Mouth opens: >3 cm Mallampati Score: II Teeth Condition: Intact Neck Range of motion (ROM): Full ROM Labs Anesthesia Preop lab: CBC WBC, (4.4-11.0) 16.2 K/mm3 H 01/09/25, 12:08 RBC, (4.2-5.4) 4.00 M/mm3 L 01/09/25, 12:08 Hgb, (12.0-15.0) 12.3 g/dL 01/09/25, 12:08 Hct, (37-47) 37.3 % 01/09/25, 12:08 Plt Count, (150-450) 407 K/mm3 01/09/25, 12:08 CHEMISTRY Potassium, (3.3-5.1) 4.5 mmol/L 01/04/25, 10:18 Sodium, (133-145) 139 mmol/L 01/04/25, 10:18 BUN, (4-19) 16 mg/dL 01/04/25, 10:18 Creatinine, (0.70-1.20) 1.33 mg/dL H 01/04/25, 10:18 Glucose, (70-99) 96 mg/dL 01/04/25, 10:18 POC Glucose, (74-106) 95 mg/dL 01/25/25, 10:52 TSH, (0.358-3.740) 3.000 uIU/mL 03/01/24, 10:27 COAG PT, (11.7-14.9) 13.5 SECONDS 02/26/25, 13:38 Pre-Assessment Diagnosis/Proposed Procedure Planned Operative Procedure(s): (L) Cysto, ureteroscopy, laser litho, Left stent change Anesthesia History 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 When Was Last Pacemaker Check QUESTION #4 FULL TEXT: You/Your Family Experience fever (hyperthermia) with Anesthesia Last Oral Intake Last Oral intake: Last Oral Intake NPO since 13:30 02/08/25 10:51 Meds taken in AM with sips of water? Meds patient instructed to take am of surgery PONV PONV - naval inspector: PONV - naval inspector Female Yes 02/02/25 11:52 HX of Motion Sickness Yes 02/02/25 11:52 HX of N/V After Surgery No 02/02/25 11:52 Non-Smoker Yes 02/02/25 11:52 Duration of Surgery greater No 02/02/25 11:52 than 60 minutes Number of Risk Factors 3 02/02/25 11:52 PONV Score Moderate Risk 02/02/25 11:52 Height & Weight Height & Weight: Anesthesia: Height & Weight Height 5 ft 1 in 02/08/25 10:51 Weight: 93.894 kg 02/08/25 10:51 Body Mass Index (BMI) 39.1 02/08/25 10:51 Respiratory Assessment Respiratory Assessment - naval inspector: Respiratory Tract Infection Hx - naval inspector Hx Respiratory Tract Infection No 02/02/25 11:52 STOP Sleep Apnea STOP Sleep Apnea - naval inspector: STOP Sleep Apnea - naval inspector Hx Hypertension Yes 02/02/25 11:52 Hx Sleep Apnea Yes 02/02/25 11:52 CPAP No 02/02/25 11:52 BIPAP No 02/02/25 11:52 Do you snore loudly (louder than talking or can be heard Do you often feel tired/ fatigued/ sleepy during daytime? Has anyone observed you stop breathing during sleep? STOP Results Positive 02/02/25 11:52 QUESTION #5 FULL TEXT : Do you snore loudly (louder than talking or can be heard through closed doors)? 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 Use History - naval inspector: Tobacco Use History - naval inspector Tobacco Use Smoking Status Current some day smoker 02/02/25 11:52 Hx Tobacco Use Yes 02/02/25 11:52 Years Smoking Packs Smoked per Day Smoking Cessation Date was within the last 15 years Hx Smoking Cessation Date Hx Smoking Cessation Yes 02/02/25 11:52 Counseling Hematologic Medial History Hematologic Hx - naval inspector: Hematologic Medical Hx - documentation consultant Hx of Blood Transfusion No 02/02/25 11:52 Hx of Transfusion in last 3 No 02/02/25 11:52 Months Date of Last Transfusion (if within last 3 months) Ever experience any problems No 02/02/25 11:52 with transfusion(s)? Specify any problems Hx of Preganancy in last 3 No 02/02/25 11:52 Months Nurse Filling Out Transfusion VCHRISTIN 02/02/25 11:52 & Questions: Date: 02/02/25 02/02/25 11:52 Time: 11:54 02/02/25 11:52 Patient unable to answer at this time (ie. confused, unrespo /Reproduction History /Reproductive History - naval inspector: /Reproductive Hx- naval inspector Hx Now No 02/02/25 11:52 Gestational Age (in weeks): EDC: Hx Hx Para Hx Section SAB No 02/02/25 11:52 Does the father of the baby or his family experience fever w Father of the baby Malignant Hypertension history comment Active Medications Active Medications: Current Medications Generic Name Dose Route Start Last Admin Trade Name Freq PRN Reason Stop Dose Admin Lactated Ringer's 1,000 mls @ 15 mls/hr 02/08/25 10:00 IV .Q48H LARON PFSH Medical History Post-menopausal Wears glasses Depression Anxiety Insulin dependent diabetes mellitus History of renal disease Fatty liver Restless legs Back pain Migraine headache Syncope Difficulty swallowing Dietary restriction History of hiatal hernia History of ulceration Gastric reflux Smoker CPAP (continuous positive airway pressure) dependence Shortness of breath on exertion Leg cramps History of pain when walking History of edema History of echocardiogram History of stress test Cardiology follow-up encounter Chest pain IBS (irritable bowel syndrome) History of non-ST elevation myocardial infarction (NSTEMI) (~03/2024) Cervical cancer Myocardial infarction Gout Asthma Hypertension Home Medications ?Medication ?Instructions ?Recorded ?Last Taken ?Type compress.stocking,knee,reg,lrg #2 ea 07/23/23 Unknown Rx aspirin 81 mg tablet,delayed 81 mg PO DAILY 05/04/24 02/07/25 History release carvedilol 3.125 mg tablet 3.125 mg PO Q12H 05/04/24 02/07/25 History lorazepam 0.5 mg tablet 0.5 mg PO DAILY PRN anxiety #30 05/04/24 02/07/25 Rx tabs nitroglycerin 0.4 mg sublingual 0.4 mg sublingual ONCE PRN chest 05/04/24 02/07/25 Rx tablet pain #20 tabs clobetasol 0.05 % topical cream 1 applic topical QDAY PRN SKIN 05/18/24 02/07/25 History ticagrelor 90 mg tablet (Brilinta) 90 mg PO BID 05/29/24 02/03/25 History pen needle, diabetic 31 gauge x #100 ea 11/01/24 Unknown Rx 1/4 (CareFine Pen Needle) rosuvastatin 10 mg tablet 10 mg PO QDAY #90 tabs 11/10/24 02/07/25 Rx phenazopyridine 200 mg tablet 200 mg PO TID #30 tabs 01/05/25 02/07/25 Rx (Pyridium) finerenone 10 mg tablet (Kerendia) 10 mg PO QHS 01/08/25 02/07/25 History tirzepatide 5 mg/0.5 mL 5 mg subcut WE 01/08/25 01/31/25 History subcutaneous pen injector (Mounjaro) estradiol 0.01% (0.1 mg/gram) 1 g vaginal 3XW 3 months #42.5 01/25/25 02/07/25 Rx vaginal cream grams ondansetron 4 mg disintegrating 4 mg PO Q8H PRN nausea and 01/25/25 02/07/25 Rx tablet vomiting #10 tabs oxycodone-acetaminophen 5 mg-325 1 tab PO Q8H PRN pain 3 days #10 01/25/25 02/07/25 Rx mg tablet tabs phenazopyridine 200 mg tablet 200 mg PO TID PRN pain #30 tabs 01/25/25 02/07/25 Rx isosorbide mononitrate 30 mg 30 mg PO DAILY 02/02/25 02/07/25 History tablet,extended release 24 hr tamsulosin 0.4 mg capsule 0.4 mg PO DAILY 02/02/25 02/07/25 History cephalexin 500 mg capsule 500 mg PO Q12 post-operative 3 02/08/25 Unknown Rx days #6 CAPSULES insulin glargine 100 unit/mL (3 30 unit (0.3 mL) subcut QAM #27 mL 02/08/25 Unknown Rx mL) subcutaneous pen (Lantus Solostar U-100 Insulin) ondansetron 4 mg disintegrating 4 mg PO Q8H PRN nausea and 02/08/25 Unknown Rx tablet vomiting #10 tabs oxycodone-acetaminophen 5 mg-325 1 tab PO Q8H PRN pain 3 days #10 02/08/25 Unknown Rx mg tablet tabs Allergy/AdvReac Type Severity Reaction Status Date / Time empagliflozin (From Allergy Severe Vomiting Verified 02/02/25 11:43 Jardiance) metformin AdvReac Severe Kidney Verified 02/02/25 11:43 Stones/High Uric Acid semaglutide (From Rybelsus) AdvReac Severe Nausea Verified 02/02/25 11:43 Family History Mother Arthritis Heart disease Psoriasis Cancer lymphoma, cervical Hypercholesterolemia Hypertension Depression Autoimmune disorder defect Hormone disorder Grandmother Arthritis Heart disease Hypercholesterolemia Hypertension Depression Psychiatric care Mental disorder Alcoholism Anxiety Grandmother Diabetes type 2 Alcoholism Anxiety Grandfather Depression Mental disorder Psychiatric care Alcoholism Anxiety Father Alcoholism Anxiety Grandfather Alcoholism Anxiety Other Asthma CVA (cerebral vascular accident) Cervical cancer Endometriosis High cholesterol Liver disease Respiratory disease Suicide attempt Surgical History History of cystoscopy History of cardiac catheterization Hx of colonoscopy History of esophagogastroduodenoscopy (EGD) History of liver biopsy Stented coronary artery (~03/2024) History of elbow surgery H/O angioplasty H/O skin graft History of cholecystectomy Social History household members: none housing: house current occupational status: employed current occupation: [employer] Smoking Status: Current every day smoker (Patient did not smoke today.) tobacco type: cigarettes Tobacco: How many years used: 30 alcohol intake: never substance use type: does not use well-balanced diet: other details: keto, no soda caffeine: No what type of physical activity do you participate in: other details: Infrequent seatbelt use: always do you feel safe at home: Yes Review of Systems (Anesthesia) ROS Narrative System reviewed and no additional complaints, except as documented.
[2025-02-08] MEDS: Lactated Ringers 1,000 ML 15 ML IV (11:09)
[2025-02-08] MEDS: Cefazolin 1 GM/5 ML Vial 2 GM IV (11:13)
[2025-02-08] MEDS: Lactated Ringers 1,000 ML 1000 ML IV (11:13)
[2025-02-08] MEDS: Lidocaine 1% (5 ml sdv) 5 ML Vial 10 ML IV (11:18)
[2025-02-08] MEDS: fentaNYL 100 MCG/2 ML Ampul IV (12:09)
--- NOTE | 2025-02-08 12:58 | PCM.POST.ANE ---
Anesthesia: Postop Eval I Current Vital Signs Temperature: 97 F Pulse Rate: 72 Blood Pressure: 98/58 Respiratory Rate: 16 Pulse Ox: 92 Assessment Airway patent: Yes Spontaneous unlabored respirations: Yes nausea: No Vomiting: No Anesthesia Complication: No Fluid Hydration Crystalloid volume administer (ml): 1,000 Total IV fluid infused: 1,000 Progress Note Anesthesia document: Postop Eval 1 completed: Yes
--- NOTE | 2025-02-08 14:46 | POSTOPAN2_ITS ---
Anesthesia Postop Eval I Sum Postop Eval Completion status Anesthesia document: Postop Eval 1 completed: Yes Anesthesia Postop Eval I Summary Anesthesia Postop Eval I Summary: Anesthesia Postop Eval I: Assessment Summary Airway patent Yes 02/08/25 12:58 [email or web address] Spontaneous unlabored Yes 02/08/25 12:58 [email or web address] respirations Mental status nausea No 02/08/25 12:58 [email or web address] Vomiting No 02/08/25 12:58 [email or web address] Anesthesia Postop Eval I: Fluid Summary Crystalloid volume administer 1,000 02/08/25 12:58 [email or web address] (ml) Colloids volume administered ( ml) Blood Product volume administered (ml) Total IV fluid infused 1,000 02/08/25 12:58 [email or web address] Anesthesia Postop Eval I: Summary Notes Anesthesia Complication No 02/08/25 12:58 [email or web address] Anesthesia Complication Comment: Post-operative progress note Anesthesia: Postop Eval II Evaluation Mental status: Awake and Calm Pain Level: 1 nausea: No Vomiting: No Complications Anesthesia Complication: No
--- NOTE | 2025-02-08 14:46 | PCM.POSTANE2 ---
Anesthesia Postop Eval I Sum Postop Eval Completion status Anesthesia document: Postop Eval 1 completed: Yes Anesthesia Postop Eval I Summary Anesthesia Postop Eval I Summary: Anesthesia Postop Eval I: Assessment Summary Airway patent Yes 02/08/25 12:58 [email or web address] Spontaneous unlabored Yes 02/08/25 12:58 [email or web address] respirations Mental status nausea No 02/08/25 12:58 [email or web address] Vomiting No 02/08/25 12:58 [email or web address] Anesthesia Postop Eval I: Fluid Summary Crystalloid volume administer 1,000 02/08/25 12:58 [email or web address] (ml) Colloids volume administered ( ml) Blood Product volume administered (ml) Total IV fluid infused 1,000 02/08/25 12:58 [email or web address] Anesthesia Postop Eval I: Summary Notes Anesthesia Complication No 02/08/25 12:58 [email or web address] Anesthesia Complication Comment: Post-operative progress note Anesthesia: Postop Eval II Evaluation Mental status: Awake and Calm Pain Level: 1 nausea: No Vomiting: No Complications Anesthesia Complication: No
== END 2025-02-08 15:40 | disposition home or self-care (01) ==
LOC: SDC 09:52 → AC 09:53
PROVIDERS: PCP Internal Medicine; Referring Provider Urology; Visit Provider Urology
PROC: 0TJ98ZZ Inspection of Ureter, Via Natural or Artificial Opening Endoscopic (ICD-10-PCS; CPT 52352; principal; 2025-02-08 11:30)
DX: N20.2 Calculus of kidney with calculus of ureter (principal); Z79.4 Long term (current) use of insulin; E11.9 Type 2 diabetes mellitus without complications; N13.5 Crossing vessel and stricture of ureter without hydronephrosis; F17.210 Nicotine dependence, cigarettes, uncomplicated; Z79.82 Long term (current) use of aspirin; I10 Essential (primary) hypertension; Z95.5 Presence of coronary angioplasty implant and graft; I25.2 Old myocardial infarction; Z99.89 Dependence on other enabling machines and devices
CPT/HCPCS: 52332; 52353; 00910; 76000; 82962; C1769; C2617; J2405